=== PATIENT | male | born 1935 | race Caucasian/White ===

== ENCOUNTER 2017-02-12 19:21 | Inpatient (IN) | payer OTHER ==
[2017-02-12 19:37] VITALS: BMI 24.3
--- NOTE | 2017-02-12 20:00 | PDOC ---
History of Present Illness <PriscilaSylwiaZo - Last Filed: 02/12/17 22:00> - General History Source: Patient Exam Limitations: No Limitations - History of Present Illness Initial Comments: 02/12/17 20:03 81-year-old male from home, with multiple medical problems, presents with 2 days of generalized weakness. Patient states he is so weak, he is unable to walk. Complains of nausea, however denies vomiting, diarrhea, Denies FUD. Denies fever. Denies cp or sob. Pt states he back pain has become so bad that he can't walk. <Lalito Márquez - Last Filed: 02/13/17 19:13> - General Chief Complaint: Lightheaded Stated Complaint: PAIN Time Seen by Provider: 02/12/17 19:55 Past History <PriscilaTonyZo - Last Filed: 02/12/17 22:00> - Past Medical History Anemia: No Cardiac Disorders: Yes (cardiac cath at [facility] 2011, AF) CVA: No Dementia: No Diabetes: Yes (diabetic neuropathy) GI Disorders: No Disorders: Yes (bph, but hx orthostatic hypotension on meds; resolved) HTN: Yes Hypercholesterolemia: Yes Kidney Stones: (enlarged prostate) Liver Disease: No Seizures: No - Surgical History Abdominal Surgery: No Appendectomy: No Cholecystectomy: No Lung Surgery: No Neurologic Surgery: No - Psycho/Social/Smoking Cessation Hx Anxiety: No Suicidal Ideation: No Smoking Status: No Smoking History: Former smoker Have you smoked in the past 12 months: No Number of Cigarettes Smoked Daily: 0 If you are a former smoker, when did you quit?: 1990 Information on smoking cessation initiated: No Hx Alcohol Use: No Drug/Substance Use Hx: No Substance Use Type: Alcohol Hx Substance Use Treatment: No <Lalito Márquez - Last Filed: 02/13/17 19:13> - Past Medical History Allergies/Adverse Reactions: Allergies Allergy/AdvReac Type Severity Reaction Status Date / Time No Known Allergies Allergy Verified 02/12/17 19:31 Home Medications: Ambulatory Orders Aspirin [ASA -] 81 mg PO DAILY 07/21/12 Enalapril Maleate [Vasotec -] 5 mg PO BID 07/21/12 Glimepiride 1 mg PO BID 07/21/12 Metformin HCl [Glucophage] 1,000 mg PO BID 07/21/12 Simvastatin [Zocor -] 40 mg PO HS 07/21/12 Warfarin Na [Coumadin -] 5 mg PO DAILY@1800 #0 tablet 07/28/12 Furosemide [Lasix -] 20 mg PO DAILY 12/05/15 Meclizine HCl 25 mg PO DAILY 06/05/16 Metoprolol Succinate [Toprol Xl -] 25 mg PO BID 06/05/16 Review of Systems - Review of Systems Able to Perform ROS?: Yes Is the patient limited Turkmen proficient: No Constitutional: Yes: Symptoms Reported, See HPI, Loss of Appetite. No: Chills, Diaphoresis, Fever, Malaise, Night Sweats, Weight Stable, Unexplained wgt Loss HEENTM: Yes: Symptoms Reported, See HPI. No: Eye Pain, Blurred Vision, Tearing , Recent change in vision, Ocular Prothesis, Ear Discharge, Nose Pain, Nose Congestion, Tinnitus Respiratory: Yes: Symptoms reported, See HPI. No: Cough, Orthopnea, Shortness of Breath, SOB with Exertion, SOB at Rest, Productive cough Cardiac (ROS): Yes: Symptoms Reported, See HPI. No: Chest Pain, Edema, Irregular Heart Rate, Other ABD/GI: Yes: Symptoms Reported, See HPI, Nausea, Poor Appetite, Vomiting. No: Abdominal Distended, Abd. Pain w/ defecation, Blood Streaked Bowels, Diarrhea, Poor Fluid Intake, Indigestion, Tarry Stools, Other : Yes: Symptoms Reported, See HPI. No: Burning, Dysuria, Discharge, Frequency , Flank Pain, Hematuria, Urgency Musculoskeletal: Yes: Symptoms Reported, See HPI. No: Back Pain, Gout, Joint Pain, Joint Swelling, Muscle Pain, Neck Pain Integumentary: Yes: Symptoms Reported, See HPI. No: Bruising, Change in Color, Change in Hair/Nails, Dryness, Flushing, Lesions, Lumps Neurological: Yes: Symptoms reported, See HPI, Weakness, Unsteady Gait. No: Headache, Numbness, Pre-Existing Deficit, Seizure, Ataxia, Dizziness Psychiatric: No: Anxiety, Depression, Frequent Crying, Stressors, Sleep Pattern Change Endocrine: Yes: Symptoms Reported, See HPI. No: Excessive Sweating, Flushing, Intolerance to Cold, Intolerance to Heat, Increased Hunger Hematologic/Lymphatic: Yes: Symptoms Reported, See HPI. No: Anemia, Blood Clots , Easy Bleeding, Lymph Node Abnormalities <Lalito Márquez - Last Filed: 02/13/17 19:13> *Physical Exam - Vital Signs Last Vital Signs Temp Pulse Resp BP Pulse Ox 98.3 F 76 20 160/141 100 02/12/17 19:31 02/12/17 19:31 02/12/17 19:31 02/12/17 19:31 02/12/17 20:25 <Zo Francois - Last Filed: 02/12/17 22:00> - Vital Signs Last Vital Signs Temp Pulse Resp BP Pulse Ox 98.3 F 76 20 160/141 100 02/12/17 19:31 02/12/17 19:31 02/12/17 19:31 02/12/17 19:31 02/12/17 19:31 - Physical Exam Comments: 02/12/17 20:12 *Physical Exam General Appearance: Yes: Appropriately Dressed. mild distress No: , Intoxicated HEENT: positive: EOMI, KEVIN, Normal ENT Inspection, Normal Voice, TMs Normal, Pharynx Normal. oral mucosa dry, negative: Pale Conjunctivae, Photophobia, Scleral Icterus (R), Scleral Icterus (L) Neck: positive: Trachea midline, Normal Thyroid, Supple. negative: Tender, Rigid, Carotid bruit, Stridor, Lymphadenopathy (R), Lymphadenopathy (L), Thyromegaly Respiratory/Chest: positive: Lungs Clear, Normal Breath Sounds. negative: Chest Tender, Respiratory Distress, Accessory Muscle Use, Labored Respiration, RES, Crackles, Rales, Rhonchi, Stridor, Wheezing, Dullness Cardiovascular: positive: Regular Rhythm, Regular Rate, S1, S2. negative: Edema , JVD, Murmur, Bradycardia, Tachycardia Vascular Pulses: Dorsalis-Pedis (R): 2+, Doralis-Pedis (L): 2+ Gastrointestinal/Abdominal: positive: decreased Bowel Sounds, distended firm, possible ventral hernial defect. negative: Tender, Organomegaly, Pulsatile Mass , Increased Bowel Sounds, Guarding, Rebound, Hepatomegaly, Spleenomegaly Lymphatic: negative: Adenopathy, Tenderness Musculoskeletal: positive: Normal Inspection. negative: CVA Tenderness, Decreased Range of Motion Extremity: positive: Normal Capillary Refill, Normal Inspection, Normal Range of Motion, Pelvis Stable. negative: Tender, Pedal Edema, Swelling, Erythema Integumentary: positive: Normal Color, Dry, Warm. negative: Cyanotic, Erythema , Jaundice, Rash Neurologic: positive: desktop publishing operator II-XII NML intact, Fully Oriented, Alert, Normal Mood/ Affect, Motor Strength 5/5. negative: EOM Palsy, Facial Droop, Sensory Deficit <Lalito Márquez - Last Filed: 02/13/17 19:13> Heart Score/ECG Review - ECG Impressions Comment:: 02/12/17 22:00 Sinus rhythm with marked sinus arrhythmia @79bpm L axis deviation Pulmonary disease pattern Incomplete RBBB ST and T wave abnormality, consider anterolateral ischemia Abnormal ECG <Zo Francois - Last Filed: 02/12/17 22:00> ED Treatment Course - LABORATORY CBC & Chemistry Diagram: 02/12/17 20:08 02/12/17 20:08 - ADDITIONAL ORDERS Additional order review: Laboratory Results 02/12/17 02/12/17 02/12/17 20:50 20:40 20:08 INR 19.43 H* Total Amylase Stool Occult Blood Positive Crossmatch See Detail 02/12/17 20:08 INR Total Amylase 31 Stool Occult Blood Crossmatch 02/12/17 20:08 RBC 3.01 L D MCV 68.0 L MCHC 29.9 L RDW 17.3 H D MPV 7.6 D Neutrophils % 86.8 H D Lymphocytes % 7.1 L D Monocytes % 5.9 Eosinophils % 0.0 D Basophils % 0.2 - Medications Given in the ED: ED Medications Discontinued Medications Generic Name Dose Route Start Last Admin Trade Name Freq PRN Reason Stop Dose Admin Sodium Chloride 1,000 mls @ 1,000 mls/hr 02/12/17 20:02 02/12/17 20:13 Normal Saline - IV 02/12/17 21:01 1,000 mls/hr ASDIR STA Administration Ondansetron HCl 4 mg 02/12/17 20:02 02/12/17 20:13 Zofran Injection IVPUSH 02/12/17 20:03 4 mg ONCE STA Administration <Zo Francois - Last Filed: 02/12/17 22:00> - LABORATORY CBC & Chemistry Diagram: 02/13/17 10:55 02/13/17 11:05 <Lalito Márquez - Last Filed: 02/13/17 19:13> Medical Decision Making - Medical Decision Making 02/12/17 21:[address] Tarik Sahrp (via answering service) at 21:04 Awaiting call back 02/12/17 21:15 Patient's case discussed with Dr. Tarik Sharp at 21:15 <Zo Francois - Last Filed: 02/12/17 22:00> - Medical Decision Making 02/13/17 19:13 Dr. Márquez: The scribe's documentation has been prepared under my direction and personally reviewed by me in its entirery. I confirm that the note above accurately reflects all work, treatment, procedures, and medical decision making performed by me. <Lalito Márquez - Last Filed: 02/13/17 19:13> *DC/Admit/Observation/Transfer <Zo Francois - Last Filed: 02/12/17 22:00> - Discharge Dispostion Admit: Yes <Lalito Márquez - Last Filed: 02/13/17 19:13> Diagnosis at time of Disposition: Anemia, Generalized weakness - Referrals
[2017-02-12] MEDS ORDERED: SODIUM CHLORIDE 1,000 ML IV STA (20:02)
[2017-02-12] MEDS ORDERED: ONDANSETRON 4 MG/2 ML VIAL IVPUSH STA (20:02)
[2017-02-12] MEDS ORDERED: ONDANSETRON 4 MG/2 ML VIAL ONE (20:08)
[2017-02-12 20:11] LABS: BASOPHIL 0.2 % (0-2.0); MCH 20.3 pg (25.7-33.7); MCHC 29.9 g/dl (32.0-35.9); MEAN PLT VOLUME 7.6 fl (7.5-11.1); NEUTROPHILS 86.8 % (42.8-82.8); PLATELET COUNT 327 K/MM3 (134-434); RDW 17.3 % (11.9-15.9); WHITE BLOOD COUNT 17.7 K/mm3 (4.0-10.0)
[2017-02-12 20:58] LABS: PROTHROMBIN TIME (PATIENT) 227.1 SEC (9.98-11.88)
[2017-02-12 21:01] LABS: ALBUMIN 1.8 g/dl (3.4-5.0); CALCIUM 8.5 mg/dL (8.5-10.1); COCKROFT - GAULT 26.13; CREATININE 2.5 mg/dL (0.7-1.3); INR 19.43 (0.82-1.09); MAGNESIUM 1.7 mg/dL (1.8-2.4)
[2017-02-12 21:06] LABS: TOT PROT 7.1 g/dl (6.4-8.2); TROPONIN I 0.02 ng/ml (0.00-0.05)
[2017-02-12] MEDS ORDERED: DEXTROSE 50%-WATER 50 ML DISP.SYRIN ONE (21:10)
[2017-02-12] MEDS ORDERED: PHYTONADIONE 10 MG/1 ML AMP IVPB ONE (21:14)
[2017-02-12] MEDS ORDERED: DEXTROSE 5%-0.45% SALINE 1,000 ML IV SCH (21:15)
[2017-02-12] MEDS ORDERED: PHYTONADIONE 10 MG/1 ML AMP ONE (21:26)
[2017-02-12 21:56] LABS: PLATELET ESTIMATE ADEQUATE (NORMAL); POLYCHROMASIA 1+
[2017-02-12 21:57] LABS: HYPOCHROMIA 3+; MICROCYTOSIS 1+
[2017-02-12] MEDS ORDERED: PIPERACILLIN/TAZOB 3.375 GM/50 ML PRE-DOCKED IVPB ONE (23:01)
[2017-02-12] MEDS ORDERED: VANCOMYCIN 1 GRAM (PRE-DOCKED) 250 ML IVPB ONE (23:02)
[2017-02-13] MEDS: METOPROLOL SUCCINATE 25 MG TAB.SR.24H (FP) PO SCH ×3 (00:06→21:03)
[2017-02-13 04:22] LABS: TROPONIN I 0.02 ng/ml (0.00-0.05)
[2017-02-13 09:02] LABS: URINE APPEARANCE CLEAR; URINE BILIRUBIN NEGATIVE (NEGATIVE); URINE BLOOD NEGATIVE (NEGATIVE); URINE COLOR DKYELLOW; URINE GLUCOSE (UA) NEGATIVE (NEGATIVE); URINE KETONE NEGATIVE (NEGATIVE); URINE LEUK ESTERASE NEGATIVE (NEGATIVE); URINE NITRITE NEGATIVE (NEGATIVE); URINE PROTEIN NEGATIVE (NEGATIVE); URINE UROBILINOGEN 2.0 E.U/dl E.U./dl (0.2-1.0)
[2017-02-13] MEDS: INSULIN SLIDING SCALE (NOVOLOG) 1 VIAL SQ SCH ×3 (09:50→17:45)
--- NOTE | 2017-02-13 10:10 | HP ---
Admitting History and Physical - Primary Care Physician PCP: Tarik Sharp - Admission Chief Complaint: Weakness. Dizziness History of Present Illness: Pt came to ER c/o weakness, dizziness for few days. Pt also with black stool for several days( when asked); he is not checking his INR (recalls many different reasons, mainly severe back pain). In ER hes was found to have low Glc and H/H and temperature, high INR and WBC (not obvious source). History Source: Patient - Past Medical History Cardiovascular: Yes: AFIB (on Coumadin), CAD, HTN, Hyperlipdemia Renal/: Yes: BPH Endocrine: Yes: Diabetes Mellitus - Smoking History Smoking history: Former smoker Have you smoked in the past 12 months: No Aproximately how many cigarettes per day: 0 If you are a former smoker, when did you quit?: 1990 - Alcohol/Substance Use Hx Alcohol Use: Yes (2-4 BEERS DAILY) Home Medications - Allergies Allergies/Adverse Reactions: Allergies Allergy/AdvReac Type Severity Reaction Status Date / Time No Known Allergies Allergy Verified 02/12/17 19:31 - Home Medications Home Medications: Ambulatory Orders Aspirin [ASA -] 81 mg PO DAILY 07/21/12 Enalapril Maleate [Vasotec -] 5 mg PO BID 07/21/12 Glimepiride 1 mg PO BID 07/21/12 Metformin HCl [Glucophage] 1,000 mg PO BID 07/21/12 Simvastatin [Zocor -] 40 mg PO HS 07/21/12 Warfarin Na [Coumadin -] 5 mg PO DAILY@1800 #0 tablet 07/28/12 Furosemide [Lasix -] 20 mg PO DAILY 12/05/15 Meclizine HCl 25 mg PO DAILY 06/05/16 Metoprolol Succinate [Toprol Xl -] 25 mg PO BID 06/05/16 Review of Systems - Review of Systems Constitutional: denies: Chills, Fever Eyes: denies: Blind Spots, Double Vision HENT: reports: Other (nose bleed). denies: Difficult Swallowing, Ear Discharge , Ear Pain, Epistaxis Cardiovascular: denies: Chest Pain, Edema, Palpitations, Shortness of Breath Respiratory: denies: Cough, Hemoptysis, SOB, Wheezing Gastrointestinal: reports: Bloating. denies: Abdominal Pain, Constipation, Diarrhea, Nausea, Rectal Bleeding, Vomiting Genitourinary: denies: Burning, Discharge, Dysuria, Flank Pain Integumentary: denies: Eczema, Rash Neurological: reports: Weakness. denies: Change in LOC, Change in Speech, Confusion, Numbness, Tremors, Unsteady Gait Endocrine: denies: Excessive Sweating, Intolerance to Cold Hematology/Lymphatic: denies: Easily Bruised, Excessive Bleeding Psychiatric: denies: Anxiety, Depression Physical Examination Vital Signs: Vital Signs Temperature 98.9 F 02/13/17 07:00 Pulse Rate 79 02/13/17 07:00 Respiratory Rate 20 02/13/17 07:00 Blood Pressure 117/64 02/13/17 07:00 O2 Sat by Pulse Oximetry (%) 98 02/12/17 23:00 Constitutional: Yes: No Distress, Calm Eyes: Yes: Conjunctiva Clear, EOM Intact, PERRL HENT: Yes: Normocephalic. No: Epistaxis, Pharyngeal Erythema, Rhinnorhea Neck: Yes: Trachea Midline. No: Lymphadenopathy Cardiovascular: Yes: Regular Rate and Rhythm, S1, S2 Respiratory: Yes: Regular, CTA Bilaterally. No: Rales Gastrointestinal: Yes: Normal Bowel Sounds, Soft, Distention ...Rectal Exam: Yes: Deferred Renal/: No: Bladder Distention, CVA Tenderness - Left, CVA Tenderness - Right Extremities: No: Cool, Cyanosis Edema: No Integumentary: Yes: Bruising. No: Rash, Skin Tear Neurological: Yes: Alert, Oriented, Other (motor and sensory symmetric in UE and LE and face) Labs: CBC, BMP 02/13/17 03:00 reviewed Imaging - Results Chest X-ray: Report Reviewed Problem List - Problems (1) Probable sepsis Code(s): A41.9 - SEPSIS, UNSPECIFIED ORGANISM (2) Anemia Code(s): D64.9 - ANEMIA, UNSPECIFIED (3) Hypoglycemia Code(s): E16.2 - HYPOGLYCEMIA, UNSPECIFIED (4) Acute renal failure Code(s): N17.9 - ACUTE KIDNEY FAILURE, UNSPECIFIED (5) Supratherapeutic INR Code(s): R79.1 - ABNORMAL COAGULATION PROFILE (6) A-fib Code(s): I48.91 - UNSPECIFIED ATRIAL FIBRILLATION (7) Diabetes mellitus Code(s): E11.9 - TYPE 2 DIABETES MELLITUS WITHOUT COMPLICATIONS (8) CAD (coronary artery disease) Code(s): I25.10 - ATHSCL HEART DISEASE OF [place] CORONARY ARTERY W/O ANG PCTRS (9) Hypomagnesemia Code(s): E83.42 - HYPOMAGNESEMIA (10) Back pain Code(s): M54.9 - DORSALGIA, UNSPECIFIED Assessment/Plan Admit to Telemetry Pt. received vit K (10 mg), 2 unit of PRBC (still running), D5 1/2 NS( at 100 ml /hr), Zosyn, Vanco. To replete Mg; send for abd. and kidney US Cardio, ID, Renal, Heme, GI, Neuro consults. Case was d/w Dr. De Los Santos and Shalom. To f/u CE To f/u AM labs. To f/u CX Prognosis: reserved. Time spent for managing pt.'s care: over 75 min
[2017-02-13] MEDS ORDERED: MAGNESIUM SULF 50% (8.12 MEQ/2 ML-1 GM VIAL) IVPB ONE (10:30)
--- NOTE | 2017-02-13 10:31 | EKG ---
Test Reason : Blood Pressure : / mmHG Vent. Rate : 079 BPM Atrial Rate : 079 BPM P-R Int : 158 ms QRS Dur : 094 ms QT Int : 450 ms P-R-T Axes : 093 -44 203 degrees QTc Int : 516 ms SINUS RHYTHM WITH MARKED SINUS ARRHYTHMIA LEFT AXIS DEVIATION PULMONARY DISEASE PATTERN INCOMPLETE RIGHT BUNDLE BRANCH BLOCK ABNORMAL ECG WHEN COMPARED WITH ECG OF 05-JUN-2016 17:01, VENT. RATE HAS INCREASED BY 27 BPM T WAVE INVERSION NOW EVIDENT IN ANTEROLATERAL LEADS QT HAS LENGTHENED Confirmed by KAI HERNDON MD ([id number]) on 02/13/2017 10:31:06 AM Referred By: Confirmed By:KAI HERNDON MD
--- NOTE | 2017-02-13 11:12 | CONSULT ---
Consult - text type - Consultation Consultation Note: Renal Consult for EMERALD This is a 81 year old Gentleman with PMhx of CAD, Afib on Coumadin, Hypertension , BPH, DM who presented with weakness, lethargy and found to have acute on chronic anemia with Hgb of 6.1 in setting of supratheraputic INR and EMERALD with BUN/Cr of 43/2.5. Pt states that he has been feeling unwell for several weeks and it has been getting progressively worse. Has been unable to stand. Reports seeing dark stool for the past 4 days. No N/V. No SOB or chest pain. has lower back pain that is chronic. Uses NSAIDs daily. No change in urine output or dark urine. No flank pain. No hx of CKd or stones. No fevers,chills. PMhx: as above AllergieS: NKDA Family Hx: NC Social hx: No T/A/D ROS: as per HPI, all other pertinent ros negative Home Meds: Home Medications Medication Instructions Recorded Aspirin [ASA -] 81 mg PO DAILY 07/21/12 Enalapril Maleate [Vasotec -] 5 mg PO BID 07/21/12 Glimepiride 1 mg PO BID 07/21/12 Metformin HCl [Glucophage] 1,000 mg PO BID 07/21/12 Simvastatin [Zocor -] 40 mg PO HS 07/21/12 Warfarin Na [Coumadin -] 5 mg PO DAILY@1800 #0 tablet 07/28/12 Furosemide [Lasix -] 20 mg PO DAILY 12/05/15 Meclizine HCl 25 mg PO DAILY 06/05/16 Metoprolol Succinate [Toprol Xl -] 25 mg PO BID 06/05/16 Vital Signs Temperature 98.9 F 02/13/17 07:00 Pulse Rate 83 02/13/17 11:12 Respiratory Rate 20 02/13/17 07:00 Blood Pressure 117/64 02/13/17 07:00 O2 Sat by Pulse Oximetry (%) 99 02/13/17 11:12 Intake & Output 02/10/17 02/11/17 02/12/17 02/13/17 23:59 23:59 23:59 23:59 Intake Total 240 1040 Output Total 300 Balance 240 740 Weight 170 lb Gen: NAD, awake and alert. Frail HEENT: NC/AT, Dry MM, No JVD CVS: irregular, no M/R Lungs: CTA, no rales or wheeze Abd: soft NT/ND Ext: Trace pretibial edema, no cyanosis or clubbing Neuro: AAOx3, no focal defects CBC, BMP 02/13/17 03:00 Laboratory Tests 02/12/17 02/12/17 02/12/17 20:08 20:08 20:50 MCV 68.0 L Sodium 145 Potassium 5.1 Chloride 113 H Carbon Dioxide 13 L D Anion Gap 19 H BUN 43 H D Creatinine 2.5 H D Creat Clearance w eGFR 25.04 Random Glucose 33 L* D Magnesium 1.7 L Creatine Kinase Troponin I Albumin 1.8 L D Urine Protein Urine Blood Stool Occult Blood Positive 02/13/17 02/13/17 02:30 06:00 MCV Sodium Potassium Chloride Carbon Dioxide Anion Gap BUN Creatinine Creat Clearance w eGFR Random Glucose Magnesium Creatine Kinase 37 L Troponin I 0.02 Albumin Urine Protein Negative Urine Blood Negative Stool Occult Blood Current Medications Atorvastatin Calcium (Lipitor -) 20 mg PO HS [facility] [place] Dextrose/Sodium Chloride (D5-1/2ns -) 1,000 mls @ 100 mls/hr IV ASDIR [facility] Last Admin: 02/12/17 21:24 Dose: 100 mls/hr Insulin Aspart (Novolog Vial Sliding Scale -) 1 vial SQ ACHS [facility] PRN Reason: Protocol Last Admin: 02/13/17 09:50 Dose: Not Given Metoprolol Succinate (Toprol Xl -) 25 mg PO BID [facility] Last Admin: 02/13/17 00:06 Dose: 25 mg A/P 81 year old Gentleman with PMhx of CAD, Afib on Coumadin, Hypertension, BPH, DM who presented with weakness, lethargy and found to have acute on chronic anemia with Hgb of 6.1 in setting of supratheraputic INR and EMERALD with BUN/Cr of 43/2.5. #Acute Renal Failure Etiology likely volume depletion in setting of anemia vs. ATN (NSAID use) Check Urine studies and Renal US agree with IVF for now, if no significant improvement in renal function on repeat labs would switch to isotonic saline No acute indication for [employer] avoid ADALID/ARB/NSAIDs Trend BUN/Cr and urine output #Anion Gap Metabolic acidosis Likey due to renal failure vs. Lactic acidosis Check LA level this am Trend serum bicarb if not improving get ABG #Acute Anemia in setting of supratheraputic INR s/p PRBC transfusion GI following s/p Vit K #Leukocytosis/Hypothermia r/o Sepsis/SIRS f/u cultures empiric Abx as per primary #Hypomagneseaia Mag sulfate 1g IV x 1 Trend daily #Hypoalbuminemia oral intake when ok with GI #Hypoglycemia on D5 12NS Trend FS Thank you for this referral Will follow Dwayne Rausch DO
[2017-02-13 11:22] LABS: MCHC 31.8 g/dl (32.0-35.9); MEAN CELL VOLUME 69.4 fl (80-96); MEAN PLT VOLUME 7.8 fl (7.5-11.1); PLATELET COUNT 236 K/MM3 (134-434); RDW 18.8 % (11.9-15.9); WHITE BLOOD COUNT 17.1 K/mm3 (4.0-10.0)
[2017-02-13 11:28] LABS: INR 3.31 (0.82-1.09); PROTHROMBIN TIME (PATIENT) 37.3 SEC (9.98-11.88)
--- NOTE | 2017-02-13 11:48 | CONSULT ---
Consult - text type - Consultation Consultation Note: Neurology History of Present Illness 81-year-old male from home, with multiple medical problems, presents with 2 days of generalized weakness. Spoke to Dr. Sharp and the patient has several ongoing issues inlcuding dizzyness, weakness, elevated INR to 10, decreased hemoglobin to 6.1, acute renal failure, leukocyotis, and ongoing low back pain. 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 Discussed with him having CT of head and L spine for his dizzyness and back and patient was in agreement. Past History - Past Medical History Anemia: No Cardiac Disorders: Yes (cardiac cath at [facility] 2011, AF) CVA: No Dementia: No Diabetes: Yes (diabetic neuropathy) GI Disorders: No Disorders: Yes (bph, but hx orthostatic hypotension on meds; resolved) HTN: Yes Hypercholesterolemia: Yes Kidney Stones: (enlarged prostate) Liver Disease: No Seizures: No - Surgical History Abdominal Surgery: No Appendectomy: No Cholecystectomy: No Lung Surgery: No Neurologic Surgery: No - Psycho/Social/Smoking Cessation Hx Anxiety: No Suicidal Ideation: No Smoking Status: No Smoking History: Former smoker Have you smoked in the past 12 months: No Number of Cigarettes Smoked Daily: 0 If you are a former smoker, when did you quit?: 1990 Information on smoking cessation initiated: No Hx Alcohol Use: No Drug/Substance Use Hx: No Substance Use Type: Alcohol Hx Substance Use Treatment: No - Past Medical History Allergies/Adverse Reactions: Allergies Allergy/AdvReac Type Severity Reaction Status Date / Time No Known Allergies Allergy Verified 02/12/17 19:31 Home Medications: Ambulatory Orders Aspirin [ASA -] 81 mg PO DAILY 07/21/12 Enalapril Maleate [Vasotec -] 5 mg PO BID 07/21/12 Glimepiride 1 mg PO BID 07/21/12 Metformin HCl [Glucophage] 1,000 mg PO BID 07/21/12 Simvastatin [Zocor -] 40 mg PO HS 07/21/12 Warfarin Na [Coumadin -] 5 mg PO DAILY@1800 #0 tablet 07/28/12 Furosemide [Lasix -] 20 mg PO DAILY 12/05/15 Meclizine HCl 25 mg PO DAILY 06/05/16 Metoprolol Succinate [Toprol Xl -] 25 mg PO BID 06/05/16 Active Medications Atorvastatin Calcium (Lipitor -) 20 mg PO HS [facility] Dextrose/Sodium Chloride (D5-1/2ns -) 1,000 mls @ 100 mls/hr IV ASDIR [facility] Last Admin: 02/12/17 21:24 Dose: 100 mls/hr Insulin Aspart (Novolog Vial Sliding Scale -) 1 vial SQ ACHS [facility] PRN Reason: Protocol Last Admin: 02/13/17 11:24 Dose: Not Given Metoprolol Succinate (Toprol Xl -) 25 mg PO BID [facility] Last Admin: 02/13/17 11:24 Dose: 25 mg Review of Systems Able to Perform ROS?: Yes Is the patient limited [place] proficient: No Constitutional: Yes: Symptoms Reported, See HPI, Loss of Appetite. No: Chills, Diaphoresis, Fever, Malaise, Night Sweats, Weight Stable, Unexplained wgt Loss HEENTM: Yes: Symptoms Reported, See HPI. No: Eye Pain, Blurred Vision, Tearing , Recent change in vision, Ocular Prothesis, Ear Discharge, Nose Pain, Nose Congestion, Tinnitus Respiratory: Yes: Symptoms reported, See HPI. No: Cough, Orthopnea, Shortness of Breath, SOB with Exertion, SOB at Rest, Productive cough Cardiac (ROS): Yes: Symptoms Reported, See HPI. No: Chest Pain, Edema, Irregular Heart Rate, Other ABD/GI: Yes: Symptoms Reported, See HPI, Nausea, Poor Appetite, Vomiting. No: Abdominal Distended, Abd. Pain w/ defecation, Blood Streaked Bowels, Diarrhea, Poor Fluid Intake, Indigestion, Tarry Stools, Other : Yes: Symptoms Reported, See HPI. No: Burning, Dysuria, Discharge, Frequency , Flank Pain, Hematuria, Urgency Musculoskeletal: Yes: Symptoms Reported, See HPI. No: Back Pain, Gout, Joint Pain, Joint Swelling, Muscle Pain, Neck Pain Integumentary: Yes: Symptoms Reported, See HPI. No: Bruising, Change in Color, Change in Hair/Nails, Dryness, Flushing, Lesions, Lumps Neurological: Yes: Symptoms reported, See HPI, Weakness, Unsteady Gait. No: Headache, Numbness, Pre-Existing Deficit, Seizure, Ataxia, Dizziness Psychiatric: No: Anxiety, Depression, Frequent Crying, Stressors, Sleep Pattern Change Endocrine: Yes: Symptoms Reported, See HPI. No: Excessive Sweating, Flushing, Intolerance to Cold, Intolerance to Heat, Increased Hunger Hematologic/Lymphatic: Yes: Symptoms Reported, See HPI. No: Anemia, Blood Clots , Easy Bleeding, Lymph Node Abnormalities *Physical Exam Vital Signs Temperature 98.9 F 02/13/17 07:00 Pulse Rate 83 02/13/17 11:12 Respiratory Rate 20 02/13/17 07:00 Blood Pressure 117/64 02/13/17 07:00 O2 Sat by Pulse Oximetry (%) 99 02/13/17 11:12 General Appearance: Yes: Appropriately Dressed. mild distress No: , Intoxicated HEENT: positive: EOMI, KEVIN, Normal ENT Inspection, Normal Voice, TMs Normal, Pharynx Normal. oral mucosa dry, negative: Pale Conjunctivae, Photophobia, Scleral Icterus (R), Scleral Icterus (L) Neck: positive: Trachea midline, Normal Thyroid, Supple. negative: Tender, Rigid, Carotid bruit, Stridor, Lymphadenopathy (R), Lymphadenopathy (L), Thyromegaly Respiratory/Chest: positive: Lungs Clear, Normal Breath Sounds. negative: Chest Tender, Respiratory Distress, Accessory Muscle Use, Labored Respiration, RES, Crackles, Rales, Rhonchi, Stridor, Wheezing, Dullness Cardiovascular: positive: Regular Rhythm, Regular Rate, S1, S2. negative: Edema , JVD, Murmur, Bradycardia, Tachycardia Vascular Pulses: Dorsalis-Pedis (R): 2+, Doralis-Pedis (L): 2+ Gastrointestinal/Abdominal: positive: decreased Bowel Sounds, distended firm, possible ventral hernial defect. negative: Tender, Organomegaly, Pulsatile Mass , Increased Bowel Sounds, Guarding, Rebound, Hepatomegaly, Spleenomegaly Lymphatic: negative: Adenopathy, Tenderness Musculoskeletal: positive: Normal Inspection. negative: CVA Tenderness, Decreased Range of Motion Extremity: positive: Normal Capillary Refill, Normal Inspection, Normal Range of Motion, Pelvis Stable. negative: Tender, Pedal Edema, Swelling, Erythema Integumentary: positive: Normal Color, Dry, Warm. negative: Cyanotic, Erythema , Jaundice, Rash Neurologic: positive: missing persons investigator II-XII NML intact, Fully Oriented, Alert, Normal Mood/ Affect, Motor Strength 5/5. negative: EOM Palsy, Facial Droop, Sensory Deficit CBCD WBC 17.1 K/mm3 (4.0-10.0) H 02/13/17 10:55 RBC 2.66 M/mm3 (4.00-5.60) L 02/13/17 10:55 Hgb 5.9 GM/dL (11.7-16.9) L* 02/13/17 10:55 Hct 18.4 % (35.4-49) L 02/13/17 10:55 MCV 69.4 fl (80-96) L 02/13/17 10:55 MCHC 31.8 g/dl (32.0-35.9) L 02/13/17 10:55 RDW 18.8 % (11.9-15.9) H 02/13/17 10:55 Plt Count 236 K/MM3 (134-434) D 02/13/17 10:55 MPV 7.8 fl (7.5-11.1) 02/13/17 10:55 CMP Sodium 145 mmol/L (136-145) 02/12/17 20:08 Potassium 5.1 mmol/L (3.5-5.1) 02/12/17 20:08 Chloride 113 mmol/L (98-107) H 02/12/17 20:08 Carbon Dioxide 13 mmol/L (21-32) L D 02/12/17 20:08 Anion Gap 19 (8-16) H 02/12/17 20:08 BUN 43 mg/dL (7-18) H D 02/12/17 20:08 Creatinine 2.5 mg/dL (0.7-1.3) H D 02/12/17 20:08 Creat Clearance w eGFR 25.04 (>60) 02/12/17 20:08 Calcium 8.5 mg/dL (8.5-10.1) 02/12/17 20:08 Total Bilirubin 1.0 mg/dL (0.2-1.0) 02/12/17 20:08 AST 38 U/L (15-37) H D 02/12/17 20:08 ALT 22 U/L (12-78) D 02/12/17 20:08 Alkaline Phosphatase 272 U/L (45-117) H D 02/12/17 20:08 Total Protein 7.1 g/dl (6.4-8.2) 02/12/17 20:08 Albumin 1.8 g/dl (3.4-5.0) L D 02/12/17 20:08 Plan: 81-year-old male from home, with multiple medical problems, presents with 2 days of generalized weakness. Spoke to Dr. Sharp and the patient has several ongoing issues inlcuding dizzyness, weakness, elevated INR to 10, decreased hemoglobin to 6.1, acute renal failure, leukocyotis, and ongoing low back pain. 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 Discussed with him having CT of head and L spine for his dizzyness and back and patient was in agreement. Will complete this and consider further imaging thereafter. Recommend continued medical optmization of multiple underlying conditions. May benefit from physical therapy, will order. If pain persists, may benefit from pain mgmt consult. Consider Tylenol as needed for now as patient with ongoing renal failure and would want to avoid Ibuprofen, etc.
[2017-02-13 11:57] LABS: ALBUMIN 1.6 g/dl (3.4-5.0); CALCIUM 8.1 mg/dL (8.5-10.1); COCKROFT - GAULT 27.22; CREATININE 2.4 mg/dL (0.7-1.3)
[2017-02-13 12:01] LABS: BILIRUBIN,TOTAL 1.6 mg/dL (0.2-1.0); TOT PROT 6.1 g/dl (6.4-8.2); TROPONIN I 0.03 ng/ml (0.00-0.05)
--- NOTE | 2017-02-13 12:11 | CON.CARD ---
Consult Consult Specialty:: Cardiology Referred by:: Dr. Sharp Reason for Consultation:: Cardiac evaluation - History of Present Illness Chief Complaint: Acute GI bleed and supratherapeutic INR History of Present Illness: Patient is a 81 year old male well known to me with underlying history of paroxysmal atrial fibrillation on Coumadin therapy, hypertension, type 2 diabetes mellitus, hypercholesterolemia and CAD - non-obstructive now presents with supratherapeutic INR of 19, black stool for several days but did not seek medical attention and progressive weakness, H/H of 5.9/18.4, BUN/cr of 43/2.5 and WBC of 17.7. He was given Vitamin K earlier and currently is being transfused PRBC. He denies chest pain, shortness of breath or palpitations. He denies paroxysmal nocturnal dyspnea or orthopnea. He denies fever or chills. He denies headache or lightheadedness, but complains of generalized and progressive weakness. His abdomen appears distended, but does not complain of any pain. His temp was 96.9 initially and was given empiric broad spectrum antibiotic in the ER. He now has lactic acidosis. He appears to have taken NSAIDs for back pain. Cardiology consultation was called for further evaluation. - History Source History Provided By: Patient, Medical Record Limitations to Obtaining History: No Limitations - Past Medical History Cardio/Vascular: Yes: AFIB (on Coumadin), CAD, HTN, Hyperlipdemia Renal/: Yes: BPH Endocrine: Yes: Diabetes Mellitus - Alcohol/Substance Use Hx Alcohol Use: Yes (2-4 BEERS DAILY) History of Substance Use: reports: None - Smoking History Smoking history: Former smoker Have you smoked in the past 12 months: No Aproximately how many cigarettes per day: 0 If you are a former smoker, when did you quit?: 1990 Home Medications - Allergies Allergies/Adverse Reactions: Allergies Allergy/AdvReac Type Severity Reaction Status Date / Time No Known Allergies Allergy Verified 02/12/17 19:31 - Home Medications Home Medications: Ambulatory Orders Aspirin [ASA -] 81 mg PO DAILY 07/21/12 Enalapril Maleate [Vasotec -] 5 mg PO BID 07/21/12 Glimepiride 1 mg PO BID 07/21/12 Metformin HCl [Glucophage] 1,000 mg PO BID 07/21/12 Simvastatin [Zocor -] 40 mg PO HS 07/21/12 Warfarin Na [Coumadin -] 5 mg PO DAILY@1800 #0 tablet 07/28/12 Furosemide [Lasix -] 20 mg PO DAILY 12/05/15 Meclizine HCl 25 mg PO DAILY 06/05/16 Metoprolol Succinate [Toprol Xl -] 25 mg PO BID 06/05/16 Review of Systems - Review of Systems Constitutional: denies: Chills, Fever Cardiovascular: denies: Chest Pain, Palpitations, Shortness of Breath Respiratory: denies: Cough, Hemoptysis, Orthopnea, PND, SOB, SOB on Exertion, Wheezing Gastrointestinal: reports: Bloating, Melena, Rectal Bleeding. denies: Abdominal Pain, Diarrhea, Nausea, Vomiting, Vomiting Blood Genitourinary: denies: Dysuria Musculoskeletal: reports: Back Pain Neurological: reports: Weakness. denies: Dizziness, Headache, Seizure, Syncope Vital Signs: Vital Signs Temperature 98.9 F 02/13/17 07:00 Pulse Rate 83 02/13/17 11:12 Respiratory Rate 20 02/13/17 07:00 Blood Pressure 117/64 02/13/17 07:00 O2 Sat by Pulse Oximetry (%) 99 02/13/17 11:12 Neck: Yes: Supple Respiratory: Yes: Diminished Gastrointestinal: Yes: Normal Bowel Sounds, Distention Cardiovascular: Yes: Regular Rate and Rhythm. No: Gallop JVD: No Carotid Bruit: No PMI: Non-Displaced Heart Sounds: Yes: S1, S2 Edema: Yes Edema: LLE: 1+, RLE: 1+ - Other Data Labs, Other Data: CBC, BMP 02/13/17 10:55 INR, PTT INR 3.31 (0.82-1.09) H D 02/13/17 10:55 Troponin, BNP 02/13/17 02:30 Troponin I 0.02 Laboratory Results - last 24 hr 02/12/17 02/12/17 02/12/17 20:08 20:08 20:08 WBC 17.7 H D RBC 3.01 L D Hgb 6.1 L* D Hct 20.4 L D MCV 68.0 L MCHC 29.9 L RDW 17.3 H D Plt Count 327 D MPV 7.6 D Neutrophils % 86.8 H D Lymphocytes % 7.1 L D Monocytes % 5.9 Eosinophils % 0.0 D Basophils % 0.2 Platelet Estimate Adequate Polychromasia 1+ Hypochromic-Microcytic 3+ Microcytosis 1+ INR 19.43 H* Sodium Potassium Chloride Carbon Dioxide Anion Gap BUN Creatinine Creat Clearance w eGFR POC Glucometer Random Glucose Lactic Acid Calcium Magnesium Total Bilirubin AST ALT Alkaline Phosphatase Creatine Kinase Troponin I Total Protein Albumin Total Amylase 31 Lipase Urine Color Urine Appearance Urine pH Urine Protein Urine Glucose (UA) Urine Ketones Urine Blood Urine Nitrite Urine Bilirubin Urine Urobilinogen Ur Leukocyte Esterase Stool Occult Blood Blood Type Antibody Screen Crossmatch 02/12/17 02/12/17 02/12/17 20:08 20:40 20:50 WBC RBC Hgb Hct MCV MCHC RDW Plt Count MPV Neutrophils % Lymphocytes % Monocytes % Eosinophils % Basophils % Platelet Estimate Polychromasia Hypochromic-Microcytic Microcytosis INR Sodium 145 Potassium 5.1 Chloride 113 H Carbon Dioxide 13 L D Anion Gap 19 H BUN 43 H D Creatinine 2.5 H D Creat Clearance w eGFR 25.04 POC Glucometer Random Glucose 33 L* D Lactic Acid Calcium 8.5 Magnesium 1.7 L Total Bilirubin 1.0 AST 38 H D ALT 22 D Alkaline Phosphatase 272 H D Creatine Kinase 35 L Troponin I 0.02 D Total Protein 7.1 Albumin 1.8 L D Total Amylase Lipase 96 Urine Color Urine Appearance Urine pH Urine Protein Urine Glucose (UA) Urine Ketones Urine Blood Urine Nitrite Urine Bilirubin Urine Urobilinogen Ur Leukocyte Esterase Stool Occult Blood Positive Blood Type O POSITIVE Antibody Screen Negative Crossmatch See Detail 02/13/17 02/13/17 02/13/17 02:30 03:00 04:52 WBC RBC Hgb Hct MCV MCHC RDW Plt Count MPV Neutrophils % Lymphocytes % Monocytes % Eosinophils % Basophils % Platelet Estimate Polychromasia Hypochromic-Microcytic Microcytosis INR Sodium Potassium Chloride Carbon Dioxide Anion Gap BUN Creatinine Creat Clearance w eGFR POC Glucometer 97 Random Glucose 68 L D Lactic Acid Calcium Magnesium Total Bilirubin AST ALT Alkaline Phosphatase Creatine Kinase 37 L Troponin I 0.02 Total Protein Albumin Total Amylase Lipase Urine Color Urine Appearance Urine pH Urine Protein Urine Glucose (UA) Urine Ketones Urine Blood Urine Nitrite Urine Bilirubin Urine Urobilinogen Ur Leukocyte Esterase Stool Occult Blood Blood Type Antibody Screen Crossmatch 02/13/17 02/13/17 02/13/17 06:00 07:38 10:55 WBC 17.1 H RBC 2.66 L Hgb 5.9 L* Hct 18.4 L MCV 69.4 L MCHC 31.8 L RDW 18.8 H Plt Count 236 D MPV 7.8 Neutrophils % Lymphocytes % Monocytes % Eosinophils % Basophils % Platelet Estimate Polychromasia Hypochromic-Microcytic Microcytosis INR Sodium Potassium Chloride Carbon Dioxide Anion Gap BUN Creatinine Creat Clearance w eGFR POC Glucometer 66 Random Glucose Lactic Acid Calcium Magnesium Total Bilirubin AST ALT Alkaline Phosphatase Creatine Kinase Troponin I Total Protein Albumin Total Amylase Lipase Urine Color Dkyellow Urine Appearance Clear Urine pH 5.0 Urine Protein Negative Urine Glucose (UA) Negative Urine Ketones Negative Urine Blood Negative Urine Nitrite Negative Urine Bilirubin Negative Urine Urobilinogen 2.0 e.u/dl Ur Leukocyte Esterase Negative Stool Occult Blood Blood Type Antibody Screen Crossmatch 02/13/17 02/13/17 02/13/17 10:55 10:55 11:22 WBC RBC Hgb Hct MCV MCHC RDW Plt Count MPV Neutrophils % Lymphocytes % Monocytes % Eosinophils % Basophils % Platelet Estimate Polychromasia Hypochromic-Microcytic Microcytosis INR 3.31 H D Sodium Potassium Chloride Carbon Dioxide Anion Gap BUN Creatinine Creat Clearance w eGFR POC Glucometer 73 Random Glucose Lactic Acid 4.7 H* Calcium Magnesium Total Bilirubin AST ALT Alkaline Phosphatase Creatine Kinase Troponin I Total Protein Albumin Total Amylase Lipase Urine Color Urine Appearance Urine pH Urine Protein Urine Glucose (UA) Urine Ketones Urine Blood Urine Nitrite Urine Bilirubin Urine Urobilinogen Ur Leukocyte Esterase Stool Occult Blood Blood Type Antibody Screen Crossmatch Sinus rhythm with ST-T abnormality in anterior and lateral leads Imaging - Results Chest X-ray: Report Reviewed EKG: Report Reviewed Problem List - Problems (1) A-fib Code(s): I48.91 - UNSPECIFIED ATRIAL FIBRILLATION Qualifiers: Atrial fibrillation type: paroxysmal Qualified Code(s): I48.0 - Paroxysmal atrial fibrillation (2) Acute renal failure Code(s): N17.9 - ACUTE KIDNEY FAILURE, UNSPECIFIED (3) Back pain Code(s): M54.9 - DORSALGIA, UNSPECIFIED Qualifiers: Back pain location: low back pain Chronicity: chronic Back pain laterality: midline Sciatica presence: without sciatica Qualified Code(s): M54.5 - Low back pain; G89.29 - Other chronic pain (4) CAD (coronary artery disease) Code(s): I25.10 - ATHSCL HEART DISEASE OF [place] CORONARY ARTERY W/O ANG PCTRS Qualifiers: Coronary Disease-Associated Artery/Lesion type: [place] artery [place] vs. transplanted heart: [place] heart Associated angina: without angina Qualified Code(s): I25.10 - Atherosclerotic heart disease of [place] coronary artery without angina pectoris (5) Diabetes mellitus Code(s): E11.9 - TYPE 2 DIABETES MELLITUS WITHOUT COMPLICATIONS Qualifiers: Diabetes mellitus type: type 2 Diabetes mellitus complication status: without complication Diabetes mellitus technician terminal and repeater insulin use: without retirement use Qualified Code(s): E11.9 - Type 2 diabetes mellitus without complications (6) Hypoglycemia Code(s): E16.2 - HYPOGLYCEMIA, UNSPECIFIED (7) Probable sepsis Code(s): A41.9 - SEPSIS, UNSPECIFIED ORGANISM (8) Supratherapeutic INR Code(s): R79.1 - ABNORMAL COAGULATION PROFILE (9) GI bleed Code(s): K92.2 - GASTROINTESTINAL HEMORRHAGE, UNSPECIFIED Qualifiers: GI bleed type/associated pathology: melena Qualified Code(s): K92.1 - Melena Assessment/Plan 1. GI bleed with melena, profound anemia due to supratherapeutic INR and now with lactic acidosis 2. Acute on chronic renal failure with above finding 3. Elevated WBC suggests sepsis, etiology to be determined 4. CAD, non-obstructive 5. Paroxysmal atrial fibrillation in sinus rhythm on Coumadin 6. Hypertension 7. Type 2 diabetes mellitus 8. Hypercholesterolemia PLAN: 1. Consider transferring to ICU for further management 2. Transfuse PRBC. FFP if needed and monitor H/H closely 3. GI input to follow and will need further work up 4. Monitor INR closely (given Vitamin K earlier) 5. Broad spectrum antibiotic coverage and cox culture 6. Monitor renal function and electrolytes 7. Avoid NSAIDS. Hold ASA for now 8. Continue Metoprolol as tolerated 9. Currently on statin therapy as tolerated Further plans are to follow Guarded Sandeep Olsen MD
[2017-02-13] MEDS: DEXTROSE 5%-NORMAL SALINE 1,000 ML IV SCH (13:03)
[2017-02-13] MEDS: PANTOPRAZOLE SODIUM 80 MG in SODIUM CHLORIDE 100 ML IVPB SCH ×2 (13:03→23:25)
--- NOTE | 2017-02-13 14:54 | PN ---
Progress Note (short form) - Note Progress Note: ID Consult dictated 81 year old male admitted from home with 2d hx generalized weakness, inability to walk, ? melena. Found to be severely anemic with coaguloapthy In ER hypoglycemic (33) with elevated WBC Possible sepsis, source not clear Leukocytosis Severe anemia Renal failure Lactic acidosis Await c/s Has been given stat doses of vancomycin and zosyn Will continue zosyn pending sepsis workup Critical care time 35min
--- NOTE | 2017-02-13 15:41 | PN ---
Teaching Attending Note Name of Resident: Mahogany Valdovinos ATTENDING PHYSICIAN STATEMENT I saw and evaluated the patient. I reviewed the resident's note and discussed the case with the resident. I agree with the resident's findings and plan as documented. SUBJECTIVE: Patient seen and examined in the ICU. In brief. 81 M, CAD, Afib on Coumadin, Hypertension, BPH, and DM. Admitted via the ER due to lethargy. Found to have acute on chronic anemia with Hgb of 6.1. INR noted to be 19. BUN/Cr of 43/ 2.5. Reports malaise/fatigue for several weeks. (+) dark stools for the past 4 days. Initially admitted to the medical floor and subsequently transferred to the ICU due to persistent GI bleeding. Intake & Output 02/10/17 02/11/17 02/12/17 02/13/17 23:59 23:59 23:59 23:59 Intake Total 240 1440 Output Total 400 Balance 240 1040 Weight 170 lb Last Vital Signs Temp Pulse Resp BP Pulse Ox 98.5 F 80 18 112/58 99 02/13/17 14:30 02/13/17 14:30 02/13/17 14:30 02/13/17 14:30 02/13/17 14:38 Active Medications Atorvastatin Calcium (Lipitor -) 20 mg PO HS GLORIA Pantoprazole Sodium 80 mg/ (Sodium Chloride) 100 mls @ 10 mls/hr IVPB Q10H GLORIA PRN Reason: 8 MG/HR Last Admin: 02/13/17 13:03 Dose: 10 mls/hr Dextrose/Sodium Chloride (D5-Ns -) 1,000 mls @ 100 mls/hr IV ASDIR [facility] Last Admin: 02/13/17 13:03 Dose: Not Given Piperacillin Sod/Tazobactam Sod (Zosyn 2.25gm Ivpb (Pre-Docked)) 50 mls @ 100 mls/hr IVPB Q8H-IV GLORIA PRN Reason: Protocol Insulin Aspart (Novolog Vial Sliding Scale -) 1 vial SQ ACHS GLORIA PRN Reason: Protocol Last Admin: 02/13/17 11:24 Dose: Not Given Metoprolol Succinate (Toprol Xl -) 25 mg PO BID [facility] Last Admin: 02/13/17 11:24 Dose: 25 mg Gen: Awake and alert. weak appearing HEENT: NC/AT, Dry MM, No JVD CVS: irregular, no M/R Lungs: Diminished at the bases, no rales or wheeze Abd: soft, (?) Ascites, (+) mild tenderness to deep palpation, No guarding/ rigidity Ext: Trace pretibial edema, no cyanosis or clubbing Neuro: No focal defects Laboratory Results - last 24 hr 02/12/17 02/12/17 02/12/17 20:08 20:08 20:08 WBC 17.7 H D RBC 3.01 L D Hgb 6.1 L* D Hct 20.4 L D MCV 68.0 L MCHC 29.9 L RDW 17.3 H D Plt Count 327 D MPV 7.6 D Neutrophils % 86.8 H D Lymphocytes % 7.1 L D Monocytes % 5.9 Eosinophils % 0.0 D Basophils % 0.2 Platelet Estimate Adequate Polychromasia 1+ Hypochromic-Microcytic 3+ Microcytosis 1+ INR 19.43 H* Sodium Potassium Chloride Carbon Dioxide Anion Gap BUN Creatinine Creat Clearance w eGFR POC Glucometer Random Glucose Lactic Acid Calcium Magnesium Total Bilirubin AST ALT Alkaline Phosphatase Creatine Kinase Troponin I Total Protein Albumin Total Amylase 31 Lipase Urine Color Urine Appearance Urine pH Ur Specific [place] Urine Protein Urine Glucose (UA) Urine Ketones Urine Blood Urine Nitrite Urine Bilirubin Urine Urobilinogen Ur Leukocyte Esterase Stool Occult Blood Blood Type Antibody Screen Crossmatch 02/12/17 02/12/17 02/12/17 20:08 20:40 20:50 WBC RBC Hgb Hct MCV MCHC RDW Plt Count MPV Neutrophils % Lymphocytes % Monocytes % Eosinophils % Basophils % Platelet Estimate Polychromasia Hypochromic-Microcytic Microcytosis INR Sodium 145 Potassium 5.1 Chloride 113 H Carbon Dioxide 13 L D Anion Gap 19 H BUN 43 H D Creatinine 2.5 H D Creat Clearance w eGFR 25.04 POC Glucometer Random Glucose 33 L* D Lactic Acid Calcium 8.5 Magnesium 1.7 L Total Bilirubin 1.0 AST 38 H D ALT 22 D Alkaline Phosphatase 272 H D Creatine Kinase 35 L Troponin I 0.02 D Total Protein 7.1 Albumin 1.8 L D Total Amylase Lipase 96 Urine Color Urine Appearance Urine pH Ur Specific [place] Urine Protein Urine Glucose (UA) Urine Ketones Urine Blood Urine Nitrite Urine Bilirubin Urine Urobilinogen Ur Leukocyte Esterase Stool Occult Blood Positive Blood Type O POSITIVE Antibody Screen Negative Crossmatch See Detail 02/12/17 02/12/17 02/13/17 22:00 23:07 01:16 WBC RBC Hgb Hct MCV MCHC RDW Plt Count MPV Neutrophils % Lymphocytes % Monocytes % Eosinophils % Basophils % Platelet Estimate Polychromasia Hypochromic-Microcytic Microcytosis INR Sodium Potassium Chloride Carbon Dioxide Anion Gap BUN Creatinine Creat Clearance w eGFR POC Glucometer 118 79 Random Glucose Lactic Acid Calcium Magnesium Total Bilirubin AST ALT Alkaline Phosphatase Creatine Kinase Troponin I Total Protein Albumin Total Amylase Lipase Urine Color Urine Appearance Urine pH Ur Specific [place] Urine Protein Urine Glucose (UA) Urine Ketones Urine Blood Urine Nitrite Urine Bilirubin Urine Urobilinogen Ur Leukocyte Esterase Stool Occult Blood Blood Type O POSITIVE Antibody Screen Crossmatch See Detail 02/13/17 02/13/17 02/13/17 02:30 03:00 04:52 WBC RBC Hgb Hct MCV MCHC RDW Plt Count MPV Neutrophils % Lymphocytes % Monocytes % Eosinophils % Basophils % Platelet Estimate Polychromasia Hypochromic-Microcytic Microcytosis INR Sodium Potassium Chloride Carbon Dioxide Anion Gap BUN Creatinine Creat Clearance w eGFR POC Glucometer 97 Random Glucose 68 L D Lactic Acid Calcium Magnesium Total Bilirubin AST ALT Alkaline Phosphatase Creatine Kinase 37 L Troponin I 0.02 Total Protein Albumin Total Amylase Lipase Urine Color Urine Appearance Urine pH Ur Specific [place] Urine Protein Urine Glucose (UA) Urine Ketones Urine Blood Urine Nitrite Urine Bilirubin Urine Urobilinogen Ur Leukocyte Esterase Stool Occult Blood Blood Type Antibody Screen Crossmatch 02/13/17 02/13/17 02/13/17 06:00 07:38 10:55 WBC 17.1 H RBC 2.66 L Hgb 5.9 L* Hct 18.4 L MCV 69.4 L MCHC 31.8 L RDW 18.8 H Plt Count 236 D MPV 7.8 Neutrophils % Lymphocytes % Monocytes % Eosinophils % Basophils % Platelet Estimate Polychromasia Hypochromic-Microcytic Microcytosis INR Sodium Potassium Chloride Carbon Dioxide Anion Gap BUN Creatinine Creat Clearance w eGFR POC Glucometer 66 Random Glucose Lactic Acid Calcium Magnesium Total Bilirubin AST ALT Alkaline Phosphatase Creatine Kinase Troponin I Total Protein Albumin Total Amylase Lipase Urine Color Dkyellow Urine Appearance Clear Urine pH 5.0 Ur Specific [place] 1.025 Urine Protein Negative Urine Glucose (UA) Negative Urine Ketones Negative Urine Blood Negative Urine Nitrite Negative Urine Bilirubin Negative Urine Urobilinogen 2.0 e.u/dl Ur Leukocyte Esterase Negative Stool Occult Blood Blood Type Antibody Screen Crossmatch 02/13/17 02/13/17 02/13/17 10:55 10:55 11:05 WBC RBC Hgb Hct MCV MCHC RDW Plt Count MPV Neutrophils % Lymphocytes % Monocytes % Eosinophils % Basophils % Platelet Estimate Polychromasia Hypochromic-Microcytic Microcytosis INR 3.31 H D Sodium 142 Potassium 4.7 Chloride 111 H Carbon Dioxide 19 L D Anion Gap 12 BUN 48 H Creatinine 2.4 H Creat Clearance w eGFR 26.25 POC Glucometer Random Glucose 65 L Lactic Acid 4.7 H* Calcium 8.1 L Magnesium Total Bilirubin 1.6 H D AST 52 H D ALT 26 Alkaline Phosphatase 236 H Creatine Kinase 82 Troponin I 0.03 D Total Protein 6.1 L Albumin 1.6 L Total Amylase Lipase Urine Color Urine Appearance Urine pH Ur Specific [place] Urine Protein Urine Glucose (UA) Urine Ketones Urine Blood Urine Nitrite Urine Bilirubin Urine Urobilinogen Ur Leukocyte Esterase Stool Occult Blood Blood Type Antibody Screen Crossmatch 02/13/17 11:22 WBC RBC Hgb Hct MCV MCHC RDW Plt Count MPV Neutrophils % Lymphocytes % Monocytes % Eosinophils % Basophils % Platelet Estimate Polychromasia Hypochromic-Microcytic Microcytosis INR Sodium Potassium Chloride Carbon Dioxide Anion Gap BUN Creatinine Creat Clearance w eGFR POC Glucometer 73 Random Glucose Lactic Acid Calcium Magnesium Total Bilirubin AST ALT Alkaline Phosphatase Creatine Kinase Troponin I Total Protein Albumin Total Amylase Lipase Urine Color Urine Appearance Urine pH Ur Specific [place] Urine Protein Urine Glucose (UA) Urine Ketones Urine Blood Urine Nitrite Urine Bilirubin Urine Urobilinogen Ur Leukocyte Esterase Stool Occult Blood Blood Type Antibody Screen Crossmatch IMP: Acute on chronic anemia due to GI due bleeding due to coagulopathy CAD Afib on Coumadin Hypertension BPH DM Supratherapeutic INR EMERALD Hypoglycemia Lactic acidosis (?) Cirrhosis PLAN: Serial CBC GI evaluation Coagulopathy being reversed -> Follow INR Renal evaluation PPI pRBCs as needed IVF ABX per ID Replete lytes NPO Check AB US CT Ab/Pelvis Strict I&O ICU monitoring Dr Thompson Critical care time spent in reviewing chart, evaluating patient and formulating plan 35 min
--- NOTE | 2017-02-13 15:50 | CON.GI ---
Consult Consult Specialty:: GI Referred by:: Dr. Tarik Sharp Reason for Consultation:: GI bleed - History of Present Illness Chief Complaint: "My blood count was low" History of Present Illness: 81M admitted through [facility] ER for evaluation of weakness. He described some dark bowel movements for a few days prior to admission. In the ER he was found to be profoundly anemic with a Hgb of 6.1. Hgb this morning was 5.9. In ER triage vitals were 98.3/76/160/41. He did notice some abdominal swelling of late which he feels may be somewhat better than previous. He had a large melenic BM earlier today while on telemetry and was transferred to the ICU. He denies abdominal pain. He has never had an EGD or colonoscopy. He takes 2 aleve pills daily for years along with ASA 81mg daily. There is no family history of liver disease, colorectal cancer. - History Source Limitations to Obtaining History: No Limitations - Past Medical History Cardio/Vascular: Yes: AFIB (on Coumadin), CAD, HTN, Hyperlipdemia Renal/: Yes: BPH Endocrine: Yes: Diabetes Mellitus - Past Surgical History Past Surgical History: Yes: None - Alcohol/Substance Use Hx Alcohol Use: Yes (2-4 BEERS DAILY) History of Substance Use: reports: None - Smoking History Smoking history: Former smoker Have you smoked in the past 12 months: No Aproximately how many cigarettes per day: 0 If you are a former smoker, when did you quit?: 1990 - Social History Occupation: retired from [employer] Place of : [facility] History of Recent Travel: No Home Medications - Allergies Allergies/Adverse Reactions: Allergies Allergy/AdvReac Type Severity Reaction Status Date / Time No Known Allergies Allergy Verified 02/12/17 19:31 - Home Medications Home Medications: Ambulatory Orders Aspirin [ASA -] 81 mg PO DAILY 07/21/12 Enalapril Maleate [Vasotec -] 5 mg PO BID 07/21/12 Glimepiride 1 mg PO BID 07/21/12 Metformin HCl [Glucophage] 1,000 mg PO BID 07/21/12 Simvastatin [Zocor -] 40 mg PO HS 07/21/12 Warfarin Na [Coumadin -] 5 mg PO DAILY@1800 #0 tablet 07/28/12 Furosemide [Lasix -] 20 mg PO DAILY 12/05/15 Meclizine HCl 25 mg PO DAILY 06/05/16 Metoprolol Succinate [Toprol Xl -] 25 mg PO BID 06/05/16 Family Disease History - Family Disease History Family Disease History: Other: Father (did not know his biological father), Mother (: [address] [place]), Daughter (healthy) Other Family History: No siblings Review of Systems - Review of Systems Constitutional: reports: Weakness. denies: Diaphoresis Cardiovascular: denies: Chest Pain Respiratory: reports: Cough. denies: SOB Gastrointestinal: reports: Melena. denies: Abdominal Pain Physical Exam-GI Vital Signs: Vital Signs Temperature 98.5 F 02/13/17 14:30 Pulse Rate 80 02/13/17 14:30 Respiratory Rate 18 02/13/17 14:30 Blood Pressure 112/58 02/13/17 14:30 O2 Sat by Pulse Oximetry (%) 99 02/13/17 14:38 Constitutional: Yes: Calm Eyes: No: Sclera Icterus Cardiovascular: Yes: Regular Rate and Rhythm, Murmur (+ 2/6 systolic) Respiratory: Yes: Diminished (at bases bilaterally) Gastrointestinal Inspection: Yes: Ascites (+ fluid wave and prominent abdominal wall veins), Distention ...Auscultate: Yes: Normoactive Bowel Sounds ...Palpate: Yes: Tenderness (some TTP diffusely) Edema: No Neurological: Yes: Alert, Oriented Labs: CBC, BMP 02/13/17 10:55 02/13/17 11:05 INR, PTT INR 3.31 (0.82-1.09) H D 02/13/17 10:55 Hepatic Panel Total Bilirubin 1.6 mg/dL (0.2-1.0) H D 02/13/17 11:05 AST 52 U/L (15-37) H D 02/13/17 11:05 ALT 26 U/L (12-78) 02/13/17 11:05 Alkaline Phosphatase 236 U/L (45-117) H 02/13/17 11:05 Albumin 1.6 g/dl (3.4-5.0) L 02/13/17 11:05 Imaging - Results Chest X-ray: Report Reviewed Problem List - Problems (1) Anemia Assessment/Plan: In clinical setting given h/o melena, upper GI source of bleeding in setting of markedly elevated INR needs to be excluded. Etiologies would need to include PUD given his chronic and heavy NSAID use, bleeding AVM's and also esophageal / gastric variceal disease / portal gastropathy given finding of ascites. For now: NPO IV hydration Octrotide drip Protonix drip Correct coagulopathy Monitor for ongoing active GI bleeding Cont IV Abx in setting of bleed with the potential for variceal source EGD once coagulopathy corrected Code(s): D64.9 - ANEMIA, UNSPECIFIED (2) Ascites Assessment/Plan: ? of chronic liver disease however normal platelet count going against long standing chronic liover disease. Given that INR markedly elevated with marked anemia, hemoperitoneum needs to be excluded. ordered CT scan of the abd/pelvis Correct coaguloapthy If fluid c/w blood, needs surgical evaluation Hepatitis A/B/C serologies Code(s): R18.8 - OTHER ASCITES
[2017-02-13] MEDS ORDERED: OCTREOTIDE ACETATE 1,200 MCG in DEXTROSE 5%-WATER - 488 ML IVPB SCH (16:15)
[2017-02-13] MEDS ORDERED: OCTREOTIDE ACETATE 50 MCG/1 ML - 1 ML VIAL IVPUSH ONE (16:15)
[2017-02-13] MEDS: PIPERACILLIN/TAZOB 2.25 GM 50 ML IVPB SCH (17:58)
--- NOTE | 2017-02-13 18:47 | CONSULT ---
Consult - text type - Consultation Consultation Note: Patient seen and examined 81-year-old male from home, with multiple medical problems, presents with 2 days of generalized weakness. He is calm, alert and cooperative . He is eating his magic cup. c/o back pain . 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 Comes in with severe anemia HIs INR was 19 He was given vit. K - Past Medical History Cardiac Disorders: Yes (cardiac cath at [facility] 2011, AF) Diabetes: Yes (diabetic neuropathy) Disorders: Yes (bph, but hx orthostatic hypotension on meds; resolved) HTN: Yes Hypercholesterolemia: Yes Kidney Stones: (enlarged prostate) - Psycho/Social/Smoking Cessation Hx Smoking History: Former smoker - Past Medical History Allergies/Adverse Reactions: Allergies Allergy/AdvReac Type Severity Reaction Status Date / Time No Known Allergies Allergy Verified 02/12/17 19:31 Home Medications: Ambulatory Orders Aspirin [ASA -] 81 mg PO DAILY 07/21/12 Enalapril Maleate [Vasotec -] 5 mg PO BID 07/21/12 Glimepiride 1 mg PO BID 07/21/12 Metformin HCl [Glucophage] 1,000 mg PO BID 07/21/12 Simvastatin [Zocor -] 40 mg PO HS 07/21/12 Warfarin Na [Coumadin -] 5 mg PO DAILY@1800 #0 tablet 07/28/12 Furosemide [Lasix -] 20 mg PO DAILY 12/05/15 Meclizine HCl 25 mg PO DAILY 06/05/16 Metoprolol Succinate [Toprol Xl -] 25 mg PO BID 06/05/16 Active Medications Atorvastatin Calcium (Lipitor -) 20 mg PO [facility] Dextrose/Sodium Chloride (D5-1/2ns -) 1,000 mls @ 100 mls/hr IV ASDIR [facility] Last Admin: 02/12/17 21:24 Dose: 100 mls/hr Insulin Aspart (Novolog Vial Sliding Scale -) 1 vial SQ ACHS [facility] PRN Reason: Protocol Last Admin: 02/13/17 11:24 Dose: Not Given Metoprolol Succinate (Toprol Xl -) 25 mg PO BID [facility] Last Admin: 02/13/17 11:24 Dose: 25 m *Physical Exam Vital Signs Temperature 98.9 F 02/13/17 07:00 Pulse Rate 83 02/13/17 11:12 Respiratory Rate 20 02/13/17 07:00 Blood Pressure 117/64 02/13/17 07:00 O2 Sat by Pulse Oximetry (%) 99 02/13/17 11:12 Cor: RSR, No murmurs, No gallops Lungs: Clear to P&A Abd: Soft, Normal bowel sounds,ascites++ Ext:No significant edema Abnormal Lab Results 02/12/17 02/12/17 02/13/17 20:40 22:00 10:55 WBC 17.1 H RBC 2.66 L Hgb 5.9 L* Hct 18.4 L MCV 69.4 L MCHC 31.8 L RDW 18.8 H INR PTT (Actin FS) Chloride Carbon Dioxide Anion Gap BUN Creatinine Random Glucose Lactic Acid Calcium Total Bilirubin AST Alkaline Phosphatase Total Protein Albumin U Random Total Protein Crossmatch See Detail See Detail 02/13/17 02/13/17 02/13/17 10:55 10:55 11:05 WBC RBC Hgb Hct MCV MCHC RDW INR 3.31 H D PTT (Actin FS) Chloride 111 H Carbon Dioxide 19 L D Anion Gap BUN 48 H Creatinine 2.4 H Random Glucose 65 L Lactic Acid 4.7 H* Calcium 8.1 L Total Bilirubin 1.6 H D AST 52 H D Alkaline Phosphatase 236 H Total Protein 6.1 L Albumin 1.6 L U Random Total Protein Crossmatch 02/13/17 02/14/17 02/14/17 20:00 01:00 05:00 WBC RBC Hgb Hct MCV MCHC RDW INR 1.88 H D PTT (Actin FS) 41.3 H Chloride 111 H Carbon Dioxide Anion Gap 7 L BUN 49 H Creatinine 2.2 H Random Glucose 191 H D Lactic Acid Calcium 7.6 L Total Bilirubin 1.9 H AST 40 H D Alkaline Phosphatase 190 H Total Protein 5.6 L Albumin 1.7 L U Random Total Protein 30 H Crossmatch 02/14/17 02/14/17 05:00 05:00 WBC RBC 2.92 L Hgb 6.9 L* D Hct 21.4 L D MCV 73.3 L MCHC RDW 21.4 H D INR 1.56 H PTT (Actin FS) 39.1 H Chloride Carbon Dioxide Anion Gap BUN Creatinine Random Glucose Lactic Acid Calcium Total Bilirubin AST Alkaline Phosphatase Total Protein Albumin U Random Total Protein Crossmatch A/P 81 y/o patient with supratherapeutic INR of 19, melena. Hgb 6s dropped to 5s after 1 unit On coumadin for afib On exm patient with distended abdomen ? ascites s/p Vit. K 10mg yesterday with correction of INR to [address] abdomen Transfuse 2units PRBCS Transfuse FFPs 2 units monitor CBC/PT/PTT GI follow up
[2017-02-13] MEDS: ATORVASTATIN CA 20 MG TABLET (FP) PO SCH (21:03)
[2017-02-13 21:20] LABS: INR 1.88 (0.82-1.09); PROTHROMBIN TIME (PATIENT) 20.9 SEC (9.98-11.88)
[2017-02-13 21:23] LABS: ACTIVATED PTT 41.3 SECONDS (26.9-34.4)
--- NOTE | 2017-02-13 21:33 | CONSULT ---
Consultation: REQUESTING PROVIDER: CONSULT REQUEST: We have been asked to medically evaluate this patient for GI bleeding. HISTORY OF PRESENT ILLNESS: 81 yr old man with AFib on coumadin, HTN, BPH, DM, CAD bibems for weakness and lower back pain for several weeks. 5 weeks he started to experience lower back pain and generalized weakness, he was seen by Dr. Meza(pain management [address]) and prescibed medication(does not recall name) which proved some relief. Also tried to relieve pain with otc pain relief(likely nsaids). Generalized weakness continued, he required assitance from cane to walk(no previous hx of requiring a cane), which he borrowed from his friend. on 02/12 he was sitting in the bathroom and was unable to stand up even with assistance from roomate and ems was called. takes 5mg of warfarin every night, denies recent dose changes, is supposed to check INR every month but has not been in 5 weeks due to lower back pain. denies any recent grapefruit use, changes in diet, addition of new medications/ otc, herb or supplement use. Intemittently he has dark stools which lasts for few days at a time, denies bright red blood in stool or upon wiping. Also has abdominal distention which may have worsened recently, but says he always has a large abdomen. He was found to h/h of 5.9 in the ED. social hx: smoking quit in 1991, "several packs a day for 20 yrs" ETOH: 2 beers 12oz with food on occasion drugs: denies use hx of incarceration in correction for 10 yrs and jail stay, currently resides with two roommates he met in a jail has one adult daughter not currently sexually active, remote hx of gonorrhea that was treated. (no hx of sex with men) surgical hx: denies REVIEW OF SYSTEMS: CONSTITUTIONAL: Present: generalized weakness, loss of appetite Absent: fever, chills, diaphoresis,weight change HEENT: Absent: rhinorrhea, nasal congestion, throat pain, throat swelling, difficulty swallowing, mouth swelling, ear pain, eye pain, visual changes CARDIOVASCULAR: Present: irregular heart rate Absent: chest pain, syncope, palpitations, lightheadedness, peripheral edema RESPIRATORY: Absent: cough, shortness of breath, dyspnea with exertion, orthopnea, wheezing, stridor, hemoptysis GASTROINTESTINAL: Present: abdominal distension, melena, hematochezia Absent: abdominal pain, nausea, vomiting, diarrhea, constipation, GENITOURINARY: Absent: dysuria, frequency, urgency, hesitancy, hematuria, flank pain, genital pain MUSCULOSKELETAL: Absent: myalgia, arthralgia, joint swelling, back pain, neck pain SKIN: Absent: rash, itching, pallor HEMATOLOGIC/IMMUNOLOGIC: Absent: easy bleeding, easy bruising, lymphadenopathy, frequent infections ENDOCRINE: Absent: unexplained weight gain, unexplained weight loss, heat intolerance, cold intolerance NEUROLOGIC: Absent: headache, focal weakness or paresthesias, dizziness, unsteady gait, seizure, mental status changes, bladder or bowel incontinence PHYSICAL EXAMINATION Vital Signs - 24 hr 02/12/17 02/12/17 02/13/17 22:35 23:00 07:00 Temperature 97.6 F 97.4 F L 98.9 F Pulse Rate 89 79 Pulse Rate [ 78 Right] Respiratory 18 20 20 Rate Blood Pressure 133/60 117/64 Blood Pressure 130/56 [Left Arm] O2 Sat by Pulse 100 98 Oximetry (%) 02/13/17 02/13/17 02/13/17 10:00 11:12 14:30 Temperature 99.3 F 98.5 F Pulse Rate 80 83 80 Pulse Rate [ Right] Respiratory 20 18 Rate Blood Pressure 115/63 112/58 Blood Pressure [Left Arm] O2 Sat by Pulse 98 99 Oximetry (%) 02/13/17 02/13/17 02/13/17 14:38 16:00 18:00 Temperature 98.4 F Pulse Rate 88 90 Pulse Rate [ Right] Respiratory 18 20 Rate Blood Pressure 117/67 141/74 Blood Pressure [Left Arm] O2 Sat by Pulse 99 Oximetry (%) 02/13/17 20:29 Temperature 98.0 F Pulse Rate 68 Pulse Rate [ Right] Respiratory 18 Rate Blood Pressure 111/63 Blood Pressure [Left Arm] O2 Sat by Pulse Oximetry (%) GENERAL: Awake, alert, and fully oriented, in no acute distress. HEAD: Normal with no signs of trauma. EYES: Pupils equal, round and reactive to light, extraocular movements intact, sclera anicteric, conjunctiva clear. No lid lag. EARS, NOSE, THROAT: oropharynx clear without exudates. Moist mucous membranes. NECK: Normal range of motion, supple without lymphadenopathy, JVD, or masses. LUNGS: Breath sounds equal, clear to auscultation bilaterally, quiet at bases, No wheezes, and no crackles. No accessory muscle use. HEART: afib, normal S1 and S2 with systolic murmur ABDOMEN: Soft, nontender, distended, caput medusa, +fluid wave, hypoactive bowel sounds, no guarding, MUSCULOSKELETAL: Normal range of motion at all joints. No bony deformities or tenderness. No CVA tenderness. No spinal tenderness. UPPER EXTREMITIES: 2+ radial pulses, warm, well-perfused. No cyanosis. No clubbing. Cap refill <2 seconds. No peripheral edema. LOWER EXTREMITIES: + dp pulses, warm, well-perfused. No calf tenderness. No peripheral edema. right 1st digit with ecchymosis. NEUROLOGICAL: Cranial nerves II-XII intact. Normal speech. PSYCHIATRIC: Cooperative. Good eye contact. Appropriate mood and affect. SKIN: Warm, dry, normal turgor, no rashes or lesions noted. Laboratory Results - last 24 hr 02/12/17 02/12/17 02/12/17 20:40 22:00 22:01 WBC RBC Hgb Hct MCV MCHC RDW Plt Count MPV INR PTT (Actin FS) Fibrinogen Sodium Potassium Chloride Carbon Dioxide Anion Gap BUN Creatinine Creat Clearance w eGFR POC Glucometer [id number] Random Glucose Lactic Acid Calcium Total Bilirubin AST ALT Alkaline Phosphatase Creatine Kinase Troponin I Total Protein Albumin Urine Color Urine Appearance Urine pH Ur Specific [place] Urine Protein Urine Glucose (UA) Urine Ketones Urine Blood Urine Nitrite Urine Bilirubin Urine Urobilinogen Ur Leukocyte Esterase Blood Type O POSITIVE O POSITIVE Antibody Screen Negative Crossmatch See Detail See Detail 02/12/17 02/13/17 02/13/17 23:07 01:16 02:30 WBC RBC Hgb Hct MCV MCHC RDW Plt Count MPV INR PTT (Actin FS) Fibrinogen Sodium Potassium Chloride Carbon Dioxide Anion Gap BUN Creatinine Creat Clearance w eGFR POC Glucometer 118 79 Random Glucose Lactic Acid Calcium Total Bilirubin AST ALT Alkaline Phosphatase Creatine Kinase 37 L Troponin I 0.02 Total Protein Albumin Urine Color Urine Appearance Urine pH Ur Specific [place] Urine Protein Urine Glucose (UA) Urine Ketones Urine Blood Urine Nitrite Urine Bilirubin Urine Urobilinogen Ur Leukocyte Esterase Blood Type Antibody Screen Crossmatch 02/13/17 02/13/17 02/13/17 03:00 04:52 06:00 WBC RBC Hgb Hct MCV MCHC RDW Plt Count MPV INR PTT (Actin FS) Fibrinogen Sodium Potassium Chloride Carbon Dioxide Anion Gap BUN Creatinine Creat Clearance w eGFR POC Glucometer 97 Random Glucose 68 L D Lactic Acid Calcium Total Bilirubin AST ALT Alkaline Phosphatase Creatine Kinase Troponin I Total Protein Albumin Urine Color Dkyellow Urine Appearance Clear Urine pH 5.0 Ur Specific [place] 1.025 Urine Protein Negative Urine Glucose (UA) Negative Urine Ketones Negative Urine Blood Negative Urine Nitrite Negative Urine Bilirubin Negative Urine Urobilinogen 2.0 e.u/dl Ur Leukocyte Esterase Negative Blood Type Antibody Screen Crossmatch 02/13/17 02/13/17 02/13/17 07:38 10:55 10:55 WBC 17.1 H RBC 2.66 L Hgb 5.9 L* Hct 18.4 L MCV 69.4 L MCHC 31.8 L RDW 18.8 H Plt Count 236 D MPV 7.8 INR 3.31 H D PTT (Actin FS) Fibrinogen Sodium Potassium Chloride Carbon Dioxide Anion Gap BUN Creatinine Creat Clearance w eGFR POC Glucometer 66 Random Glucose Lactic Acid Calcium Total Bilirubin AST ALT Alkaline Phosphatase Creatine Kinase Troponin I Total Protein Albumin Urine Color Urine Appearance Urine pH Ur Specific [place] Urine Protein Urine Glucose (UA) Urine Ketones Urine Blood Urine Nitrite Urine Bilirubin Urine Urobilinogen Ur Leukocyte Esterase Blood Type Antibody Screen Crossmatch 02/13/17 02/13/17 02/13/17 10:55 11:05 11:22 WBC RBC Hgb Hct MCV MCHC RDW Plt Count MPV INR PTT (Actin FS) Fibrinogen Sodium 142 Potassium 4.7 Chloride 111 H Carbon Dioxide 19 L D Anion Gap 12 BUN 48 H Creatinine 2.4 H Creat Clearance w eGFR 26.25 POC Glucometer 73 Random Glucose 65 L Lactic Acid 4.7 H* Calcium 8.1 L Total Bilirubin 1.6 H D AST 52 H D ALT 26 Alkaline Phosphatase 236 H Creatine Kinase 82 Troponin I 0.03 D Total Protein 6.1 L Albumin 1.6 L Urine Color Urine Appearance Urine pH Ur Specific [place] Urine Protein Urine Glucose (UA) Urine Ketones Urine Blood Urine Nitrite Urine Bilirubin Urine Urobilinogen Ur Leukocyte Esterase Blood Type Antibody Screen Crossmatch 02/13/17 02/13/17 17:29 20:00 WBC RBC Hgb Hct MCV MCHC RDW Plt Count MPV INR 1.88 H D PTT (Actin FS) 41.3 H Fibrinogen 286.0 Sodium Potassium Chloride Carbon Dioxide Anion Gap BUN Creatinine Creat Clearance w eGFR POC Glucometer 125.95738 Random Glucose Lactic Acid Calcium Total Bilirubin AST ALT Alkaline Phosphatase Creatine Kinase Troponin I Total Protein Albumin Urine Color Urine Appearance Urine pH Ur Specific [place] Urine Protein Urine Glucose (UA) Urine Ketones Urine Blood Urine Nitrite Urine Bilirubin Urine Urobilinogen Ur Leukocyte Esterase Blood Type Antibody Screen Crossmatch Active Medications Generic Name Dose Route Start Last Admin Trade Name lEysia PRN Reason Stop Dose Admin Atorvastatin Calcium 20 mg 02/13/17 22:00 02/13/17 21:03 Lipitor - PO 20 mg HS NAREN Administration Pantoprazole Sodium 80 mg/ 100 mls @ 10 mls/hr 02/13/17 13:00 02/13/17 13:03 Sodium Chloride IVPB 10 mls/hr Q10H NAREN Administration 8 MG/HR Dextrose/Sodium Chloride 1,000 mls @ 100 mls/hr 02/13/17 12:30 02/13/17 13:03 D5-Ns - IV Not Given ASDIR NAREN Piperacillin Sod/Tazobactam Sod 50 mls @ 100 mls/hr 02/13/17 18:00 02/13/17 17: 58 Zosyn 2.25gm Ivpb (Pre-Docked) IVPB 100 mls/hr Q8H-IV NAREN Administration Protocol Octreotide Acetate 1,200 mcg/ 500 mls @ 20.83 mls/hr 02/13/17 16:15 02/13/17 18 :49 Dextrose IVPB 20.83 mls/hr Q24H NAREN Administration 50 MCG/HR Insulin Aspart 1 vial 02/13/17 07:00 02/13/17 17:45 Novolog Vial Sliding Scale - SQ Not Given ACHS NAREN Protocol Metoprolol Succinate 25 mg 02/12/17 22:45 02/13/17 21:03 Toprol Xl - PO 25 mg BID NAREN Administration ASSESSMENT/PLAN: 81 yr old man with Afib, HTN, CAD, DM, presents with hematochezia, suprathereupetic INR, distended abdomen and low h/h. GI acute anemia: concern for GIB, or hemoperitonuem given extent of asicitis and elevated INR transfuse to maintain hgb>7.0, plan for endoscopy tomorrow to find possible ulcer as source of bleeding Protonix drip, octreotide drip to decrease possible esophageal varices NPO, D5/NS IVF eval of liver- hepatitis panel abdominal sono to measure asictis, CT scan to possible id fluid type in ascitis and evalute GI pathology as source of bleed consult: Dr. Segura ID possible SBP(elevated white count, lactic acidosis) zosyn q8hr IVPB Cardiovascular Afib permant - hold AC due to acute bleed, rate control with toprol XL 25mg po BID naren CAD - lipitor daily Hematology supratherapeutic INR - reverse with vitamin K, transfused prbc's and FFP Renal EMERALD likely hypoperfusion or due to recent nsaid use. IVF replete electrolytes prn Endocrine DM - hold hypoglycemics, NISS Diet: NPO DVT: scd's given acute bleed Dispo: We will continue to follow the patient. Thank you for this consultative opportunity. Visit type - Emergency Visit Emergency Visit: No - New Patient This patient is new to me today: Yes Date on this admission: 02/13/17 - Critical Care Critical Care patient: Yes Total Critical Care Time (in minutes): 36 Critical Care Statement: The care of this patient involved high complexity decision making to prevent further life threatening deterioration of the patient 's condition and/or to evalute & treat vital organ system(s) failure or risk of failure.
[2017-02-13] MEDS ORDERED: PATIENT'S OWN MEDICATION (NON-FORMULARY) (Simvastatin 40 MG) PO SCH (22:00)
[2017-02-14] MEDS: INSULIN SLIDING SCALE (NOVOLOG) 1 VIAL SQ SCH ×5 (00:46→22:19)
[2017-02-14] MEDS: PIPERACILLIN/TAZOB 2.25 GM 50 ML IVPB SCH ×3 (01:05→17:27)
[2017-02-14] MEDS: DEXTROSE 5%-NORMAL SALINE 1,000 ML IV SCH (06:00)
[2017-02-14 06:32] LABS: ALBUMIN 1.7 g/dl (3.4-5.0); BILIRUBIN,TOTAL 1.9 mg/dL (0.2-1.0); CALCIUM 7.6 mg/dL (8.5-10.1); COCKROFT - GAULT 29.69; CREATININE 2.2 mg/dL (0.7-1.3); MAGNESIUM 1.9 mg/dL (1.8-2.4); PHOSPHOROUS 3.2 mg/dL (2.5-4.9); TOT PROT 5.6 g/dl (6.4-8.2)
[2017-02-14 06:41] LABS: FERRITIN 152.927 ng/ml (16.4-293.9); THYROID STIMULATING HORMONE 0.44 uIU/ml (0.358-3.74)
[2017-02-14 06:50] LABS: INR 1.56 (0.82-1.09); PROTHROMBIN TIME (PATIENT) 17.3 SEC (9.98-11.88)
[2017-02-14 06:52] LABS: ACTIVATED PTT 39.1 SECONDS (26.9-34.4)
--- NOTE | 2017-02-14 07:14 | CONS ---
DATE OF CONSULTATION: DATE OF DICTATION: 02/13/2017 HISTORY OF PRESENT ILLNESS: The patient is a 81-year-old male who is evaluated for sepsis. He lives at home. He reports over the past 2 days he has had worsening generalized weakness, back discomfort, and inability to ambulate. He states he had fallen. In addition, he complained of some nausea and melenic stool. He presented to the emergency room where he was found to be severely anemic, hypoglycemic, and with an INR of 19. Patient states he had been taking his Coumadin once a day as directed. He states he did not confuse his medications. He reports his INR gets checked on a monthly basis. However, he was not sure when it was last checked. According to the notes, he also had fever. However, this cannot be verified. He was noted to have an elevated white blood cell count and evidence of renal failure. At the present time, he complains of generalized weakness. He denies any chest pain, shortness of breath, cough, or sputum production. No complaints of recent vomiting or diarrhea. Denies dysuria or hematuria. He denies any recent febrile illness or ill contacts. No recent hospitalizations. PAST MEDICAL HISTORY: Positive for atrial fibrillation, coronary artery disease, hypertension, hyperlipidemia, BPH, diabetes mellitus. ALLERGIES: No known allergies. MEDICATIONS: Include aspirin, Vasotec, metformin, Zocor, Coumadin, Lasix, meclizine, Toprol. SOCIAL HISTORY: He is a former smoker. He lives at home. Denies alcohol abuse or illicit drug use. According to the intake note, he drinks 2 to 4 beers daily. SYSTEMS REVIEW: Neurologic: No loss of consciousness, seizure activity, or focal weakness. Cardiac: Positive for atrial fibrillation. No chest pain or palpitations. Respiratory: Negative cough or sputum production. Gastrointestinal: Positive for melena. Positive for nausea. No vomiting. Genitourinary: Negative for urinary tract infection. LABORATORY DATA: White count 17.1, 86 neutrophils, 7 lymphocytes, 5 monocytes, hemoglobin 5.9, hematocrit 18.4, platelet count 238. BUN 48, creatinine 2.4, total bilirubin 1.6, alkaline phosphatase 236, AST 52. Urinalysis: Negative leukocyte esterase. Urine culture pending. Blood cultures have been ordered. INR on admission 19, presently 3.1. Chest x-ray negative for acute infiltrate. PHYSICAL EXAMINATION:General: He is awake. He is weak appearing and pale. Vital Signs: Temperature 98.9, blood pressure 117/64, pulse 79, regular, respirations 20 per minute. HEENT: Sclerae anicteric. Neck: Supple. Cardiac: Heart sounds S1, S2. No murmur. Lungs: Clear bilaterally. No rhonchi, rales, or wheezing. Abdomen: Soft, distended. No tenderness elicited. No mass, rebound, or rigidity. Extremities: Positive for edema. Ecchymotic area noted on the right great toe. IMPRESSION: A 81-year-old male admitted from home with a 2-day history of generalized weakness, inability to walk, and melena, found to be severely anemic with coagulopathy, in emergency room hypoglycemic with elevated white blood cell count. 1. Possible sepsis, unclear source. 2. Leukocytosis, possible leukemoid reaction versus sepsis. 3. Severe anemia. 4. Acute renal failure. 5. Lactic acidosis. 6. Hypoglycemia. 7. Coagulopathy. RECOMMENDATIONS: Await culture results. Unclear source of sepsis. However, in light of profound weakness, elevated white blood cell count, hypoglycemia, and coagulopathy, would empirically cover for occult sepsis. Patient has been given stat doses of vancomycin and Zosyn. Will continue Zosyn adjusted for renal failure pending sepsis workup. Transfuse blood products. ICU monitoring. Prognosis is guarded. Critical care time: 35 minutes. Thank you for the kind referral. COURTNEY BYRNES M.D. [id number]
[2017-02-14] MEDS: PANTOPRAZOLE SODIUM 80 MG in SODIUM CHLORIDE 100 ML IVPB SCH (08:13)
[2017-02-14 08:38] LABS: MCH 23.6 pg (25.7-33.7); MCHC 32.2 g/dl (32.0-35.9); MEAN CELL VOLUME 73.3 fl (80-96); MEAN PLT VOLUME 7.5 fl (7.5-11.1); PLATELET COUNT 144 K/MM3 (134-434); RDW 21.4 % (11.9-15.9); WHITE BLOOD COUNT 8.7 K/mm3 (4.0-10.0)
[2017-02-14] MEDS: METOPROLOL SUCCINATE 25 MG TAB.SR.24H (FP) PO SCH ×2 (09:34→22:02)
--- NOTE | 2017-02-14 09:56 | PN ---
Progress Note, Physician History of Present Illness: Pt. w/o vomiting, abd pain, alessandro blood in stool, still with dark colored stool ("not black").\\ Pt. w/o SOB, CP, palp., dizziness + back pain, less now. - Current Medication List Current Medications: Active Medications Atorvastatin Calcium (Lipitor -) 20 mg PO HS [facility] Last Admin: 02/13/17 21:03 Dose: 20 mg Pantoprazole Sodium 80 mg/ (Sodium Chloride) 100 mls @ 10 mls/hr IVPB Q10H GLORIA PRN Reason: 8 MG/HR Last Admin: 02/14/17 08:13 Dose: 10 mls/hr Dextrose/Sodium Chloride (D5-Ns -) 1,000 mls @ 100 mls/hr IV ASDIR [facility] Last Admin: 02/14/17 06:00 Dose: 100 mls/hr Piperacillin Sod/Tazobactam Sod (Zosyn 2.25gm Ivpb (Pre-Docked)) 50 mls @ 100 mls/hr IVPB Q8H-IV GLORIA PRN Reason: Protocol Last Admin: 02/14/17 09:34 Dose: 100 mls/hr Octreotide Acetate 1,200 mcg/ (Dextrose) 500 mls @ 20.83 mls/hr IVPB Q24H GLORIA PRN Reason: 50 MCG/HR Last Admin: 02/13/17 18:49 Dose: 20.83 mls/hr Insulin Aspart (Novolog Vial Sliding Scale -) 1 vial SQ ACHS GLORIA PRN Reason: Protocol Last Admin: 02/14/17 06:02 Dose: 2 units Metoprolol Succinate (Toprol Xl -) 25 mg PO BID [facility] Last Admin: 02/14/17 09:34 Dose: 25 mg - Objective Vital Signs: Vital Signs Temperature 97.8 F 02/14/17 05:54 Pulse Rate 64 02/14/17 08:54 Respiratory Rate 18 02/14/17 08:54 Blood Pressure 107/60 02/14/17 08:54 O2 Sat by Pulse Oximetry (%) 96 02/13/17 23:58 Constitutional: Yes: No Distress, Calm Cardiovascular: Yes: Regular Rate and Rhythm, S1, S2 Respiratory: Yes: Regular, CTA Bilaterally. No: Rales Gastrointestinal: Yes: Normal Bowel Sounds, Soft, Distention. No: Palpable Mass , Tenderness Edema: No Labs: CBC, BMP 06/09/17 05:00 02/14/17 05:00 INR, PTT INR 1.56 (0.82-1.09) H 02/14/17 05:00 Fibrinogen 286.0 mg/dL (238-498) 02/13/17 20:00 Problem List - Problems (1) Probable sepsis Code(s): A41.9 - SEPSIS, UNSPECIFIED ORGANISM (2) Anemia Assessment/Plan: secondary to GIB ( pt. was taking on his own NSAIDs, on top of Coumadin and ASA) . Code(s): D64.9 - ANEMIA, UNSPECIFIED (3) Hypoglycemia Code(s): E16.2 - HYPOGLYCEMIA, UNSPECIFIED (4) Acute renal failure Assessment/Plan: slight improvement. Code(s): N17.9 - ACUTE KIDNEY FAILURE, UNSPECIFIED (5) Supratherapeutic INR Assessment/Plan: corrected Code(s): R79.1 - ABNORMAL COAGULATION PROFILE (6) A-fib Code(s): I48.91 - UNSPECIFIED ATRIAL FIBRILLATION Qualifiers: Atrial fibrillation type: paroxysmal Qualified Code(s): I48.0 - Paroxysmal atrial fibrillation (7) Diabetes mellitus Assessment/Plan: medication on hold Code(s): E11.9 - TYPE 2 DIABETES MELLITUS WITHOUT COMPLICATIONS Qualifiers: Diabetes mellitus type: type 2 Diabetes mellitus complication status: without complication Diabetes mellitus custodial insulin use: without terminal make up operator use Qualified Code(s): E11.9 - Type 2 diabetes mellitus without complications (8) CAD (coronary artery disease) Code(s): I25.10 - ATHSCL HEART DISEASE OF [place] CORONARY ARTERY W/O ANG PCTRS Qualifiers: Coronary Disease-Associated Artery/Lesion type: [place] artery [place] vs. transplanted heart: [place] heart Associated angina: without angina Qualified Code(s): I25.10 - Atherosclerotic heart disease of [place] coronary artery without angina pectoris (9) Hypomagnesemia Code(s): E83.42 - HYPOMAGNESEMIA (10) Back pain Code(s): M54.9 - DORSALGIA, UNSPECIFIED Qualifiers: Back pain location: low back pain Chronicity: chronic Back pain laterality: midline Sciatica presence: without sciatica Qualified Code(s): M54.5 - Low back pain (11) GI bleed Code(s): K92.2 - GASTROINTESTINAL HEMORRHAGE, UNSPECIFIED Qualifiers: GI bleed type/associated pathology: melena Qualified Code(s): K92.1 - Melena (12) Ascites Code(s): R18.8 - OTHER ASCITES (13) Liver cirrhosis Code(s): K74.60 - UNSPECIFIED CIRRHOSIS OF LIVER Assessment/Plan Pt. was transfered to ICU ( pt. continued to bleed) Pt. received vit K (10 mg), 3 unit of PRBC, D5 NS( at 100 ml/hr), s/p FFP; pt. received Zosyn, Vanco. Mg was corrected; Cardio, ID, Renal, Heme, GI, Neuro consults appreciated. For EGD this AM. To transfuse 2 more units of PRBC To f/u AM labs. To f/u CX Prognosis: reserved. Time spent for managing pt.'s care: over 40 min
--- NOTE | 2017-02-14 10:56 | PN ---
Progress Note, Physician History of Present Illness: Awake, alert Complains of generalized weakness No c/o fever/ chills Afebrile WBC now normal Cultures negative Coagulopathy, azotemia improved - Current Medication List Current Medications: Active Medications Atorvastatin Calcium (Lipitor -) 20 mg PO HS [facility] Last Admin: 02/13/17 21:03 Dose: 20 mg Pantoprazole Sodium 80 mg/ (Sodium Chloride) 100 mls @ 10 mls/hr IVPB Q10H GLORIA PRN Reason: 8 MG/HR Last Admin: 02/14/17 08:13 Dose: 10 mls/hr Dextrose/Sodium Chloride (D5-Ns -) 1,000 mls @ 100 mls/hr IV ASDIR GLORIA Last Admin: 02/14/17 06:00 Dose: 100 mls/hr Piperacillin Sod/Tazobactam Sod (Zosyn 2.25gm Ivpb (Pre-Docked)) 50 mls @ 100 mls/hr IVPB Q8H-IV GLORIA PRN Reason: Protocol Last Admin: 02/14/17 09:34 Dose: 100 mls/hr Octreotide Acetate 1,200 mcg/ (Dextrose) 500 mls @ 20.83 mls/hr IVPB Q24H GLORIA PRN Reason: 50 MCG/HR Last Admin: 02/13/17 18:49 Dose: 20.83 mls/hr Insulin Aspart (Novolog Vial Sliding Scale -) 1 vial SQ ACHS GLORIA PRN Reason: Protocol Last Admin: 02/14/17 10:49 Dose: Not Given Metoprolol Succinate (Toprol Xl -) 25 mg PO BID [facility] Last Admin: 02/14/17 09:34 Dose: 25 mg - Objective Vital Signs: Vital Signs Temperature 97.6 F 02/14/17 10:00 Pulse Rate 64 02/14/17 10:00 Respiratory Rate 18 02/14/17 10:00 Blood Pressure 92/69 02/14/17 10:00 O2 Sat by Pulse Oximetry (%) 96 02/13/17 23:58 Constitutional: Yes: No Distress, Pallor Eyes: Yes: Conjunctiva Clear Cardiovascular: Yes: Regular Rate and Rhythm, S1, S2 Respiratory: Yes: CTA Bilaterally Gastrointestinal: Yes: Normal Bowel Sounds, Soft. No: Tenderness Edema: Yes Labs: CBC, BMP 02/14/17 05:00 02/14/17 05:00 INR, PTT INR 1.56 (0.82-1.09) H 02/14/17 05:00 Fibrinogen 286.0 mg/dL (238-498) 02/13/17 20:00 Assessment/Plan Hypothermia, Leukocytosis, Coagulopathy, Hypoglycemia, possible sepsis Lactic acidosis Severe anemia Possible GI bleed Azotemia-improved For EGD today If cultures negative next 24hr, D/C antibiotics, observe off
--- NOTE | 2017-02-14 10:57 | PN ---
Progress Note (short form) - Note Progress Note: Neurology History of Present Illness 81-year-old male from home, with multiple medical problems, presents with 2 days of generalized weakness. Spoke to Dr. Sharp and the patient has several ongoing issues inlcuding dizzyness, weakness, elevated INR to 10, decreased hemoglobin to 6.1, acute renal failure, leukocyotis, and ongoing low back pain. 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 CT head completed and did not show acute changes. CT L spine reviewed and showed L2-L5 DDD (moderate to marked), possibly spur formation, b/l facet hypertrophy. Does report back pain but has been upgraded to ICU for ongoing medical issues. Active Medications Atorvastatin Calcium (Lipitor -) 20 mg PO HS [facility] Last Admin: 02/13/17 21:03 Dose: 20 mg Pantoprazole Sodium 80 mg/ (Sodium Chloride) 100 mls @ 10 mls/hr IVPB Q10H [facility] PRN Reason: 8 MG/HR Last Admin: 02/14/17 08:13 Dose: 10 mls/hr Dextrose/Sodium Chloride (D5-Ns -) 1,000 mls @ 100 mls/hr IV ASDIR [facility] Last Admin: 02/14/17 06:00 Dose: 100 mls/hr Piperacillin Sod/Tazobactam Sod (Zosyn 2.25gm Ivpb (Pre-Docked)) 50 mls @ 100 mls/hr IVPB Q8H-IV [facility] PRN Reason: Protocol Last Admin: 02/14/17 09:34 Dose: 100 mls/hr Octreotide Acetate 1,200 mcg/ (Dextrose) 500 mls @ 20.83 mls/hr IVPB Q24H [facility] PRN Reason: 50 MCG/HR Last Admin: 02/13/17 18:49 Dose: 20.83 mls/hr Insulin Aspart (Novolog Vial Sliding Scale -) 1 vial SQ ACHS [facility] PRN Reason: Protocol Last Admin: 02/14/17 10:49 Dose: Not Given Metoprolol Succinate (Toprol Xl -) 25 mg PO BID [facility] Last Admin: 02/14/17 09:34 Dose: 25 mg *Physical Exam Vital Signs Temperature 97.6 F 02/14/17 10:00 Pulse Rate 64 02/14/17 10:00 Respiratory Rate 18 02/14/17 10:00 Blood Pressure 92/69 02/14/17 10:00 O2 Sat by Pulse Oximetry (%) 96 02/13/17 23:58 General Appearance: Yes: Appropriately Dressed. mild distress No: , Intoxicated HEENT: positive: EOMI, KEVIN, Normal ENT Inspection, Normal Voice, TMs Normal, Pharynx Normal. oral mucosa dry, negative: Pale Conjunctivae, Photophobia, Scleral Icterus (R), Scleral Icterus (L) Neck: positive: Trachea midline, Normal Thyroid, Supple. negative: Tender, Rigid, Carotid bruit, Stridor, Lymphadenopathy (R), Lymphadenopathy (L), Thyromegaly Respiratory/Chest: positive: Lungs Clear, Normal Breath Sounds. negative: Chest Tender, Respiratory Distress, Accessory Muscle Use, Labored Respiration, RES, Crackles, Rales, Rhonchi, Stridor, Wheezing, Dullness Cardiovascular: positive: Regular Rhythm, Regular Rate, S1, S2. negative: Edema , JVD, Murmur, Bradycardia, Tachycardia Vascular Pulses: Dorsalis-Pedis (R): 2+, Doralis-Pedis (L): 2+ Gastrointestinal/Abdominal: positive: decreased Bowel Sounds, distended firm, possible ventral hernial defect. negative: Tender, Organomegaly, Pulsatile Mass , Increased Bowel Sounds, Guarding, Rebound, Hepatomegaly, Spleenomegaly Lymphatic: negative: Adenopathy, Tenderness Musculoskeletal: positive: Normal Inspection. negative: CVA Tenderness, Decreased Range of Motion Extremity: positive: Normal Capillary Refill, Normal Inspection, Normal Range of Motion, Pelvis Stable. negative: Tender, Pedal Edema, Swelling, Erythema Integumentary: positive: Normal Color, Dry, Warm. negative: Cyanotic, Erythema , Jaundice, Rash Neurologic: positive: medical records tech II-XII NML intact, Fully Oriented, Alert, Normal Mood/ Affect, Motor Strength 5/5. negative: EOM Palsy, Facial Droop, Sensory Deficit CBCD WBC 8.7 K/mm3 (4.0-10.0) D 02/14/17 05:00 RBC 2.92 M/mm3 (4.00-5.60) L 02/14/17 05:00 Hgb 6.9 GM/dL (11.7-16.9) L* D 02/14/17 05:00 Hct 21.4 % (35.4-49) L D 02/14/17 05:00 MCV 73.3 fl (80-96) L 02/14/17 05:00 MCHC 32.2 g/dl (32.0-35.9) 02/14/17 05:00 RDW 21.4 % (11.9-15.9) H D 02/14/17 05:00 Plt Count 144 K/MM3 (134-434) D 02/14/17 05:00 MPV 7.5 fl (7.5-11.1) 02/14/17 05:00 CMP Sodium 142 mmol/L (136-145) 02/14/17 05:00 Potassium 4.3 mmol/L (3.5-5.1) 02/14/17 05:00 Chloride 111 mmol/L (98-107) H 02/14/17 05:00 Carbon Dioxide 24 mmol/L (21-32) D 02/14/17 05:00 Anion Gap 7 (8-16) L 02/14/17 05:00 BUN 49 mg/dL (7-18) H 02/14/17 05:00 Creatinine 2.2 mg/dL (0.7-1.3) H 02/14/17 05:00 Creat Clearance w eGFR 29.02 (>60) 02/14/17 05:00 Calcium 7.6 mg/dL (8.5-10.1) L 02/14/17 05:00 Total Bilirubin 1.9 mg/dL (0.2-1.0) H 02/14/17 05:00 AST 40 U/L (15-37) H D 02/14/17 05:00 ALT 25 U/L (12-78) 02/14/17 05:00 Alkaline Phosphatase 190 U/L (45-117) H 02/14/17 05:00 Total Protein 5.6 g/dl (6.4-8.2) L 02/14/17 05:00 Albumin 1.7 g/dl (3.4-5.0) L 02/14/17 05:00 Plan: 81-year-old male from home, with multiple medical problems, presents with 2 days of generalized weakness. Spoke to Dr. Sharp and the patient has several ongoing issues inlcuding dizzyness, weakness, elevated INR to 10, decreased hemoglobin to 6.1, acute renal failure, leukocyotis, and ongoing low back pain. 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 CT head reviewed with patient CT L spine reviewed with patient Recommend continued medical optmization of multiple underlying conditions. May benefit from physical therapy, I ordered If pain persists, may benefit from pain mgmt Consider Tylenol as needed for now as patient with ongoing renal failure and would want to avoid Ibuprofen, etc. Dr. Condon on this weekend if needed, I will be back Friday
--- NOTE | 2017-02-14 11:18 | PN ---
Progress Note (short form) - Note Progress Note: Renal Follow up for EMERALD Pt seen and examined in the ICU awake and alert no loose BMs, denies any abd pain, N/V no sob or chest pain possible EGD Today Vital Signs Temperature 97.6 F 02/14/17 10:00 Pulse Rate 64 02/14/17 10:00 Respiratory Rate 18 02/14/17 10:00 Blood Pressure 92/69 02/14/17 10:00 O2 Sat by Pulse Oximetry (%) 96 02/13/17 23:58 Intake & Output 02/11/17 02/12/17 02/13/17 02/14/17 23:59 23:59 23:59 23:59 Intake Total 240 2295 1007.8 Output Total 600 600 Balance 240 1695 407.8 Weight 170 lb Gen: NAD CVS: irregular, no M/R Lungs: CTA, no rales or wheeze Abd: soft NT/ND Ext: Trace pretibial edema CBC, BMP 02/14/17 05:00 02/14/17 05:00 Laboratory Tests 02/14/17 02/14/17 05:00 05:00 Calcium 7.6 L Phosphorus 3.2 Magnesium 1.9 Iron Pending TIBC Pending Iron Saturation Pending Albumin 1.7 L Current Medications Atorvastatin Calcium (Lipitor -) 20 mg PO HS [facility] Last Admin: 02/13/17 21:03 Dose: 20 mg Pantoprazole Sodium 80 mg/ (Sodium Chloride) 100 mls @ 10 mls/hr IVPB Q10H [facility] PRN Reason: 8 MG/HR Last Admin: 02/14/17 08:13 Dose: 10 mls/hr Dextrose/Sodium Chloride (D5-Ns -) 1,000 mls @ 100 mls/hr IV ASDIR [facility] Last Admin: 02/14/17 06:00 Dose: 100 mls/hr Piperacillin Sod/Tazobactam Sod (Zosyn 2.25gm Ivpb (Pre-Docked)) 50 mls @ 100 mls/hr IVPB Q8H-IV [facility] PRN Reason: Protocol Last Admin: 02/14/17 09:34 Dose: 100 mls/hr Octreotide Acetate 1,200 mcg/ (Dextrose) 500 mls @ 20.83 mls/hr IVPB Q24H [facility] PRN Reason: 50 MCG/HR Last Admin: 02/13/17 18:49 Dose: 20.83 mls/hr Insulin Aspart (Novolog Vial Sliding Scale -) 1 vial SQ ACHS [facility] PRN Reason: Protocol Last Admin: 02/14/17 10:49 Dose: Not Given Metoprolol Succinate (Toprol Xl -) 25 mg PO BID [facility] Last Admin: 02/14/17 09:34 Dose: 25 mg A/P 81 year old Gentleman with PMhx of CAD, Afib on Coumadin, Hypertension, BPH, DM who presented with weakness, lethargy and found to have acute on chronic anemia with Hgb of 6.1 in setting of supratheraputic INR and EMERALD with BUN/Cr of 43/2.5. #Acute Renal Failure Etiology likely volume depletion in setting of anemia vs. ATN (NSAID use) FeNa is 0.18% indicating pre-renal injury continue fluids and blood transfusions Trend BUN/Cr and urine output dose all meds for Cr Cl less then 15 #Anion Gap Metabolic acidosis Serum Bicarb is improved LA elevated yesterday, no repeat today no indication for bicarb at this time #Acute Anemia in setting of supratheraputic INR GI Following, for possible EGD today Transfuse as per ICU protocol #Leukocytosis/Hypothermia r/o Sepsis/SIRS f/u cultures empiric Abx as per primary #Hypomagneseaia imrproved, trend daily #Hypoalbuminemia oral intake when ok with GI #Hypoglycemia continue D5 MARILYN Rausch DO
--- NOTE | 2017-02-14 12:32 | PN ---
Teaching Attending Note Name of Resident: Mahogany Valdovinos ATTENDING PHYSICIAN STATEMENT I saw and evaluated the patient. I reviewed the resident's note and discussed the case with the resident. I agree with the resident's findings and plan as documented. SUBJECTIVE: Pt seen and examined in the ICU. No further bleeding noted. Denies shortness of breath or chest pain. No abdominal pain. OBJECTIVE: Last Vital Signs Temp Pulse Resp BP Pulse Ox 97.6 F 64 18 92/69 98 02/14/17 10:00 02/14/17 10:00 02/14/17 10:00 02/14/17 10:00 02/14/17 09:00 Intake & Output 02/11/17 02/12/17 02/13/17 02/14/17 23:59 23:59 23:59 23:59 Intake Total 240 2295 1007.8 Output Total 600 600 Balance 240 1695 407.8 Weight 170 lb Gen: NAD at rest Heart: RRR Lung: decreased breath sounds at the bases Abd: softly distended, nontender Ext: no edema CBC, BMP 02/14/17 05:00 02/14/17 05:00 Active Medications Atorvastatin Calcium (Lipitor -) 20 mg PO HS [facility] Last Admin: 02/13/17 21:03 Dose: 20 mg Pantoprazole Sodium 80 mg/ (Sodium Chloride) 100 mls @ 10 mls/hr IVPB Q10H [facility] PRN Reason: 8 MG/HR Last Admin: 02/14/17 08:13 Dose: 10 mls/hr Dextrose/Sodium Chloride (D5-Ns -) 1,000 mls @ 100 mls/hr IV ASDIR [facility] Last Admin: 02/14/17 06:00 Dose: 100 mls/hr Piperacillin Sod/Tazobactam Sod (Zosyn 2.25gm Ivpb (Pre-Docked)) 50 mls @ 100 mls/hr IVPB Q8H-IV [facility] PRN Reason: Protocol Last Admin: 02/14/17 09:34 Dose: 100 mls/hr Octreotide Acetate 1,200 mcg/ (Dextrose) 500 mls @ 20.83 mls/hr IVPB Q24H [facility] PRN Reason: 50 MCG/HR Last Admin: 02/13/17 18:49 Dose: 20.83 mls/hr Insulin Aspart (Novolog Vial Sliding Scale -) 1 vial SQ ACHS [facility] PRN Reason: Protocol Last Admin: 02/14/17 10:49 Dose: Not Given Metoprolol Succinate (Toprol Xl -) 25 mg PO BID [facility] Last Admin: 02/14/17 09:34 Dose: 25 mg ASSESSMENT AND PLAN: GI Bleed Acute Blood Loss Anemia Supratherapeutic INR Atrial Fibrillation Acute Kidney Injury Lactic Acidosis HTN DM BPH - transfuse PRBC - monitor H/H - protonix, octreotide gtts - IVF - endoscopy per GI - monitor INR - on empiric antibiotics - f/u cultures - DVT prophylaxis - continue ICU monitoring critical care time spent in reviewing chart, evaluating patient and formulating plan 35 min
[2017-02-14] MEDS ORDERED: TETRACAINE/BENZOCAINE/BUTAMBEN 20 GM SPR TP ONE (14:59)
[2017-02-14] MEDS ORDERED: ePHEDrine SULFATE 50 MG/1 ML AMPULE ONE (15:00)
[2017-02-14] MEDS ORDERED: OCTREOTIDE ACETATE 1,200 MCG in DEXTROSE 5%-WATER - 488 ML IVPB SCH (15:45)
--- NOTE | 2017-02-14 15:45 | PN ---
Progress Note (short form) - Note Progress Note: GI Procedure NOte: Please see EGD report. No bleeding source found. Will taper Octreotide. Will need colonoscopy and I suspect capsule endoscopy as well.
[2017-02-14] MEDS ORDERED: DEXTROSE 5%-NORMAL SALINE 1,000 ML IV SCH (15:46)
--- NOTE | 2017-02-14 17:08 | PN ---
Progress Note, Physician History of Present Illness: EGD negative for bleed source, plan for colonoscopy and capsule endoscopy. - Current Medication List Current Medications: Active Medications Atorvastatin Calcium (Lipitor -) 20 mg PO HS [facility] Last Admin: 02/13/17 21:03 Dose: 20 mg Piperacillin Sod/Tazobactam Sod (Zosyn 2.25gm Ivpb (Pre-Docked)) 50 mls @ 100 mls/hr IVPB Q8H-IV [facility] PRN Reason: Protocol Last Admin: 02/14/17 09:34 Dose: 100 mls/hr Octreotide Acetate 1,200 mcg/ (Dextrose) 500 mls @ 10.41 mls/hr IVPB Q24H [facility] PRN Reason: 25 MCG/HR Dextrose/Sodium Chloride (D5-Ns -) 1,000 mls @ 30 mls/hr IV ASDIR [facility] Insulin Aspart (Novolog Vial Sliding Scale -) 1 vial SQ ACHS [facility] PRN Reason: Protocol Last Admin: 02/14/17 10:49 Dose: Not Given Metoprolol Succinate (Toprol Xl -) 25 mg PO BID [facility] Last Admin: 02/14/17 09:34 Dose: 25 mg Pantoprazole Sodium (Protonix -) 40 mg PO DAILY [facility] - Objective Vital Signs: Vital Signs Temperature 97.6 F 02/14/17 10:00 Pulse Rate 64 02/14/17 10:00 Respiratory Rate 18 02/14/17 10:00 Blood Pressure 92/69 02/14/17 10:00 O2 Sat by Pulse Oximetry (%) 98 02/14/17 09:00 Constitutional: Yes: No Distress, Calm Neck: Yes: Supple Cardiovascular: Yes: Regular Rate and Rhythm Respiratory: Yes: Regular, Diminished, On Nasal O2 Gastrointestinal: Yes: Soft, Hypoactive Bowel Sounds Edema: No Labs: CBC, BMP 02/14/17 05:00 02/14/17 05:00 INR, PTT INR 1.56 (0.82-1.09) H 02/14/17 05:00 Fibrinogen 286.0 mg/dL (238-498) 02/13/17 20:00 Assessment/Plan 1. GI bleed with melena, profound anemia due to supratherapeutic INR, EGD negative for bleed source 2. Acute on chronic renal failure with above finding 3. Elevated WBC suggests sepsis, etiology to be determined 4. CAD, non-obstructive 5. Paroxysmal atrial fibrillation in sinus rhythm on Coumadin 6. Hypertension 7. Type 2 diabetes mellitus 8. Hypercholesterolemia 9. EMERALD due to pre-renal improving PLAN: 1. Transfuse PRBC as needed and monitor H/H closely 3. GI plans colonoscopy and possible capsule endoscopy, wean off octreotide gtts 4. Monitor subtherapeutic INR closely 5. Empiric antibiotic coverage per C&S 6. Monitor renal recovery and electrolytes 7. Avoid NSAIDS. Hold ASA for now 8. Continue Metoprolol 25 bid and Lipitor 20 qhs
[2017-02-14] MEDS: PANTOPRAZOLE 40 MG TABLET (FP) PO SCH (17:27)
[2017-02-14 21:11] LABS: MCH 24.8 pg (25.7-33.7); MEAN CELL VOLUME 77.5 fl (80-96); MEAN PLT VOLUME 7.6 fl (7.5-11.1); PLATELET COUNT 149 K/MM3 (134-434); RDW 23.2 % (11.9-15.9); WHITE BLOOD COUNT 9.8 K/mm3 (4.0-10.0)
[2017-02-14] MEDS: ATORVASTATIN CA 20 MG TABLET (FP) PO SCH (22:02)
[2017-02-15] MEDS: PIPERACILLIN/TAZOB 2.25 GM 50 ML IVPB SCH ×2 (01:55→09:08)
[2017-02-15] MEDS: INSULIN SLIDING SCALE (NOVOLOG) 1 VIAL SQ SCH ×5 (06:07→21:49)
[2017-02-15 06:18] LABS: MCH 25.6 pg (25.7-33.7); MCHC 33.4 g/dl (32.0-35.9); MEAN CELL VOLUME 76.6 fl (80-96); MEAN PLT VOLUME 7.4 fl (7.5-11.1); PLATELET COUNT 141 K/MM3 (134-434); WHITE BLOOD COUNT 9.1 K/mm3 (4.0-10.0)
[2017-02-15 06:55] LABS: ALBUMIN 1.5 g/dl (3.4-5.0); CALCIUM 7.5 mg/dL (8.5-10.1); MAGNESIUM 1.7 mg/dL (1.8-2.4)
[2017-02-15 06:58] LABS: BILIRUBIN,TOTAL 2.1 mg/dL (0.2-1.0); COCKROFT - GAULT 39.3; CREATININE 1.8 mg/dL (0.7-1.3); PHOSPHOROUS 2.3 mg/dL (2.5-4.9); TOT PROT 5.4 g/dl (6.4-8.2)
[2017-02-15 08:07] LABS: SERUM IRON 181 ug/dL (38-169); TOTAL IRON BINDING CAPACITY 183 ug/dL (250-450); UIBC 2 ug/dL (111-343)
[2017-02-15 08:57] LABS: PLATELET ESTIMATE ADEQUATE (NORMAL)
[2017-02-15 08:58] LABS: ANISOCYTOSIS 2+; MICROCYTOSIS 2+
[2017-02-15] MEDS: PANTOPRAZOLE 40 MG TABLET (FP) PO SCH (09:08)
[2017-02-15] MEDS: METOPROLOL SUCCINATE 25 MG TAB.SR.24H (FP) PO SCH ×2 (09:08→21:49)
--- NOTE | 2017-02-15 09:14 | PN ---
Progress Note (short form) - Note Progress Note: Chief Complaint: Events noted, notes reviewed. Denies any chest pain or dyspnea , EGD negative for bleed source, plan for colonoscopy and outpatient capsule endoscopy. History of Present Illness: Seen and examined in the ICU. Events noted, notes reviewed. Denies any chest pain or dyspnea, EGD negative for bleed source, plan for colonoscopy and outpatient capsule endoscopy. - Current Medication List Current Medications Atorvastatin Calcium (Lipitor -) 20 mg PO HS [facility] Last Admin: 02/14/17 22:02 Dose: 20 mg Piperacillin Sod/Tazobactam Sod (Zosyn 2.25gm Ivpb (Pre-Docked)) 50 mls @ 100 mls/hr IVPB Q8H-IV [facility] PRN Reason: Protocol Last Admin: 02/15/17 09:08 Dose: 100 mls/hr Octreotide Acetate 1,200 mcg/ (Dextrose) 500 mls @ 10.41 mls/hr IVPB Q24H [facility] PRN Reason: 25 MCG/HR Last Admin: 02/14/17 17:29 Dose: 10.41 mls/hr Dextrose/Sodium Chloride (D5-Ns -) 1,000 mls @ 30 mls/hr IV ASDIR [facility] Last Admin: 02/14/17 20:00 Dose: 30 mls/hr Insulin Aspart (Novolog Vial Sliding Scale -) 1 vial SQ ACHS [facility] PRN Reason: Protocol Last Admin: 02/15/17 06:07 Dose: Not Given Metoprolol Succinate (Toprol Xl -) 25 mg PO BID [facility] Last Admin: 02/15/17 09:08 Dose: 25 mg Pantoprazole Sodium (Protonix -) 40 mg PO DAILY [facility] Last Admin: 02/15/17 09:08 Dose: 40 mg Review of Systems Cardiovascular: As noted above Respiratory: denies: Cough or Sputum Production Gastrointestinal: denies: Nausea, Vomiting, Diarrhea, Constipation or Abdominal Discomfort Musculoskeletal: No symptoms reported Genitourinary: No symptoms reported - Objective Vital Signs: Last Vital Signs Temp Pulse Resp BP Pulse Ox 98 F 54 L 20 111/57 99 02/15/17 06:00 02/15/17 06:00 02/15/17 06:00 02/15/17 06:00 02/15/17 06:00 Constitutional: No Distress, Calm Neck: Supple Negative JVD No Bruit Cardiovascular: S1 S2 Regular Rate and Rhythm Respiratory: Diminished Gastrointestinal: Soft Benign Normal Bowel Sounds Ext: No Edema Labs: CBC, BMP 02/15/17 05:20 02/15/17 05:20 Hepatic Panel Total Bilirubin 2.1 mg/dL (0.2-1.0) H 02/15/17 05:20 AST 38 U/L (15-37) H 02/15/17 05:20 ALT 22 U/L (12-78) 02/15/17 05:20 Alkaline Phosphatase 191 U/L (45-117) H 02/15/17 05:20 Albumin 1.5 g/dl (3.4-5.0) L 02/15/17 05:20 INR, PTT INR 1.56 (0.82-1.09) H 02/14/17 05:00 Fibrinogen 286.0 mg/dL (238-498) 02/13/17 20:00 Assessment/Plan ASSESSMENT: 1. GI bleed with melena, profound anemia due to supra-therapeutic INR, EGD negative for bleed source 2. Acute on chronic renal failure 3. CAD non-obstructive CAD angina pectoris 4. 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 Paroxysmal atrial fibrillation in sinus rhythm on Coumadin, therapy on hold, [id number] score of 5 6. Hypertension 7. Diabetes mellitus 8. Hypercholesterolemia PLAN: 1. Transfuse as needed maintaining Hg > 8.0 and monitor H/H closely 2. Plan to proceed with colonoscopy and possible outpatient capsule endoscopy 3. Plan to resume A/C once hemostasis is achieved unless it is absolutely contraindicated (If bleeding remains an issue since patient requires A/C considering his [id number] score of 5 other alternative is to consider left atrial closure device, Watchman MOLLY closure device) 4. Continue Lopressor 5. Continue Lipitor Kenya Ball M.D.
--- NOTE | 2017-02-15 09:55 | PN ---
Progress Note (short form) - Note Progress Note: s/p egd- no bleeding noted resting comfortably Vital Signs Period Temp Pulse Resp BP Sys/Venegas Pulse Ox Last 24 Hr 97.6 F-98.2 F 53-70 18-25 92-120/56-73 95-99 cor-rrr llungs clear abd soft, +BS, NT, +fluid ext +edema CBC, BMP 02/15/17 05:20 02/15/17 05:20 Microbiology 02/13/17 16:14 Blood - Peripheral Venous Blood Culture - Preliminary NO GROWTH OBTAINED AFTER 24 HOURS, INCUBATION TO CONTINUE FOR 4 DAYS. 02/13/17 16:00 Blood - Peripheral Venous Blood Culture - Preliminary NO GROWTH OBTAINED AFTER 24 HOURS, INCUBATION TO CONTINUE FOR 4 DAYS. 02/13/17 05:59 Urine - Urine Clean Catch Urine Culture - Final NO GROWTH OBTAINED Current Medications Atorvastatin Calcium (Lipitor -) 20 mg PO HS [facility] Last Admin: 02/14/17 22:02 Dose: 20 mg Piperacillin Sod/Tazobactam Sod (Zosyn 2.25gm Ivpb (Pre-Docked)) 50 mls @ 100 mls/hr IVPB Q8H-IV [facility] PRN Reason: Protocol Last Admin: 02/15/17 09:08 Dose: 100 mls/hr Octreotide Acetate 1,200 mcg/ (Dextrose) 500 mls @ 10.41 mls/hr IVPB Q24H [facility] PRN Reason: 25 MCG/HR Last Admin: 02/14/17 17:29 Dose: 10.41 mls/hr Dextrose/Sodium Chloride (D5-Ns -) 1,000 mls @ 30 mls/hr IV ASDIR [facility] Last Admin: 02/14/17 20:00 Dose: 30 mls/hr Insulin Aspart (Novolog Vial Sliding Scale -) 1 vial SQ ACHS [facility] PRN Reason: Protocol Last Admin: 02/15/17 06:07 Dose: Not Given Metoprolol Succinate (Toprol Xl -) 25 mg PO BID [facility] Last Admin: 02/15/17 09:08 Dose: 25 mg Pantoprazole Sodium (Protonix -) 40 mg PO DAILY [facility] Last Admin: 02/15/17 09:08 Dose: 40 mg a/p GI bleed anemia liver cirrhosis with ascites EMERALD cultures negative will d/c zosyn
--- NOTE | 2017-02-15 10:09 | PN ---
Progress Note, Physician History of Present Illness: The patient seen in the ICU. Seems comfortable. Denies any new issues. Has started on clear liquids. No further bleeding. Maintains good urine output. - Current Medication List Current Medications: Active Medications Atorvastatin Calcium (Lipitor -) 20 mg PO HS [facility] Last Admin: 02/14/17 22:02 Dose: 20 mg Octreotide Acetate 1,200 mcg/ (Dextrose) 500 mls @ 10.41 mls/hr IVPB Q24H [facility] PRN Reason: 25 MCG/HR Last Admin: 02/14/17 17:29 Dose: 10.41 mls/hr Dextrose/Sodium Chloride (D5-Ns -) 1,000 mls @ 30 mls/hr IV ASDIR [facility] Last Admin: 02/14/17 20:00 Dose: 30 mls/hr Insulin Aspart (Novolog Vial Sliding Scale -) 1 vial SQ ACHS [facility] PRN Reason: Protocol Last Admin: 02/15/17 06:07 Dose: Not Given Metoprolol Succinate (Toprol Xl -) 25 mg PO BID [facility] Last Admin: 02/15/17 09:08 Dose: 25 mg Pantoprazole Sodium (Protonix -) 40 mg PO DAILY [facility] Last Admin: 02/15/17 09:08 Dose: 40 mg - Objective Vital Signs: Vital Signs Temperature 98 F 02/15/17 06:00 Pulse Rate 54 L 02/15/17 06:00 Respiratory Rate 20 02/15/17 06:00 Blood Pressure 111/57 02/15/17 06:00 O2 Sat by Pulse Oximetry (%) 99 02/15/17 06:00 Constitutional: Yes: Calm HENT: Yes: Normocephalic Neck: Yes: Trachea Midline Cardiovascular: Yes: S1, S2 Respiratory: Yes: CTA Bilaterally, Diminished Gastrointestinal: Yes: Distention (marked distension), Hypoactive Bowel Sounds Genitourinary: No: Bladder Distention, CVA Tenderness - Left, CVA Tenderness - Right Neurological: Yes: Alert, Oriented Labs: CBC, BMP 02/15/17 05:20 02/15/17 05:20 INR, PTT INR 1.56 (0.82-1.09) H 02/14/17 05:00 Fibrinogen 286.0 mg/dL (238-498) 02/13/17 20:00 Problem List - Problems (1) A-fib Code(s): I48.91 - UNSPECIFIED ATRIAL FIBRILLATION Qualifiers: Atrial fibrillation type: paroxysmal Qualified Code(s): I48.0 - Paroxysmal atrial fibrillation (2) Acute renal failure Code(s): N17.9 - ACUTE KIDNEY FAILURE, UNSPECIFIED (3) Anemia Code(s): D64.9 - ANEMIA, UNSPECIFIED (4) Diabetes mellitus Code(s): E11.9 - TYPE 2 DIABETES MELLITUS WITHOUT COMPLICATIONS Qualifiers: Diabetes mellitus type: type 2 Diabetes mellitus complication status: without complication Diabetes mellitus senior care insulin use: without senior care use Qualified Code(s): E11.9 - Type 2 diabetes mellitus without complications (5) Hypoglycemia Code(s): E16.2 - HYPOGLYCEMIA, UNSPECIFIED (6) Hypomagnesemia Code(s): E83.42 - HYPOMAGNESEMIA (7) Liver cirrhosis Code(s): K74.60 - UNSPECIFIED CIRRHOSIS OF LIVER (8) Supratherapeutic INR Code(s): R79.1 - ABNORMAL COAGULATION PROFILE Assessment/Plan 81 y/o male admitted with GI bleeding, Supratherapeutic INR, Acute kidney injury. Maintains good urine output. The abdominal distension is profound. S/P Endoscopy. Hypomagnesemia and hypophosphatemia persist. Will give supplements. Will monitor the renal and electrolyte profile. Danae Correa MD
--- NOTE | 2017-02-15 10:17 | PN ---
Progress Note (short form) - Note Progress Note: PULMONARY/CCM Pt seen and examined in the ICU. Some dark stools but no overt bleeding. Denies shortness of breath or chest pain. Last Vital Signs Temp Pulse Resp BP Pulse Ox 98 F 54 L 20 111/57 99 02/15/17 06:00 02/15/17 06:00 02/15/17 06:00 02/15/17 06:00 02/15/17 06:00 Intake & Output 02/12/17 02/13/17 02/14/17 02/15/17 23:59 23:59 23:59 23:59 Intake Total 240 2295 2929.4 493.2 Output Total 600 600 300 Balance 240 1695 2329.4 193.2 Weight 170 lb 184 lb 1.6 oz Gen: NAD at rest Heart: RRR Lung: decreased breath sounds at the bases Abd: soft, nontender Ext: no edema CBC, BMP 02/15/17 05:20 02/15/17 05:20 Active Medications Atorvastatin Calcium (Lipitor -) 20 mg PO HS [facility] Last Admin: 02/14/17 22:02 Dose: 20 mg Octreotide Acetate 1,200 mcg/ (Dextrose) 500 mls @ 10.41 mls/hr IVPB Q24H [facility] PRN Reason: 25 MCG/HR Last Admin: 02/14/17 17:29 Dose: 10.41 mls/hr Dextrose/Sodium Chloride (D5-Ns -) 1,000 mls @ 30 mls/hr IV ASDIR [facility] Last Admin: 02/14/17 20:00 Dose: 30 mls/hr Potassium Phosphate 15 mm/ (Dextrose) 255 mls @ 62.5 mls/hr IVPB ONCE ONE Stop: 02/15/17 14:13 Insulin Aspart (Novolog Vial Sliding Scale -) 1 vial SQ ACHS [facility] PRN Reason: Protocol Last Admin: 02/15/17 06:07 Dose: Not Given Magnesium Sulfate (Magnesium Sulfate) 1 gm IVPB ONCE ONE Stop: 02/15/17 10:10 Metoprolol Succinate (Toprol Xl -) 25 mg PO BID [facility] Last Admin: 02/15/17 09:08 Dose: 25 mg Pantoprazole Sodium (Protonix -) 40 mg PO DAILY [facility] Last Admin: 02/15/17 09:08 Dose: 40 mg A/P GI Bleed Acute Blood Loss Anemia Supratherapeutic INR Atrial Fibrillation Acute Kidney Injury Lactic Acidosis HTN DM BPH - transfuse PRBC - monitor H/H - protonix, octreotide gtts per GI - PO per GI - colonoscopy per GI - monitor INR - DVT prophylaxis - can monitor on floor
[2017-02-15] MEDS ORDERED: POTASSIUM PHOSPHATE 15 MM in DEXTROSE 5%-WATER - 250 ML IVPB ONE ×2 (10:55→11:00)
[2017-02-15] MEDS ORDERED: MAGNESIUM SULF 50% (8.12 MEQ/2 ML-1 GM VIAL) IVPB ONE (11:30)
--- NOTE | 2017-02-15 12:06 | PN ---
Progress Note (short form) - Note Progress Note: Patient seen and examined No bleeding, but dark stools EGD- non revealing for GI souce For colonoscopy No chest pain, SOB No Nausea, abdominal pain No dysuria hematuria No current smoking , d/staci > 20 years earlier Prior significant drinking, now 2 beers per day Last Vital Signs Temp Pulse Resp BP Pulse Ox 98.5 F 64 20 117/67 95 02/15/17 10:00 02/15/17 10:00 02/15/17 10:00 02/15/17 10:00 02/15/17 09:00 HEENT: SHELL, EOM Intact Oropharynx: No thrush, No mucositis, decrease papillation of tongue Cor: RSR, No murmurs, No gallops Lungs: Clear to P&A Abd: distended , ascites Ext:No significant edema Skin: No rashes, Integument intact CBC, BMP 02/15/17 05:20 02/15/17 05:20 INR, PTT INR 1.56 (0.82-1.09) H 02/14/17 05:00 Fibrinogen 286.0 mg/dL (238-498) 02/13/17 20:00 Current Medications Generic Name Dose Route Start Last Admin Trade Name Freq PRN Reason Stop Dose Admin Atorvastatin Calcium 20 mg 02/15/17 22:00 Lipitor - PO HS GLORIA Dextrose/Sodium Chloride 1,000 mls @ 30 mls/hr 02/15/17 10:55 D5-Ns - IV ASDIR GLORIA Potassium Phosphate 15 mm/ 255 mls @ 63.75 mls/hr 02/15/17 10:55 02/15/17 11:41 Dextrose IVPB 02/15/17 14:54 62.5 mls/hr ONCE ONE Administration 15 MM/4 HR Insulin Aspart 1 vial 02/15/17 11:00 02/15/17 11:50 Novolog Vial Sliding Scale - SQ Not Given ACHS GLORIA Protocol Metoprolol Succinate 25 mg 02/15/17 22:00 Toprol Xl - PO BID GLORIA Pantoprazole Sodium 40 mg 02/16/17 10:00 Protonix - PO DAILY GLORIA Impression: Supratherapeutic INR - corrected with Vitamin K and FFp S/P transfusion GI bleeding without source on EGD Fall risk PAF with need for ongoing a/c in view of DIRK/vascular score per cardiology Cirrhosis Ascites EMERALD/CKD Plan: Colonoscopy and if non revealing, capsule endoscopy- as need to find source of bleeding in view of need for a/c. Unclear why INR 19 on admission ( liver disease ?? although not new problem) Denies new meds or changing or mistakes in meds. screening tests for anemia
--- NOTE | 2017-02-15 12:07 | PN ---
Physical Exam: SUBJECTIVE: Patient seen and examined. denies abdominal pain, sob, chest pain, hematuria. for endoscopy today. OBJECTIVE: Vital Signs Period Temp Pulse Resp BP Sys/Venegas Pulse Ox Last 24 Hr 98 F-98.5 F 53-82 18-25 96-120/57-73 95-99 GENERAL: Awake, alert, and fully oriented, in no acute distress. EYES:perra,eomi, sclera anicteric, conjunctiva clear. ENT: oropharynx clear without exudates. Moist mucous membranes., no lad LUNGS: CTAB, quiet at bases, No wheezes, and no crackles. No accessory muscle use. HEART: afib, normal S1 and S2 with systolic murmur ABDOMEN: Soft, nontender, distended, caput medusa, +fluid wave, hypoactive bowel sounds, no guarding, EXTREMITIES: trace edema in b/l LE, warm, well-perfused, right 1st digit with ecchymosis. ASSESSMENT/PLAN: 81 yr old man with Afib, HTN, CAD, DM, presents with hematochezia, suprathereupetic INR, distended abdomen and low h/h. GI acute anemia: concern for GIB h/h low today, transfuse additional prbc's endoscopy without esophageal varices, octreotide to be tapered off plan for colonscopy/capsule endoscopy as outpatient once h/h stable and bleeding resolved NPO, D5/NS IVF eval of liver- hepatitis panel pending abdominal sono shows ascitis in all abdominal quadrants, CT scan does not show hemoperiteneum to be likely, liver imaging consistent with cirrhosis consult: Dr. Segura ID possible SBP(elevated white count trending down), bld and urine cx pending zosyn q8hr IVPB consult: Dr. Perry Cardiovascular Afib permant - hold AC due to acute bleed, rate control with toprol XL 25mg po BID naren CAD - lipitor daily consult: dr. De Los Santos Hematology supratherapeutic INR - corrected consult: dr. beckman Renal EMERALD improved IVF replete electrolytes prn Consult: Dr. Rausch Endocrine DM - hold hypoglycemics, NISS Diet: NPO DVT: scd's given acute bleed Dispo: We will continue to follow the patient. Thank you for this consultative opportunity. Visit type - Emergency Visit Emergency Visit: No - New Patient This patient is new to me today: No - Critical Care Critical Care patient: Yes Total Critical Care Time (in minutes): 36 Critical Care Statement: The care of this patient involved high complexity decision making to prevent further life threatening deterioration of the patient 's condition and/or to evalute & treat vital organ system(s) failure or risk of failure.
--- NOTE | 2017-02-15 12:10 | PN ---
GI Progress Note Subjective: No acute events No overt bleeding No melena Gives a history of thalassemia - Objective Vital Signs: Vital Signs Temperature 98.5 F 02/15/17 10:00 Pulse Rate 82 02/15/17 12:00 Respiratory Rate 18 02/15/17 12:00 Blood Pressure 118/68 02/15/17 12:00 O2 Sat by Pulse Oximetry (%) 95 02/15/17 09:00 Constitutional: Calm Eyes: No: Sclera Icterus Cardiovascular: Yes: Regular Rate and Rhythm Gastrointestinal Inspection: Yes: Distention ...Auscultate: Yes: Normoactive Bowel Sounds ...Palpate: No: Tenderness Edema: No Neurological: Yes: Alert, Oriented Labs: CBC, BMP 02/15/17 05:20 02/15/17 05:20 INR, PTT INR 1.56 (0.82-1.09) H 02/14/17 05:00 Fibrinogen 286.0 mg/dL (238-498) 02/13/17 20:00 Laboratory Tests 02/15/17 05:20 Tumor Marker AFP Pending Problem List - Problems (1) Anemia Assessment/Plan: No clear source of GI bleeding identified on upper endoscopy. Discussed colonoscopy. Discussed potential risks of the procedure like but not limited to bleeding, perforation requiring surgery to repair, infection, sedation medication effects all of which could be potentially life threatening. He is amenable to the procedure, plan for saturday 02/17. Will need diagnostic paracentesis at some point with fluid sent for culture, cell count with diff, AFB culture and smear, total protein, albumin. A hepatic panel should be ordered for the same day as the paracentesis. AFP tumor marker Advised etoh cessation Code(s): D64.9 - ANEMIA, UNSPECIFIED (2) Ascites Code(s): R18.8 - OTHER ASCITES
[2017-02-15] MEDS: DEXTROSE 5%-NORMAL SALINE 1,000 ML IV SCH (12:47)
--- NOTE | 2017-02-15 14:13 | PN ---
Progress Note, Physician History of Present Illness: Pt. w/o vomiting, abd pain, alessandro blood in stool, still with dark colored stool ("not black").\\ Pt. w/o SOB, CP, palp., dizziness + back pain, less now. - Current Medication List Current Medications: Active Medications Atorvastatin Calcium (Lipitor -) 20 mg PO HS GLORIA Bisacodyl (Dulcolax -) 20 mg PO ONCE ONE Stop: 02/16/17 15:01 Dextrose/Sodium Chloride (D5-Ns -) 1,000 mls @ 30 mls/hr IV ASDIR GLORIA Last Admin: 02/15/17 12:47 Dose: Not Given Potassium Phosphate 15 mm/ (Dextrose) 255 mls @ 63.75 mls/hr IVPB ONCE ONE PRN Reason: 15 MM/4 HR Stop: 02/15/17 14:54 Last Admin: 02/15/17 11:41 Dose: 62.5 mls/hr Insulin Aspart (Novolog Vial Sliding Scale -) 1 vial SQ ACHS GLORIA PRN Reason: Protocol Last Admin: 02/15/17 11:50 Dose: Not Given Metoprolol Succinate (Toprol Xl -) 25 mg PO BID GLORIA Pantoprazole Sodium (Protonix -) 40 mg PO DAILY [facility] - Objective Vital Signs: Vital Signs Temperature 98.5 F 02/15/17 10:00 Pulse Rate 82 02/15/17 12:00 Respiratory Rate 18 02/15/17 12:00 Blood Pressure 118/68 02/15/17 12:00 O2 Sat by Pulse Oximetry (%) 95 02/15/17 09:00 Constitutional: Yes: No Distress, Calm Cardiovascular: Yes: Regular Rate and Rhythm, S1, S2 Respiratory: Yes: Regular, CTA Bilaterally. No: Rales Gastrointestinal: Yes: Normal Bowel Sounds, Soft, Abdomen, Obese. No: Tenderness Edema: LLE: Trace, RLE: Trace Labs: CBC, BMP 02/15/17 05:20 02/15/17 05:20 INR, PTT INR 1.56 (0.82-1.09) H 02/14/17 05:00 Fibrinogen 286.0 mg/dL (238-498) 02/13/17 20:00 Problem List - Problems (1) Probable sepsis Code(s): A41.9 - SEPSIS, UNSPECIFIED ORGANISM (2) Anemia Code(s): D64.9 - ANEMIA, UNSPECIFIED (3) Hypoglycemia Code(s): E16.2 - HYPOGLYCEMIA, UNSPECIFIED (4) Acute renal failure Code(s): N17.9 - ACUTE KIDNEY FAILURE, UNSPECIFIED (5) Supratherapeutic INR Code(s): R79.1 - ABNORMAL COAGULATION PROFILE (6) A-fib Code(s): I48.91 - UNSPECIFIED ATRIAL FIBRILLATION Qualifiers: Atrial fibrillation type: paroxysmal Qualified Code(s): I48.0 - Paroxysmal atrial fibrillation (7) Diabetes mellitus Code(s): E11.9 - TYPE 2 DIABETES MELLITUS WITHOUT COMPLICATIONS Qualifiers: Diabetes mellitus type: type 2 Diabetes mellitus complication status: without complication Diabetes mellitus longterm insulin use: without longterm use Qualified Code(s): E11.9 - Type 2 diabetes mellitus without complications (8) CAD (coronary artery disease) Code(s): I25.10 - ATHSCL HEART DISEASE OF [place] CORONARY ARTERY W/O ANG PCTRS Qualifiers: Coronary Disease-Associated Artery/Lesion type: [place] artery [place] vs. transplanted heart: [place] heart Associated angina: without angina Qualified Code(s): I25.10 - Atherosclerotic heart disease of [place] coronary artery without angina pectoris (9) Hypomagnesemia Code(s): E83.42 - HYPOMAGNESEMIA (10) Back pain Code(s): M54.9 - DORSALGIA, UNSPECIFIED Qualifiers: Back pain location: low back pain Chronicity: chronic Back pain laterality: midline Sciatica presence: without sciatica Qualified Code(s): M54.5 - Low back pain (11) GI bleed Code(s): K92.2 - GASTROINTESTINAL HEMORRHAGE, UNSPECIFIED Qualifiers: GI bleed type/associated pathology: melena Qualified Code(s): K92.1 - Melena (12) Ascites Code(s): R18.8 - OTHER ASCITES (13) Liver cirrhosis Code(s): K74.60 - UNSPECIFIED CIRRHOSIS OF LIVER Assessment/Plan Pt. was transfered to ICU. Pt. received vit K (10 mg), 3 unit of PRBC, D5 NS( at 100 ml/hr), s/p FFP; pt. received Zosyn, Vanco. Mg was corrected; Cardio, ID, Renal, Heme, GI, Neuro consults appreciated. s/p 2 more units of PRBC s/p EGD- no bleeding source; for colonoscopy. To f/u AM labs. To f/u CX Prognosis: reserved. Time spent for managing pt.'s care: over 45 min
[2017-02-15] MEDS ORDERED: OCTREOTIDE ACETATE 1,200 MCG in DEXTROSE 5%-WATER - 488 ML IVPB SCH (15:45)
[2017-02-15 16:15] LABS: HEP B SURFACE AB Non Reactive (.)
[2017-02-15] MEDS: ATORVASTATIN CA 20 MG TABLET (FP) PO SCH (21:48)
[2017-02-16] MEDS: INSULIN SLIDING SCALE (NOVOLOG) 1 VIAL SQ SCH ×3 (06:23→17:02)
[2017-02-16 07:53] LABS: BASOPHIL 0.9 % (0-2.0); EOSINOPHIL 5.2 % (0-4.5); MCH 25.2 pg (25.7-33.7); MCHC 32.9 g/dl (32.0-35.9); MEAN CELL VOLUME 76.7 fl (80-96); MEAN PLT VOLUME 7.7 fl (7.5-11.1); NEUTROPHILS 66.3 % (42.8-82.8); PLATELET COUNT 159 K/MM3 (134-434); RDW 23.5 % (11.9-15.9); WHITE BLOOD COUNT 9.5 K/mm3 (4.0-10.0)
[2017-02-16 08:39] LABS: ALBUMIN 1.7 g/dl (3.4-5.0); CALCIUM 7.6 mg/dL (8.5-10.1); MAGNESIUM 1.9 mg/dL (1.8-2.4)
[2017-02-16 08:41] LABS: INR 1.4 (0.82-1.09); PROTHROMBIN TIME (PATIENT) 15.5 SEC (9.98-11.88)
[2017-02-16 08:43] LABS: ACTIVATED PTT 35.4 SECONDS (26.9-34.4)
[2017-02-16 08:44] LABS: FREE T4 1.02 ng/dl (0.76-1.16)
[2017-02-16 08:52] LABS: BILIRUBIN,TOTAL 2.2 mg/dL (0.2-1.0); COCKROFT - GAULT 44.21; CREATININE 1.6 mg/dL (0.7-1.3); PHOSPHOROUS 2.1 mg/dL (2.5-4.9); THYROID STIMULATING HORMONE 0.42 uIU/ml (0.358-3.74); TOT PROT 5.9 g/dl (6.4-8.2)
[2017-02-16] MEDS ORDERED: PANTOPRAZOLE 40 MG TABLET (FP) PO SCH (10:00)
[2017-02-16 10:05] LABS: BASOPHIL 0.9 % (0-2.0); EOSINOPHIL 4.6 % (0-4.5); MCH 25.2 pg (25.7-33.7); MCHC 32.5 g/dl (32.0-35.9); MEAN CELL VOLUME 77.4 fl (80-96); MEAN PLT VOLUME 7.2 fl (7.5-11.1); NEUTROPHILS 70.4 % (42.8-82.8); PLATELET COUNT 199 K/MM3 (134-434); RDW 23.7 % (11.9-15.9); WHITE BLOOD COUNT 9.4 K/mm3 (4.0-10.0)
[2017-02-16] MEDS ORDERED: FUROSEMIDE 40 MG TABLET (FP) PO ONE (13:06)
--- NOTE | 2017-02-16 13:06 | PN ---
Progress Note, Physician History of Present Illness: Pt. w/o vomiting, abd pain, alessandro blood in stool, still with dark colored stool ("not black").\\ Pt. w/o SOB, CP, palp., dizziness + heavy legs - Current Medication List Current Medications: Active Medications Atorvastatin Calcium (Lipitor -) 20 mg PO HS [facility] Last Admin: 02/15/17 21:48 Dose: 20 mg Bisacodyl (Dulcolax -) 20 mg PO ONCE ONE Stop: 02/16/17 15:01 Insulin Aspart (Novolog Vial Sliding Scale -) 1 vial SQ ACHS [facility] PRN Reason: Protocol Last Admin: 02/16/17 06:23 Dose: Not Given Metoprolol Succinate (Toprol Xl -) 25 mg PO BID [facility] Last Admin: 02/15/17 21:49 Dose: 25 mg - Objective Vital Signs: Vital Signs Temperature 98.4 F 02/16/17 06:00 Pulse Rate 59 L 02/16/17 06:00 Respiratory Rate 20 02/16/17 06:00 Blood Pressure 132/70 02/16/17 06:00 O2 Sat by Pulse Oximetry (%) 96 02/15/17 21:00 Constitutional: Yes: No Distress, Calm Cardiovascular: Yes: Regular Rate and Rhythm, S1, S2 Respiratory: Yes: Regular, CTA Bilaterally. No: Rales Gastrointestinal: Yes: Normal Bowel Sounds, Soft, Abdomen, Obese. No: Tenderness Edema: LLE: 1+, RLE: 1+ Neurological: Yes: Alert, Oriented Labs: CBC, BMP 02/16/17 09:50 02/16/17 06:00 INR, PTT INR 1.40 (0.82-1.09) H 02/16/17 06:00 Fibrinogen 286.0 mg/dL (238-498) 02/13/17 20:00 Problem List - Problems (1) Probable sepsis Code(s): A41.9 - SEPSIS, UNSPECIFIED ORGANISM (2) Anemia Code(s): D64.9 - ANEMIA, UNSPECIFIED (3) Hypoglycemia Code(s): E16.2 - HYPOGLYCEMIA, UNSPECIFIED (4) Acute renal failure Code(s): N17.9 - ACUTE KIDNEY FAILURE, UNSPECIFIED (5) Supratherapeutic INR Code(s): R79.1 - ABNORMAL COAGULATION PROFILE (6) A-fib Code(s): I48.91 - UNSPECIFIED ATRIAL FIBRILLATION Qualifiers: Atrial fibrillation type: paroxysmal Qualified Code(s): I48.0 - Paroxysmal atrial fibrillation (7) Diabetes mellitus Code(s): E11.9 - TYPE 2 DIABETES MELLITUS WITHOUT COMPLICATIONS Qualifiers: Diabetes mellitus type: type 2 Diabetes mellitus complication status: without complication Diabetes mellitus senior care insulin use: without senior care use Qualified Code(s): E11.9 - Type 2 diabetes mellitus without complications (8) CAD (coronary artery disease) Code(s): I25.10 - ATHSCL HEART DISEASE OF [place] CORONARY ARTERY W/O ANG PCTRS Qualifiers: Coronary Disease-Associated Artery/Lesion type: [place] artery [place] vs. transplanted heart: [place] heart Associated angina: without angina Qualified Code(s): I25.10 - Atherosclerotic heart disease of [place] coronary artery without angina pectoris (9) Hypomagnesemia Code(s): E83.42 - HYPOMAGNESEMIA (10) Back pain Code(s): M54.9 - DORSALGIA, UNSPECIFIED Qualifiers: Back pain location: low back pain Chronicity: chronic Back pain laterality: midline Sciatica presence: without sciatica Qualified Code(s): M54.5 - Low back pain (11) GI bleed Code(s): K92.2 - GASTROINTESTINAL HEMORRHAGE, UNSPECIFIED Qualifiers: GI bleed type/associated pathology: melena Qualified Code(s): K92.1 - Melena (12) Ascites Code(s): R18.8 - OTHER ASCITES (13) Liver cirrhosis Code(s): K74.60 - UNSPECIFIED CIRRHOSIS OF LIVER (14) Hypophosphatemia Code(s): E83.39 - OTHER DISORDERS OF PHOSPHORUS METABOLISM Assessment/Plan Pt. was to medical floor Pt. received vit K (10 mg), 3 unit of PRBC, D5 NS( at 100 ml/hr), s/p FFP; pt. received Zosyn, Vanco. Mg was corrected; Cardio, ID, Renal, Heme, GI, Neuro consults appreciated. s/p 2 more units of PRBC s/p EGD- no bleeding source; for colonoscopy. Case was d/w Dr. Correa- at bedside. Restart Lasix PO, replete Ph To f/u AM labs. To f/u CX Prognosis: reserved.
--- NOTE | 2017-02-16 13:09 | PN ---
Progress Note, Physician Chief Complaint: The patient seen in his bed. No further bleeding. Had BM this morning. Still on clear liquids. Urine output is acceptable. History of Present Illness: Denies any more bleeding. The main complaint now is the swollen feet. The patient had been on IV fluids. Denies any chest pains. Abdomen still quite distended. - Current Medication List Current Medications: Active Medications Atorvastatin Calcium (Lipitor -) 20 mg PO HS [facility] Last Admin: 02/15/17 21:48 Dose: 20 mg Bisacodyl (Dulcolax -) 20 mg PO ONCE ONE Stop: 02/16/17 15:01 Dextrose/Sodium Chloride (D5-Ns -) 1,000 mls @ 30 mls/hr IV ASDIR [facility] Last Admin: 02/15/17 12:47 Dose: Not Given Insulin Aspart (Novolog Vial Sliding Scale -) 1 vial SQ ACHS [facility] PRN Reason: Protocol Last Admin: 02/16/17 06:23 Dose: Not Given Metoprolol Succinate (Toprol Xl -) 25 mg PO BID [facility] Last Admin: 02/15/17 21:49 Dose: 25 mg - Objective Vital Signs: Vital Signs Temperature 98.4 F 02/16/17 06:00 Pulse Rate 59 L 02/16/17 06:00 Respiratory Rate 20 02/16/17 06:00 Blood Pressure 132/70 02/16/17 06:00 O2 Sat by Pulse Oximetry (%) 96 02/15/17 21:00 Constitutional: Yes: Calm Eyes: Yes: Conjunctiva Clear Neck: Yes: Supple Cardiovascular: Yes: S1, S2 Respiratory: Yes: CTA Bilaterally, Diminished Gastrointestinal: Yes: Distention, Hypoactive Bowel Sounds. No: Palpable Mass, Pulsatile Mass Genitourinary: No: CVA Tenderness - Left, CVA Tenderness - Right, Hematuria Edema: Yes Edema: LLE: 3+, RLE: 3+ Labs: CBC, BMP 02/16/17 09:50 02/16/17 06:00 INR, PTT INR 1.40 (0.82-1.09) H 02/16/17 06:00 Fibrinogen 286.0 mg/dL (238-498) 02/13/17 20:00 Problem List - Problems (1) A-fib Code(s): I48.91 - UNSPECIFIED ATRIAL FIBRILLATION Qualifiers: Atrial fibrillation type: paroxysmal Qualified Code(s): I48.0 - Paroxysmal atrial fibrillation (2) Acute renal failure Code(s): N17.9 - ACUTE KIDNEY FAILURE, UNSPECIFIED (3) Anemia Code(s): D64.9 - ANEMIA, UNSPECIFIED (4) Diabetes mellitus Code(s): E11.9 - TYPE 2 DIABETES MELLITUS WITHOUT COMPLICATIONS Qualifiers: Diabetes mellitus type: type 2 Diabetes mellitus complication status: without complication Diabetes mellitus exterminator insulin use: without exterminator use Qualified Code(s): E11.9 - Type 2 diabetes mellitus without complications (5) Hypoglycemia Code(s): E16.2 - HYPOGLYCEMIA, UNSPECIFIED (6) Hypomagnesemia Code(s): E83.42 - HYPOMAGNESEMIA (7) Liver cirrhosis Code(s): K74.60 - UNSPECIFIED CIRRHOSIS OF LIVER (8) Supratherapeutic INR Code(s): R79.1 - ABNORMAL COAGULATION PROFILE (9) Edema extremities Code(s): R60.0 - LOCALIZED EDEMA Assessment/Plan 81 y/o male admitted with GI bleeding, Supratherapeutic INR, Acute kidney injury. INR in better range now. Maintains good urine output. The Hypomagnesemia is corrected. The Serum Phosphorous remains low. Will give KPhos x1 IV The bipedal edema may be in part due to the IV fluids, compounded by the profound Hypomagnesemia. Will give Lasix. Discussed with Dr. Sharp. Danae Correa MD
[2017-02-16] MEDS ORDERED: POTASSIUM PHOSPHATE 30 MM in DEXTROSE 5%-WATER - 250 ML IVPB ONE (13:11)
[2017-02-16] MEDS ORDERED: FUROSEMIDE 20 MG TABLET (FP) PO SCH (13:15)
[2017-02-16] MEDS ORDERED: POTASSIUM PHOSPHATE 30 MM in DEXTROSE 5%-WATER - 500 ML IVPB ONE ×2 (13:32→13:33)
[2017-02-16] MEDS: BISACODYL 5 MG TABLET.DR (FP) PO ONE ×2 (13:45→20:40)
[2017-02-16] MEDS: METOPROLOL SUCCINATE 25 MG TAB.SR.24H (FP) PO SCH ×2 (13:46→21:55)
--- NOTE | 2017-02-16 13:50 | PN ---
Progress Note (short form) - Note Progress Note: Chief Complaint: Events noted, notes reviewed. Denies any chest pain or dyspnea , complaining of increasing bilateral lower extremity edema, plan for colonoscopy and outpatient capsule endoscopy. History of Present Illness: Seen and examined. Events noted, notes reviewed. Denies any chest pain or dyspnea, complaining of increasing bilateral lower extremity edema, plan for colonoscopy and outpatient capsule endoscopy. - Current Medication List Current Medications Atorvastatin Calcium (Lipitor -) 20 mg PO HS [facility] Last Admin: 02/15/17 21:48 Dose: 20 mg Bisacodyl (Dulcolax -) 20 mg PO ONCE ONE Stop: 02/16/17 15:01 Last Admin: 02/16/17 13:45 Dose: 20 mg Furosemide (Lasix -) 20 mg PO DAILY [facility] Potassium Phosphate 30 mm/ (Dextrose) 510 mls @ 85 mls/hr IVPB ONCE ONE Stop: 02/16/17 19:10 Insulin Aspart (Novolog Vial Sliding Scale -) 1 vial SQ ACHS [facility] PRN Reason: Protocol Last Admin: 02/16/17 13:46 Dose: Not Given Metoprolol Succinate (Toprol Xl -) 25 mg PO BID [facility] Last Admin: 02/16/17 13:46 Dose: 25 mg Review of Systems Cardiovascular: As noted above Respiratory: denies: Cough or Sputum Production Gastrointestinal: denies: Nausea, Vomiting, Diarrhea, Constipation or Abdominal Discomfort Musculoskeletal: No symptoms reported Genitourinary: No symptoms reported - Objective Vital Signs: Last Vital Signs Temp Pulse Resp BP Pulse Ox 98.4 F 59 L 20 132/70 96 02/16/17 06:00 02/16/17 06:00 02/16/17 06:00 02/16/17 06:00 02/15/17 21:00 Constitutional: No Distress, Calm Neck: Supple Negative JVD No Bruit Cardiovascular: S1 S2 Regular Rate and Rhythm Respiratory: Diminished Gastrointestinal: Soft Benign Normal Bowel Sounds Ext: No Edema Labs: CBC, BMP 02/16/17 09:50 02/16/17 06:00 Hepatic Panel Total Bilirubin 2.2 mg/dL (0.2-1.0) H 02/16/17 06:00 AST 39 U/L (15-37) H 02/16/17 06:00 ALT 26 U/L (12-78) 02/16/17 06:00 Alkaline Phosphatase 213 U/L (45-117) H 02/16/17 06:00 Albumin 1.7 g/dl (3.4-5.0) L 02/16/17 06:00 INR, PTT INR 1.40 (0.82-1.09) H 02/16/17 06:00 Fibrinogen 286.0 mg/dL (238-498) 02/13/17 20:00 Assessment/Plan ASSESSMENT: 1. GI bleed with melena, profound anemia due to supra-therapeutic INR, EGD negative for bleed source 2. Acute on chronic renal failure 3. CAD non-obstructive CAD angina pectoris 4. 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 Paroxysmal atrial fibrillation in sinus rhythm on Coumadin, therapy on hold, [id number] score of 5 6. Hypertension 7. Diabetes mellitus 8. Hypercholesterolemia PLAN: 1. Transfuse as needed maintaining Hg > 8.0 and monitor H/H closely 2. Plan to proceed with colonoscopy and possible outpatient capsule endoscopy 3. Plan to resume A/C once hemostasis is achieved unless it is absolutely contraindicated (If bleeding remains an issue since patient requires A/C considering his [id number] score of 5 other alternative is to consider left atrial closure device, Watchman MOLLY closure device) 4. Continue Lopressor 5. Continue Lipitor Kenya Ball M.D.
[2017-02-16] MEDS ORDERED: PEG3350/SOD SULF,BICARB,CL/KCL 4,000 ML SOLN.RECON PO ONE (16:00)
[2017-02-16] MEDS ORDERED: INSULIN (NOVOLOG) ASPART 100 UNITS/ML 10ML VIAL ONE (21:48)
[2017-02-16] MEDS: ATORVASTATIN CA 20 MG TABLET (FP) PO SCH (21:55)
[2017-02-16] MEDS: DEXTROSE 5%-NORMAL SALINE 1,000 ML IV SCH (23:34)
[2017-02-17] MEDS: INSULIN SLIDING SCALE (NOVOLOG) 1 VIAL SQ SCH ×5 (02:18→21:51)
[2017-02-17 07:51] LABS: ALBUMIN 1.6 g/dl (3.4-5.0); CALCIUM 7.7 mg/dL (8.5-10.1)
[2017-02-17 07:57] LABS: BILIRUBIN,TOTAL 1.7 mg/dL (0.2-1.0); COCKROFT - GAULT 50.53; CREATININE 1.4 mg/dL (0.7-1.3); TOT PROT 5.8 g/dl (6.4-8.2)
[2017-02-17 08:04] LABS: MCH 25.3 pg (25.7-33.7); MCHC 33.1 g/dl (32.0-35.9); MEAN CELL VOLUME 76.5 fl (80-96); MEAN PLT VOLUME 7.5 fl (7.5-11.1); PLATELET COUNT 150 K/MM3 (134-434); RDW 24.5 % (11.9-15.9); WHITE BLOOD COUNT 9.7 K/mm3 (4.0-10.0)
[2017-02-17 08:12] LABS: INR 1.69 (0.82-1.09); PROTHROMBIN TIME (PATIENT) 18.8 SEC (9.98-11.88)
--- NOTE | 2017-02-17 11:22 | PN ---
Progress Note (short form) - Note Progress Note: Renal Follow up for EMERALD Pt seen and examined at the bedside no acute complaints for colonoscopy today Vital Signs Temperature 98.4 F 02/17/17 10:14 Pulse Rate 75 02/17/17 10:14 Respiratory Rate 20 02/17/17 10:14 Blood Pressure 123/67 02/17/17 10:14 O2 Sat by Pulse Oximetry (%) 95 02/17/17 10:14 Intake & Output 02/14/17 02/15/17 02/16/17 02/17/17 23:59 23:59 23:59 23:59 Intake Total 2929.4 633.2 830 Output Total 600 500 250 Balance 2329.4 133.2 580 Weight 184 lb 1.6 oz Gen: NAD CVS: irregular, no M/R Lungs: CTA, no rales or wheeze Abd: soft NT/ND Ext: Trace pretibial edema CBC, BMP 02/17/17 06:00 02/17/17 06:00 Laboratory Tests 02/17/17 06:00 Calcium 7.7 L Albumin 1.6 L Current Medications Atorvastatin Calcium (Lipitor -) 20 mg PO HS [facility] Last Admin: 02/16/17 21:55 Dose: 20 mg Furosemide (Lasix -) 20 mg PO DAILY [facility] Insulin Aspart (Novolog Vial Sliding Scale -) 1 vial SQ ACHS [facility] PRN Reason: Protocol Last Admin: 02/17/17 06:08 Dose: Not Given Metoprolol Succinate (Toprol Xl -) 25 mg PO BID [facility] Last Admin: 02/16/17 21:55 Dose: 25 mg A/P 81 year old Gentleman with PMhx of CAD, Afib on Coumadin, Hypertension, BPH, DM who presented with weakness, lethargy and found to have acute on chronic anemia with Hgb of 6.1 in setting of supratheraputic INR and EMERALD with BUN/Cr of 43/2.5. #Acute Renal Failure Renal function improved with IVF, now held given LE edema on Low dose Lasix, can continue and titrate as needed for now no indication for [employer] good urine output #Anion Gap Metabolic acidosis serum bicabr is now WNL #Acute Anemia in setting of supratheraputic INR s/p EGD w/o acute source of bleeding, for colonoscopy today #LE edema/3rd spacing from hypoalbuminemia lasix as needed consider protein supplement when pt is able to eat Dwayne Rausch DO
--- NOTE | 2017-02-17 11:28 | PN ---
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 - Current Medication List Current Medications: Active Medications Atorvastatin Calcium (Lipitor -) 20 mg PO HS [facility] Last Admin: 02/16/17 21:55 Dose: 20 mg Furosemide (Lasix -) 20 mg PO DAILY [facility] Insulin Aspart (Novolog Vial Sliding Scale -) 1 vial SQ ACHS [facility] PRN Reason: Protocol Last Admin: 02/17/17 06:08 Dose: Not Given Metoprolol Succinate (Toprol Xl -) 25 mg PO BID [facility] Last Admin: 02/16/17 21:55 Dose: 25 mg - Objective Vital Signs: Vital Signs Temperature 98.4 F 02/17/17 10:14 Pulse Rate 75 02/17/17 10:14 Respiratory Rate 20 02/17/17 10:14 Blood Pressure 123/67 02/17/17 10:14 O2 Sat by Pulse Oximetry (%) 95 02/17/17 10:14 Constitutional: Yes: No Distress, Calm Neck: Yes: Supple Cardiovascular: Yes: Regular Rate and Rhythm Respiratory: Yes: Regular, Diminished Gastrointestinal: Yes: Soft, Hypoactive Bowel Sounds Edema: No Labs: CBC, BMP 02/17/17 06:00 02/17/17 06:00 INR, PTT INR 1.69 (0.82-1.09) H 02/17/17 06:00 Fibrinogen 286.0 mg/dL (238-498) 02/13/17 20:00 Problem List - Problems (1) A-fib Code(s): I48.91 - UNSPECIFIED ATRIAL FIBRILLATION Qualifiers: Atrial fibrillation type: paroxysmal Qualified Code(s): I48.0 - Paroxysmal atrial fibrillation (2) Anemia Code(s): D64.9 - ANEMIA, UNSPECIFIED Qualifiers: Iron deficiency anemia type: chronic blood loss (3) CAD (coronary artery disease) Code(s): I25.10 - ATHSCL HEART DISEASE OF [place] CORONARY ARTERY W/O ANG PCTRS Qualifiers: Coronary Disease-Associated Artery/Lesion type: [place] artery [place] vs. transplanted heart: [place] heart Associated angina: without angina Qualified Code(s): I25.10 - Atherosclerotic heart disease of [place] coronary artery without angina pectoris (4) Diabetes mellitus Code(s): E11.9 - TYPE 2 DIABETES MELLITUS WITHOUT COMPLICATIONS Qualifiers: Diabetes mellitus type: type 2 Diabetes mellitus complication status: without complication Diabetes mellitus terminal worker insulin use: without terminal worker use Qualified Code(s): E11.9 - Type 2 diabetes mellitus without complications (5) GI bleed Code(s): K92.2 - GASTROINTESTINAL HEMORRHAGE, UNSPECIFIED Qualifiers: GI bleed type/associated pathology: angiodysplasia of stomach and duodenum Qualified Code(s): K31.811 - Angiodysplasia of stomach and duodenum with bleeding (6) Supratherapeutic INR Code(s): R79.1 - ABNORMAL COAGULATION PROFILE (7) Angiodysplasia of colon without bleeding Code(s): K55.20 - ANGIODYSPLASIA OF COLON WITHOUT HEMORRHAGE Assessment/Plan 1. GI bleed with melena, profound anemia due to supratherapeutic INR, susbect SB angiodysplasia 2. Acute on chronic renal failure 3. CAD non-obstructive CAD angina pectoris 4. 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 Paroxysmal atrial fibrillation in sinus rhythm on Coumadin, therapy on hold, [id number] score of 5 6. Hypertension 7. Diabetes mellitus 8. Hypercholesterolemia 9. EMERALD improving PLAN: 1. Transfuse as needed maintaining Hg > 8.0 and monitor H/H closely 2. Plan to proceed with outpatient capsule endoscopy 3. Plan to resume A/C once hemostasis is achieved unless it is absolutely contraindicated (If bleeding remains an issue since patient requires A/C considering his [id number] score of 5 other alternative is to consider left atrial closure device, Watchman MOLLY closure device) 4. Continue Lopressor 25 bid 5. Continue Lipitor 20 qhs 6. Maintained on Lasix 20 qd with monitor renal recovery and electrolytes
[2017-02-17] MEDS ORDERED: ETOMIDATE 20 MG/10 ML AMPUL IVPUSH ONE (12:09)
--- NOTE | 2017-02-17 12:45 | PN ---
Progress Note (short form) - Note Progress Note: GI Procedure Note: Please see colonoscopy report. 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 Have advised capsule endoscopy with my associate Dr Fox as an outpatient. Will advance diet.
[2017-02-17] MEDS: METOPROLOL SUCCINATE 25 MG TAB.SR.24H (FP) PO SCH ×2 (14:23→21:47)
[2017-02-17] MEDS: FUROSEMIDE 20 MG TABLET (FP) PO SCH (14:23)
--- NOTE | 2017-02-17 15:07 | PN ---
Progress Note, Physician History of Present Illness: Awake, alert C/o generalized weakness No fever/ chills WBC WNL - Current Medication List Current Medications: Active Medications Atorvastatin Calcium (Lipitor -) 20 mg PO HS [facility] Last Admin: 02/16/17 21:55 Dose: 20 mg Furosemide (Lasix -) 20 mg PO DAILY [facility] Last Admin: 02/17/17 14:23 Dose: 20 mg Insulin Aspart (Novolog Vial Sliding Scale -) 1 vial SQ ACHS [facility] PRN Reason: Protocol Last Admin: 02/17/17 11:40 Dose: Not Given Metoprolol Succinate (Toprol Xl -) 25 mg PO BID [facility] Last Admin: 02/17/17 14:23 Dose: 25 mg - Objective Vital Signs: Vital Signs Temperature 98.2 F 02/17/17 13:39 Pulse Rate 93 H 02/17/17 13:39 Respiratory Rate 18 02/17/17 13:39 Blood Pressure 141/84 02/17/17 13:39 O2 Sat by Pulse Oximetry (%) 98 02/17/17 13:14 Constitutional: Yes: No Distress Eyes: Yes: Conjunctiva Clear Cardiovascular: Yes: Regular Rate and Rhythm, S1, S2 Respiratory: Yes: CTA Bilaterally Gastrointestinal: Yes: Normal Bowel Sounds, Soft, Other (distended, tympanitic) . No: Tenderness Edema: Yes Labs: CBC, BMP 02/17/17 06:00 02/17/17 06:00 INR, PTT INR 1.69 (0.82-1.09) H 02/17/17 06:00 Fibrinogen 286.0 mg/dL (238-498) 02/13/17 20:00 Assessment/Plan Hypothermia, Leukocytosis, Coagulopathy, Hypoglycemia, possible sepsis - resolved Severe anemia - improved S/P GI bleed Azotemia-improved Antibiotics D/C 'd -observe off
[2017-02-17] MEDS ORDERED: INSULIN (NOVOLOG) ASPART 100 UNITS/ML 10ML VIAL ONE ×2 (16:49→21:17)
[2017-02-17] MEDS: ATORVASTATIN CA 20 MG TABLET (FP) PO SCH (21:46)
--- NOTE | 2017-02-17 23:21 | PN ---
Progress Note, Physician History of Present Illness: Pt. w/o vomiting, nausea, abd pain, alessandro blood in stool; pt. is s/p colonoscopy , eating comfortably. Pt. w/o SOB, CP, palp., dizziness Pt states that his legs are better. - Current Medication List Current Medications: Active Medications Atorvastatin Calcium (Lipitor -) 20 mg PO HS [facility] Last Admin: 02/17/17 21:46 Dose: 20 mg Furosemide (Lasix -) 20 mg PO DAILY [facility] Last Admin: 02/17/17 14:23 Dose: 20 mg Insulin Aspart (Novolog Vial Sliding Scale -) 1 vial SQ ACHS [facility] PRN Reason: Protocol Last Admin: 02/17/17 21:51 Dose: Not Given Metoprolol Succinate (Toprol Xl -) 25 mg PO BID [facility] Last Admin: 02/17/17 21:47 Dose: 25 mg - Objective Vital Signs: Vital Signs Temperature 98.4 F 02/17/17 21:44 Pulse Rate 69 02/17/17 21:44 Respiratory Rate 20 02/17/17 21:44 Blood Pressure 107/64 02/17/17 21:44 O2 Sat by Pulse Oximetry (%) 93 L 02/17/17 21:00 Constitutional: Yes: No Distress, Calm Cardiovascular: Yes: Regular Rate and Rhythm, S1, S2 Respiratory: Yes: Regular, CTA Bilaterally. No: Rales Gastrointestinal: Yes: Normal Bowel Sounds, Soft, Abdomen, Obese. No: Palpable Mass, Tenderness Edema: LLE: 1+, RLE: 1+ Neurological: Yes: Alert, Oriented Labs: CBC, BMP 02/17/17 06:00 02/17/17 06:00 INR, PTT INR 1.69 (0.82-1.09) H 02/17/17 06:00 Fibrinogen 286.0 mg/dL (238-498) 02/13/17 20:00 Problem List - Problems (1) Probable sepsis Code(s): A41.9 - SEPSIS, UNSPECIFIED ORGANISM (2) Anemia Assessment/Plan: secondary to GIB ( pt. was taking on his own NSAIDs, on top of Coumadin and ASA) . Pt is s/p EGD, s/p colonoscopy, no obvious source; would need capsule endoscopy. Code(s): D64.9 - ANEMIA, UNSPECIFIED Qualifiers: Iron deficiency anemia type: chronic blood loss (3) Hypoglycemia Code(s): E16.2 - HYPOGLYCEMIA, UNSPECIFIED (4) Acute renal failure Assessment/Plan: It is improving. Code(s): N17.9 - ACUTE KIDNEY FAILURE, UNSPECIFIED (5) Supratherapeutic INR Code(s): R79.1 - ABNORMAL COAGULATION PROFILE (6) A-fib Code(s): I48.91 - UNSPECIFIED ATRIAL FIBRILLATION Qualifiers: Atrial fibrillation type: paroxysmal Qualified Code(s): I48.0 - Paroxysmal atrial fibrillation (7) Diabetes mellitus Code(s): E11.9 - TYPE 2 DIABETES MELLITUS WITHOUT COMPLICATIONS Qualifiers: Diabetes mellitus type: type 2 Diabetes mellitus complication status: without complication Diabetes mellitus intermediate teacher insulin use: without penitentiary use Qualified Code(s): E11.9 - Type 2 diabetes mellitus without complications (8) CAD (coronary artery disease) Code(s): I25.10 - ATHSCL HEART DISEASE OF [place] CORONARY ARTERY W/O ANG PCTRS Qualifiers: Coronary Disease-Associated Artery/Lesion type: [place] artery [place] vs. transplanted heart: [place] heart Associated angina: without angina Qualified Code(s): I25.10 - Atherosclerotic heart disease of [place] coronary artery without angina pectoris (9) Hypomagnesemia Code(s): E83.42 - HYPOMAGNESEMIA (10) Back pain Code(s): M54.9 - DORSALGIA, UNSPECIFIED Qualifiers: Back pain location: low back pain Chronicity: chronic Back pain laterality: midline Sciatica presence: without sciatica Qualified Code(s): M54.5 - Low back pain (11) GI bleed Code(s): K92.2 - GASTROINTESTINAL HEMORRHAGE, UNSPECIFIED Qualifiers: GI bleed type/associated pathology: angiodysplasia of stomach and duodenum Qualified Code(s): K31.811 - Angiodysplasia of stomach and duodenum with bleeding (12) Ascites Code(s): R18.8 - OTHER ASCITES (13) Liver cirrhosis Code(s): K74.60 - UNSPECIFIED CIRRHOSIS OF LIVER (14) Hypophosphatemia Code(s): E83.39 - OTHER DISORDERS OF PHOSPHORUS METABOLISM Assessment/Plan Pt. was to medical floor Pt. received vit K (10 mg), 3 unit of PRBC, D5 NS( at 100 ml/hr), s/p FFP; pt. received Zosyn, Vanco. Mg was corrected; Cardio, ID, Renal, Heme, GI, Neuro consults appreciated. s/p 2 more units of PRBC s/p EGD and colonoscopy- no bleeding source . Restarted on Lasix PO. to f/u with GI and cardio regarding AC Tx. To f/u AM labs. Prognosis:improving
[2017-02-18] MEDS: INSULIN SLIDING SCALE (NOVOLOG) 1 VIAL SQ SCH ×4 (06:20→21:25)
[2017-02-18 07:38] LABS: MCH 25.1 pg (25.7-33.7); MCHC 32.7 g/dl (32.0-35.9); MEAN CELL VOLUME 76.7 fl (80-96); MEAN PLT VOLUME 7.4 fl (7.5-11.1); PLATELET COUNT 138 K/MM3 (134-434); RDW 24.9 % (11.9-15.9); WHITE BLOOD COUNT 7.4 K/mm3 (4.0-10.0)
[2017-02-18 08:00] LABS: CALCIUM 7.8 mg/dL (8.5-10.1); COCKROFT - GAULT 54.42; CREATININE 1.3 mg/dL (0.7-1.3); MAGNESIUM 1.4 mg/dL (1.8-2.4); PHOSPHOROUS 2.7 mg/dL (2.5-4.9)
--- NOTE | 2017-02-18 09:57 | PN ---
Progress Note, Physician History of Present Illness: Pt. w/o vomiting, nausea, abd pain, alessandro blood in stool. Pt. w/o SOB, CP, palp., dizziness Pt states that his legs are better. - Current Medication List Current Medications: Active Medications Atorvastatin Calcium (Lipitor -) 20 mg PO HS [facility] Last Admin: 02/17/17 21:46 Dose: 20 mg Furosemide (Lasix -) 20 mg PO DAILY [facility] Last Admin: 02/17/17 14:23 Dose: 20 mg Magnesium Sulfate 4 gm/ (Miscellaneous) 100 mls @ 100 mls/hr IVPB ONCE ONE Stop: 02/18/17 10:59 Insulin Aspart (Novolog Vial Sliding Scale -) 1 vial SQ ACHS [facility] PRN Reason: Protocol Last Admin: 02/18/17 06:20 Dose: Not Given Metoprolol Succinate (Toprol Xl -) 25 mg PO BID [facility] Last Admin: 02/17/17 21:47 Dose: 25 mg - Objective Vital Signs: Vital Signs Temperature 98.4 F 02/18/17 05:47 Pulse Rate 65 02/18/17 05:47 Respiratory Rate 20 02/18/17 05:47 Blood Pressure 102/62 02/18/17 05:47 O2 Sat by Pulse Oximetry (%) 93 L 02/17/17 21:00 Constitutional: Yes: No Distress, Calm Cardiovascular: Yes: Regular Rate and Rhythm, S1, S2 Respiratory: Yes: Regular, CTA Bilaterally. No: Rales Gastrointestinal: Yes: Normal Bowel Sounds, Soft, Distention. No: Palpable Mass , Tenderness Edema: LLE: 1+, RLE: 1+ Neurological: Yes: Alert, Oriented Labs: CBC, BMP 02/18/17 06:00 02/18/17 06:00 INR, PTT INR 1.69 (0.82-1.09) H 02/17/17 06:00 Fibrinogen 286.0 mg/dL (238-498) 02/13/17 20:00 Problem List - Problems (1) Probable sepsis Code(s): A41.9 - SEPSIS, UNSPECIFIED ORGANISM (2) Anemia Code(s): D64.9 - ANEMIA, UNSPECIFIED Qualifiers: Iron deficiency anemia type: chronic blood loss (3) Hypoglycemia Assessment/Plan: resolved Code(s): E16.2 - HYPOGLYCEMIA, UNSPECIFIED (4) Acute renal failure Assessment/Plan: It is improving. Code(s): N17.9 - ACUTE KIDNEY FAILURE, UNSPECIFIED Qualifiers: Acute renal failure type: unspecified Qualified Code(s): N17.9 - Acute kidney failure, unspecified (5) Supratherapeutic INR Code(s): R79.1 - ABNORMAL COAGULATION PROFILE (6) A-fib Code(s): I48.91 - UNSPECIFIED ATRIAL FIBRILLATION Qualifiers: Atrial fibrillation type: paroxysmal Qualified Code(s): I48.0 - Paroxysmal atrial fibrillation (7) Diabetes mellitus Code(s): E11.9 - TYPE 2 DIABETES MELLITUS WITHOUT COMPLICATIONS Qualifiers: Diabetes mellitus type: type 2 Diabetes mellitus complication status: without complication Diabetes mellitus custodial insulin use: without oil heaterman use Qualified Code(s): E11.9 - Type 2 diabetes mellitus without complications (8) CAD (coronary artery disease) Code(s): I25.10 - ATHSCL HEART DISEASE OF [place] CORONARY ARTERY W/O ANG PCTRS Qualifiers: Coronary Disease-Associated Artery/Lesion type: [place] artery [place] vs. transplanted heart: [place] heart Associated angina: without angina Qualified Code(s): I25.10 - Atherosclerotic heart disease of [place] coronary artery without angina pectoris (9) Hypomagnesemia Code(s): E83.42 - HYPOMAGNESEMIA (10) Back pain Code(s): M54.9 - DORSALGIA, UNSPECIFIED Qualifiers: Back pain location: low back pain Chronicity: chronic Back pain laterality: midline Sciatica presence: without sciatica Qualified Code(s): M54.5 - Low back pain (11) GI bleed Code(s): K92.2 - GASTROINTESTINAL HEMORRHAGE, UNSPECIFIED Qualifiers: GI bleed type/associated pathology: angiodysplasia of stomach and duodenum Qualified Code(s): K31.811 - Angiodysplasia of stomach and duodenum with bleeding (12) Ascites Code(s): R18.8 - OTHER ASCITES Qualifiers: Ascites type: other type Qualified Code(s): R18.8 - Other ascites (13) Liver cirrhosis Code(s): K74.60 - UNSPECIFIED CIRRHOSIS OF LIVER (14) Hypophosphatemia Code(s): E83.39 - OTHER DISORDERS OF PHOSPHORUS METABOLISM Assessment/Plan Pt. was admitted to ICU, as improved was transfered to medical floor Pt. received vit K (10 mg), 3 unit of PRBC, D5 NS( at 100 ml/hr), s/p FFP; pt. received Zosyn, Vanco. Mg was corrected; Cardio, ID, Renal, Heme, GI, Neuro consults appreciated. s/p 2 more units of PRBC s/p EGD and colonoscopy- no bleeding source. Restarted on Lasix PO with improvement in LE edema. To f/u with GI and Cardio regarding possibility of restarting AC treatment. To f/u AM labs. Prognosis:improving
[2017-02-18] MEDS ORDERED: MAGNESIUM 4GM/H20 - 100 ML IVPB ONE (10:45)
[2017-02-18] MEDS: FUROSEMIDE 20 MG TABLET (FP) PO SCH (11:08)
[2017-02-18] MEDS: METOPROLOL SUCCINATE 25 MG TAB.SR.24H (FP) PO SCH ×2 (11:09→21:25)
[2017-02-18] MEDS ORDERED: INSULIN (NOVOLOG) ASPART 100 UNITS/ML 10ML VIAL ONE ×2 (11:26→20:35)
--- NOTE | 2017-02-18 12:09 | PN ---
Progress Note, Physician Chief Complaint: Events noted GI input and report of EGD/colonoscopy reviewed History of Present Illness: Patient was seen and examined. Awake and alert. Chart was reviewed Denies chest pain, SOB or palpitations Pedal edema persists - Current Medication List Current Medications: Active Medications Atorvastatin Calcium (Lipitor -) 20 mg PO HS [facility] Last Admin: 02/17/17 21:46 Dose: 20 mg Furosemide (Lasix -) 20 mg PO DAILY [facility] Last Admin: 02/18/17 11:08 Dose: 20 mg Magnesium Sulfate (Magnesium 4gm/H20 -) 100 mls @ 33.333 mls/hr IVPB ONCE ONE Stop: 02/18/17 12:59 Last Admin: 02/18/17 11:25 Dose: 33.333 mls/hr Insulin Aspart (Novolog Vial Sliding Scale -) 1 vial SQ ACHS [facility] PRN Reason: Protocol Last Admin: 02/18/17 11:27 Dose: 2 unit Metoprolol Succinate (Toprol Xl -) 25 mg PO BID [facility] Last Admin: 02/18/17 11:09 Dose: 25 mg - Objective Vital Signs: Vital Signs Temperature 98.4 F 02/18/17 05:47 Pulse Rate 65 02/18/17 05:47 Respiratory Rate 20 02/18/17 05:47 Blood Pressure 102/62 02/18/17 05:47 O2 Sat by Pulse Oximetry (%) 93 L 02/17/17 21:00 HENT: Yes: Atraumatic Neck: Yes: Supple Cardiovascular: Yes: Regular Rate and Rhythm, S1, S2 Respiratory: Yes: Diminished Gastrointestinal: Yes: Normal Bowel Sounds, Soft. No: Tenderness Edema: Yes Edema: LLE: 2+, RLE: 2+ Additional Findings/Remarks: - Review of Systems Constitutional: denies: Chills, Fever Cardiovascular: denies: Chest Pain, Palpitations, Shortness of Breath Respiratory: denies: Cough, Hemoptysis, Orthopnea, PND, SOB, SOB on Exertion, Wheezing Gastrointestinal: reports: Bloating, Melena, Rectal Bleeding. denies: Abdominal Pain, Diarrhea, Nausea, Vomiting, Vomiting Blood Genitourinary: denies: Dysuria Musculoskeletal: reports: Back Pain Neurological: reports: Weakness. denies: Dizziness, Headache, Seizure, Syncope Labs: CBC, BMP 02/18/17 06:00 02/18/17 06:00 INR, PTT INR 1.69 (0.82-1.09) H 02/17/17 06:00 Fibrinogen 286.0 mg/dL (238-498) 02/13/17 20:00 Problem List - Problems (1) A-fib Code(s): I48.91 - UNSPECIFIED ATRIAL FIBRILLATION Qualifiers: Atrial fibrillation type: paroxysmal Qualified Code(s): I48.0 - Paroxysmal atrial fibrillation (2) Acute renal failure Code(s): N17.9 - ACUTE KIDNEY FAILURE, UNSPECIFIED Qualifiers: Acute renal failure type: unspecified Qualified Code(s): N17.9 - Acute kidney failure, unspecified (3) Back pain Code(s): M54.9 - DORSALGIA, UNSPECIFIED Qualifiers: Back pain location: low back pain Chronicity: chronic Back pain laterality: midline Sciatica presence: without sciatica Qualified Code(s): M54.5 - Low back pain (4) CAD (coronary artery disease) Code(s): I25.10 - ATHSCL HEART DISEASE OF [place] CORONARY ARTERY W/O ANG PCTRS Qualifiers: Coronary Disease-Associated Artery/Lesion type: [place] artery [place] vs. transplanted heart: [place] heart Associated angina: without angina Qualified Code(s): I25.10 - Atherosclerotic heart disease of [place] coronary artery without angina pectoris (5) Diabetes mellitus Code(s): E11.9 - TYPE 2 DIABETES MELLITUS WITHOUT COMPLICATIONS Qualifiers: Diabetes mellitus type: type 2 Diabetes mellitus complication status: without complication Diabetes mellitus residential insulin use: without terminal worker use Qualified Code(s): E11.9 - Type 2 diabetes mellitus without complications (6) Hypoglycemia Code(s): E16.2 - HYPOGLYCEMIA, UNSPECIFIED (7) Probable sepsis Code(s): A41.9 - SEPSIS, UNSPECIFIED ORGANISM (8) Supratherapeutic INR Code(s): R79.1 - ABNORMAL COAGULATION PROFILE (9) GI bleed Code(s): K92.2 - GASTROINTESTINAL HEMORRHAGE, UNSPECIFIED Qualifiers: GI bleed type/associated pathology: angiodysplasia of stomach and duodenum Qualified Code(s): K31.811 - Angiodysplasia of stomach and duodenum with bleeding (10) Angiodysplasia of colon without bleeding Code(s): K55.20 - ANGIODYSPLASIA OF COLON WITHOUT HEMORRHAGE (11) Ascites Code(s): R18.8 - OTHER ASCITES Qualifiers: Ascites type: other type Qualified Code(s): R18.8 - Other ascites Assessment/Plan 1. GI bleed with melena, profound anemia due to supratherapeutic INR, susbect small bowel angiodysplasia 2. Acute on chronic renal failure 3. CAD non-obstructive CAD angina pectoris 4. Diastolic LV dysfunction with class I NYHA classification LV failure, compensated 5. Paroxysmal atrial fibrillation in sinus rhythm on Coumadin, therapy on hold, [id number] score of 5 6. Hypertension 7. Diabetes mellitus 8. Hypercholesterolemia 9. EMERALD improving PLAN: 1. Transfuse as needed maintaining Hg > 8.0 and monitor H/H closely 2. Plan to proceed with outpatient capsule endoscopy as per GI input. Further work up and possible evacuation of ascites 3. Plan to resume A/C once hemostasis is achieved unless it is absolutely contraindicated (MOLLY occlusion device such as Watchman device may be considered if patient is not able to take anticaoagulation) 4. Continue Lipitor 5. Maintained on Lasix with monitor renal function and electrolytes Further plans are to follow Sandeep Olsen MD
--- NOTE | 2017-02-18 12:39 | PN ---
Progress Note (short form) - Note Progress Note: Neurology History of Present Illness 81-year-old male from home, with multiple medical problems, presents with 2 days of generalized weakness. Spoke to Dr. Sharp and the patient has several ongoing issues inlcuding dizzyness, weakness, elevated INR to 10, decreased hemoglobin to 6.1, acute renal failure, leukocyotis, and ongoing low back pain. 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 CT head completed and did not show acute changes. CT L spine reviewed and showed L2-L5 DDD (moderate to marked), possibly spur formation, b/l facet hypertrophy. No longer in ICU and back pain sporadic, comes and goes, likely chronic. Active Medications Atorvastatin Calcium (Lipitor -) 20 mg PO HS [facility] Last Admin: 02/17/17 21:46 Dose: 20 mg Furosemide (Lasix -) 20 mg PO DAILY [facility] Last Admin: 02/18/17 11:08 Dose: 20 mg Magnesium Sulfate (Magnesium 4gm/H20 -) 100 mls @ 33.333 mls/hr IVPB ONCE ONE Stop: 02/18/17 12:59 Last Admin: 02/18/17 11:25 Dose: 33.333 mls/hr Insulin Aspart (Novolog Vial Sliding Scale -) 1 vial SQ ACHS [facility] PRN Reason: Protocol Last Admin: 02/18/17 11:27 Dose: 2 unit Metoprolol Succinate (Toprol Xl -) 25 mg PO BID [facility] Last Admin: 02/18/17 11:09 Dose: 25 mg *Physical Exam Last Vital Signs Temp Pulse Resp BP Pulse Ox 98.4 F 65 20 102/62 93 L 02/18/17 05:47 02/18/17 05:47 02/18/17 05:47 02/18/17 05:47 02/17/17 21:00 General Appearance: Yes: Appropriately Dressed. mild distress No: , Intoxicated HEENT: positive: EOMI, KEVIN, Normal ENT Inspection, Normal Voice, TMs Normal, Pharynx Normal. oral mucosa dry, negative: Pale Conjunctivae, Photophobia, Scleral Icterus (R), Scleral Icterus (L) Neck: positive: Trachea midline, Normal Thyroid, Supple. negative: Tender, Rigid, Carotid bruit, Stridor, Lymphadenopathy (R), Lymphadenopathy (L), Thyromegaly Respiratory/Chest: positive: Lungs Clear, Normal Breath Sounds. negative: Chest Tender, Respiratory Distress, Accessory Muscle Use, Labored Respiration, RES, Crackles, Rales, Rhonchi, Stridor, Wheezing, Dullness Cardiovascular: positive: Regular Rhythm, Regular Rate, S1, S2. negative: Edema , JVD, Murmur, Bradycardia, Tachycardia Vascular Pulses: Dorsalis-Pedis (R): 2+, Doralis-Pedis (L): 2+ Gastrointestinal/Abdominal: positive: decreased Bowel Sounds, distended firm, possible ventral hernial defect. negative: Tender, Organomegaly, Pulsatile Mass , Increased Bowel Sounds, Guarding, Rebound, Hepatomegaly, Spleenomegaly Lymphatic: negative: Adenopathy, Tenderness Musculoskeletal: positive: Normal Inspection. negative: CVA Tenderness, Decreased Range of Motion Extremity: positive: Normal Capillary Refill, Normal Inspection, Normal Range of Motion, Pelvis Stable. negative: Tender, Pedal Edema, Swelling, Erythema Integumentary: positive: Normal Color, Dry, Warm. negative: Cyanotic, Erythema , Jaundice, Rash Neurologic: positive: bed spring maker II-XII NML intact, Fully Oriented, Alert, Normal Mood/ Affect, Motor Strength 5/5. negative: EOM Palsy, Facial Droop, Sensory Deficit CBCD WBC 7.4 K/mm3 (4.0-10.0) 02/18/17 06:00 RBC 3.83 M/mm3 (4.00-5.60) L 02/18/17 06:00 Hgb 9.6 GM/dL (11.7-16.9) L 02/18/17 06:00 Hct 29.4 % (35.4-49) L 02/18/17 06:00 MCV 76.7 fl (80-96) L 02/18/17 06:00 MCHC 32.7 g/dl (32.0-35.9) 02/18/17 06:00 RDW 24.9 % (11.9-15.9) H 02/18/17 06:00 Plt Count 138 K/MM3 (134-434) 02/18/17 06:00 MPV 7.4 fl (7.5-11.1) L 02/18/17 06:00 CMP Sodium 142 mmol/L (136-145) 02/18/17 06:00 Potassium 3.6 mmol/L (3.5-5.1) 02/18/17 06:00 Chloride 108 mmol/L (98-107) H 02/18/17 06:00 Carbon Dioxide 25 mmol/L (21-32) 02/18/17 06:00 Anion Gap 9 (8-16) 02/18/17 06:00 BUN 17 mg/dL (7-18) D 02/18/17 06:00 Creatinine 1.3 mg/dL (0.7-1.3) 02/18/17 06:00 Creat Clearance w eGFR 48.89 (>60) 02/17/17 06:00 Calcium 7.8 mg/dL (8.5-10.1) L 02/18/17 06:00 Total Bilirubin 1.7 mg/dL (0.2-1.0) H D 02/17/17 06:00 AST 40 U/L (15-37) H 02/17/17 06:00 ALT 27 U/L (12-78) 02/17/17 06:00 Alkaline Phosphatase 228 U/L (45-117) H 02/17/17 06:00 Total Protein 5.8 g/dl (6.4-8.2) L 02/17/17 06:00 Albumin 1.6 g/dl (3.4-5.0) L 02/17/17 06:00 Plan: 81-year-old male from home, with multiple medical problems, presents with 2 days of generalized weakness. Spoke to Dr. Sharp and the patient has several ongoing issues inlcuding dizzyness, weakness, elevated INR to 10, decreased hemoglobin to 6.1, acute renal failure, leukocyotis, and ongoing low back pain. 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 CT head reviewed with patient CT L spine reviewed with patient Recommend continued medical optmization of multiple underlying conditions. Physical therapy as tolerated If pain persists, may benefit from pain mgmt Consider Tylenol as needed for now as patient with ongoing renal failure and would want to avoid Ibuprofen, etc.
--- NOTE | 2017-02-18 15:57 | PN ---
Progress Note (short form) - Note Progress Note: Renal Follow up for EMERALD Pt seen and examined at the bedside no acute complaints Vital Signs Temperature 98.4 F 02/18/17 15:30 Pulse Rate 64 02/18/17 15:30 Respiratory Rate 20 02/18/17 15:30 Blood Pressure 99/51 02/18/17 15:30 O2 Sat by Pulse Oximetry (%) 93 L 02/17/17 21:00 Intake & Output 02/15/17 02/16/17 02/17/17 02/18/17 23:59 23:59 23:59 23:59 Intake Total 633.2 830 1000 100 Output Total 500 250 200 250 Balance 133.2 580 800 -150 Weight 184 lb 1.6 oz Gen: NAD CVS: irregular, no M/R Lungs: CTA, no rales or wheeze Abd: soft NT/ND Ext: Trace pretibial edema CBC, BMP 02/18/17 06:00 02/18/17 06:00 Laboratory Tests 02/18/17 06:00 Magnesium 1.4 L D Current Medications Atorvastatin Calcium (Lipitor -) 20 mg PO HS [facility] Last Admin: 02/17/17 21:46 Dose: 20 mg Furosemide (Lasix -) 20 mg PO DAILY [facility] Last Admin: 02/18/17 11:08 Dose: 20 mg Insulin Aspart (Novolog Vial Sliding Scale -) 1 vial SQ ACHS [facility] PRN Reason: Protocol Last Admin: 02/18/17 11:27 Dose: 2 unit Metoprolol Succinate (Toprol Xl -) 25 mg PO BID [facility] Last Admin: 02/18/17 11:09 Dose: 25 mg A/P 81 year old Gentleman with PMhx of CAD, Afib on Coumadin, Hypertension, BPH, DM who presented with weakness, lethargy and found to have acute on chronic anemia with Hgb of 6.1 in setting of supratheraputic INR and EMERALD with BUN/Cr of 43/2.5. #Acute Renal Failure renal function now improved and stable continue Lasix as needed for management of edema trend BUN/Cr and electrolytes #Hypomagnesemia Give Mag Sulfate 4g IV x 1 Trend daily #Anion Gap Metabolic acidosis serum bicabr is now WNL #Acute Anemia in setting of supratheraputic INR s/p EGD and Colonoscpy Gi following #LE edema/3rd spacing from hypoalbuminemia lasix as needed Dwayne Rausch DO
[2017-02-18 16:22] LABS: Hgb A2 3.5 % (0.7-3.1)
[2017-02-18] MEDS: ATORVASTATIN CA 20 MG TABLET (FP) PO SCH (21:24)
[2017-02-19] MEDS: INSULIN SLIDING SCALE (NOVOLOG) 1 VIAL SQ SCH ×4 (06:20→21:26)
[2017-02-19 07:19] LABS: MCH 25.4 pg (25.7-33.7); MCHC 33.4 g/dl (32.0-35.9); MEAN CELL VOLUME 76.3 fl (80-96); MEAN PLT VOLUME 7.5 fl (7.5-11.1); PLATELET COUNT 123 K/MM3 (134-434); RDW 24.7 % (11.9-15.9); WHITE BLOOD COUNT 8.3 K/mm3 (4.0-10.0)
[2017-02-19 07:46] LABS: ALBUMIN 1.5 g/dl (3.4-5.0); BILIRUBIN,TOTAL 1.7 mg/dL (0.2-1.0); CALCIUM 7.4 mg/dL (8.5-10.1); COCKROFT - GAULT 54.42; CREATININE 1.3 mg/dL (0.7-1.3); MAGNESIUM 1.8 mg/dL (1.8-2.4); TOT PROT 5.3 g/dl (6.4-8.2)
--- NOTE | 2017-02-19 10:21 | PN ---
Progress Note (short form) - Note Progress Note: S: 81 year old gentleman, history of paroxysmal atrial fibrillation, non insulin diabetes mellitus, hypertension, history of severe anemia, angiodisplasia, GI bleeding. History of ascites, most probably related to cirrhosis of the liver. Renal insufficiency. Patient was admitted with marked elevation of INR. Patient still complaints of fatigue and generalized weakness. No history of chest pain or discomforts either at rest of with exertion. Denies having dyspnea , PND orthopnea. Active Medications Generic Name Dose Route Start Last Admin Trade Name Elysia PRN Reason Stop Dose Admin Atorvastatin Calcium 20 mg 02/15/17 22:00 02/18/17 21:24 Lipitor - PO 20 mg HS [facility] Administration Furosemide 20 mg 02/17/17 10:00 02/18/17 11:08 Lasix - PO 20 mg DAILY [facility] Administration Insulin Aspart 1 vial 02/15/17 11:00 02/19/17 06:20 Novolog Vial Sliding Scale - SQ Not Given ACHS [facility] Protocol Metoprolol Succinate 25 mg 02/15/17 22:00 02/18/17 21:25 Toprol Xl - PO 25 mg BID [facility] Administration O: 81 year old male was in no acute distress, 2+ pallor, no cyanosis, clubbing, or jaundice. Last Vital Signs Temp Pulse Resp BP Pulse Ox 98.4 F 70 20 101/62 95 02/19/17 09:30 02/19/17 09:30 02/19/17 09:30 02/19/17 09:30 02/19/17 09:00 Neck: Supple, no JVD, negative HJR, carotids were equal and upstrokes were normal, no thyromegaly appreciated. Heart: PMI was in the 5th intercostal space, no heaves or thrills, S1 and S2 were normal. No murmurs or gallops were appreciated. Lungs: Decreased breath sounds at the right base. No extraneous sounds were heard. Abdomen: Soft, mild diffused tenderness, large ascites with fluid thrill. Unable to palpate liver or spleen. Extremities: No calf tenderness, 2-3+ bilateral lower extremity dependent edema. CBC, BMP 02/19/17 06:00 02/19/17 06:00 Laboratory Results - last 24 hr 02/16/17 02/18/17 02/18/17 06:00 06:20 11:12 WBC RBC Hgb Hct MCV MCHC RDW Plt Count MPV Hemoglobin A 96.5 Hemoglobin A2 3.5 H Hemoglobin C 0 Hemoglobin S 0 Variant Hemoglobin TNP Hemoglobin Interpret Maternal Rh 0 Hemoglobin Solubility Negative Sodium Potassium Chloride Carbon Dioxide Anion Gap BUN Creatinine Creat Clearance w eGFR POC Glucometer 129 205 Random Glucose Calcium Magnesium Total Bilirubin AST ALT Alkaline Phosphatase Total Protein Albumin 02/18/17 02/18/17 02/19/17 17:39 20:50 06:00 WBC 8.3 RBC 3.51 L Hgb 8.9 L Hct 26.8 L MCV 76.3 L MCHC 33.4 RDW 24.7 H Plt Count 123 L MPV 7.5 Hemoglobin A Hemoglobin A2 Hemoglobin C Hemoglobin S Variant Hemoglobin Hemoglobin Interpret Maternal Rh Hemoglobin Solubility Sodium Potassium Chloride Carbon Dioxide Anion Gap BUN Creatinine Creat Clearance w eGFR POC Glucometer 188 287 Random Glucose Calcium Magnesium Total Bilirubin AST ALT Alkaline Phosphatase Total Protein Albumin 02/19/17 02/19/17 06:00 06:19 WBC RBC Hgb Hct MCV MCHC RDW Plt Count MPV Hemoglobin A Hemoglobin A2 Hemoglobin C Hemoglobin S Variant Hemoglobin Hemoglobin Interpret Maternal Rh Hemoglobin Solubility Sodium 141 Potassium 3.6 Chloride 109 H Carbon Dioxide 25 Anion Gap 7 L BUN 17 Creatinine 1.3 Creat Clearance w eGFR 53.25 POC Glucometer 98 Random Glucose 94 D Calcium 7.4 L Magnesium 1.8 D Total Bilirubin 1.7 H AST 31 D ALT 21 D Alkaline Phosphatase 219 H Total Protein 5.3 L Albumin 1.5 L Impression: (1) Paroxysmal atrial fibrillation, currently in sinus rhythm Code(s): I48.91 - UNSPECIFIED ATRIAL FIBRILLATION Qualifiers: Atrial fibrillation type: paroxysmal Qualified Code(s): I48.0 - Paroxysmal atrial fibrillation (2) Ascites, etiology most probably related to cirrhosis of the liver Code(s): R18.8 - OTHER ASCITES Qualifiers: Ascites type: other type Qualified Code(s): R18.8 - Other ascites (3) GI bleed Code(s): K92.2 - GASTROINTESTINAL HEMORRHAGE, UNSPECIFIED Qualifiers: GI bleed type/associated pathology: angiodysplasia of stomach and duodenum Qualified Code(s): K31.811 - Angiodysplasia of stomach and duodenum with bleeding (4) Back pain Code(s): M54.9 - DORSALGIA, UNSPECIFIED Qualifiers: Back pain location: low back pain Chronicity: chronic Back pain laterality: midline Sciatica presence: without sciatica Qualified Code(s): M54.5 - Low back pain (5) Coronary artery disease Code(s): I25.10 - ATHSCL HEART DISEASE OF [place] CORONARY ARTERY W/O ANG PCTRS Qualifiers: Coronary Disease-Associated Artery/Lesion type: [place] artery [place] vs. transplanted heart: [place] heart Associated angina: without angina Qualified Code(s): I25.10 - Atherosclerotic heart disease of [place] coronary artery without angina pectoris (6) History of Diabetes mellitus Code(s): E11.9 - TYPE 2 DIABETES MELLITUS WITHOUT COMPLICATIONS Qualifiers: Diabetes mellitus type: type 2 Diabetes mellitus complication status: without complication Diabetes mellitus half-way insulin use: without half-way use Qualified Code(s): E11.9 - Type 2 diabetes mellitus without complications (7) Angiodysplasia of colon with GI bleeding Code(s): K55.20 - ANGIODYSPLASIA OF COLON WITHOUT HEMORRHAGE (8) Hypercholesterolemia Recommendations: 1. Consider adding Aldactone, provided there are no contra indications. 2. Continue Metropolol. 3. May require theraputic parasynthesis. 4. Follow up INR. Attestation: Documentation prepared by Lalito Saldana, acting as medical csr for Atif Tineo MD.
[2017-02-19] MEDS: FUROSEMIDE 20 MG TABLET (FP) PO SCH (12:29)
[2017-02-19] MEDS: METOPROLOL SUCCINATE 25 MG TAB.SR.24H (FP) PO SCH ×2 (12:29→21:26)
--- NOTE | 2017-02-19 13:21 | PN ---
Progress Note (short form) - Note Progress Note: Renal Follow up for EMERALD Pt seen and examined at the bedside legs remain swollen denies any sob or chest pain Vital Signs Temperature 98.4 F 02/19/17 09:30 Pulse Rate 70 02/19/17 09:30 Respiratory Rate 20 02/19/17 09:30 Blood Pressure 101/62 02/19/17 09:30 O2 Sat by Pulse Oximetry (%) 95 02/19/17 09:00 Intake & Output 02/16/17 02/17/17 02/18/17 02/19/17 23:59 23:59 23:59 23:59 Intake Total 830 1000 300 Output Total 250 200 250 300 Balance 580 800 50 -300 Gen: NAD CVS: irregular, no M/R Lungs: CTA, no rales or wheeze Abd: soft NT/ND Ext: Trace pretibial edema CBC, BMP 02/19/17 06:00 02/19/17 06:00 Laboratory Tests 02/19/17 06:00 Calcium 7.4 L Magnesium 1.8 D Albumin 1.5 L Current Medications Atorvastatin Calcium (Lipitor -) 20 mg PO HS [facility] Last Admin: 02/18/17 21:24 Dose: 20 mg Furosemide (Lasix -) 20 mg PO DAILY [facility] Last Admin: 02/19/17 12:29 Dose: 20 mg Insulin Aspart (Novolog Vial Sliding Scale -) 1 vial SQ ACHS [facility] PRN Reason: Protocol Last Admin: 02/19/17 12:40 Dose: 6 unit Metoprolol Succinate (Toprol Xl -) 25 mg PO BID [facility] Last Admin: 02/19/17 12:29 Dose: 25 mg A/P 81 year old Gentleman with PMhx of CAD, Afib on Coumadin, Hypertension, BPH, DM who presented with weakness, lethargy and found to have acute on chronic anemia with Hgb of 6.1 in setting of supratheraputic INR and EMERALD with BUN/Cr of 43/2.5. #Acute Renal Failure Renal function remains stable at this time oral intake of fluids and solids as tolerated trend BUN/cr #Hypomagnesemia Mg level improved today start oral Slo-mg #Anion Gap Metabolic acidosis Bicarb stable no indication for further bicarb supplementation #Acute Anemia in setting of supratheraputic INR s/p EGD and Colonoscopy Gi following #LE edema/3rd spacing from hypoalbuminemia continue Lasix, if no change in edema or weight is noted can increase to 40mg daily low salt diet Dwayne Rausch DO
--- NOTE | 2017-02-19 13:44 | PN ---
Progress Note, Physician History of Present Illness: Pt. w/o vomiting, nausea, abd pain, alessandro blood in stool. Pt. w/o SOB, CP, palp., dizziness. Pt. w leg edema - Current Medication List Current Medications: Active Medications Atorvastatin Calcium (Lipitor -) 20 mg PO HS [facility] Last Admin: 02/18/17 21:24 Dose: 20 mg Furosemide (Lasix -) 40 mg PO DAILY [facility] Insulin Aspart (Novolog Vial Sliding Scale -) 1 vial SQ ACHS [facility] PRN Reason: Protocol Last Admin: 02/19/17 12:40 Dose: 6 unit Magnesium Chloride (Slow-Mag -) 64 mg PO DAILY [facility] Metoprolol Succinate (Toprol Xl -) 25 mg PO BID [facility] Last Admin: 02/19/17 12:29 Dose: 25 mg - Objective Vital Signs: Vital Signs Temperature 98.4 F 02/19/17 09:30 Pulse Rate 70 02/19/17 09:30 Respiratory Rate 20 02/19/17 09:30 Blood Pressure 101/62 02/19/17 09:30 O2 Sat by Pulse Oximetry (%) 95 02/19/17 09:00 Constitutional: Yes: No Distress, Calm Cardiovascular: Yes: Regular Rate and Rhythm, S1, S2 Respiratory: Yes: Regular, CTA Bilaterally. No: Rales Gastrointestinal: Yes: Normal Bowel Sounds, Soft. No: Palpable Mass, Tenderness Edema: LLE: 2+, RLE: 2+ Neurological: Yes: Alert, Oriented Labs: CBC, BMP 02/19/17 06:00 02/19/17 06:00 INR, PTT INR 1.69 (0.82-1.09) H 02/17/17 06:00 Fibrinogen 286.0 mg/dL (238-498) 02/13/17 20:00 Problem List - Problems (1) Probable sepsis Code(s): A41.9 - SEPSIS, UNSPECIFIED ORGANISM (2) Anemia Code(s): D64.9 - ANEMIA, UNSPECIFIED Qualifiers: Iron deficiency anemia type: chronic blood loss (3) Hypoglycemia Assessment/Plan: resolved Code(s): E16.2 - HYPOGLYCEMIA, UNSPECIFIED (4) Acute renal failure Assessment/Plan: It is improving. Code(s): N17.9 - ACUTE KIDNEY FAILURE, UNSPECIFIED Qualifiers: Acute renal failure type: unspecified Qualified Code(s): N17.9 - Acute kidney failure, unspecified (5) Supratherapeutic INR Code(s): R79.1 - ABNORMAL COAGULATION PROFILE (6) A-fib Code(s): I48.91 - UNSPECIFIED ATRIAL FIBRILLATION Qualifiers: Atrial fibrillation type: paroxysmal Qualified Code(s): I48.0 - Paroxysmal atrial fibrillation (7) Diabetes mellitus Code(s): E11.9 - TYPE 2 DIABETES MELLITUS WITHOUT COMPLICATIONS Qualifiers: Diabetes mellitus type: type 2 Diabetes mellitus complication status: without complication Diabetes mellitus usp insulin use: without usp use Qualified Code(s): E11.9 - Type 2 diabetes mellitus without complications (8) CAD (coronary artery disease) Code(s): I25.10 - ATHSCL HEART DISEASE OF [place] CORONARY ARTERY W/O ANG PCTRS Qualifiers: Coronary Disease-Associated Artery/Lesion type: [place] artery [place] vs. transplanted heart: [place] heart Associated angina: without angina Qualified Code(s): I25.10 - Atherosclerotic heart disease of [place] coronary artery without angina pectoris (9) Hypomagnesemia Code(s): E83.42 - HYPOMAGNESEMIA (10) Back pain Code(s): M54.9 - DORSALGIA, UNSPECIFIED Qualifiers: Back pain location: low back pain Chronicity: chronic Back pain laterality: midline Sciatica presence: without sciatica Qualified Code(s): M54.5 - Low back pain (11) GI bleed Code(s): K92.2 - GASTROINTESTINAL HEMORRHAGE, UNSPECIFIED Qualifiers: GI bleed type/associated pathology: angiodysplasia of stomach and duodenum Qualified Code(s): K31.811 - Angiodysplasia of stomach and duodenum with bleeding (12) Ascites Code(s): R18.8 - OTHER ASCITES Qualifiers: Ascites type: other type Qualified Code(s): R18.8 - Other ascites (13) Liver cirrhosis Code(s): K74.60 - UNSPECIFIED CIRRHOSIS OF LIVER (14) Hypophosphatemia Code(s): E83.39 - OTHER DISORDERS OF PHOSPHORUS METABOLISM Assessment/Plan Pt. was admitted to ICU, as improved was transferred to medical floor Pt. received vit K (10 mg), 3 unit of PRBC, D5 NS( at 100 ml/hr), s/p FFP; pt. received Zosyn, Vanco. Mg was corrected; Cardio, ID, Renal, Heme, GI, Neuro consults appreciated. s/p 2 more units of PRBC s/p EGD and colonoscopy- no bleeding source. Restarted on Lasix PO with improvement in LE edema. To f/u with GI and Cardio regarding possibility of restarting AC treatment. H/H is trending down; to monitor To f/u AM labs. Prognosis:improving
--- NOTE | 2017-02-19 14:34 | PN ---
Progress Note (short form) - Note Progress Note: No acute events, no abdominal pain LE swelling improved Diagnostic/therapeutic paracentesis. Discussed with patient Diuresis Problem List - Problems (1) Anemia Code(s): D64.9 - ANEMIA, UNSPECIFIED Qualifiers: Iron deficiency anemia type: chronic blood loss (2) Ascites Code(s): R18.8 - OTHER ASCITES Qualifiers: Ascites type: other type Qualified Code(s): R18.8 - Other ascites
[2017-02-19] MEDS ORDERED: PHYTONADIONE 10 MG/1 ML AMP SQ ONE (14:36)
--- NOTE | 2017-02-19 15:17 | PN ---
Progress Note (short form) - Note Progress Note: Neurology History of Present Illness 81-year-old male from home, with multiple medical problems, presents with 2 days of generalized weakness. Spoke to Dr. Sharp and the patient has several ongoing issues inlcuding dizzyness, weakness, elevated INR to 10, decreased hemoglobin to 6.1, acute renal failure, leukocyotis, and ongoing low back pain. 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 CT head completed and did not show acute changes. CT L spine reviewed and showed L2-L5 DDD (moderate to marked), possibly spur formation, b/l facet hypertrophy. No longer in ICU and back pain sporadic, comes and goes, likely chronic. Comfortable appearing this morning. Active Medications Atorvastatin Calcium (Lipitor -) 20 mg PO HS [facility] Last Admin: 02/18/17 21:24 Dose: 20 mg Furosemide (Lasix -) 40 mg PO DAILY [facility] Insulin Aspart (Novolog Vial Sliding Scale -) 1 vial SQ ACHS [facility] PRN Reason: Protocol Last Admin: 02/19/17 12:40 Dose: 6 unit Magnesium Chloride (Slow-Mag -) 64 mg PO DAILY [facility] Metoprolol Succinate (Toprol Xl -) 25 mg PO BID [facility] Last Admin: 02/19/17 12:29 Dose: 25 mg Spironolactone (Aldactone -) 50 mg PO DAILY [facility] *Physical Exam Last Vital Signs Temp Pulse Resp BP Pulse Ox 98.6 F 79 20 110/68 92 L 02/19/17 14:54 02/19/17 14:54 02/19/17 14:54 02/19/17 14:54 02/19/17 10:20 General Appearance: Yes: Appropriately Dressed. mild distress No: , Intoxicated HEENT: positive: EOMI, KEVIN, Normal ENT Inspection, Normal Voice, TMs Normal, Pharynx Normal. oral mucosa dry, negative: Pale Conjunctivae, Photophobia, Scleral Icterus (R), Scleral Icterus (L) Neck: positive: Trachea midline, Normal Thyroid, Supple. negative: Tender, Rigid, Carotid bruit, Stridor, Lymphadenopathy (R), Lymphadenopathy (L), Thyromegaly Respiratory/Chest: positive: Lungs Clear, Normal Breath Sounds. negative: Chest Tender, Respiratory Distress, Accessory Muscle Use, Labored Respiration, RES, Crackles, Rales, Rhonchi, Stridor, Wheezing, Dullness Cardiovascular: positive: Regular Rhythm, Regular Rate, S1, S2. negative: Edema , JVD, Murmur, Bradycardia, Tachycardia Vascular Pulses: Dorsalis-Pedis (R): 2+, Doralis-Pedis (L): 2+ Gastrointestinal/Abdominal: positive: decreased Bowel Sounds, distended firm, possible ventral hernial defect. negative: Tender, Organomegaly, Pulsatile Mass , Increased Bowel Sounds, Guarding, Rebound, Hepatomegaly, Spleenomegaly Lymphatic: negative: Adenopathy, Tenderness Musculoskeletal: positive: Normal Inspection. negative: CVA Tenderness, Decreased Range of Motion Extremity: positive: Normal Capillary Refill, Normal Inspection, Normal Range of Motion, Pelvis Stable. negative: Tender, Pedal Edema, Swelling, Erythema Integumentary: positive: Normal Color, Dry, Warm. negative: Cyanotic, Erythema , Jaundice, Rash Neurologic: positive: fbi field agent II-XII NML intact, Fully Oriented, Alert, Normal Mood/ Affect, Motor Strength 5/5. negative: EOM Palsy, Facial Droop, Sensory Deficit CBCD WBC 8.3 K/mm3 (4.0-10.0) 02/19/17 06:00 RBC 3.51 M/mm3 (4.00-5.60) L 02/19/17 06:00 Hgb 8.9 GM/dL (11.7-16.9) L 02/19/17 06:00 Hct 26.8 % (35.4-49) L 02/19/17 06:00 MCV 76.3 fl (80-96) L 02/19/17 06:00 MCHC 33.4 g/dl (32.0-35.9) 02/19/17 06:00 RDW 24.7 % (11.9-15.9) H 02/19/17 06:00 Plt Count 123 K/MM3 (134-434) L 02/19/17 06:00 MPV 7.5 fl (7.5-11.1) 02/19/17 06:00 CMP Sodium 141 mmol/L (136-145) 02/19/17 06:00 Potassium 3.6 mmol/L (3.5-5.1) 02/19/17 06:00 Chloride 109 mmol/L (98-107) H 02/19/17 06:00 Carbon Dioxide 25 mmol/L (21-32) 02/19/17 06:00 Anion Gap 7 (8-16) L 02/19/17 06:00 BUN 17 mg/dL (7-18) 02/19/17 06:00 Creatinine 1.3 mg/dL (0.7-1.3) 02/19/17 06:00 Creat Clearance w eGFR 53.25 (>60) 02/19/17 06:00 Calcium 7.4 mg/dL (8.5-10.1) L 02/19/17 06:00 Total Bilirubin 1.7 mg/dL (0.2-1.0) H 02/19/17 06:00 AST 31 U/L (15-37) D 02/19/17 06:00 ALT 21 U/L (12-78) D 02/19/17 06:00 Alkaline Phosphatase 219 U/L (45-117) H 02/19/17 06:00 Total Protein 5.3 g/dl (6.4-8.2) L 02/19/17 06:00 Albumin 1.5 g/dl (3.4-5.0) L 02/19/17 06:00 Plan: 81-year-old male from home, with multiple medical problems, presents with 2 days of generalized weakness. Spoke to Dr. Sharp and the patient has several ongoing issues inlcuding dizzyness, weakness, elevated INR to 10, decreased hemoglobin to 6.1, acute renal failure, leukocyotis, and ongoing low back pain. 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 CT head completed CT L spine completed Recommend continued medical optmization of multiple underlying conditions. Physical therapy as tolerated Will defer on MRI for now as symptoms improved Avoid and sudden turns, fall precautions
[2017-02-19] MEDS ORDERED: PT OWN MED DRAWER 7, Y5N ONE (16:57)
[2017-02-19] MEDS ORDERED: PHYTONADIONE 10 MG/1 ML AMP ONE (17:35)
[2017-02-19] MEDS: MAGNESIUM CL 64 MG TABLET.SA PO SCH (17:38)
[2017-02-19] MEDS: ATORVASTATIN CA 20 MG TABLET (FP) PO SCH (21:26)
[2017-02-20] MEDS: INSULIN SLIDING SCALE (NOVOLOG) 1 VIAL SQ SCH ×4 (06:06→22:22)
[2017-02-20 07:29] LABS: BASOPHIL 0.8 % (0-2.0); EOSINOPHIL 4.4 % (0-4.5); MCH 25.4 pg (25.7-33.7); MCHC 33.5 g/dl (32.0-35.9); MEAN CELL VOLUME 75.9 fl (80-96); MEAN PLT VOLUME 7.5 fl (7.5-11.1); NEUTROPHILS 61.9 % (42.8-82.8); PLATELET COUNT 123 K/MM3 (134-434); RDW 24.9 % (11.9-15.9); WHITE BLOOD COUNT 8.4 K/mm3 (4.0-10.0)
[2017-02-20 07:50] LABS: CALCIUM 7.3 mg/dL (8.5-10.1); COCKROFT - GAULT 58.95; CREATININE 1.2 mg/dL (0.7-1.3); MAGNESIUM 1.6 mg/dL (1.8-2.4); PHOSPHOROUS 2.2 mg/dL (2.5-4.9)
[2017-02-20 08:06] LABS: INR 1.49 (0.82-1.09); PROTHROMBIN TIME (PATIENT) 16.5 SEC (9.98-11.88)
[2017-02-20] MEDS ORDERED: PT OWN MED DRAWER 7, Y5N ONE ×2 (09:11→22:10)
[2017-02-20] MEDS: SPIRONOLACTONE 25 MG TABLET (FP) PO SCH (09:40)
[2017-02-20] MEDS: FUROSEMIDE 40 MG TABLET (FP) PO SCH (09:40)
[2017-02-20] MEDS: MAGNESIUM CL 64 MG TABLET.SA PO SCH (09:41)
--- NOTE | 2017-02-20 10:42 | PN ---
Progress Note, Physician History of Present Illness: Pt. w/o vomiting, nausea, abd pain, alessandro blood in stool. Pt. w/o SOB, CP, palp., dizziness. Pt. w leg edema- same Pt. for paracentesis this AM - Current Medication List Current Medications: Active Medications Atorvastatin Calcium (Lipitor -) 20 mg PO HS [facility] Last Admin: 02/19/17 21:26 Dose: 20 mg Furosemide (Lasix -) 40 mg PO DAILY [facility] Last Admin: 02/20/17 09:40 Dose: 40 mg Insulin Aspart (Novolog Vial Sliding Scale -) 1 vial SQ ACHS [facility] PRN Reason: Protocol Last Admin: 02/20/17 06:06 Dose: Not Given Magnesium Chloride (Slow-Mag -) 64 mg PO DAILY [facility] Last Admin: 02/20/17 09:41 Dose: 64 mg Magnesium Sulfate (Magnesium Sulfate) 2 gm IVPB ONCE ONE Stop: 02/20/17 10:39 Metoprolol Succinate (Toprol Xl -) 25 mg PO BID [facility] Last Admin: 02/19/17 21:26 Dose: 25 mg Potassium Phos/Sodium Phos (Phos-Nak Packet -) 1 packet PO TID [facility] Stop: 02/21/17 22:01 Spironolactone (Aldactone -) 50 mg PO DAILY [facility] Last Admin: 02/20/17 09:40 Dose: 50 mg - Objective Vital Signs: Vital Signs Temperature 98.6 F 02/20/17 05:40 Pulse Rate 66 02/20/17 05:40 Respiratory Rate 20 02/20/17 05:40 Blood Pressure 134/68 02/20/17 05:40 O2 Sat by Pulse Oximetry (%) 96 02/19/17 20:27 Constitutional: Yes: No Distress, Calm Cardiovascular: Yes: Regular Rate and Rhythm, S1, S2 Respiratory: Yes: Regular, CTA Bilaterally. No: Rales Gastrointestinal: Yes: Normal Bowel Sounds, Soft, Distention Edema: Yes Edema: LLE: 2+, RLE: 2+ Neurological: Yes: Alert, Oriented Labs: CBC, BMP 02/20/17 06:00 02/20/17 06:00 INR, PTT INR 1.49 (0.82-1.09) H 02/20/17 06:00 Fibrinogen 286.0 mg/dL (238-498) 02/13/17 20:00 Problem List - Problems (1) Probable sepsis Code(s): A41.9 - SEPSIS, UNSPECIFIED ORGANISM (2) Anemia Code(s): D64.9 - ANEMIA, UNSPECIFIED Qualifiers: Qualified Code(s): D50.0 - Iron deficiency anemia secondary to blood loss (chronic) (3) Hypoglycemia Code(s): E16.2 - HYPOGLYCEMIA, UNSPECIFIED (4) Acute renal failure Code(s): N17.9 - ACUTE KIDNEY FAILURE, UNSPECIFIED Qualifiers: Qualified Code(s): N17.9 - Acute kidney failure, unspecified (5) Supratherapeutic INR Code(s): R79.1 - ABNORMAL COAGULATION PROFILE (6) A-fib Code(s): I48.91 - UNSPECIFIED ATRIAL FIBRILLATION Qualifiers: Qualified Code(s): I48.0 - Paroxysmal atrial fibrillation (7) Diabetes mellitus Code(s): E11.9 - TYPE 2 DIABETES MELLITUS WITHOUT COMPLICATIONS Qualifiers: Qualified Code(s): E11.9 - Type 2 diabetes mellitus without complications (8) CAD (coronary artery disease) Code(s): I25.10 - ATHSCL HEART DISEASE OF [place] CORONARY ARTERY W/O ANG PCTRS Qualifiers: Qualified Code(s): I25.10 - Atherosclerotic heart disease of [place] coronary artery without angina pectoris (9) Back pain Code(s): M54.9 - DORSALGIA, UNSPECIFIED Qualifiers: Qualified Code(s): M54.5 - Low back pain (10) GI bleed Code(s): K92.2 - GASTROINTESTINAL HEMORRHAGE, UNSPECIFIED Qualifiers: Qualified Code(s): K31.811 - Angiodysplasia of stomach and duodenum with bleeding (11) Ascites Code(s): R18.8 - OTHER ASCITES Qualifiers: Qualified Code(s): R18.8 - Other ascites (12) Liver cirrhosis Code(s): K74.60 - UNSPECIFIED CIRRHOSIS OF LIVER (13) Hypophosphatemia Assessment/Plan: needs replacement Code(s): E83.39 - OTHER DISORDERS OF PHOSPHORUS METABOLISM (14) Hypomagnesemia Assessment/Plan: needs replacement Code(s): E83.42 - HYPOMAGNESEMIA Assessment/Plan Pt. was admitted to ICU, as improved was transferred to medical floor Pt. received vit K (10 mg), 3 unit of PRBC, D5 NS( at 100 ml/hr), s/p FFP; pt. received Zosyn, Vanco. Mg was corrected; Cardio, ID, Renal, Heme, GI, Neuro consults appreciated. s/p 2 more units of PRBC s/p EGD and colonoscopy- no bleeding source. Restarted on Lasix PO for LE edema. To f/u with GI and Cardio regarding possibility of restarting AC treatment. H/H is same; to monitor. For paracentesis this AM. To f/u AM labs. Prognosis:improving
[2017-02-20] MEDS ORDERED: MAGNESIUM SULF 50% (8.12 MEQ/2 ML-1 GM VIAL) IVPB ONE ×2 (11:00→16:00)
[2017-02-20] MEDS ORDERED: POTASSIUM PHOSPHATE 30 MM in DEXTROSE 5%-WATER - 250 ML IVPB ONE (11:00)
[2017-02-20] MEDS: METOPROLOL SUCCINATE 25 MG TAB.SR.24H (FP) PO SCH ×2 (13:30→22:23)
--- NOTE | 2017-02-20 13:57 | PN ---
Progress Note, Physician History of Present Illness: Underwent 5 L therapeutic paracentesis. Feels improved. - Current Medication List Current Medications: Active Medications Atorvastatin Calcium (Lipitor -) 20 mg PO HS [facility] Last Admin: 02/19/17 21:26 Dose: 20 mg Furosemide (Lasix -) 40 mg PO DAILY [facility] Last Admin: 02/20/17 09:40 Dose: 40 mg Potassium Phosphate 30 mm/ (Dextrose) 260 mls @ 65 mls/hr IVPB ONCE ONE PRN Reason: 30 MM/4 HR Stop: 02/20/17 14:59 Insulin Aspart (Novolog Vial Sliding Scale -) 1 vial SQ ACHS [facility] PRN Reason: Protocol Last Admin: 02/20/17 06:06 Dose: Not Given Magnesium Chloride (Slow-Mag -) 64 mg PO DAILY [facility] Last Admin: 02/20/17 09:41 Dose: 64 mg Metoprolol Succinate (Toprol Xl -) 25 mg PO BID [facility] Last Admin: 02/19/17 21:26 Dose: 25 mg Potassium Phos/Sodium Phos (Phos-Nak Packet -) 1 packet PO TID [facility] Stop: 02/21/17 22:01 Spironolactone (Aldactone -) 50 mg PO DAILY [facility] Last Admin: 02/20/17 09:40 Dose: 50 mg - Objective Vital Signs: Vital Signs Temperature 98 F 02/20/17 10:00 Pulse Rate 69 02/20/17 10:00 Respiratory Rate 20 02/20/17 10:00 Blood Pressure 121/64 02/20/17 10:00 O2 Sat by Pulse Oximetry (%) 96 02/20/17 09:00 Constitutional: Yes: No Distress, Calm Neck: Yes: Supple Cardiovascular: Yes: Regular Rate and Rhythm Respiratory: Yes: Regular, Diminished Gastrointestinal: Yes: Soft, Ascites, Hypoactive Bowel Sounds Edema: Yes Edema: LLE: 1+, RLE: 1+ Labs: CBC, BMP 02/20/17 06:00 02/20/17 06:00 INR, PTT INR 1.49 (0.82-1.09) H 02/20/17 06:00 Fibrinogen 286.0 mg/dL (238-498) 02/13/17 20:00 Problem List - Problems (1) A-fib Code(s): I48.91 - UNSPECIFIED ATRIAL FIBRILLATION Qualifiers: Qualified Code(s): I48.0 - Paroxysmal atrial fibrillation (2) Anemia Code(s): D64.9 - ANEMIA, UNSPECIFIED Qualifiers: Qualified Code(s): D50.0 - Iron deficiency anemia secondary to blood loss (chronic) (3) CAD (coronary artery disease) Code(s): I25.10 - ATHSCL HEART DISEASE OF [place] CORONARY ARTERY W/O ANG PCTRS Qualifiers: Qualified Code(s): I25.10 - Atherosclerotic heart disease of [place] coronary artery without angina pectoris (4) Diabetes mellitus Code(s): E11.9 - TYPE 2 DIABETES MELLITUS WITHOUT COMPLICATIONS Qualifiers: Qualified Code(s): E11.9 - Type 2 diabetes mellitus without complications (5) GI bleed Code(s): K92.2 - GASTROINTESTINAL HEMORRHAGE, UNSPECIFIED Qualifiers: Qualified Code(s): K31.811 - Angiodysplasia of stomach and duodenum with bleeding (6) Supratherapeutic INR Code(s): R79.1 - ABNORMAL COAGULATION PROFILE (7) Angiodysplasia of colon without bleeding Code(s): K55.20 - ANGIODYSPLASIA OF COLON WITHOUT HEMORRHAGE Assessment/Plan 1. GI bleed with melena, profound anemia due to supratherapeutic INR, susbect small bowel angiodysplasia 2. Acute on chronic renal failure 3. CAD non-obstructive CAD angina pectoris 4. Diastolic LV dysfunction with class I NYHA classification LV failure, compensated 5. Paroxysmal atrial fibrillation in sinus rhythm on Coumadin, therapy on hold, [id number] score of 5 6. Hypertension 7. Diabetes mellitus 8. Hypercholesterolemia 9. EMERALD improving 10. Ascites post paracentesis PLAN: 1. Transfuse as needed maintaining Hg > 8.0 and monitor H/H closely 2. Plan to proceed with outpatient capsule endoscopy as per GI input. F/u fluid studies 3. Plan to resume A/C once hemostasis is achieved unless it is absolutely contraindicated (MOLLY occlusion device such as Watchman device may be considered if patient is not able to take anticoagulation) 4. Continue Lipitor 20 qhs, Toprol XL 25 bid 5. Maintained on Lasix 40 qd and Aldactone 50 qd with monitor renal function and electrolytes
[2017-02-20] MEDS: NAPH,MB-DB/K PH,MBDB POWDER PACKET PO SCH ×3 (14:01→22:23)
[2017-02-20 14:39] LABS: PERITONEAL FLUID LYMPHOCYTE 36 %; PERITONEAL FLUID MACROPHAGE 57 %; PERITONEAL FLUID MESOTHELIAL 1 %; PERITONEAL FLUID NEUTROPHIL 6 %
--- NOTE | 2017-02-20 14:50 | PN ---
Progress Note (short form) - Note Progress Note: Neurology History of Present Illness 81-year-old male from home, with multiple medical problems, presents with 2 days of generalized weakness. Spoke to Dr. Sharp and the patient has several ongoing issues inlcuding dizzyness, weakness, elevated INR to 10, decreased hemoglobin to 6.1, acute renal failure, leukocyotis, and ongoing low back pain. 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 CT head completed and did not show acute changes. CT L spine reviewed and showed L2-L5 DDD (moderate to marked), possibly spur formation, b/l facet hypertrophy. No longer in ICU and back pain sporadic, comes and goes, likely chronic. Comfortable appearing this morning. No acute events overnight. Active Medications Atorvastatin Calcium (Lipitor -) 20 mg PO HS [facility] Last Admin: 02/19/17 21:26 Dose: 20 mg Furosemide (Lasix -) 40 mg PO DAILY [facility] Last Admin: 02/20/17 09:40 Dose: 40 mg Potassium Phosphate 30 mm/ (Dextrose) 260 mls @ 65 mls/hr IVPB ONCE ONE PRN Reason: 30 MM/4 HR Stop: 02/20/17 14:59 Last Admin: 02/20/17 13:29 Dose: 65 mls/hr Insulin Aspart (Novolog Vial Sliding Scale -) 1 vial SQ ACHS [facility] PRN Reason: Protocol Last Admin: 02/20/17 11:30 Dose: Not Given Magnesium Chloride (Slow-Mag -) 64 mg PO DAILY [facility] Last Admin: 02/20/17 09:41 Dose: 64 mg Metoprolol Succinate (Toprol Xl -) 25 mg PO BID [facility] Last Admin: 02/20/17 13:30 Dose: 25 mg Potassium Phos/Sodium Phos (Phos-Nak Packet -) 1 packet PO TID [facility] Stop: 02/21/17 22:01 Last Admin: 02/20/17 14:01 Dose: Not Given Spironolactone (Aldactone -) 50 mg PO DAILY [facility] Last Admin: 02/20/17 09:40 Dose: 50 mg *Physical Exam Vital Signs Temperature 98.0 F 02/20/17 14:37 Pulse Rate 70 02/20/17 14:37 Respiratory Rate 20 02/20/17 14:37 Blood Pressure 111/59 02/20/17 14:37 O2 Sat by Pulse Oximetry (%) 96 02/20/17 09:00 General Appearance: Yes: Appropriately Dressed. mild distress No: , Intoxicated HEENT: positive: EOMI, KEVIN, Normal ENT Inspection, Normal Voice, TMs Normal, Pharynx Normal. oral mucosa dry, negative: Pale Conjunctivae, Photophobia, Scleral Icterus (R), Scleral Icterus (L) Neck: positive: Trachea midline, Normal Thyroid, Supple. negative: Tender, Rigid, Carotid bruit, Stridor, Lymphadenopathy (R), Lymphadenopathy (L), Thyromegaly Respiratory/Chest: positive: Lungs Clear, Normal Breath Sounds. negative: Chest Tender, Respiratory Distress, Accessory Muscle Use, Labored Respiration, RES, Crackles, Rales, Rhonchi, Stridor, Wheezing, Dullness Cardiovascular: positive: Regular Rhythm, Regular Rate, S1, S2. negative: Edema , JVD, Murmur, Bradycardia, Tachycardia Vascular Pulses: Dorsalis-Pedis (R): 2+, Doralis-Pedis (L): 2+ Gastrointestinal/Abdominal: positive: decreased Bowel Sounds, distended firm, possible ventral hernial defect. negative: Tender, Organomegaly, Pulsatile Mass , Increased Bowel Sounds, Guarding, Rebound, Hepatomegaly, Spleenomegaly Lymphatic: negative: Adenopathy, Tenderness Musculoskeletal: positive: Normal Inspection. negative: CVA Tenderness, Decreased Range of Motion Extremity: positive: Normal Capillary Refill, Normal Inspection, Normal Range of Motion, Pelvis Stable. negative: Tender, Pedal Edema, Swelling, Erythema Integumentary: positive: Normal Color, Dry, Warm. negative: Cyanotic, Erythema , Jaundice, Rash Neurologic: positive: data warehouse developer II-XII NML intact, Fully Oriented, Alert, Normal Mood/ Affect, Motor Strength 5/5. negative: EOM Palsy, Facial Droop, Sensory Deficit CBCD WBC 8.4 K/mm3 (4.0-10.0) 02/20/17 06:00 RBC 3.50 M/mm3 (4.00-5.60) L 02/20/17 06:00 Hgb 8.9 GM/dL (11.7-16.9) L 02/20/17 06:00 Hct 26.5 % (35.4-49) L 02/20/17 06:00 MCV 75.9 fl (80-96) L 02/20/17 06:00 MCHC 33.5 g/dl (32.0-35.9) 02/20/17 06:00 RDW 24.9 % (11.9-15.9) H 02/20/17 06:00 Plt Count 123 K/MM3 (134-434) L 02/20/17 06:00 MPV 7.5 fl (7.5-11.1) 02/20/17 06:00 CMP Sodium 142 mmol/L (136-145) 02/20/17 06:00 Potassium 3.6 mmol/L (3.5-5.1) 02/20/17 06:00 Chloride 108 mmol/L (98-107) H 02/20/17 06:00 Carbon Dioxide 28 mmol/L (21-32) 02/20/17 06:00 Anion Gap 6 (8-16) L 02/20/17 06:00 BUN 16 mg/dL (7-18) 02/20/17 06:00 Creatinine 1.2 mg/dL (0.7-1.3) 02/20/17 06:00 Creat Clearance w eGFR 53.25 (>60) 02/19/17 06:00 Calcium 7.3 mg/dL (8.5-10.1) L 02/20/17 06:00 Total Bilirubin 1.7 mg/dL (0.2-1.0) H 02/19/17 06:00 AST 31 U/L (15-37) D 02/19/17 06:00 ALT 21 U/L (12-78) D 02/19/17 06:00 Alkaline Phosphatase 219 U/L (45-117) H 02/19/17 06:00 Total Protein 5.3 g/dl (6.4-8.2) L 02/19/17 06:00 Albumin 1.5 g/dl (3.4-5.0) L 02/19/17 06:00 Plan: 81-year-old male from home, with multiple medical problems, presents with 2 days of generalized weakness. Spoke to Dr. Sharp and the patient has several ongoing issues inlcuding dizzyness, weakness, elevated INR to 10, decreased hemoglobin to 6.1, acute renal failure, leukocyotis, and ongoing low back pain. 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 CT head completed CT L spine completed Recommend continued medical optmization of multiple underlying conditions. Physical therapy as tolerated Will defer on MRI for now as symptoms improved Avoid any sudden turns, fall precautions Pain medication if needed, but stable for now
--- NOTE | 2017-02-20 15:16 | PN ---
Progress Note (short form) - Note Progress Note: Renal Follow up for EMERALD No acute complaints for paracentesis today Vital Signs Temperature 98.0 F 02/20/17 14:37 Pulse Rate 70 02/20/17 14:37 Respiratory Rate 20 02/20/17 14:37 Blood Pressure 111/59 02/20/17 14:37 O2 Sat by Pulse Oximetry (%) 96 02/20/17 09:00 Intake & Output 02/17/17 02/18/17 02/19/17 02/20/17 23:59 23:59 23:59 23:59 Intake Total 1000 300 100 Output Total 200 250 300 700 Balance 800 50 -300 -600 Gen: NAD CVS: irregular, no M/R Lungs: CTA, no rales or wheeze Abd: soft NT/ND Ext: 1+ edema CBC, BMP 02/20/17 06:00 02/20/17 06:00 Laboratory Tests 02/19/17 02/20/17 06:00 06:00 Calcium 7.3 L Phosphorus 2.2 L Magnesium 1.8 D 1.6 L Current Medications Atorvastatin Calcium (Lipitor -) 20 mg PO HS [facility] Last Admin: 02/19/17 21:26 Dose: 20 mg Furosemide (Lasix -) 40 mg PO DAILY [facility] Last Admin: 02/20/17 09:40 Dose: 40 mg Insulin Aspart (Novolog Vial Sliding Scale -) 1 vial SQ ACHS [facility] PRN Reason: Protocol Last Admin: 02/20/17 11:30 Dose: Not Given Magnesium Chloride (Slow-Mag -) 64 mg PO DAILY [facility] Last Admin: 02/20/17 09:41 Dose: 64 mg Metoprolol Succinate (Toprol Xl -) 25 mg PO BID [facility] Last Admin: 02/20/17 13:30 Dose: 25 mg Potassium Phos/Sodium Phos (Phos-Nak Packet -) 1 packet PO TID [facility] Stop: 02/21/17 22:01 Last Admin: 02/20/17 14:01 Dose: Not Given Spironolactone (Aldactone -) 50 mg PO DAILY [facility] Last Admin: 02/20/17 09:40 Dose: 50 mg A/P 81 year old Gentleman with PMhx of CAD, Afib on Coumadin, Hypertension, BPH, DM who presented with weakness, lethargy and found to have acute on chronic anemia with Hgb of 6.1 in setting of supratheraputic INR and EMERALD with BUN/Cr of 43/2.5. #Acute Renal Failure Renal function improved and stable likely at baseline #Hypomagnesemia Continue oral slo-mg will given IV Mag 2g today as well #Anion Gap Metabolic acidosis Bicarb stable no indication for further bicarb supplementation #Acute Anemia in setting of supratheraputic INR s/p EGD and Colonoscopy Gi following #LE edema/3rd spacing from hypoalbuminemia continue Lasix, if no change in edema or weight is noted can increase to 40mg daily low salt diet #Hypophosphatemia start oral neutraphos TID for 6 doses Dwayne Rausch DO
--- NOTE | 2017-02-20 19:42 | PN ---
Progress Note (short form) - Note Progress Note: Peritoneal fluid: No SBP Low total protein and albumin Likely from portal HTN Hepatic panel ordered to assess serum albumin Await cytology / cultures Diuresis Problem List - Problems (1) Anemia Code(s): D64.9 - ANEMIA, UNSPECIFIED Qualifiers: Qualified Code(s): D50.0 - Iron deficiency anemia secondary to blood loss (chronic) (2) Ascites Code(s): R18.8 - OTHER ASCITES Qualifiers: Qualified Code(s): R18.8 - Other ascites
[2017-02-20 21:39] LABS: ALBUMIN 1.5 g/dl (3.4-5.0); BILIRUBIN,DIRECT 0.6 mg/dL (0.0-0.2); BILIRUBIN,TOTAL 0.9 mg/dL (0.2-1.0); TOT PROT 5.8 g/dl (6.4-8.2)
[2017-02-20] MEDS ORDERED: INSULIN (NOVOLOG) ASPART 100 UNITS/ML 10ML VIAL ONE (22:10)
[2017-02-20] MEDS: ATORVASTATIN CA 20 MG TABLET (FP) PO SCH (22:23)
[2017-02-21] MEDS: INSULIN SLIDING SCALE (NOVOLOG) 1 VIAL SQ SCH ×4 (06:44→23:20)
[2017-02-21] MEDS: NAPH,MB-DB/K PH,MBDB POWDER PACKET PO SCH ×3 (06:45→23:29)
[2017-02-21 06:59] LABS: MCH 25.1 pg (25.7-33.7); MEAN CELL VOLUME 76.1 fl (80-96); MEAN PLT VOLUME 7.9 fl (7.5-11.1); PLATELET COUNT 137 K/MM3 (134-434); RDW 24.9 % (11.9-15.9); WHITE BLOOD COUNT 9.3 K/mm3 (4.0-10.0)
[2017-02-21 07:09] LABS: INR 1.44 (0.82-1.09)
[2017-02-21 07:26] LABS: ALBUMIN 1.5 g/dl (3.4-5.0); ALK PHOS 261 U/L (45-117); ANION GAP 9 (8-16); BILIRUBIN,TOTAL 1.5 mg/dL (0.2-1.0); CALCIUM 7.3 mg/dL (8.5-10.1); CO2 26 mmol/L (21-32); CREATININE 1.2 mg/dL (0.7-1.3); GLUCOSE,RANDOM 103 mg/dL (74-106); MAGNESIUM 1.6 mg/dL (1.8-2.4); PHOSPHOROUS 2.6 mg/dL (2.5-4.9); SGOT/AST 45 U/L (15-37); SGPT/ALT 27 U/L (12-78); TOT PROT 5.5 g/dl (6.4-8.2)
[2017-02-21] MEDS ORDERED: PT OWN MED DRAWER 7, Y5N ONE (10:01)
[2017-02-21] MEDS: MAGNESIUM CL 64 MG TABLET.SA PO SCH (10:14)
[2017-02-21] MEDS: SPIRONOLACTONE 25 MG TABLET (FP) PO SCH (10:14)
[2017-02-21] MEDS: FUROSEMIDE 40 MG TABLET (FP) PO SCH (10:15)
[2017-02-21 10:30] LABS: ANISOCYTOSIS 3+
[2017-02-21 10:34] LABS: SCHISTOCYTES 1+; TARGET CELLS 1+
[2017-02-21] MEDS: METOPROLOL SUCCINATE 25 MG TAB.SR.24H (FP) PO SCH ×2 (10:35→23:21)
[2017-02-21] MEDS: MAGNESIUM SULF 50% (8.12 MEQ/2 ML-1 GM VIAL) IVPB ONE ×2 (11:09→11:18)
[2017-02-21] MEDS ORDERED: INSULIN (NOVOLOG) ASPART 100 UNITS/ML 10ML VIAL ONE ×2 (11:34→11:36)
--- NOTE | 2017-02-21 12:17 | PN ---
Progress Note (short form) - Note Progress Note: Renal Follow up for EMERALD Pt seen and examined at the bedside has some sob, legs swollen but improved s/p paracentesis yesterday Vital Signs Temperature 98.7 F 02/21/17 06:00 Pulse Rate 68 02/21/17 06:00 Respiratory Rate 20 02/21/17 06:00 Blood Pressure 116/71 02/21/17 06:00 O2 Sat by Pulse Oximetry (%) 96 02/20/17 21:00 Intake & Output 02/18/17 02/19/17 02/20/17 02/21/17 23:59 23:59 23:59 23:59 Intake Total 300 100 100 Output Total 250 300 950 450 Balance 50 -300 -850 -350 Gen: NAD CVS: irregular, no M/R Lungs: CTA, no rales or wheeze Abd: soft NT/ND Ext: 1+ edema CBC, BMP 02/21/17 05:35 02/21/17 05:35 Current Medications Atorvastatin Calcium (Lipitor -) 20 mg PO HS [facility] Last Admin: 02/20/17 22:23 Dose: 20 mg Furosemide (Lasix -) 40 mg PO DAILY [facility] Last Admin: 02/21/17 10:15 Dose: 40 mg Insulin Aspart (Novolog Vial Sliding Scale -) 1 vial SQ ACHS [facility] PRN Reason: Protocol Last Admin: 02/21/17 11:37 Dose: 2 unit Magnesium Chloride (Slow-Mag -) 64 mg PO DAILY [facility] Last Admin: 02/21/17 10:14 Dose: 64 mg Magnesium Sulfate (Magnesium Sulfate) 2 gm IVPB ONCE ONE Stop: 02/21/17 13:01 Metoprolol Succinate (Toprol Xl -) 25 mg PO BID [facility] Last Admin: 02/21/17 10:35 Dose: 25 mg Potassium Phos/Sodium Phos (Phos-Nak Packet -) 1 packet PO TID [facility] Stop: 02/21/17 22:01 Last Admin: 02/21/17 06:45 Dose: 1 packet Spironolactone (Aldactone -) 50 mg PO DAILY [facility] Last Admin: 02/21/17 10:14 Dose: 50 mg A/P 81 year old Gentleman with PMhx of CAD, Afib on Coumadin, Hypertension, BPH, DM who presented with weakness, lethargy and found to have acute on chronic anemia with Hgb of 6.1 in setting of supratheraputic INR and EMERALD with BUN/Cr of 43/2.5. #Acute Renal Failure Renal function stable #Hypomagnesemia Mg below goal despite IV and PO supplamenation today Give Mg sulfate 4g IV today and continue oral slo-mg #Anion Gap Metabolic acidosis Bicarb stable no indication for further bicarb supplementation #Acute Anemia in setting of supratheraputic INR s/p EGD and Colonoscopy #Ascities s/p paracentesis GI following #LE edema/3rd spacing from hypoalbuminemia Continue Lasix #Hypophosphatemia continue oral neutraphos TID for 6 doses Dwayne Rausch DO
--- NOTE | 2017-02-21 12:33 | PN ---
Progress Note, Physician History of Present Illness: Underwent 5 L therapeutic paracentesis. Feels improved. - Current Medication List Current Medications: Active Medications Atorvastatin Calcium (Lipitor -) 20 mg PO HS [facility] Last Admin: 02/20/17 22:23 Dose: 20 mg Furosemide (Lasix -) 40 mg PO DAILY [facility] [place] Last Admin: 02/21/17 10:15 Dose: 40 mg Insulin Aspart (Novolog Vial Sliding Scale -) 1 vial SQ ACHS [facility] [place] PRN Reason: Protocol Last Admin: 02/21/17 11:37 Dose: 2 unit Magnesium Chloride (Slow-Mag -) 64 mg PO DAILY [facility] [place] Last Admin: 02/21/17 10:14 Dose: 64 mg Magnesium Sulfate (Magnesium Sulfate) 2 gm IVPB ONCE ONE Stop: 02/21/17 13:01 Metoprolol Succinate (Toprol Xl -) 25 mg PO BID [facility] [place] Last Admin: 02/21/17 10:35 Dose: 25 mg Potassium Phos/Sodium Phos (Phos-Nak Packet -) 1 packet PO TID [facility] [place] Stop: 02/21/17 22:01 Last Admin: 02/21/17 06:45 Dose: 1 packet Spironolactone (Aldactone -) 50 mg PO DAILY [facility] Last Admin: 02/21/17 10:14 Dose: 50 mg - Objective Vital Signs: Vital Signs Temperature 98.7 F 02/21/17 06:00 Pulse Rate 68 02/21/17 06:00 Respiratory Rate 20 02/21/17 06:00 Blood Pressure 116/71 02/21/17 06:00 O2 Sat by Pulse Oximetry (%) 96 02/20/17 21:00 Constitutional: Yes: No Distress, Calm Neck: Yes: Supple Cardiovascular: Yes: Regular Rate and Rhythm Respiratory: Yes: Regular, Diminished Gastrointestinal: Yes: Normal Bowel Sounds, Soft Edema: Yes Edema: LLE: 1+, RLE: 1+ Labs: CBC, BMP 02/21/17 05:35 02/21/17 05:35 INR, PTT INR 1.44 (0.82-1.09) H 02/21/17 05:35 Fibrinogen 286.0 mg/dL (238-498) 02/13/17 20:00 Problem List - Problems (1) A-fib Code(s): I48.91 - UNSPECIFIED ATRIAL FIBRILLATION Qualifiers: Qualified Code(s): I48.0 - Paroxysmal atrial fibrillation (2) Anemia Code(s): D64.9 - ANEMIA, UNSPECIFIED Qualifiers: Qualified Code(s): D50.0 - Iron deficiency anemia secondary to blood loss (chronic) (3) CAD (coronary artery disease) Code(s): I25.10 - ATHSCL HEART DISEASE OF [place] CORONARY ARTERY W/O ANG PCTRS Qualifiers: Qualified Code(s): I25.10 - Atherosclerotic heart disease of [place] coronary artery without angina pectoris (4) Diabetes mellitus Code(s): E11.9 - TYPE 2 DIABETES MELLITUS WITHOUT COMPLICATIONS Qualifiers: Qualified Code(s): E11.9 - Type 2 diabetes mellitus without complications (5) GI bleed Code(s): K92.2 - GASTROINTESTINAL HEMORRHAGE, UNSPECIFIED Qualifiers: Qualified Code(s): K31.811 - Angiodysplasia of stomach and duodenum with bleeding (6) Supratherapeutic INR Code(s): R79.1 - ABNORMAL COAGULATION PROFILE (7) Angiodysplasia of colon without bleeding Code(s): K55.20 - ANGIODYSPLASIA OF COLON WITHOUT HEMORRHAGE Assessment/Plan 1. GI bleed with melena, profound anemia due to supratherapeutic INR, suspect small bowel angiodysplasia 2. Acute on chronic renal failure 3. CAD non-obstructive CAD angina pectoris 4. Diastolic LV dysfunction with class I NYHA classification LV failure, compensated 5. Paroxysmal atrial fibrillation in sinus rhythm on Coumadin, therapy on hold, [id number] score of 5 6. Hypertension 7. Diabetes mellitus 8. Hypercholesterolemia 9. EMERALD improving 10. Ascites c/w portal hypertension post paracentesis PLAN: 1. Transfuse as needed maintaining Hg > 8.0 and monitor H/H closely 2. Plan to proceed with outpatient capsule endoscopy as per GI input. F/u fluid studies 3. Plan to resume A/C once hemostasis is achieved (d/w Dr. Sharp and would wait 2 weeks after GI bleed and start NOAC given brittle INR control) unless it is absolutely contraindicated (MOLLY occlusion device such as Watchman device may be considered if patient is not able to take anticoagulation) 4. Continue Lipitor 20 qhs, Toprol XL 25 bid 5. Maintained on Lasix 40 qd and Aldactone 50 qd with monitor renal function and electrolytes
[2017-02-21] MEDS ORDERED: MAGNESIUM SULF 50% (8.12 MEQ/2 ML-1 GM VIAL) IVPB ONE (13:00)
--- NOTE | 2017-02-21 13:38 | PATH ---
Cytology Non-Gynecological Report Patient Name: RANDY GUILLEN Med. Rec. #: [id number] /Age/Gender: 1935 (Age: 81) / M Account: [id number] Location: [facility] MED/SURG Taken: 02/20/2017 Received: 02/20/2017 Reported: 02/21/2017 Physicians: Ceasar Sanchez M.D. Specimen(s) Received A: ABDOMINAL FLUID, RLQ, IN 50% ALCOHOL B: ABDOMINAL FLUID, RLQ, FRESH Clinical History Ascites Final Diagnosis A,B. ABDOMINAL FLUID, RIGHT LOWER QUADRANT, PARACENTESIS: SATISFACTORY FOR EVALUATION. NO MALIGNANT CELLS IDENTIFIED. EPITHELIAL CELLS, HISTIOCYTES AND MIXED INFLAMMATORY CELLS. Electronically Signed Enoc Borden M.D. Gross Description A. Received is a 50 cc of yellow fluid in 50% alcohol. One cytofunnel slide and one cell block are made. B. Received is 8000 cc of yellow fluid fresh. One cytofunnel slide and one cell block are made.
--- NOTE | 2017-02-21 16:01 | PN ---
Progress Note (short form) - Note Progress Note: Neurology History of Present Illness 81-year-old male from home, with multiple medical problems, presents with 2 days of generalized weakness. Spoke to Dr. Sharp and the patient has several ongoing issues inlcuding dizzyness, weakness, elevated INR to 10, decreased hemoglobin to 6.1, acute renal failure, leukocyotis, and ongoing low back pain. 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 CT head completed and did not show acute changes. CT L spine reviewed and showed L2-L5 DDD (moderate to marked), possibly spur formation, b/l facet hypertrophy. No longer in ICU and back pain sporadic, comes and goes, likely chronic. Comfortable appearing this morning. No acute events overnight. Active Medications Atorvastatin Calcium (Lipitor -) 20 mg PO HS [facility] Last Admin: 02/20/17 22:23 Dose: 20 mg Furosemide (Lasix -) 40 mg PO DAILY [facility] Last Admin: 02/21/17 10:15 Dose: 40 mg Insulin Aspart (Novolog Vial Sliding Scale -) 1 vial SQ ACHS [facility] PRN Reason: Protocol Last Admin: 02/21/17 11:37 Dose: 2 unit Magnesium Chloride (Slow-Mag -) 64 mg PO DAILY [facility] Last Admin: 02/21/17 10:14 Dose: 64 mg Metoprolol Succinate (Toprol Xl -) 25 mg PO BID [facility] Last Admin: 02/21/17 10:35 Dose: 25 mg Potassium Phos/Sodium Phos (Phos-Nak Packet -) 1 packet PO TID [facility] Stop: 02/21/17 22:01 Last Admin: 02/21/17 13:57 Dose: 1 packet Spironolactone (Aldactone -) 50 mg PO DAILY [facility] Last Admin: 02/21/17 10:14 Dose: 50 mg *Physical Exam Vital Signs Temperature 98.0 F 02/21/17 15:20 Pulse Rate 63 02/21/17 15:20 Respiratory Rate 20 02/21/17 15:20 Blood Pressure 124/61 02/21/17 15:20 O2 Sat by Pulse Oximetry (%) 96 02/20/17 21:00 General Appearance: Yes: Appropriately Dressed. mild distress No: , Intoxicated HEENT: positive: EOMI, KEVIN, Normal ENT Inspection, Normal Voice, TMs Normal, Pharynx Normal. oral mucosa dry, negative: Pale Conjunctivae, Photophobia, Scleral Icterus (R), Scleral Icterus (L) Neck: positive: Trachea midline, Normal Thyroid, Supple. negative: Tender, Rigid, Carotid bruit, Stridor, Lymphadenopathy (R), Lymphadenopathy (L), Thyromegaly Respiratory/Chest: positive: Lungs Clear, Normal Breath Sounds. negative: Chest Tender, Respiratory Distress, Accessory Muscle Use, Labored Respiration, RES, Crackles, Rales, Rhonchi, Stridor, Wheezing, Dullness Cardiovascular: positive: Regular Rhythm, Regular Rate, S1, S2. negative: Edema , JVD, Murmur, Bradycardia, Tachycardia Vascular Pulses: Dorsalis-Pedis (R): 2+, Doralis-Pedis (L): 2+ Gastrointestinal/Abdominal: positive: decreased Bowel Sounds, distended firm, possible ventral hernial defect. negative: Tender, Organomegaly, Pulsatile Mass , Increased Bowel Sounds, Guarding, Rebound, Hepatomegaly, Spleenomegaly Lymphatic: negative: Adenopathy, Tenderness Musculoskeletal: positive: Normal Inspection. negative: CVA Tenderness, Decreased Range of Motion Extremity: positive: Normal Capillary Refill, Normal Inspection, Normal Range of Motion, Pelvis Stable. negative: Tender, Pedal Edema, Swelling, Erythema Integumentary: positive: Normal Color, Dry, Warm. negative: Cyanotic, Erythema , Jaundice, Rash Neurologic: positive: [employer] helicopter II-XII NML intact, Fully Oriented, Alert, Normal Mood/ Affect, Motor Strength 5/5. negative: EOM Palsy, Facial Droop, Sensory Deficit CBCD WBC 9.3 K/mm3 (4.0-10.0) 02/21/17 05:35 RBC 3.39 M/mm3 (4.00-5.60) L 02/21/17 05:35 Hgb 8.5 GM/dL (11.7-16.9) L 02/21/17 05:35 Hct 25.8 % (35.4-49) L 02/21/17 05:35 MCV 76.1 fl (80-96) L 02/21/17 05:35 MCHC 33.0 g/dl (32.0-35.9) 02/21/17 05:35 RDW 24.9 % (11.9-15.9) H 02/21/17 05:35 Plt Count 137 K/MM3 (134-434) 02/21/17 05:35 MPV 7.9 fl (7.5-11.1) 02/21/17 05:35 CMP Sodium 139 mmol/L (136-145) 02/21/17 05:35 Potassium 4.1 mmol/L (3.5-5.1) 02/21/17 05:35 Chloride 104 mmol/L (98-107) 02/21/17 05:35 Carbon Dioxide 26 mmol/L (21-32) 02/21/17 05:35 Anion Gap 9 (8-16) 02/21/17 05:35 BUN 14 mg/dL (7-18) 02/21/17 05:35 Creatinine 1.2 mg/dL (0.7-1.3) 02/21/17 05:35 Creat Clearance w eGFR 58.40 (>60) 02/21/17 05:35 Calcium 7.3 mg/dL (8.5-10.1) L 02/21/17 05:35 Total Bilirubin 1.5 mg/dL (0.2-1.0) H D 02/21/17 05:35 AST 45 U/L (15-37) H 02/21/17 05:35 ALT 27 U/L (12-78) 02/21/17 05:35 Alkaline Phosphatase 261 U/L (45-117) H 02/21/17 05:35 Total Protein 5.5 g/dl (6.4-8.2) L 02/21/17 05:35 Albumin 1.5 g/dl (3.4-5.0) L 02/21/17 05:35 Plan: 81-year-old male from home, with multiple medical problems, presents with 2 days of generalized weakness. Spoke to Dr. Sharp and the patient has several ongoing issues inlcuding dizzyness, weakness, elevated INR to 10, decreased hemoglobin to 6.1, acute renal failure, leukocyotis, and ongoing low back pain. 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 CT head completed CT L spine completed Recommend continued medical optmization of multiple underlying conditions. Physical therapy as tolerated Will defer on MRI for now as symptoms improved Avoid any sudden turns, fall precautions Pain medication if needed, but stable for now
[2017-02-21] MEDS: ATORVASTATIN CA 20 MG TABLET (FP) PO SCH (23:29)
--- NOTE | 2017-02-21 23:57 | PN ---
Progress Note, Physician History of Present Illness: Pt. w/o vomiting, nausea, abd pain, alessandro blood in stool. Pt. w/o SOB, CP, palp., dizziness. Pt. w leg edema- same Pt. was seen in AM, pt.'s nurse at bedside. - Current Medication List Current Medications: Active Medications Atorvastatin Calcium (Lipitor -) 20 mg PO HS [facility] Last Admin: 02/21/17 23:29 Dose: 20 mg Furosemide (Lasix -) 40 mg PO DAILY [facility] Last Admin: 02/21/17 10:15 Dose: 40 mg Insulin Aspart (Novolog Vial Sliding Scale -) 1 vial SQ ACHS [facility] PRN Reason: Protocol Last Admin: 02/21/17 23:20 Dose: Not Given Magnesium Chloride (Slow-Mag -) 64 mg PO DAILY [facility] Last Admin: 02/21/17 10:14 Dose: 64 mg Metoprolol Succinate (Toprol Xl -) 25 mg PO BID [facility] Last Admin: 02/21/17 23:21 Dose: Not Given Spironolactone (Aldactone -) 50 mg PO DAILY [facility] Last Admin: 02/21/17 10:14 Dose: 50 mg - Objective Vital Signs: Vital Signs Temperature 97.9 F 02/21/17 16:30 Pulse Rate 67 02/21/17 16:30 Respiratory Rate 20 02/21/17 16:30 Blood Pressure 109/56 02/21/17 16:30 O2 Sat by Pulse Oximetry (%) 95 02/21/17 09:00 Constitutional: Yes: No Distress, Calm Cardiovascular: Yes: Regular Rate and Rhythm, S1, S2 Respiratory: Yes: Regular, Other (coarse BS bilat.) Edema: LLE: 1+, RLE: 1+ Neurological: Yes: Alert, Oriented Labs: CBC, BMP 02/21/17 05:35 02/21/17 05:35 INR, PTT INR 1.44 (0.82-1.09) H 02/21/17 05:35 Fibrinogen 286.0 mg/dL (238-498) 02/13/17 20:00 Problem List - Problems (1) Probable sepsis Code(s): A41.9 - SEPSIS, UNSPECIFIED ORGANISM (2) Anemia Assessment/Plan: secondary to GIB ( pt. was taking on his own NSAIDs, on top of Coumadin and ASA) . Pt is s/p EGD, s/p colonoscopy, no obvious source; would need capsule endoscopy. Code(s): D64.9 - ANEMIA, UNSPECIFIED Qualifiers: Qualified Code(s): D50.0 - Iron deficiency anemia secondary to blood loss (chronic) (3) Hypoglycemia Code(s): E16.2 - HYPOGLYCEMIA, UNSPECIFIED (4) Acute renal failure Assessment/Plan: It is improving. Code(s): N17.9 - ACUTE KIDNEY FAILURE, UNSPECIFIED Qualifiers: Qualified Code(s): N17.9 - Acute kidney failure, unspecified (5) Supratherapeutic INR Code(s): R79.1 - ABNORMAL COAGULATION PROFILE (6) A-fib Code(s): I48.91 - UNSPECIFIED ATRIAL FIBRILLATION Qualifiers: Qualified Code(s): I48.0 - Paroxysmal atrial fibrillation (7) Diabetes mellitus Code(s): E11.9 - TYPE 2 DIABETES MELLITUS WITHOUT COMPLICATIONS Qualifiers: Qualified Code(s): E11.9 - Type 2 diabetes mellitus without complications (8) CAD (coronary artery disease) Code(s): I25.10 - ATHSCL HEART DISEASE OF [place] CORONARY ARTERY W/O ANG PCTRS Qualifiers: Qualified Code(s): I25.10 - Atherosclerotic heart disease of [place] coronary artery without angina pectoris (9) Back pain Code(s): M54.9 - DORSALGIA, UNSPECIFIED Qualifiers: Qualified Code(s): M54.5 - Low back pain (10) GI bleed Code(s): K92.2 - GASTROINTESTINAL HEMORRHAGE, UNSPECIFIED Qualifiers: Qualified Code(s): K31.811 - Angiodysplasia of stomach and duodenum with bleeding (11) Ascites Code(s): R18.8 - OTHER ASCITES Qualifiers: Qualified Code(s): R18.8 - Other ascites (12) Liver cirrhosis Code(s): K74.60 - UNSPECIFIED CIRRHOSIS OF LIVER (13) Hypophosphatemia Assessment/Plan: corrected Code(s): E83.39 - OTHER DISORDERS OF PHOSPHORUS METABOLISM (14) Hypomagnesemia Assessment/Plan: needs replacement Code(s): E83.42 - HYPOMAGNESEMIA Assessment/Plan Pt. was admitted to ICU, as improved was transferred to medical floor Pt. received vit K (10 mg), 3 unit of PRBC, D5 NS( at 100 ml/hr), s/p FFP; pt. received Zosyn, Vanco. Mg was corrected; Cardio, ID, Renal, Heme, GI, Neuro consults appreciated. s/p 2 more units of PRBC s/p EGD and colonoscopy- no bleeding source. Restarted on Lasix PO for LE edema. To f/u with GI and Cardio regarding possibility of restarting AC treatment. H/H is trending down; to monitor. s/p paracentesis yesterday To f/u AM labs. Prognosis:improving
[2017-02-22] MEDS: INSULIN SLIDING SCALE (NOVOLOG) 1 VIAL SQ SCH ×4 (06:12→21:02)
[2017-02-22 07:22] LABS: INR 1.36 (0.82-1.09); PROTHROMBIN TIME (PATIENT) 15.1 SEC (9.98-11.88)
[2017-02-22 07:24] LABS: ACTIVATED PTT 36.2 SECONDS (26.9-34.4)
[2017-02-22 07:36] LABS: ALBUMIN 1.4 g/dl (3.4-5.0); ALK PHOS 260 U/L (45-117); ANION GAP 6 (8-16); BILIRUBIN,TOTAL 1.6 mg/dL (0.2-1.0); CALCIUM 7.5 mg/dL (8.5-10.1); CO2 29 mmol/L (21-32); CREATININE 1.1 mg/dL (0.7-1.3); GLUCOSE,RANDOM 103 mg/dL (74-106); MAGNESIUM 1.8 mg/dL (1.8-2.4); PHOSPHOROUS 2.7 mg/dL (2.5-4.9); SGOT/AST 41 U/L (15-37); SGPT/ALT 27 U/L (12-78); TOT PROT 5.4 g/dl (6.4-8.2)
[2017-02-22 08:17] LABS: EOSINOPHIL 6.1 % (0-4.5); MCH 25.1 pg (25.7-33.7); MCHC 33.2 g/dl (32.0-35.9); MEAN CELL VOLUME 75.7 fl (80-96); MEAN PLT VOLUME 8.4 fl (7.5-11.1); NEUTROPHILS 63.3 % (42.8-82.8); PLATELET COUNT 128 K/MM3 (134-434); RDW 24.8 % (11.9-15.9)
--- NOTE | 2017-02-22 09:54 | PN ---
Progress Note (short form) - Note Progress Note: Patient seen and examined 02/21/17 Feels well. AFVSS Cor: RSR, No murmurs, No gallops Lungs: Clear to P&A Abd: Soft, Normal bowel sounds, ascites+ Ext:No significant edema Labs/meds reviewed a/p 81 y/o patient with supratherapeutic INR of 19, melena. Hgb 6s dropped to 5s after 1 unit noted to have cirrhosis s/p reversal of INR s/p paracentesis Given cirrhosis and baseline coagulopathy he is high bleeding risk for a/c of afib. high CHADS2 score aswell discuss with PMD
[2017-02-22] MEDS: SPIRONOLACTONE 25 MG TABLET (FP) PO SCH (10:00)
[2017-02-22] MEDS: FUROSEMIDE 40 MG TABLET (FP) PO SCH (10:00)
[2017-02-22] MEDS: METOPROLOL SUCCINATE 25 MG TAB.SR.24H (FP) PO SCH ×2 (10:00→20:58)
--- NOTE | 2017-02-22 10:03 | PN ---
Progress Note (short form) - Note Progress Note: Renal Follow up for EMERALD Pt seen and examined at the bedside no acute complaints Vital Signs Temperature 98.9 F 02/22/17 06:00 Pulse Rate 60 02/22/17 06:00 Respiratory Rate 20 02/22/17 06:00 Blood Pressure 101/49 02/22/17 06:00 O2 Sat by Pulse Oximetry (%) 96 02/21/17 21:00 Intake & Output 02/19/17 02/20/17 02/21/17 02/22/17 23:59 23:59 23:59 23:59 Intake Total 100 600 Output Total 300 950 800 450 Balance -300 -850 -200 -450 Gen: NAD CVS: irregular, no M/R Lungs: CTA, no rales or wheeze Abd: soft NT/ND Ext: 1+ edema CBC, BMP 02/22/17 06:00 02/22/17 06:00 Current Medications Atorvastatin Calcium (Lipitor -) 20 mg PO HS [facility] Last Admin: 02/21/17 23:29 Dose: 20 mg Furosemide (Lasix -) 40 mg PO DAILY [facility] Last Admin: 02/21/17 10:15 Dose: 40 mg Insulin Aspart (Novolog Vial Sliding Scale -) 1 vial SQ ACHS [facility] PRN Reason: Protocol Last Admin: 02/22/17 06:12 Dose: Not Given Magnesium Chloride (Slow-Mag -) 64 mg PO DAILY [facility] Last Admin: 02/21/17 10:14 Dose: 64 mg Metoprolol Succinate (Toprol Xl -) 25 mg PO BID [facility] Last Admin: 02/21/17 23:21 Dose: Not Given Spironolactone (Aldactone -) 50 mg PO DAILY [facility] Last Admin: 02/21/17 10:14 Dose: 50 mg A/P 81 year old Gentleman with PMhx of CAD, Afib on Coumadin, Hypertension, BPH, DM who presented with weakness, lethargy and found to have acute on chronic anemia with Hgb of 6.1 in setting of supratheraputic INR and EMERALD with BUN/Cr of 43/2.5. #Acute Renal Failure Renal function stable #Hypomagnesemia Mg level is improved continue Oral Mg supplement #Anion Gap Metabolic acidosis Bicarb stable no indication for further bicarb supplementation #Acute Anemia in setting of supratheraputic INR s/p EGD and Colonoscopy #Ascities s/p paracentesis GI following #LE edema/3rd spacing from hypoalbuminemia Continue Lasix #Hypophosphatemia s/p neutraphos with improvement in serum phos levels oral intake as tolerated Dwayne Rausch DO
[2017-02-22] MEDS ORDERED: PT OWN MED DRAWER 7, Y5N ONE (11:20)
[2017-02-22] MEDS ORDERED: INSULIN (NOVOLOG) ASPART 100 UNITS/ML 10ML VIAL ONE ×2 (11:20→21:03)
[2017-02-22] MEDS: MAGNESIUM CL 64 MG TABLET.SA PO SCH (11:23)
--- NOTE | 2017-02-22 14:56 | PN ---
Progress Note, Physician History of Present Illness: Pt. w/o vomiting, nausea, abd pain, alessandro blood in stool. Pt. w/o SOB, CP, palp., dizziness. Pt. w leg edema- better. - Current Medication List Current Medications: Active Medications Atorvastatin Calcium (Lipitor -) 20 mg PO HS [facility] Last Admin: 02/21/17 23:29 Dose: 20 mg Insulin Aspart (Novolog Vial Sliding Scale -) 1 vial SQ ACHS [facility] PRN Reason: Protocol Last Admin: 02/22/17 11:23 Dose: 4 unit Magnesium Chloride (Slow-Mag -) 64 mg PO DAILY [facility] Last Admin: 02/22/17 11:23 Dose: 64 mg - Objective Vital Signs: Vital Signs Temperature 98.4 F 02/22/17 10:00 Pulse Rate 81 02/22/17 11:38 Respiratory Rate 20 02/22/17 11:39 Blood Pressure 98/55 02/22/17 11:39 O2 Sat by Pulse Oximetry (%) 96 02/22/17 09:00 Constitutional: Yes: No Distress, Calm Cardiovascular: Yes: Regular Rate and Rhythm, S1, S2 Respiratory: Yes: Regular, CTA Bilaterally. No: Rales Gastrointestinal: Yes: Normal Bowel Sounds, Soft, Abdomen, Obese. No: Palpable Mass, Tenderness Edema: LLE: 1+, RLE: 1+ Neurological: Yes: Alert, Oriented Labs: CBC, BMP 02/22/17 06:00 02/22/17 06:00 INR, PTT INR 1.36 (0.82-1.09) H 02/22/17 06:00 Fibrinogen 286.0 mg/dL (238-498) 02/13/17 20:00 Problem List - Problems (1) Probable sepsis Code(s): A41.9 - SEPSIS, UNSPECIFIED ORGANISM (2) Anemia Code(s): D64.9 - ANEMIA, UNSPECIFIED Qualifiers: Qualified Code(s): D50.0 - Iron deficiency anemia secondary to blood loss (chronic) (3) Hypoglycemia Code(s): E16.2 - HYPOGLYCEMIA, UNSPECIFIED (4) Acute renal failure Code(s): N17.9 - ACUTE KIDNEY FAILURE, UNSPECIFIED Qualifiers: Qualified Code(s): N17.9 - Acute kidney failure, unspecified (5) Supratherapeutic INR Code(s): R79.1 - ABNORMAL COAGULATION PROFILE (6) A-fib Code(s): I48.91 - UNSPECIFIED ATRIAL FIBRILLATION Qualifiers: Qualified Code(s): I48.0 - Paroxysmal atrial fibrillation (7) Diabetes mellitus Code(s): E11.9 - TYPE 2 DIABETES MELLITUS WITHOUT COMPLICATIONS Qualifiers: Qualified Code(s): E11.9 - Type 2 diabetes mellitus without complications (8) CAD (coronary artery disease) Code(s): I25.10 - ATHSCL HEART DISEASE OF [place] CORONARY ARTERY W/O ANG PCTRS Qualifiers: Qualified Code(s): I25.10 - Atherosclerotic heart disease of [place] coronary artery without angina pectoris (9) Back pain Code(s): M54.9 - DORSALGIA, UNSPECIFIED Qualifiers: Qualified Code(s): M54.5 - Low back pain (10) GI bleed Code(s): K92.2 - GASTROINTESTINAL HEMORRHAGE, UNSPECIFIED Qualifiers: Qualified Code(s): K31.811 - Angiodysplasia of stomach and duodenum with bleeding (11) Ascites Code(s): R18.8 - OTHER ASCITES Qualifiers: Qualified Code(s): R18.8 - Other ascites (12) Liver cirrhosis Code(s): K74.60 - UNSPECIFIED CIRRHOSIS OF LIVER (13) Hypophosphatemia Code(s): E83.39 - OTHER DISORDERS OF PHOSPHORUS METABOLISM (14) Hypomagnesemia Code(s): E83.42 - HYPOMAGNESEMIA Assessment/Plan Pt. was admitted to ICU, as improved was transferred to medical floor Pt. received vit K (10 mg), 3 unit of PRBC, D5 NS( at 100 ml/hr), s/p FFP; pt. received Zosyn, Vanco. Mg was corrected; Cardio, ID, Renal, Heme, GI, Neuro consults appreciated. s/p 2 more units of PRBC s/p EGD and colonoscopy- no bleeding source. Restarted on Lasix PO for LE edema. To f/u with GI and Cardio regarding possibility of restarting AC treatment. H/H is trending down; to monitor. s/p paracentesis. Pt. with Hypotension (computer system doesn't allow to added to problem list); it could be related to anti-HTN meds given all at the same time, pt is asymptomatic; to give meds at different times; to monitor. To f/u AM labs. Prognosis:improving
[2017-02-22] MEDS: ATORVASTATIN CA 20 MG TABLET (FP) PO SCH (21:07)
[2017-02-23] MEDS: INSULIN SLIDING SCALE (NOVOLOG) 1 VIAL SQ SCH ×4 (06:33→21:15)
[2017-02-23 07:55] LABS: ANION GAP 6 (8-16); CALCIUM 7.6 mg/dL (8.5-10.1); CO2 29 mmol/L (21-32); CREATININE 1.2 mg/dL (0.7-1.3); GLUCOSE,RANDOM 113 mg/dL (74-106); MAGNESIUM 1.9 mg/dL (1.8-2.4); PHOSPHOROUS 2.5 mg/dL (2.5-4.9)
[2017-02-23] MEDS: METOPROLOL SUCCINATE 25 MG TAB.SR.24H (FP) PO SCH ×2 (08:31→21:15)
[2017-02-23] MEDS: MAGNESIUM CL 64 MG TABLET.SA PO SCH (10:40)
[2017-02-23] MEDS: SPIRONOLACTONE 25 MG TABLET (FP) PO SCH (10:41)
[2017-02-23] MEDS: FUROSEMIDE 40 MG TABLET (FP) PO SCH (10:41)
--- NOTE | 2017-02-23 12:56 | PN ---
Progress Note, Physician History of Present Illness: Post 5 L therapeutic paracentesis. Feels improved, no further bleeding. - Current Medication List Current Medications: Active Medications Atorvastatin Calcium (Lipitor -) 20 mg PO HS [facility] Last Admin: 02/22/17 21:07 Dose: 20 mg Furosemide (Lasix -) 40 mg PO DAILY [facility] Last Admin: 02/23/17 10:41 Dose: 40 mg Insulin Aspart (Novolog Vial Sliding Scale -) 1 vial SQ ACHS [facility] PRN Reason: Protocol Last Admin: 02/23/17 12:10 Dose: 2 unit Magnesium Chloride (Slow-Mag -) 64 mg PO DAILY [facility] Last Admin: 02/23/17 10:40 Dose: 64 mg Metoprolol Succinate (Toprol Xl -) 25 mg PO BID@0800,1999 [facility] Last Admin: 02/23/17 08:31 Dose: 25 mg Spironolactone (Aldactone -) 50 mg PO DAILY [facility] Last Admin: 02/23/17 10:41 Dose: 50 mg - Objective Vital Signs: Vital Signs Temperature 98.6 F 02/23/17 07:00 Pulse Rate 70 02/23/17 07:00 Respiratory Rate 20 02/23/17 07:00 Blood Pressure 101/51 02/23/17 07:00 O2 Sat by Pulse Oximetry (%) 95 02/22/17 21:00 Constitutional: Yes: No Distress, Calm Neck: Yes: Supple Cardiovascular: Yes: Regular Rate and Rhythm Respiratory: Yes: Regular, Diminished Gastrointestinal: Yes: Normal Bowel Sounds, Soft, Distention Edema: Yes Edema: LLE: 1+, RLE: 1+ Labs: CBC, BMP 02/22/17 06:00 02/23/17 06:00 INR, PTT INR 1.36 (0.82-1.09) H 02/22/17 06:00 Fibrinogen 286.0 mg/dL (238-498) 02/13/17 20:00 Problem List - Problems (1) A-fib Code(s): I48.91 - UNSPECIFIED ATRIAL FIBRILLATION Qualifiers: Qualified Code(s): I48.0 - Paroxysmal atrial fibrillation (2) Anemia Code(s): D64.9 - ANEMIA, UNSPECIFIED Qualifiers: Qualified Code(s): D50.0 - Iron deficiency anemia secondary to blood loss (chronic) (3) CAD (coronary artery disease) Code(s): I25.10 - ATHSCL HEART DISEASE OF [place] CORONARY ARTERY W/O ANG PCTRS Qualifiers: Qualified Code(s): I25.10 - Atherosclerotic heart disease of [place] coronary artery without angina pectoris (4) Diabetes mellitus Code(s): E11.9 - TYPE 2 DIABETES MELLITUS WITHOUT COMPLICATIONS Qualifiers: Qualified Code(s): E11.9 - Type 2 diabetes mellitus without complications (5) GI bleed Code(s): K92.2 - GASTROINTESTINAL HEMORRHAGE, UNSPECIFIED Qualifiers: Qualified Code(s): K31.811 - Angiodysplasia of stomach and duodenum with bleeding (6) Supratherapeutic INR Code(s): R79.1 - ABNORMAL COAGULATION PROFILE (7) Angiodysplasia of colon without bleeding Code(s): K55.20 - ANGIODYSPLASIA OF COLON WITHOUT HEMORRHAGE Assessment/Plan 1. GI bleed with melena, profound anemia due to supratherapeutic INR, suspect small bowel angiodysplasia 2. Acute on chronic renal failure 3. CAD non-obstructive CAD angina pectoris 4. Diastolic LV dysfunction with class I NYHA classification LV failure, compensated 5. Paroxysmal atrial fibrillation in sinus rhythm on Coumadin, therapy on hold, [id number] score of 5 6. Hypertension 7. Diabetes mellitus 8. Hypercholesterolemia 9. EMERALD improving 10. Ascites c/w portal hypertension post paracentesis PLAN: 1. Transfuse as needed maintaining Hg > 8.0 and monitor H/H closely 2. Plan to proceed with outpatient capsule endoscopy as per GI input. 3. Plan to resume A/C once hemostasis is achieved (d/w Dr. Sharp and would wait 2 weeks after GI bleed and start NOAC given brittle INR control) unless it is absolutely contraindicated (MOLLY occlusion device such as Watchman device may be considered if patient is not able to take anticoagulation) 4. Continue Lipitor 20 qhs, Toprol XL 25 bid 5. Maintained on Lasix 40 qd and Aldactone 50 qd with monitor renal function and electrolytes
--- NOTE | 2017-02-23 16:55 | PN ---
Progress Note, Physician History of Present Illness: Pt. w/o vomiting, nausea, abd pain, alessandro blood in stool. Pt. w/o SOB, CP, palp., dizziness. Pt. w leg edema- better. - Current Medication List Current Medications: Active Medications Acetaminophen (Tylenol -) 650 mg PO Q6H PRN PRN Reason: PAIN Atorvastatin Calcium (Lipitor -) 20 mg PO HS [facility] Last Admin: 02/22/17 21:07 Dose: 20 mg Furosemide (Lasix -) 40 mg PO DAILY [facility] Last Admin: 02/23/17 10:41 Dose: 40 mg Insulin Aspart (Novolog Vial Sliding Scale -) 1 vial SQ ACHS [facility] PRN Reason: Protocol Last Admin: 02/23/17 12:10 Dose: 2 unit Magnesium Chloride (Slow-Mag -) 64 mg PO DAILY [facility] Last Admin: 02/23/17 10:40 Dose: 64 mg Metoprolol Succinate (Toprol Xl -) 25 mg PO BID@0800,2000 [facility] Last Admin: 02/23/17 08:31 Dose: 25 mg Spironolactone (Aldactone -) 50 mg PO DAILY [facility] Last Admin: 02/23/17 10:41 Dose: 50 mg - Objective Vital Signs: Vital Signs Temperature 98.4 F 02/23/17 15:18 Pulse Rate 74 02/23/17 15:18 Respiratory Rate 20 02/23/17 15:18 Blood Pressure 110/59 02/23/17 15:18 O2 Sat by Pulse Oximetry (%) 96 02/23/17 09:00 Constitutional: Yes: No Distress, Calm Cardiovascular: Yes: Regular Rate and Rhythm, S1, S2 Respiratory: Yes: Regular, CTA Bilaterally. No: Rales Gastrointestinal: Yes: Normal Bowel Sounds, Soft, Abdomen, Obese, Other (softer to palpation after paracentesis) Edema: LLE: 1+, RLE: 1+ Neurological: Yes: Alert, Oriented Labs: CBC, BMP 02/22/17 06:00 02/23/17 06:00 INR, PTT INR 1.36 (0.82-1.09) H 02/22/17 06:00 Fibrinogen 286.0 mg/dL (238-498) 02/13/17 20:00 Problem List - Problems (1) Probable sepsis Code(s): A41.9 - SEPSIS, UNSPECIFIED ORGANISM (2) Anemia Assessment/Plan: secondary to GIB ( pt. was taking on his own NSAIDs, on top of Coumadin and ASA) . Pt is s/p EGD, s/p colonoscopy, no obvious source; would need capsule endoscopy as outpatient. Code(s): D64.9 - ANEMIA, UNSPECIFIED Qualifiers: Qualified Code(s): D50.0 - Iron deficiency anemia secondary to blood loss (chronic) (3) Hypoglycemia Code(s): E16.2 - HYPOGLYCEMIA, UNSPECIFIED (4) Acute renal failure Assessment/Plan: Pt.'s renal function improved significantly. Code(s): N17.9 - ACUTE KIDNEY FAILURE, UNSPECIFIED Qualifiers: Qualified Code(s): N17.9 - Acute kidney failure, unspecified (5) Supratherapeutic INR Code(s): R79.1 - ABNORMAL COAGULATION PROFILE (6) A-fib Code(s): I48.91 - UNSPECIFIED ATRIAL FIBRILLATION Qualifiers: Qualified Code(s): I48.0 - Paroxysmal atrial fibrillation (7) Diabetes mellitus Code(s): E11.9 - TYPE 2 DIABETES MELLITUS WITHOUT COMPLICATIONS Qualifiers: Qualified Code(s): E11.9 - Type 2 diabetes mellitus without complications (8) CAD (coronary artery disease) Code(s): I25.10 - ATHSCL HEART DISEASE OF [place] CORONARY ARTERY W/O ANG PCTRS Qualifiers: Qualified Code(s): I25.10 - Atherosclerotic heart disease of [place] coronary artery without angina pectoris (9) Back pain Code(s): M54.9 - DORSALGIA, UNSPECIFIED Qualifiers: Qualified Code(s): M54.5 - Low back pain (10) GI bleed Code(s): K92.2 - GASTROINTESTINAL HEMORRHAGE, UNSPECIFIED Qualifiers: Qualified Code(s): K31.811 - Angiodysplasia of stomach and duodenum with bleeding (11) Ascites Code(s): R18.8 - OTHER ASCITES Qualifiers: Qualified Code(s): R18.8 - Other ascites (12) Liver cirrhosis Code(s): K74.60 - UNSPECIFIED CIRRHOSIS OF LIVER (13) Hypophosphatemia Code(s): E83.39 - OTHER DISORDERS OF PHOSPHORUS METABOLISM (14) Hypomagnesemia Code(s): E83.42 - HYPOMAGNESEMIA Assessment/Plan Pt. was admitted to ICU, as improved was transferred to medical floor Pt. received vit K (10 mg), 3 unit of PRBC, D5 NS( at 100 ml/hr), s/p FFP; pt. received Zosyn, Vanco. Mg was corrected; Cardio, ID, Renal, Heme, GI, Neuro consults appreciated. s/p 2 more units of PRBC s/p EGD and colonoscopy- no bleeding source. Restarted on Lasix PO for LE edema. To f/u with GI and Cardio regarding possibility of restarting AC treatment. H/H is stable now. s/p paracentesis. Pt. with Hypotension (computer system doesn't allow to added to problem list); it could be related to anti-HTN meds given all at the same time, pt is asymptomatic; to give meds at different times; to monitor. Prognosis:improving DC planing to Rehab
[2017-02-23] MEDS: ACETAMINOPHEN 325 MG TABLET (FP) PO PRN (17:14)
[2017-02-23] MEDS ORDERED: METOPROLOL SUCCINATE 25 MG TAB.SR.24H (FP) PO SCH (17:15)
[2017-02-23] MEDS: ATORVASTATIN CA 20 MG TABLET (FP) PO SCH (21:15)
[2017-02-24] MEDS: METOPROLOL SUCCINATE 25 MG TAB.SR.24H (FP) PO SCH ×2 (06:02→17:49)
[2017-02-24] MEDS: INSULIN SLIDING SCALE (NOVOLOG) 1 VIAL SQ SCH ×4 (06:06→23:03)
--- NOTE | 2017-02-24 08:53 | DS ---
Physical Examination Vital Signs: Vital Signs Temperature 98.7 F 02/24/17 06:00 Pulse Rate 71 02/24/17 06:00 Respiratory Rate 20 02/24/17 06:00 Blood Pressure 102/65 02/24/17 06:00 O2 Sat by Pulse Oximetry (%) 96 02/23/17 21:00 Findings/Remarks: Pt. w/o SOB, CP, palp., abd pain. Constitutional: Yes: No Distress, Calm Cardiovascular: Yes: Regular Rate and Rhythm, S1, S2 Respiratory: Yes: Regular, CTA Bilaterally. No: Rales Gastrointestinal: Yes: Normal Bowel Sounds, Soft, Distention. No: Palpable Mass , Tenderness Edema: LLE: 1+, RLE: 1+ Neurological: Yes: Alert, Oriented Labs: CBC, BMP 02/22/17 06:00 02/23/17 06:00 Discharge Summary Reason For Visit: ANEMIA Current Active Problems A-fib (Acute) Acute renal failure (Acute) Anemia (Acute) Angiodysplasia of colon without bleeding (Acute) Ascites (Acute) Back pain (Acute) CAD (coronary artery disease) (Acute) Diabetes mellitus (Acute) Edema extremities (Acute) GI bleed (Acute) Generalized weakness (Acute) Hypoglycemia (Acute) Hypomagnesemia (Acute) Hypophosphatemia (Acute) Liver cirrhosis (Acute) Probable sepsis (Acute) Supratherapeutic INR (Acute) Procedures: Principal: ABD/ Pelvic CT , Lumbar CT, Renal US Hospital Course: Pt came to ER c/o dizziness, weakness, found to be hypoglicemic, hypothermic; he was found to have INR of 19 and low Hb (6.1). Pt.'s INR was reversed, he received PRBC Tx. He was started on IV abtx and seen By ID (Dr. Perry); BXC and UCX were negative. Pt underwent EGD and Colonoscopy (with Dr. Keren Calle) without identification of the source of bleeding. Pt was recommended capsule endoscopy (as outpatient). Pt also came in ARF, improved slowly. Pt. also with chronic BP, seen by Neuro. Pt. with distended abd., ascities, liver chirrosis, underwent paracentesis (5L). Pt. was seen in the hospital by Cardio (Dr. BERRY), GI, Renal (Dr. Rausch), Neuro (Dr. Osorio), ID. Pt to be DC'ed to rehab Condition: Fair - Instructions Diet, Activity, Other Instructions: Diet: ADA, low salt, low Cholesterol CBC, CMP this week Referrals: Tarik Sharp MD [Primary Care Provider] - (in 2-3 weeks after DC) Imtiaz Calle DO [Staff Physician] - ([facility] after Rehab, for capsule endoscopy) Disposition: [facility] - Home Medications Comprehensive Discharge Medication List: Ambulatory Orders Aspirin [ASA -] 81 mg PO DAILY 07/21/12 Enalapril Maleate [Vasotec -] 5 mg PO BID 07/21/12 Glimepiride 1 mg PO BID 07/21/12 Metformin HCl [Glucophage] 1,000 mg PO BID 07/21/12 Simvastatin [Zocor -] 40 mg PO HS 07/21/12 Warfarin Na [Coumadin -] 5 mg PO DAILY@1800 #0 tablet 07/28/12 Furosemide [Lasix -] 20 mg PO DAILY 12/05/15 Meclizine HCl 25 mg PO DAILY 06/05/16 Metoprolol Succinate [Toprol Xl -] 25 mg PO BID 06/05/16
[2017-02-24] MEDS ORDERED: PT OWN MED DRAWER 7, Y5N ONE (09:28)
--- NOTE | 2017-02-24 10:58 | PN ---
Progress Note, Physician History of Present Illness: Post 5 L therapeutic paracentesis. Feels improved, no further bleeding. - Current Medication List Current Medications: Active Medications Acetaminophen (Tylenol -) 650 mg PO Q6H PRN PRN Reason: PAIN Last Admin: 02/23/17 17:14 Dose: 650 mg Ascorbic Acid (Vitamin C -) 500 mg PO DAILY [facility] Atorvastatin Calcium (Lipitor -) 20 mg PO HS [facility] Last Admin: 02/23/17 21:15 Dose: 20 mg Ferrous Sulfate (Feosol -) 325 mg PO BIDWM [facility] Furosemide (Lasix -) 40 mg PO DAILY [facility] Last Admin: 02/23/17 10:41 Dose: 40 mg Insulin Aspart (Novolog Vial Sliding Scale -) 1 vial SQ ACHS [facility] PRN Reason: Protocol Last Admin: 02/24/17 06:06 Dose: Not Given Magnesium Chloride (Slow-Mag -) 64 mg PO DAILY [facility] Last Admin: 02/23/17 10:40 Dose: 64 mg Metoprolol Succinate (Toprol Xl -) 25 mg PO BID@ [facility] Last Admin: 02/24/17 06:02 Dose: 25 mg Spironolactone (Aldactone -) 50 mg PO DAILY [facility] Last Admin: 02/23/17 10:41 Dose: 50 mg - Objective Vital Signs: Vital Signs Temperature 98.5 F 02/24/17 09:17 Pulse Rate 78 02/24/17 09:17 Respiratory Rate 20 02/24/17 09:17 Blood Pressure 104/59 02/24/17 09:17 O2 Sat by Pulse Oximetry (%) 100 02/24/17 09:00 Constitutional: Yes: No Distress, Calm Neck: Yes: Supple Cardiovascular: Yes: Regular Rate and Rhythm Respiratory: Yes: Regular, Diminished, On Nasal O2 Gastrointestinal: Yes: Normal Bowel Sounds, Soft Edema: Yes Edema: LLE: 1+, RLE: 1+ Labs: CBC, BMP 02/22/17 06:00 02/23/17 06:00 INR, PTT INR 1.36 (0.82-1.09) H 02/22/17 06:00 Fibrinogen 286.0 mg/dL (238-498) 02/13/17 20:00 Problem List - Problems (1) A-fib Code(s): I48.91 - UNSPECIFIED ATRIAL FIBRILLATION Qualifiers: Qualified Code(s): I48.0 - Paroxysmal atrial fibrillation (2) Anemia Code(s): D64.9 - ANEMIA, UNSPECIFIED Qualifiers: Qualified Code(s): D50.0 - Iron deficiency anemia secondary to blood loss (chronic) (3) CAD (coronary artery disease) Code(s): I25.10 - ATHSCL HEART DISEASE OF [place] CORONARY ARTERY W/O ANG PCTRS Qualifiers: Qualified Code(s): I25.10 - Atherosclerotic heart disease of [place] coronary artery without angina pectoris (4) Diabetes mellitus Code(s): E11.9 - TYPE 2 DIABETES MELLITUS WITHOUT COMPLICATIONS Qualifiers: Qualified Code(s): E11.9 - Type 2 diabetes mellitus without complications (5) GI bleed Code(s): K92.2 - GASTROINTESTINAL HEMORRHAGE, UNSPECIFIED Qualifiers: Qualified Code(s): K31.811 - Angiodysplasia of stomach and duodenum with bleeding (6) Supratherapeutic INR Code(s): R79.1 - ABNORMAL COAGULATION PROFILE (7) Angiodysplasia of colon without bleeding Code(s): K55.20 - ANGIODYSPLASIA OF COLON WITHOUT HEMORRHAGE Assessment/Plan 1. GI bleed with melena, profound anemia due to supratherapeutic INR, suspect small bowel angiodysplasia 2. Acute on chronic renal failure 3. CAD non-obstructive CAD angina pectoris 4. Diastolic LV dysfunction with class I NYHA classification LV failure, compensated 5. Paroxysmal atrial fibrillation in sinus rhythm on Coumadin, therapy on hold, [id number] score of 5 6. Hypertension 7. Diabetes mellitus 8. Hypercholesterolemia 9. EMERALD improving 10. Ascites c/w portal hypertension post paracentesis PLAN: 1. Transfuse as needed maintaining Hg > 8.0 and monitor H/H closely 2. Plan to proceed with outpatient capsule endoscopy as per GI input. 3. Plan to resume A/C once hemostasis is achieved (d/w Dr. Sharp and would wait 2 weeks after GI bleed and start NOAC given brittle INR control) unless it is absolutely contraindicated (MOLLY occlusion device such as Watchman device may be considered if patient is not able to take anticoagulation) 4. Continue Lipitor 20 qhs, Toprol XL 25 bid 5. Maintained on Lasix 40 qd and Aldactone 50 qd with monitor renal function and electrolytes 6. D/c planning to SNF
[2017-02-24] MEDS: MAGNESIUM CL 64 MG TABLET.SA PO SCH (11:00)
[2017-02-24] MEDS: SPIRONOLACTONE 25 MG TABLET (FP) PO SCH (11:00)
[2017-02-24] MEDS: FUROSEMIDE 40 MG TABLET (FP) PO SCH (11:01)
[2017-02-24] MEDS: ACETAMINOPHEN 325 MG TABLET (FP) PO PRN ×2 (11:01→23:06)
[2017-02-24] MEDS: ASCORBIC ACID 500 MG TABLET (FP) PO SCH (11:08)
--- NOTE | 2017-02-24 11:39 | PN ---
Progress Note (short form) - Note Progress Note: Renal Follow up for EMERALD Pt seen and examined at the bedside no acute complaints Vital Signs Temperature 98.5 F 02/24/17 09:17 Pulse Rate 78 02/24/17 09:17 Respiratory Rate 20 02/24/17 09:17 Blood Pressure 104/59 02/24/17 09:17 O2 Sat by Pulse Oximetry (%) 100 02/24/17 09:00 Intake & Output 02/21/17 02/22/17 02/23/17 02/24/17 23:59 23:59 23:59 23:59 Intake Total 600 0 0 Output Total 800 600 300 800 Balance -200 -600 -300 -800 Gen: NAD CVS: irregular, no M/R Lungs: CTA, no rales or wheeze Abd: soft NT/ND Ext: 1+ edema CBC, BMP 02/22/17 06:00 02/23/17 06:00 Current Medications Acetaminophen (Tylenol -) 650 mg PO Q6H PRN PRN Reason: PAIN Last Admin: 02/24/17 11:01 Dose: 650 mg Ascorbic Acid (Vitamin C -) 500 mg PO DAILY [facility] Last Admin: 02/24/17 11:08 Dose: 500 mg Atorvastatin Calcium (Lipitor -) 20 mg PO HS [facility] Last Admin: 02/23/17 21:15 Dose: 20 mg Ferrous Sulfate (Feosol -) 325 mg PO BIDWM [facility] Furosemide (Lasix -) 40 mg PO DAILY [facility] Last Admin: 02/24/17 11:01 Dose: 40 mg Insulin Aspart (Novolog Vial Sliding Scale -) 1 vial SQ ACHS [facility] PRN Reason: Protocol Last Admin: 02/24/17 06:06 Dose: Not Given Magnesium Chloride (Slow-Mag -) 64 mg PO DAILY [facility] Last Admin: 02/24/17 11:00 Dose: 64 mg Metoprolol Succinate (Toprol Xl -) 25 mg PO BID@ [facility] Last Admin: 02/24/17 06:02 Dose: 25 mg Spironolactone (Aldactone -) 50 mg PO DAILY [facility] Last Admin: 02/24/17 11:00 Dose: 50 mg A/P 81 year old Gentleman with PMhx of CAD, Afib on Coumadin, Hypertension, BPH, DM who presented with weakness, lethargy and found to have acute on chronic anemia with Hgb of 6.1 in setting of supratheraputic INR and EMERALD with BUN/Cr of 43/2.5. #Acute Renal Failure Renal function stable as of yesterday no new labs today #Hypomagnesemia continue oral Mg #Anion Gap Metabolic acidosis Bicarb stable no indication for further bicarb supplementation #Acute Anemia in setting of supratheraputic INR s/p EGD and Colonoscopy #Ascities on Lasix and Aldactone s/p paracentesis GI following #LE edema/3rd spacing from hypoalbuminemia Continue Lasix #Hypophosphatemia s/p neutraphos with improvement in serum phos levels oral intake as tolerated Dwayne Rausch DO
[2017-02-24] MEDS ORDERED: INSULIN (NOVOLOG) ASPART 100 UNITS/ML 10ML VIAL ONE (17:32)
[2017-02-24] MEDS: FERROUS SO4 325 MG TABLET (FP) PO SCH (17:38)
[2017-02-24] MEDS: ATORVASTATIN CA 20 MG TABLET (FP) PO SCH (23:04)
[2017-02-25] MEDS: METOPROLOL SUCCINATE 25 MG TAB.SR.24H (FP) PO SCH (06:31)
[2017-02-25] MEDS: INSULIN SLIDING SCALE (NOVOLOG) 1 VIAL SQ SCH ×2 (07:04→12:26)
[2017-02-25] MEDS: FUROSEMIDE 40 MG TABLET (FP) PO SCH (10:26)
[2017-02-25] MEDS: FERROUS SO4 325 MG TABLET (FP) PO SCH (10:26)
[2017-02-25] MEDS: SPIRONOLACTONE 25 MG TABLET (FP) PO SCH (10:26)
[2017-02-25] MEDS: ASCORBIC ACID 500 MG TABLET (FP) PO SCH (10:26)
--- NOTE | 2017-02-25 10:26 | PN ---
Progress Note, Physician History of Present Illness: Pt. w/o vomiting, nausea, abd pain, alessandro blood in stool. Pt. w/o SOB, CP, palp., dizziness. Pt. w leg edema-same. Pt. waiting for bed at Rehab - Current Medication List Current Medications: Active Medications Acetaminophen (Tylenol -) 650 mg PO Q6H PRN PRN Reason: PAIN Last Admin: 02/24/17 23:06 Dose: 650 mg Ascorbic Acid (Vitamin C -) 500 mg PO DAILY [facility] Last Admin: 02/24/17 11:08 Dose: 500 mg Atorvastatin Calcium (Lipitor -) 20 mg PO HS [facility] Last Admin: 02/24/17 23:04 Dose: 20 mg Ferrous Sulfate (Feosol -) 325 mg PO BIDWM [facility] Last Admin: 02/24/17 17:38 Dose: 325 mg Furosemide (Lasix -) 40 mg PO DAILY [facility] Last Admin: 02/24/17 11:01 Dose: 40 mg Insulin Aspart (Novolog Vial Sliding Scale -) 1 vial SQ ACHS [facility] PRN Reason: Protocol Last Admin: 02/25/17 07:04 Dose: Not Given Magnesium Chloride (Slow-Mag -) 64 mg PO DAILY [facility] Last Admin: 02/24/17 11:00 Dose: 64 mg Metoprolol Succinate (Toprol Xl -) 25 mg PO BID@ [facility] Last Admin: 02/25/17 06:31 Dose: Not Given Spironolactone (Aldactone -) 50 mg PO DAILY [facility] Last Admin: 02/24/17 11:00 Dose: 50 mg - Objective Vital Signs: Vital Signs Temperature 98.4 F 02/25/17 05:53 Pulse Rate 62 02/25/17 05:53 Respiratory Rate 20 02/25/17 05:53 Blood Pressure 100/54 02/25/17 05:53 O2 Sat by Pulse Oximetry (%) 100 02/24/17 21:00 Constitutional: Yes: No Distress, Calm Cardiovascular: Yes: Regular Rate and Rhythm, S1, S2 Respiratory: Yes: Regular, CTA Bilaterally Gastrointestinal: Yes: Normal Bowel Sounds, Soft, Distention. No: Tenderness Edema: LLE: 1+, RLE: 1+ Neurological: Yes: Alert, Oriented Labs: CBC, BMP 02/22/17 06:00 02/23/17 06:00 INR, PTT INR 1.36 (0.82-1.09) H 02/22/17 06:00 Fibrinogen 286.0 mg/dL (238-498) 02/13/17 20:00 Problem List - Problems (1) Probable sepsis Code(s): A41.9 - SEPSIS, UNSPECIFIED ORGANISM (2) Anemia Code(s): D64.9 - ANEMIA, UNSPECIFIED Qualifiers: Qualified Code(s): D50.0 - Iron deficiency anemia secondary to blood loss (chronic) (3) Hypoglycemia Code(s): E16.2 - HYPOGLYCEMIA, UNSPECIFIED (4) Acute renal failure Code(s): N17.9 - ACUTE KIDNEY FAILURE, UNSPECIFIED Qualifiers: Qualified Code(s): N17.9 - Acute kidney failure, unspecified (5) Supratherapeutic INR Code(s): R79.1 - ABNORMAL COAGULATION PROFILE (6) A-fib Code(s): I48.91 - UNSPECIFIED ATRIAL FIBRILLATION Qualifiers: Qualified Code(s): I48.0 - Paroxysmal atrial fibrillation (7) Diabetes mellitus Code(s): E11.9 - TYPE 2 DIABETES MELLITUS WITHOUT COMPLICATIONS Qualifiers: Qualified Code(s): E11.9 - Type 2 diabetes mellitus without complications (8) CAD (coronary artery disease) Code(s): I25.10 - ATHSCL HEART DISEASE OF [place] CORONARY ARTERY W/O ANG PCTRS Qualifiers: Qualified Code(s): I25.10 - Atherosclerotic heart disease of [place] coronary artery without angina pectoris (9) Back pain Code(s): M54.9 - DORSALGIA, UNSPECIFIED Qualifiers: Qualified Code(s): M54.5 - Low back pain (10) GI bleed Code(s): K92.2 - GASTROINTESTINAL HEMORRHAGE, UNSPECIFIED Qualifiers: Qualified Code(s): K31.811 - Angiodysplasia of stomach and duodenum with bleeding (11) Ascites Code(s): R18.8 - OTHER ASCITES Qualifiers: Qualified Code(s): R18.8 - Other ascites (12) Liver cirrhosis Code(s): K74.60 - UNSPECIFIED CIRRHOSIS OF LIVER (13) Hypophosphatemia Code(s): E83.39 - OTHER DISORDERS OF PHOSPHORUS METABOLISM (14) Hypomagnesemia Code(s): E83.42 - HYPOMAGNESEMIA Assessment/Plan Pt. was admitted to ICU, as improved was transferred to medical floor Pt. received vit K (10 mg), 3 unit of PRBC, D5 NS( at 100 ml/hr), s/p FFP; pt. received Zosyn, Vanco. Mg was corrected; Cardio, ID, Renal, Heme, GI, Neuro consults appreciated. s/p 2 more units of PRBC s/p EGD and colonoscopy- no bleeding source. Restarted on Lasix PO for LE edema. To f/u with GI and Cardio regarding possibility of restarting AC treatment. H/H is stable now. s/p paracentesis. Pt. with Hypotension (computer system doesn't allow to added to problem list); it could be related to anti-HTN meds given all at the same time, pt is asymptomatic; to give meds at different times; to monitor. Prognosis:improving DC planing to Rehab
[2017-02-25 11:43] VITALS: BP 125/77; PULSE 78; TEMP 98.3
--- NOTE | 2017-02-25 11:47 | PN ---
Progress Note (short form) - Note Progress Note: Renal Follow up for EMERALD Pt seen and examined at the bedside no acute complaints awaiting discharge Vital Signs Temperature 98.3 F 02/25/17 10:00 Pulse Rate 78 02/25/17 10:00 Respiratory Rate 20 02/25/17 10:00 Blood Pressure 125/77 02/25/17 10:00 O2 Sat by Pulse Oximetry (%) 98 02/25/17 09:00 Intake & Output 02/22/17 02/23/17 02/24/17 02/25/17 23:59 23:59 23:59 23:59 Intake Total 0 0 300 Output Total 054 863 2107 700 Balance -600 -300 -1200 -700 Gen: NAD CVS: irregular, no M/R Lungs: CTA, no rales or wheeze Abd: soft NT/ND Ext: 1+ edema CBC, BMP 02/22/17 06:00 02/23/17 06:00 Current Medications Acetaminophen (Tylenol -) 650 mg PO Q6H PRN PRN Reason: PAIN Last Admin: 02/24/17 23:06 Dose: 650 mg Ascorbic Acid (Vitamin C -) 500 mg PO DAILY [facility] Last Admin: 02/25/17 10:26 Dose: 500 mg Atorvastatin Calcium (Lipitor -) 20 mg PO HS [facility] Last Admin: 02/24/17 23:04 Dose: 20 mg Ferrous Sulfate (Feosol -) 325 mg PO BIDWM [facility] Last Admin: 02/25/17 10:26 Dose: 325 mg Furosemide (Lasix -) 40 mg PO DAILY [facility] Last Admin: 02/25/17 10:26 Dose: 40 mg Insulin Aspart (Novolog Vial Sliding Scale -) 1 vial SQ ACHS [facility] PRN Reason: Protocol Last Admin: 02/25/17 07:04 Dose: Not Given Magnesium Chloride (Slow-Mag -) 64 mg PO DAILY [facility] Last Admin: 02/24/17 11:00 Dose: 64 mg Metoprolol Succinate (Toprol Xl -) 25 mg PO BID@ [facility] Last Admin: 02/25/17 06:31 Dose: Not Given Spironolactone (Aldactone -) 50 mg PO DAILY [facility] Last Admin: 02/25/17 10:26 Dose: 50 mg A/P 81 year old Gentleman with PMhx of CAD, Afib on Coumadin, Hypertension, BPH, DM who presented with weakness, lethargy and found to have acute on chronic anemia with Hgb of 6.1 in setting of supratheraputic INR and EMERALD with BUN/Cr of 43/2.5. #Acute Renal Failure Renal function improve and stable oral fluid intake as tolerated avoid nephrotoxins #Hypomagnesemia continue oral Mg #Anion Gap Metabolic acidosis Bicarb improved and stable no indication for further bicarb supplementation #Acute Anemia in setting of supratheraputic INR s/p EGD and Colonoscopy #Ascities on Lasix and Aldactone s/p paracentesis GI following #LE edema/3rd spacing from hypoalbuminemia Continue Lasix #Hypophosphatemia s/p neutraphos with improvement in serum phos levels oral intake as tolerated awaiting discharge repeat labs in 3-5 days as an outpatient Dwayne Rausch DO
[2017-02-25] MEDS: MAGNESIUM CL 64 MG TABLET.SA PO SCH (12:28)
--- NOTE | 2017-02-25 12:35 | PN ---
Progress Note, Physician Chief Complaint: Events noted Not in distress History of Present Illness: Patient was seen and examined. Awake and alert. Chart was reviewed Denies chest pain, SOB or palpitations - Current Medication List Current Medications: Active Medications Acetaminophen (Tylenol -) 650 mg PO Q6H PRN PRN Reason: PAIN Last Admin: 02/24/17 23:06 Dose: 650 mg Ascorbic Acid (Vitamin C -) 500 mg PO DAILY [facility] Last Admin: 02/25/17 10:26 Dose: 500 mg Atorvastatin Calcium (Lipitor -) 20 mg PO HS [facility] Last Admin: 02/24/17 23:04 Dose: 20 mg Ferrous Sulfate (Feosol -) 325 mg PO BIDWM [facility] Last Admin: 02/25/17 10:26 Dose: 325 mg Furosemide (Lasix -) 40 mg PO DAILY [facility] Last Admin: 02/25/17 10:26 Dose: 40 mg Insulin Aspart (Novolog Vial Sliding Scale -) 1 vial SQ ACHS [facility] PRN Reason: Protocol Last Admin: 02/25/17 12:26 Dose: 2 unit Magnesium Chloride (Slow-Mag -) 64 mg PO DAILY [facility] Last Admin: 02/25/17 12:28 Dose: Not Given Metoprolol Succinate (Toprol Xl -) 25 mg PO BID@ [facility] Last Admin: 02/25/17 06:31 Dose: Not Given Spironolactone (Aldactone -) 50 mg PO DAILY [facility] Last Admin: 02/25/17 10:26 Dose: 50 mg - Objective Vital Signs: Vital Signs Temperature 98.3 F 02/25/17 10:00 Pulse Rate 78 02/25/17 10:00 Respiratory Rate 20 02/25/17 10:00 Blood Pressure 125/77 02/25/17 10:00 O2 Sat by Pulse Oximetry (%) 98 02/25/17 09:00 Neck: Yes: Supple Cardiovascular: Yes: Regular Rate and Rhythm, S1, S2 Respiratory: Yes: Diminished Gastrointestinal: Yes: Normal Bowel Sounds, Soft, Ascites Edema: Yes Edema: LLE: 1+, RLE: 1+ Labs: CBC, BMP 02/22/17 06:00 02/23/17 06:00 Problem List - Problems (1) A-fib Code(s): I48.91 - UNSPECIFIED ATRIAL FIBRILLATION Qualifiers: Qualified Code(s): I48.0 - Paroxysmal atrial fibrillation (2) Acute renal failure Code(s): N17.9 - ACUTE KIDNEY FAILURE, UNSPECIFIED Qualifiers: Qualified Code(s): N17.9 - Acute kidney failure, unspecified (3) Back pain Code(s): M54.9 - DORSALGIA, UNSPECIFIED Qualifiers: Qualified Code(s): M54.5 - Low back pain (4) CAD (coronary artery disease) Code(s): I25.10 - ATHSCL HEART DISEASE OF [place] CORONARY ARTERY W/O ANG PCTRS Qualifiers: Qualified Code(s): I25.10 - Atherosclerotic heart disease of [place] coronary artery without angina pectoris (5) Diabetes mellitus Code(s): E11.9 - TYPE 2 DIABETES MELLITUS WITHOUT COMPLICATIONS Qualifiers: Qualified Code(s): E11.9 - Type 2 diabetes mellitus without complications (6) Hypoglycemia Code(s): E16.2 - HYPOGLYCEMIA, UNSPECIFIED (7) Probable sepsis Code(s): A41.9 - SEPSIS, UNSPECIFIED ORGANISM (8) Supratherapeutic INR Code(s): R79.1 - ABNORMAL COAGULATION PROFILE (9) GI bleed Code(s): K92.2 - GASTROINTESTINAL HEMORRHAGE, UNSPECIFIED Qualifiers: Qualified Code(s): K31.811 - Angiodysplasia of stomach and duodenum with bleeding (10) Angiodysplasia of colon without bleeding Code(s): K55.20 - ANGIODYSPLASIA OF COLON WITHOUT HEMORRHAGE (11) Ascites Code(s): R18.8 - OTHER ASCITES Qualifiers: Qualified Code(s): R18.8 - Other ascites Assessment/Plan 1. GI bleed with melena, profound anemia due to supra-therapeutic INR, suspect small bowel angiodysplasia 2. Acute on chronic renal failure 3. CAD non-obstructive CAD angina pectoris 4. Diastolic LV dysfunction with class I NYHA classification LV failure, compensated 5. Paroxysmal atrial fibrillation in sinus rhythm on Coumadin, therapy on hold, [id number] score of 5 6. Hypertension 7. Diabetes mellitus 8. Hypercholesterolemia 9. EMERALD improving 10. Ascites c/w portal hypertension post paracentesis PLAN: 1. Transfuse as needed maintaining Hgb > 8.0 and monitor H/H closely 2. Plan to proceed with outpatient capsule endoscopy as per GI input. 3. Plan to resume A/C once hemostasis is achieved. Plan is to wait 2 weeks after GI bleed and start NOAC unless it is absolutely contraindicated. MOLLY occlusion device such as Watchman device may be considered if patient is not able to take anticoagulation 4. Continue Lipitor 20 qhs and Toprol XL 25 bid 5. Maintained on Lasix 40 qd and Aldactone 50 qd with monitoring renal function and electrolytes 6. Discharge planning to SNF Sandeep Olsen MD
== END 2017-02-25 13:43 | DRG 813 ==
LOC: JER 19:21 → JERBED 20:27 → J4W 23:15 → JICU 02-13 14:04 → J7W 02-15 14:30
PROVIDERS: ADMIT Specialist; ATTEND Specialist
PROC: 30233K1 Transfusion of Nonautologous Frozen Plasma into Peripheral Vein, Percutaneous Approach (ICD-10-PCS; principal; 2017-02-13)
PROC: 30233N1 Transfusion of Nonautologous Red Blood Cells into Peripheral Vein, Percutaneous Approach (ICD-10-PCS; 2017-02-13)
PROC: 0DJ08ZZ Inspection of Upper Intestinal Tract, Via Natural or Artificial Opening Endoscopic (ICD-10-PCS; 2017-02-14)
PROC: 0DJD8ZZ Inspection of Lower Intestinal Tract, Via Natural or Artificial Opening Endoscopic (ICD-10-PCS; 2017-02-17)
PROC: 0W9G3ZX Drainage of Peritoneal Cavity, Percutaneous Approach, Diagnostic (ICD-10-PCS; 2017-02-20)
DX: D68.32 Hemorrhagic disorder due to extrinsic circulating anticoagulants (principal); K55.21 Angiodysplasia of colon with hemorrhage; A41.9 Sepsis, unspecified organism; N17.9 Acute kidney failure, unspecified; E87.2 Acidosis; R18.8 Other ascites; D62 Acute posthemorrhagic anemia; K76.6 Portal hypertension; K92.2 Gastrointestinal hemorrhage, unspecified; N40.0 Benign prostatic hyperplasia without lower urinary tract symptoms; R79.1 Abnormal coagulation profile; E11.42 Type 2 diabetes mellitus with diabetic polyneuropathy; E11.649 Type 2 diabetes mellitus with hypoglycemia without coma; E83.42 Hypomagnesemia; I25.10 Atherosclerotic heart disease of native coronary artery without angina pectoris; Z98.61 Coronary angioplasty status; R68.0 Hypothermia, not associated with low environmental temperature; M51.36 Other intervertebral disc degeneration, lumbar region; K44.9 Diaphragmatic hernia without obstruction or gangrene; Z87.891 Personal history of nicotine dependence; K74.60 Unspecified cirrhosis of liver; E11.22 Type 2 diabetes mellitus with diabetic chronic kidney disease; T45.515A Adverse effect of anticoagulants, initial encounter; I12.9 Hypertensive chronic kidney disease with stage 1 through stage 4 chronic kidney disease, or unspecified chronic kidney disease; N18.9 Chronic kidney disease, unspecified; I48.0 Paroxysmal atrial fibrillation; E83.39 Other disorders of phosphorus metabolism; R60.0 Localized edema
CPT/HCPCS: 36415; 36430; 36511; 70450-TC; 71010-TC; 72131-TC; 74176-TC; 76705-TC; 76775-TC; 76942-TC; 80048; 80053; 80076; 81003; 82042; 82105; 82150; 82272; 82550; 82570; 82607; 82728; 82746; 82945; 82947; 83021; 83540; 83550; 83605; 83615; 83690; 83735; 84100; 84156; 84157; 84300; 84439; 84443; 84478; 84484; 84540; 85025; 85027; 85044; 85384; 85610; 85660; 85730; 86704; 86706; 86708; 86803; 86850; 86900; 86901; 86922; 87040; 87070; 87075; 87086; 87102; 87116; 87205; 87206; 87210; 87340; 87899; 88108; 88305-TC; 89051; 93005; 93010; 97116-GP; 97161-GP; 99285-25; C1769; P9017; P9038; P9058

== ENCOUNTER 2017-03-26 13:54 | Inpatient (IN) | payer OTHER ==
--- NOTE | 2017-03-26 14:07 | PDOC ---
History of Present Illness <Moiz Claudio - Last Filed: 03/26/17 16:50> - General History Source: Patient Exam Limitations: No Limitations - History of Present Illness Initial Comments: 03/26/17 14:36 The patient is a 81 year old male, with a significant past medical history of AFib(s/p Cath 2011), diabetes with associated neuropathy, BPH(but hx of orthostatic hypotension), hypertension, hyperlipidemia, and enlarged prostate, who presents to the emergency department s/p mechanical fall earlier this week. The patient reports he was walking to the bathroom early this morning when he fell at approximately 02:30 and hit the left side of his head on the tub. The patient denies any changes in vision or LOC. Patient reports he was down on the floor for 12 hours, because he was too weak to get up on his own. He states he tried calling his roommate to get him up, but was unable to get him. Patient reports he last took his medications yesterday. Patient denies any fever, chills , cough, headache, or dizziness. He denies any dysuria, hematuria, frequency, or urgency. He denies any chest pain shortness of breath, diaphoresis, or palpitations. Patient reports he is supposed to have a home health aide, but has been too weak to get up and call her. Allergies: NKDA Past Surgical History: None reported Social History: Former smoker(Quit 1990). Previous ETOH use. No recreational drug use. PCP: Dr. Tarik Sharp <Gracia Deleon - Last Filed: 03/26/17 17:11> - General Stated Complaint: FALL Past History - Past Medical History Anemia: No Cardiac Disorders: Yes (cardiac cath at [facility] 2011, AF) CVA: No Dementia: No Diabetes: Yes (diabetic neuropathy) GI Disorders: No Disorders: Yes (bph, but hx orthostatic hypotension on meds; resolved) HTN: Yes Hypercholesterolemia: Yes Kidney Stones: (enlarged prostate) Liver Disease: No Seizures: No - Surgical History Abdominal Surgery: No Appendectomy: No Cholecystectomy: No Lung Surgery: No Neurologic Surgery: No - Psycho/Social/Smoking Cessation Hx Anxiety: No Suicidal Ideation: No Smoking Status: No Smoking History: Former smoker Have you smoked in the past 12 months: No Number of Cigarettes Smoked Daily: 0 If you are a former smoker, when did you quit?: 1990 Hx Alcohol Use: No Drug/Substance Use Hx: No Substance Use Type: Alcohol Hx Substance Use Treatment: No <Moiz Claudio - Last Filed: 03/26/17 16:50> <Gracia Deleon - Last Filed: 03/26/17 17:11> - Past Medical History Allergies/Adverse Reactions: Allergies Allergy/AdvReac Type Severity Reaction Status Date / Time No Known Allergies Allergy Verified 02/12/17 19:31 Home Medications: Ambulatory Orders Ascorbic Acid [Vitamin C -] 500 mg PO DAILY tablet 02/24/17 Atorvastatin Ca [Lipitor] 20 mg PO HS tablet 02/24/17 Ferrous Sulfate [Feosol] 325 mg PO BIDWM #60 tablet 02/24/17 Furosemide [Lasix -] 40 mg PO DAILY tablet 02/24/17 Metoprolol Succinate [Toprol XL -] 25 mg PO BID@ #60 tablet 02/24/17 Spironolactone 50 mg PO DAILY 03/26/17 Review of Systems - Review of Systems Able to Perform ROS?: Yes Comments:: 03/26/17 14:37 GENERAL/CONSTITUTIONAL: Yes: +weakness. No fever or chills. HEAD, EYES, EARS, NOSE AND THROAT: No change in vision. No ear pain or discharge. No sore throat. CARDIOVASCULAR: No chest pain or shortness of breath. RESPIRATORY: No cough, wheezing, or hemoptysis. GASTROINTESTINAL: No nausea, vomiting, diarrhea or constipation. GENITOURINARY: No dysuria, frequency, or change in urination. MUSCULOSKELETAL: No joint or muscle swelling or pain. No neck or back pain. SKIN: No rash NEUROLOGIC: No headache, vertigo, loss of consciousness, or change in strength/ sensation. ENDOCRINE: No increased thirst. No abnormal weight change. HEMATOLOGIC/LYMPHATIC: No anemia, easy bleeding, or history of blood clots. ALLERGIC/IMMUNOLOGIC: No hives or skin allergy. <Gracia Deleon - Last Filed: 03/26/17 17:11> *Physical Exam - Vital Signs Last Vital Signs Temp Pulse Resp BP Pulse Ox 98.1 F 75 18 100/58 03/26/17 14:00 03/26/17 14:00 03/26/17 14:00 03/26/17 14:00 - Physical Exam Comments: 03/26/17 14:38 GENERAL: Awake, alert, and fully oriented, in no acute distress HEAD: No signs of trauma EYES: PERRLA, EOMI, sclera anicteric, conjunctiva clear ENT: Auricles normal inspection, hearing grossly normal, nares patent, oropharynx clear without exudates. Moist mucosa NECK: Normal ROM, supple, no lymphadenopathy, JVD, or masses LUNGS: Breath sounds equal, clear to auscultation bilaterally. No wheezes, and no crackles HEART: Regular rate and rhythm, normal S1 and S2, no murmurs, rubs or gallops ABDOMEN: Soft, nontender, normoactive bowel sounds. No guarding, no rebound. No masses EXTREMITIES: Normal range of motion, no edema. No clubbing or cyanosis. No cords , erythema, or tenderness NEUROLOGICAL: Cranial nerves II through XII grossly intact. Normal speech, normal gait SKIN: Warm, Dry, normal turgor, no rashes or lesions noted. <Gracia Deleon - Last Filed: 03/26/17 17:11> Heart Score/ECG Review - ECG Intrepretation Comment:: 03/26/17 16:20 Vent Rate: 69 bpm IMPRESSION: Sinus rhythm with premature atrial complexes. Rightward axis. Incomplete right bundle branc block. ST & T wave abnormality consider anterolateral ischemia. <Gracia Deleon - Last Filed: 03/26/17 17:11> ED Treatment Course - LABORATORY CBC & Chemistry Diagram: 03/26/17 15:30 03/26/17 15:30 <Moiz Claudio - Last Filed: 03/26/17 16:50> - LABORATORY CBC & Chemistry Diagram: 03/26/17 15:30 03/26/17 15:30 <Gracia Deleon - Last Filed: 03/26/17 17:11> Medical Decision Making - Medical Decision Making 03/26/17 17:11 First call placed to Dr. Tarik Sharp at 16:51. Awaiting call back. Case discussed with Dr. Alejandrina Sharp at 17:10. <Gracia Deleon - Last Filed: 03/26/17 17:11> *DC/Admit/Observation/Transfer - Discharge Dispostion Admit: Yes - Attestations Physician Attestion: 03/26/17 14:06 I, Dr. Moiz Claudio, attest that this document has been prepared under my direction and personally reviewed by me in its entirety. I further attest, that it accurately reflects all work, treatment, procedures and medical decision -making performed by me. <Moiz Claudio - Last Filed: 03/26/17 16:50> - Attestations Scribe Attestion: 03/26/17 14:39 Documentation prepared by Gracia Deleon, acting as medical operations supervisor for Moiz Claudio DO. <Gracia Dleeon - Last Filed: 03/26/17 17:11> Diagnosis at time of Disposition: Renal insufficiency syndrome, Dehydration, Generalized muscle weakness, History of inability to cope with activities of daily living, Generalized weakness Liver cirrhosis Qualifiers: Hepatic cirrhosis type: alcoholic cirrhosis Ascites presence: with ascites Qualified Code(s): K70.31 - Alcoholic cirrhosis of liver with ascites Acute renal failure Qualifiers: Acute renal failure type: unspecified Qualified Code(s): N17.9 - Acute kidney failure, unspecified - Discharge Dispostion Condition at time of disposition: Improved - Referrals Referrals: Tarik Sharp MD [Primary Care Provider] -
[2017-03-26] MEDS: SODIUM CHLORIDE 1,000 ML IV SCH ×3 (15:55→22:38)
[2017-03-26 15:58] LABS: BASOPHIL 0.3 % (0-2.0); EOSINOPHIL 0.1 % (0-4.5); MCH 22.8 pg (25.7-33.7); MCHC 32.3 g/dl (32.0-35.9); MEAN CELL VOLUME 70.5 fl (80-96); MEAN PLT VOLUME 8.3 fl (7.5-11.1); NEUTROPHILS 76.7 % (42.8-82.8); PLATELET COUNT 215 K/MM3 (134-434); RDW 21.1 % (11.9-15.9); WHITE BLOOD COUNT 8.8 K/mm3 (4.0-10.0)
[2017-03-26 16:22] LABS: ALBUMIN 1.7 g/dl (3.4-5.0); ANION GAP 9 (8-16); CALCIUM 8.2 mg/dL (8.5-10.1); CO2 23 mmol/L (21-32); GLUCOSE,RANDOM 92 mg/dL (74-106); SGOT/AST 33 U/L (15-37); SGPT/ALT 15 U/L (12-78)
[2017-03-26 16:26] LABS: ALK PHOS 231 U/L (45-117); TOT PROT 6.8 g/dl (6.4-8.2); TROPONIN I 0.04 ng/ml (0.00-0.05)
[2017-03-26 16:33] LABS: INR 1.39 (0.82-1.09); PROTHROMBIN TIME (PATIENT) 15.4 SEC (9.98-11.88)
[2017-03-26] MEDS ORDERED: SODIUM CHLORIDE 1,000 ML IV STA (16:47)
[2017-03-26 18:14] LABS: PLATELET ESTIMATE ADEQUATE (NORMAL)
[2017-03-26 18:15] LABS: ANISOCYTOSIS 2+; HYPOCHROMIA 1+; OVALOCYTES 1+; POIKILOCYTOSIS 1+; POLYCHROMASIA 1+; TARGET CELLS 1+; TEAR DROP CELLS 1+
[2017-03-26 20:42] VITALS: BMI 24.5
[2017-03-27] MEDS: INSULIN SLIDING SCALE (NOVOLOG) 1 VIAL SQ SCH ×4 (06:23→23:19)
[2017-03-27] MEDS: SODIUM CHLORIDE 1,000 ML IV SCH ×2 (06:41→23:10)
[2017-03-27] MEDS: METOPROLOL SUCCINATE 25 MG TAB.SR.24H (FP) PO SCH ×2 (06:41→18:00)
[2017-03-27 07:26] LABS: ALBUMIN 1.4 g/dl (3.4-5.0); ANION GAP 8 (8-16); BILIRUBIN,TOTAL 1.4 mg/dL (0.2-1.0); CALCIUM 7.6 mg/dL (8.5-10.1); CO2 24 mmol/L (21-32); CREATININE 1.6 mg/dL (0.7-1.3); GLUCOSE,RANDOM 61 mg/dL (74-106); MCH 22.8 pg (25.7-33.7); MCHC 32.5 g/dl (32.0-35.9); MEAN CELL VOLUME 70.1 fl (80-96); MEAN PLT VOLUME 7.9 fl (7.5-11.1); PLATELET COUNT 165 K/MM3 (134-434); RDW 20.5 % (11.9-15.9); SGOT/AST 26 U/L (15-37); SGPT/ALT 13 U/L (12-78); TOT PROT 5.6 g/dl (6.4-8.2); WHITE BLOOD COUNT 6.6 K/mm3 (4.0-10.0)
[2017-03-27 07:27] LABS: ALK PHOS 184 U/L (45-117)
[2017-03-27] MEDS: FERROUS SO4 325 MG TABLET (FP) PO SCH ×2 (08:25→18:00)
[2017-03-27] MEDS ORDERED: INSULIN (NOVOLOG) ASPART 100 UNITS/ML 10ML VIAL ONE (09:58)
[2017-03-27] MEDS: ASCORBIC ACID 500 MG TABLET (FP) PO SCH (10:00)
[2017-03-27 11:01] LABS: ANISOCYTOSIS 2+; HYPOCHROMIA 2+; MICROCYTOSIS 1+; TARGET CELLS 2+
--- NOTE | 2017-03-27 11:58 | HP ---
Admitting History and Physical - Primary Care Physician PCP: Tarik Sharp - Admission Chief Complaint: Fall. Anemia History of Present Illness: Pt with known GIB, no obvious source (after EGD and colonoscopy) recommended to f/u with Dr. Keren Bunch for capsule endoscopy (unclear from pt if made appt and forget to go tonthe office or did not make the appt.), came to ER s/p fall at home. Pt states was feeling weak for few days, went to bathroom yesterday and fell; he couldn't get up for few hours. Pt hit his head; in ER he had negative head CT scan. In ER he was noticed to have a low H/H. - Past Medical History Cardiovascular: Yes: AFIB (off Coumadin secondary to GIB, pending capsule endoscopy), CAD, HTN, Hyperlipdemia Renal/: Yes: BPH Endocrine: Yes: Diabetes Mellitus - Past Surgical History Past Surgical History: Yes: None - Smoking History Smoking history: Former smoker Have you smoked in the past 12 months: No Aproximately how many cigarettes per day: 0 If you are a former smoker, when did you quit?: 1990 - Alcohol/Substance Use Hx Alcohol Use: No History of Substance Use: reports: None - Social History Occupation: retired from [employer] History of Recent Travel: No Home Medications - Allergies Allergies/Adverse Reactions: Allergies Allergy/AdvReac Type Severity Reaction Status Date / Time No Known Allergies Allergy Verified 02/12/17 19:31 - Home Medications Home Medications: Ambulatory Orders Ascorbic Acid [Vitamin C -] 500 mg PO DAILY tablet 02/24/17 Atorvastatin Ca [Lipitor] 20 mg PO HS tablet 02/24/17 Ferrous Sulfate [Feosol] 325 mg PO BIDWM #60 tablet 02/24/17 Furosemide [Lasix -] 40 mg PO DAILY tablet 02/24/17 Metoprolol Succinate [Toprol XL -] 25 mg PO BID@ #60 tablet 02/24/17 Spironolactone 50 mg PO DAILY 03/26/17 Family Disease History - Family Disease History Family Disease History: Other: Father (did not know his biological father), Mother (: [address] [place]), Daughter (healthy) Review of Systems - Review of Systems Constitutional: reports: Weakness. denies: Chills, Fever Eyes: denies: Blind Spots, Blurred Vision HENT: denies: Ear Discharge, Epistaxis, Nasal Congestion, Throat Pain Neck: denies: Pain on Movement, Stiffness Cardiovascular: denies: Chest Pain, Edema, Palpitations, Shortness of Breath Respiratory: denies: Cough, SOB, Wheezing Gastrointestinal: denies: Abdominal Pain, Bloating, Constipation, Diarrhea, Melena, Rectal Bleeding Genitourinary: denies: Burning, Discharge, Dysuria, Frequency Neurological: denies: Change in LOC, Change in Speech, Confusion, Dizziness Endocrine: denies: Excessive Sweating, Intolerance to Cold Hematology/Lymphatic: denies: Easily Bruised, Excessive Bleeding Psychiatric: denies: Altered Sleep Pattern, Anxiety, Depression Physical Examination Vital Signs: Vital Signs Temperature 98.7 F 03/27/17 09:00 Pulse Rate 66 03/27/17 09:00 Respiratory Rate 18 03/27/17 09:00 Blood Pressure 97/44 03/27/17 09:00 O2 Sat by Pulse Oximetry (%) Constitutional: Yes: No Distress, Calm Eyes: Yes: Conjunctiva Clear, EOM Intact, PERRL Neck: Yes: Trachea Midline. No: Lymphadenopathy Cardiovascular: Yes: Regular Rate and Rhythm, S1, S2 Respiratory: Yes: Regular, CTA Bilaterally. No: Rales Gastrointestinal: Yes: Normal Bowel Sounds, Soft. No: Tenderness ...Rectal Exam: Yes: Deferred Musculoskeletal: No: Back Pain, Joint Stiffness, Joint Swelling Edema: LLE: 1+, RLE: 1+ Integumentary: No: Jaundice, Rash Neurological: Yes: Alert, Oriented. No: Cran Nerves II-XII Intact Psychiatric: Yes: Alert, Oriented Labs: CBC, BMP 03/27/17 06:00 03/27/17 06:00 Imaging - Results Chest X-ray: Report Reviewed Cat Scan: Report Reviewed Problem List - Problems (1) Anemia Assessment/Plan: secondary to GIB; pt didn't follow up with Dr. Keren Bunch for capsule endoscopy , in an attempt to localize source of bleeding and treat. Code(s): D64.9 - ANEMIA, UNSPECIFIED Qualifiers: Iron deficiency anemia type: chronic blood loss (2) GI bleed Code(s): K92.2 - GASTROINTESTINAL HEMORRHAGE, UNSPECIFIED Qualifiers: GI bleed type/associated pathology: angiodysplasia of stomach and duodenum Qualified Code(s): K31.811 - Angiodysplasia of stomach and duodenum with bleeding (3) Acute renal failure Assessment/Plan: secondary to kidney hupoperfusion, secondary to GIB Code(s): N17.9 - ACUTE KIDNEY FAILURE, UNSPECIFIED Qualifiers: Acute renal failure type: unspecified Qualified Code(s): N17.9 - Acute kidney failure, unspecified (4) Liver cirrhosis Code(s): K74.60 - UNSPECIFIED CIRRHOSIS OF LIVER Qualifiers: Hepatic cirrhosis type: alcoholic cirrhosis Ascites presence: with ascites Qualified Code(s): K70.31 - Alcoholic cirrhosis of liver with ascites (5) Ascites Code(s): R18.8 - OTHER ASCITES Qualifiers: Ascites type: other type Qualified Code(s): R18.8 - Other ascites (6) A-fib Assessment/Plan: Coumadin is on hold secondary to GIB Code(s): I48.91 - UNSPECIFIED ATRIAL FIBRILLATION Qualifiers: Atrial fibrillation type: paroxysmal Qualified Code(s): I48.0 - Paroxysmal atrial fibrillation (7) Diabetes mellitus Code(s): E11.9 - TYPE 2 DIABETES MELLITUS WITHOUT COMPLICATIONS Qualifiers: Diabetes mellitus type: type 2 Diabetes mellitus complication status: without complication Diabetes mellitus correction insulin use: without correction use Qualified Code(s): E11.9 - Type 2 diabetes mellitus without complications Assessment/Plan Transfuse PRBC Monitor H/H, renal function. Lasix and spironolactone on hold for now, given ARF. Consider GI and Renal Consult AM labs
[2017-03-27 15:26] LABS: URINE APPEARANCE CLEAR; URINE BILIRUBIN NEGATIVE (NEGATIVE); URINE BLOOD 2+ (NEGATIVE); URINE COLOR DKYELLOW; URINE GLUCOSE (UA) NEGATIVE (NEGATIVE); URINE KETONE NEGATIVE (NEGATIVE); URINE LEUK ESTERASE NEGATIVE (NEGATIVE); URINE NITRITE NEGATIVE (NEGATIVE); URINE PROTEIN NEGATIVE (NEGATIVE); URINE UROBILINOGEN 4.0 E.U/dl mg/dL (0.2-1.0)
[2017-03-27 15:31] LABS: URINE MUCUS RARE; URINE RBC 88 /hpf (0-3); URINE WBC 2 /hpf (3-5)
--- NOTE | 2017-03-27 16:34 | EKG ---
Test Reason : Blood Pressure : / mmHG Vent. Rate : 069 BPM Atrial Rate : 069 BPM P-R Int : 180 ms QRS Dur : 092 ms QT Int : 448 ms P-R-T Axes : 000 103 146 degrees QTc Int : 480 ms SINUS RHYTHM WITH PREMATURE ATRIAL COMPLEXES RIGHTWARD AXIS INCOMPLETE RIGHT BUNDLE BRANCH BLOCK ABNORMAL ECG WHEN COMPARED WITH ECG OF 12-FEB-2017 21:41, PREMATURE ATRIAL COMPLEXES ARE NOW PRESENT QRS AXIS SHIFTED RIGHT ST ELEVATION HAS REPLACED ST DEPRESSION IN INFERIOR LEADS Confirmed by KAI HERNDON MD ([id number]) on 03/27/2017 4:34:32 PM Referred By: Confirmed By:KAI HERNDON MD
[2017-03-27] MEDS: ATORVASTATIN CA 20 MG TABLET (FP) PO SCH (23:10)
[2017-03-28 00:24] LABS: MCH 24.2 pg (25.7-33.7); MCHC 32.9 g/dl (32.0-35.9); MEAN CELL VOLUME 73.5 fl (80-96); MEAN PLT VOLUME 8.3 fl (7.5-11.1); PLATELET COUNT 174 K/MM3 (134-434); RDW 23.6 % (11.9-15.9); WHITE BLOOD COUNT 8.2 K/mm3 (4.0-10.0)
[2017-03-28] MEDS: SODIUM CHLORIDE 1,000 ML IV SCH ×3 (06:43→23:13)
[2017-03-28] MEDS: METOPROLOL SUCCINATE 25 MG TAB.SR.24H (FP) PO SCH ×2 (06:43→18:19)
[2017-03-28] MEDS: INSULIN SLIDING SCALE (NOVOLOG) 1 VIAL SQ SCH ×4 (06:49→23:13)
[2017-03-28 07:38] LABS: MCH 24.4 pg (25.7-33.7); MCHC 33.1 g/dl (32.0-35.9); MEAN CELL VOLUME 73.7 fl (80-96); MEAN PLT VOLUME 8.7 fl (7.5-11.1); PLATELET COUNT 174 K/MM3 (134-434); RDW 22.9 % (11.9-15.9); WHITE BLOOD COUNT 7.6 K/mm3 (4.0-10.0)
[2017-03-28 08:01] LABS: ALBUMIN 1.5 g/dl (3.4-5.0); ANION GAP 7 (8-16); CALCIUM 7.5 mg/dL (8.5-10.1); CO2 23 mmol/L (21-32); GLUCOSE,RANDOM 72 mg/dL (74-106)
[2017-03-28 08:04] LABS: ALK PHOS 178 U/L (45-117); BILIRUBIN,TOTAL 2.9 mg/dL (0.2-1.0); CREATININE 1.5 mg/dL (0.7-1.3); SGOT/AST 27 U/L (15-37); SGPT/ALT 11 U/L (12-78); TOT PROT 5.7 g/dl (6.4-8.2)
[2017-03-28] MEDS: FERROUS SO4 325 MG TABLET (FP) PO SCH ×2 (08:37→17:15)
[2017-03-28] MEDS ORDERED: INSULIN (NOVOLOG) ASPART 100 UNITS/ML 10ML VIAL ONE (10:17)
--- NOTE | 2017-03-28 10:30 | PN ---
Progress Note, Physician History of Present Illness: Pt with blood in stool this AM. Pt w/o SOB, CP, palp, abd pain, N, V. - Current Medication List Current Medications: Active Medications Ascorbic Acid (Vitamin C -) 500 mg PO DAILY [facility] Last Admin: 03/27/17 10:00 Dose: 500 mg Atorvastatin Calcium (Lipitor -) 20 mg PO HS [facility] Last Admin: 03/27/17 23:10 Dose: 20 mg Ferrous Sulfate (Feosol -) 325 mg PO BIDWM [facility] Last Admin: 03/28/17 08:37 Dose: 325 mg Sodium Chloride (Normal Saline -) 1,000 mls @ 100 mls/hr IV ASDIR [facility] Last Admin: 03/28/17 06:43 Dose: 100 mls/hr Insulin Aspart (Novolog Vial Sliding Scale -) 1 vial SQ ACHS [facility] PRN Reason: Protocol Last Admin: 03/28/17 06:49 Dose: Not Given Metoprolol Succinate (Toprol Xl -) 25 mg PO BID@06,18 [facility] Last Admin: 03/28/17 06:43 Dose: Not Given - Objective Vital Signs: Vital Signs Temperature 98.4 F 03/28/17 06:00 Pulse Rate 58 L 03/28/17 06:45 Respiratory Rate 18 03/28/17 06:00 Blood Pressure 100/50 03/28/17 06:45 O2 Sat by Pulse Oximetry (%) 93 L 03/27/17 21:00 Constitutional: Yes: No Distress, Calm Cardiovascular: Yes: Regular Rate and Rhythm, S1, S2 Respiratory: Yes: Regular, CTA Bilaterally. No: Rales Gastrointestinal: Yes: Normal Bowel Sounds, Soft, Abdomen, Obese. No: Tenderness Edema: LLE: 1+, RLE: 1+ Neurological: Yes: Alert, Oriented Labs: CBC, BMP 03/28/17 06:00 03/28/17 06:00 INR, PTT INR 1.39 (0.82-1.09) H 03/26/17 15:30 Problem List - Problems (1) Anemia Code(s): D64.9 - ANEMIA, UNSPECIFIED Qualifiers: Iron deficiency anemia type: chronic blood loss (2) GI bleed Code(s): K92.2 - GASTROINTESTINAL HEMORRHAGE, UNSPECIFIED Qualifiers: GI bleed type/associated pathology: angiodysplasia of stomach and duodenum Qualified Code(s): K31.811 - Angiodysplasia of stomach and duodenum with bleeding (3) Acute renal failure Code(s): N17.9 - ACUTE KIDNEY FAILURE, UNSPECIFIED Qualifiers: Acute renal failure type: unspecified Qualified Code(s): N17.9 - Acute kidney failure, unspecified (4) Liver cirrhosis Code(s): K74.60 - UNSPECIFIED CIRRHOSIS OF LIVER Qualifiers: Hepatic cirrhosis type: alcoholic cirrhosis Ascites presence: with ascites Qualified Code(s): K70.31 - Alcoholic cirrhosis of liver with ascites (5) Ascites Code(s): R18.8 - OTHER ASCITES Qualifiers: Ascites type: other type Qualified Code(s): R18.8 - Other ascites (6) A-fib Code(s): I48.91 - UNSPECIFIED ATRIAL FIBRILLATION Qualifiers: Atrial fibrillation type: paroxysmal Qualified Code(s): I48.0 - Paroxysmal atrial fibrillation (7) Diabetes mellitus Code(s): E11.9 - TYPE 2 DIABETES MELLITUS WITHOUT COMPLICATIONS Qualifiers: Diabetes mellitus type: type 2 Diabetes mellitus complication status: without complication Diabetes mellitus longterm insulin use: without long term care pharmacist use Qualified Code(s): E11.9 - Type 2 diabetes mellitus without complications Assessment/Plan s/p PRBC Tx Monitor H/H, renal function. Lasix and spironolactone on hold for now, given ARF. GI and Renal Consult AM labs
[2017-03-28] MEDS: ASCORBIC ACID 500 MG TABLET (FP) PO SCH (10:40)
--- NOTE | 2017-03-28 11:34 | CON.NEP ---
Consult Consult Specialty:: Nephrology ([place]) Referred by:: Dr. Sharp Reason for Consultation:: acute kidney injury - History of Present Illness Chief Complaint: s/p Fall and weakness History of Present Illness: This is a 81 year old gentleman with PMhx of Afib, DM with diabetic neuropathy, BOH, Hypertension, hyperlipidemia who presented s/p mechanical fall at home with weakness and found to have acute on chronic anemia with EMERALD with of 2 on presentation. Pt states he feel whiel going to the bathroom and spent 5 hours on the floor. No N/V/D. No NSAID use. + dark urines. No flank pain, chest pain sob, fever, chills. Pt se/p recent admission for Anemia from GI bleed and found to have angiodysplasia on the Colonoscopy w/o active bleeding. - History Source History Provided By: Patient Limitations to Obtaining History: No Limitations - Past Medical History Cardio/Vascular: Yes: AFIB (off Coumadin secondary to GIB, pending capsule endoscopy), CAD, HTN, Hyperlipdemia Renal/: Yes: BPH Endocrine: Yes: Diabetes Mellitus - Past Surgical History Past Surgical History: Yes: None - Alcohol/Substance Use Hx Alcohol Use: No History of Substance Use: reports: None - Smoking History Smoking history: Former smoker Have you smoked in the past 12 months: No Aproximately how many cigarettes per day: 0 If you are a former smoker, when did you quit?: 1990 - Social History Occupation: retired from [employer] History of Recent Travel: No Home Medications - Allergies Allergies/Adverse Reactions: Allergies Allergy/AdvReac Type Severity Reaction Status Date / Time No Known Allergies Allergy Verified 02/12/17 19:31 - Home Medications Home Medications: Ambulatory Orders Ascorbic Acid [Vitamin C -] 500 mg PO DAILY tablet 02/24/17 Atorvastatin Ca [Lipitor] 20 mg PO HS tablet 02/24/17 Ferrous Sulfate [Feosol] 325 mg PO BIDWM #60 tablet 02/24/17 Furosemide [Lasix -] 40 mg PO DAILY tablet 02/24/17 Metoprolol Succinate [Toprol XL -] 25 mg PO BID@ #60 tablet 02/24/17 Spironolactone 50 mg PO DAILY 03/26/17 Family Disease History - Family Disease History Family History: Unremarkable Family Disease History: Other: Father (did not know his biological father), Mother (: 80 [place]), Daughter (healthy) Review of Systems - Review of Systems Constitutional: reports: Weakness. denies: Chills, Fever, Lethargy, Loss of Appetite, Malaise Eyes: reports: No Symptoms HENT: reports: No Symptoms Neck: reports: No Symptoms Cardiovascular: denies: Chest Pain, Edema, Palpitations, Shortness of Breath Respiratory: denies: Cough, Hemoptysis, Orthopnea, Snoring, SOB, SOB on Exertion , Wheezing Gastrointestinal: denies: Abdominal Pain, Constipation, Diarrhea, Melena, Nausea , Vomiting Blood Genitourinary: reports: Other (dark urine). denies: Dysuria, Flank Pain, Hematuria Musculoskeletal: reports: Joint Pain Neurological: reports: No Symptoms Endocrine: reports: No Symptoms Nephrology Consult - Height Height: 5 ft 10 in - Weight Weight: 171 lb - BMI Body Mass Index (BMI): 24.5 - Lab Results CBC,BMP: CBC, BMP 03/28/17 06:00 03/28/17 06:00 Anion Gap: Anion Gap Anion Gap 7 (8-16) L 03/28/17 06:00 - Imaging Chest X-ray: Report Reviewed X-ray: Report Reviewed - Physical Examination Vital Signs: Vital Signs Temperature 98.4 F 03/28/17 06:00 Pulse Rate 58 L 03/28/17 06:45 Respiratory Rate 18 03/28/17 06:00 Blood Pressure 100/50 03/28/17 06:45 O2 Sat by Pulse Oximetry (%) 93 L 03/27/17 21:00 Constitutional: Yes: Well Nourished, No Distress, Calm Eyes: Yes: Conjunctiva Clear HENT: Yes: Atraumatic Neck: Yes: Supple Cardiovascular: Yes: Pulse Irregular. No: Murmur, Rub Respiratory: Yes: Regular, CTA Bilaterally. No: Rales, Rhonchi, Wheezes Gastrointestinal: Yes: Normal Bowel Sounds, Soft. No: Hepatomegaly, Splenomegaly, Tenderness, Epigastrium, Tenderness, Rebound Renal/: No: Anuria, Bladder Distention, CVA Tenderness - Left, CVA Tenderness - Right, Smith Present Extremities: No: Cold, Cool, Cyanosis Edema: Yes Edema: LLE: Trace, RLE: 1+ Neurological: Yes: Alert, Oriented Problem List - Problems (1) Acute renal failure Code(s): N17.9 - ACUTE KIDNEY FAILURE, UNSPECIFIED Qualifiers: Acute renal failure type: unspecified Qualified Code(s): N17.9 - Acute kidney failure, unspecified (2) Fall Code(s): W19.XXXA - UNSPECIFIED FALL, INITIAL ENCOUNTER (3) Acute blood loss anemia Code(s): D62 - ACUTE POSTHEMORRHAGIC ANEMIA (4) A-fib Code(s): I48.91 - UNSPECIFIED ATRIAL FIBRILLATION Qualifiers: Atrial fibrillation type: paroxysmal Qualified Code(s): I48.0 - Paroxysmal atrial fibrillation (5) Angiodysplasia of colon without bleeding Code(s): K55.20 - ANGIODYSPLASIA OF COLON WITHOUT HEMORRHAGE Assessment/Plan 81 year old gentleman with PMhx of Afib, DM with diabetic neuropathy, BOH, Hypertension, hyperlipidemia who presented s/p mechanical fall at home with weakness and found to have acute on chronic anemia with EMERALD with of 2 on presentation. #Acute kidney injury likey due to renal hypoperfusion in setting of Anemia Renal function improved with PRBC transfusion and IVF continue isotonic saline for at least 24 hours baseline Cr is 1-1.2 avoid NSAIDS keep Hgb > 8 no ADALID/ARB at this time as pt is recovering from EMERALD Dose all meds for Cr Cl less then 50 #s/p FAll CT head showed no bleed fall percautions physical therapy #Acute on Chronic Anemia stool occult blood negative MCV is low was pending capsule endoscopy as outpatient GI Follow up Transfuse as needed to keep Hgb > 8 #Hypertension/Afib continue Metoprolol ? future A/c because of risk of bleeding Thank you Will follow Dwayne Rausch DO
--- NOTE | 2017-03-28 14:33 | CON.GI ---
Consult Consult Specialty:: Gastroenterology Referred by:: Dr. Tarik Sharp Reason for Consultation:: Blood in stool - History of Present Illness Chief Complaint: Blood in stool, anemia, weakness History of Present Illness: Called to see a 81 year old male for presence of blood in his stool this am. Patient said he did not see the blood in the stool but was told. He came in by ambulance 2 days ago after he fell and could not get up for weakness. 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 He was referred for capsular endoscopy but was too weak to go before the current admission. There is no n/v, no previous episode of bloody stools. The stool is not mucoid and there is no abdominal pain. No chills or fever, no dysphagia, no dyspepsia, or loss of appetite. The patient has had a persistently large abdomen for the past 20yrs that was so marked at the last admission that he had abdominal paracentesis, which did not show malignancy. He denies a history of liver disease. - History Source History Provided By: Patient Limitations to Obtaining History: No Limitations - Past Medical History Cardio/Vascular: Yes: AFIB (off Coumadin secondary to GIB, pending capsule endoscopy), CAD, HTN, Hyperlipdemia Pulmonary: Yes: Other (seasonal allergies not on treatment) Gastrointestinal: Yes: Ascites (Had parecentesis last visit), Diverticulosis, Hemorrhoids, Hiatal Hernia, Other (Vascular ectasias ) Hepatobiliary: Yes: Hepatitis A Renal/: Yes: Renal Inusuff (CKD), BPH Heme/Onc: Yes: Anemia (Had 2 units of blood yesterday) Musculoskeletal: Yes: Chronic low back pain Endocrine: Yes: Diabetes Mellitus (controlled on diet) - Past Surgical History Past Surgical History: Yes: None, Cataract Removal - Alcohol/Substance Use Hx Alcohol Use: Yes (2-3 beer a week) History of Substance Use: reports: None - Smoking History Smoking history: Former smoker (Former 4 pack/day smoker for 20years) Have you smoked in the past 12 months: No Aproximately how many cigarettes per day: 0 If you are a former smoker, when did you quit?: 1990 - Social History Usual Living Arrangement: Alone ADL: Independent Occupation: retired from [employer] Place of : [facility] History of Recent Travel: No Home Medications - Allergies Allergies/Adverse Reactions: Allergies Allergy/AdvReac Type Severity Reaction Status Date / Time No Known Allergies Allergy Verified 02/12/17 19:31 - Home Medications Home Medications: Ambulatory Orders Ascorbic Acid [Vitamin C -] 500 mg PO DAILY tablet 02/24/17 Atorvastatin Ca [Lipitor] 20 mg PO HS tablet 02/24/17 Ferrous Sulfate [Feosol] 325 mg PO BIDWM #60 tablet 02/24/17 Furosemide [Lasix -] 40 mg PO DAILY tablet 02/24/17 Metoprolol Succinate [Toprol XL -] 25 mg PO BID@ #60 tablet 02/24/17 Spironolactone 50 mg PO DAILY 03/26/17 Family Disease History - Family Disease History Family Disease History: Other: Father (did not know his biological father), Mother (: 80 [place]), Daughter (healthy) Review of Systems - Review of Systems Constitutional: reports: Weakness, Other (Episodic orthostatic symptoms leading to falls) Respiratory: reports: Cough (dry non productive cough) Gastrointestinal: reports: Bloating, Other (early satiety) Genitourinary: reports: No Symptoms Musculoskeletal: reports: Back Pain Physical Exam-GI Vital Signs: Vital Signs Temperature 97.4 F L 03/28/17 10:00 Pulse Rate 63 03/28/17 10:00 Respiratory Rate 18 03/28/17 10:00 Blood Pressure 77/45 03/28/17 10:00 O2 Sat by Pulse Oximetry (%) 93 L 03/27/17 21:00 CBC,CMP WBC 7.6 K/mm3 (4.0-10.0) 03/28/17 06:00 RBC 3.52 M/mm3 (4.00-5.60) L 03/28/17 06:00 Hgb 8.6 GM/dL (11.7-16.9) L 03/28/17 06:00 Hct 26.0 % (35.4-49) L 03/28/17 06:00 MCV 73.7 fl (80-96) L 03/28/17 06:00 MCH 24.4 pg (25.7-33.7) L 03/28/17 06:00 MCHC 33.1 g/dl (32.0-35.9) 03/28/17 06:00 RDW 22.9 % (11.9-15.9) H 03/28/17 06:00 Plt Count 174 K/MM3 (134-434) 03/28/17 06:00 MPV 8.7 fl (7.5-11.1) 03/28/17 06:00 Neutrophils % 76.7 % (42.8-82.8) D 03/26/17 15:30 Lymphocytes % 13.9 % (8-40) D 03/26/17 15:30 Monocytes % 9.0 % (3.8-10.2) 03/26/17 15:30 Eosinophils % 0.1 % (0-4.5) D 03/26/17 15:30 Basophils % 0.3 % (0-2.0) 03/26/17 15:30 Platelet Estimate Adequate (NORMAL) 03/26/17 15:30 Polychromasia 1+ 03/26/17 15:30 Hypochromic-Microcytic 2+ 03/27/17 06:00 Poikilocytosis 1+ 03/26/17 15:30 Basophilic Stippling Few 03/26/17 15:30 Anisocytosis 2+ 03/27/17 06:00 Microcytosis 1+ 03/27/17 06:00 Macrocytosis 1+ 03/26/17 15:30 Target Cells 2+ 03/27/17 06:00 Tear Drop Cells 1+ 03/26/17 15:30 Ovalocytes 1+ 03/26/17 15:30 Morphology Comment Slide scanned 03/26/17 15:30 Sodium 142 mmol/L (136-145) 03/28/17 06:00 Potassium 4.2 mmol/L (3.5-5.1) 03/28/17 06:00 Chloride 112 mmol/L (98-107) H 03/28/17 06:00 Carbon Dioxide 23 mmol/L (21-32) 03/28/17 06:00 Anion Gap 7 (8-16) L 03/28/17 06:00 BUN 25 mg/dL (7-18) H 03/28/17 06:00 Creatinine 1.5 mg/dL (0.7-1.3) H 03/28/17 06:00 Creat Clearance w eGFR 45.14 (>60) 03/28/17 06:00 POC Glucometer 94 UNITS (()) 03/28/17 11:38 Random Glucose 72 mg/dL (74-106) L 03/28/17 06:00 Lactic Acid 1.8 mmol/L (0.4-2.0) 03/27/17 06:00 Calcium 7.5 mg/dL (8.5-10.1) L 03/28/17 06:00 Total Bilirubin 2.9 mg/dL (0.2-1.0) H D 03/28/17 06:00 AST 27 U/L (15-37) 03/28/17 06:00 ALT 11 U/L (12-78) L 03/28/17 06:00 Alkaline Phosphatase 178 U/L (45-117) H 03/28/17 06:00 Creatine Kinase 48 IU/L (39-308) 03/26/17 15:30 Troponin I 0.04 ng/ml (0.00-0.05) D 03/26/17 15:30 Total Protein 5.7 g/dl (6.4-8.2) L 03/28/17 06:00 Albumin 1.5 g/dl (3.4-5.0) L 03/28/17 06:00 Current Medications Generic Name Dose Route Start Last Admin Trade Name Elysia PRN Reason Stop Dose Admin Ascorbic Acid 500 mg 03/27/17 10:00 03/28/17 10:40 Vitamin C - PO 500 mg DAILY GLORIA Administration Atorvastatin Calcium 20 mg 03/27/17 22:00 03/27/17 23:10 Lipitor - PO 20 mg HS GLORIA Administration Ferrous Sulfate 325 mg 03/27/17 08:00 03/28/17 08:37 Feosol - PO 325 mg BIDWM GLORIA Administration Sodium Chloride 1,000 mls @ 100 mls/hr 03/26/17 22:00 03/28/17 06:43 Normal Saline - IV 100 mls/hr ASDIR GLORIA Administration Insulin Aspart 1 vial 03/27/17 07:00 03/28/17 11:40 Novolog Vial Sliding Scale - SQ Not Given ACHS [facility] Protocol Metoprolol Succinate 25 mg 03/27/17 06:00 03/28/17 06:43 Toprol Xl - PO Not Given BID@ GLORIA Constitutional: Yes: Calm Eyes: Yes: Conjunctiva Clear HENT: Yes: WNL Cardiovascular: Yes: Pulse Irregular, S1, S2 Respiratory: Yes: Regular, CTA Bilaterally Gastrointestinal Inspection: Yes: Distention (visibly dilated veins) ...Auscultate: Yes: Normoactive Bowel Sounds, Other ...Palpate: Yes: Firm/Rigid, Other (Non tender, no guarding, no palpable mass) ...Percussion: Yes: Dullness ...Rectal Exam: Yes: Guaiac Trace, Other (Prostate ++, firm, mobile, no nodules , no rectal masses) Edema: LLE: 1+ (up to mid mena ), RLE: 1+ Labs: CBC, BMP 03/28/17 06:00 03/28/17 06:00 INR, PTT INR 1.39 (0.82-1.09) H 03/26/17 15:30 Assessment/Plan 1. Anemia: Given the only weakly positive stool guaic it is difficult to attribute all of the pt anemia to his suspected vascular ectasias or other foci of GI bleeding. Given his previously noted low retic count in the presence of adeq iron, vit B and folate stores, a suppressed BM due to : alcohol usage, anemia of chronic disease, Myelodysplastic syndrome, Multiple myeloma, need to be considered. Hemolysis also needs to be excluded. There are no obvious large ecchymosis or flank hematomas to suggest losses into these areas. Plan: 1. SPEP/IPEP 2. Haptoglobulin 3. LDH 4. Indirect bilirubin 5. Consider hematology consult 6. Pt should again be referred for capsular endoscopy upon discharge 2. Abdominal distension Plan: Will order: 1. FUA and Abd US to exclude ascites or bowel obstruction 2. Fibrosure Alcohol 3.Echocardiogram R/O core pulmonale and congestive hepatopathy 4. Hepatic doppler to view hepatic veins R/O Budd Chiari ATTENDING PHYSICIAN STATEMENT I saw and evaluated the patient. I reviewed the resident's note and discussed the case with the resident. I agree with the resident's findings and plan as documented. SUBJECTIVE: Garry denies any overt bleeding or usage of NSAIDs OBJECTIVE: Lung: clear Cor: RR, nl S1S2 Abd: distended but soft, BS normoactive, non tender Rectal : trace guaiac positive stool, no masses ASSESSMENT AND PLAN: There is no obvious brisk enough GI bleeding to readily account for Mika anemia. Please see above discussion
[2017-03-28] MEDS: ATORVASTATIN CA 20 MG TABLET (FP) PO SCH (23:12)
[2017-03-29] MEDS: INSULIN SLIDING SCALE (NOVOLOG) 1 VIAL SQ SCH ×4 (06:41→21:46)
[2017-03-29] MEDS: METOPROLOL SUCCINATE 25 MG TAB.SR.24H (FP) PO SCH ×2 (06:50→17:15)
[2017-03-29] MEDS: SODIUM CHLORIDE 1,000 ML IV SCH (06:57)
[2017-03-29 08:21] LABS: FIBROSURE ASH COMMENT SEE FILE COPY
[2017-03-29 08:33] LABS: EOSINOPHIL 4.5 % (0-4.5); MCH 24.5 pg (25.7-33.7); MCHC 33.5 g/dl (32.0-35.9); MEAN CELL VOLUME 73.3 fl (80-96); MEAN PLT VOLUME 7.9 fl (7.5-11.1); PLATELET COUNT 183 K/MM3 (134-434); RDW 23.5 % (11.9-15.9); WHITE BLOOD COUNT 7.4 K/mm3 (4.0-10.0)
[2017-03-29 08:59] LABS: ALBUMIN 1.5 g/dl (3.4-5.0); ANION GAP 8 (8-16); CO2 22 mmol/L (21-32)
[2017-03-29 09:05] LABS: ALK PHOS 203 U/L (45-117); BILIRUBIN,DIRECT 0.8 mg/dL (0.0-0.2); BILIRUBIN,TOTAL 1.9 mg/dL (0.2-1.0); CREATININE 1.3 mg/dL (0.7-1.3); GLUCOSE,RANDOM 72 mg/dL (74-106); LDH 132 U/L (87-241); MAGNESIUM 1.8 mg/dL (1.8-2.4); PHOSPHOROUS 2.4 mg/dL (2.5-4.9); SGOT/AST 28 U/L (15-37); SGPT/ALT 14 U/L (12-78); TOT PROT 6.1 g/dl (6.4-8.2)
[2017-03-29] MEDS: FERROUS SO4 325 MG TABLET (FP) PO SCH ×2 (09:22→17:15)
[2017-03-29] MEDS: ASCORBIC ACID 500 MG TABLET (FP) PO SCH (09:24)
--- NOTE | 2017-03-29 10:45 | PN ---
Progress Note, Physician Chief Complaint: This is a 81 year old gentleman with PMhx of Afib, DM with diabetic neuropathy, Hypertension, hyperlipidemia who presented with h/o fall at home with weakness and found to have acute on chronic anemia with EMERALD The patient has Angiodysplasia of the colon. The patient had Xrays this morning. Reports that he had a gutierrez bowel movement, dark stools. No overt bleeding. No chest pains, or SOB. - Current Medication List Current Medications: Active Medications Ascorbic Acid (Vitamin C -) 500 mg PO DAILY [facility] Last Admin: 03/29/17 09:24 Dose: 500 mg Atorvastatin Calcium (Lipitor -) 20 mg PO HS [facility] Last Admin: 03/28/17 23:12 Dose: 20 mg Ferrous Sulfate (Feosol -) 325 mg PO BIDWM [facility] Last Admin: 03/29/17 09:22 Dose: 325 mg Sodium Chloride (Normal Saline -) 1,000 mls @ 100 mls/hr IV ASDIR [facility] Last Admin: 03/29/17 06:57 Dose: 100 mls/hr Insulin Aspart (Novolog Vial Sliding Scale -) 1 vial SQ ACHS [facility] PRN Reason: Protocol Last Admin: 03/29/17 06:41 Dose: Not Given Metoprolol Succinate (Toprol Xl -) 25 mg PO BID@06,18 [facility] Last Admin: 03/29/17 06:50 Dose: Not Given - Objective Vital Signs: Vital Signs Temperature 98.1 F 03/29/17 06:00 Pulse Rate 64 03/29/17 06:00 Respiratory Rate 18 03/29/17 06:00 Blood Pressure 117/66 03/29/17 06:00 O2 Sat by Pulse Oximetry (%) 93 L 03/28/17 21:00 Constitutional: Yes: No Distress, Calm, Pallor Eyes: Yes: Conjunctiva Clear HENT: Yes: Normocephalic Neck: Yes: Trachea Midline Cardiovascular: Yes: S1, S2 Respiratory: Yes: CTA Bilaterally Gastrointestinal: Yes: Normal Bowel Sounds, Soft Edema: Yes Edema: LLE: 1+, RLE: 1+ Neurological: Yes: Alert, Oriented Labs: CBC, BMP 03/29/17 06:55 03/29/17 06:55 INR, PTT INR 1.39 (0.82-1.09) H 03/26/17 15:30 Problem List - Problems (1) Acute blood loss anemia Code(s): D62 - ACUTE POSTHEMORRHAGIC ANEMIA (2) Acute renal failure Code(s): N17.9 - ACUTE KIDNEY FAILURE, UNSPECIFIED Qualifiers: Acute renal failure type: unspecified Qualified Code(s): N17.9 - Acute kidney failure, unspecified (3) A-fib Code(s): I48.91 - UNSPECIFIED ATRIAL FIBRILLATION Qualifiers: Atrial fibrillation type: paroxysmal Qualified Code(s): I48.0 - Paroxysmal atrial fibrillation (4) Anemia Code(s): D64.9 - ANEMIA, UNSPECIFIED Qualifiers: Iron deficiency anemia type: chronic blood loss (5) CAD (coronary artery disease) Code(s): I25.10 - ATHSCL HEART DISEASE OF [place] CORONARY ARTERY W/O ANG PCTRS Qualifiers: Coronary Disease-Associated Artery/Lesion type: [place] artery [place] vs. transplanted heart: [place] heart Associated angina: without angina Qualified Code(s): I25.10 - Atherosclerotic heart disease of [place] coronary artery without angina pectoris (6) Diabetes mellitus Code(s): E11.9 - TYPE 2 DIABETES MELLITUS WITHOUT COMPLICATIONS Qualifiers: Diabetes mellitus type: type 2 Diabetes mellitus complication status: without complication Diabetes mellitus moth exterminator insulin use: without moth exterminator use Qualified Code(s): E11.9 - Type 2 diabetes mellitus without complications (7) Edema extremities Code(s): R60.0 - LOCALIZED EDEMA Assessment/Plan This is a 81 year old gentleman with PMhx of Afib, DM with diabetic neuropathy, BOH, Hypertension, hyperlipidemia who presented with Lower GI bleeding and Abnormal renal functions. The Acute Kidney failure due to Hypoperfusion of the kidneys in the setting of blood loss,and anemia. Plan: GI w/u as in progress. Cautious IV hydration. IV fluids modified. Will monitor the renal functions with you. Thanks you. Danae Correa MD
[2017-03-29] MEDS: D5-1/2NS+40 MEQ KCL - 1,000 ML IV SCH ×2 (11:41→13:57)
--- NOTE | 2017-03-29 12:40 | PN ---
Progress Note, Physician History of Present Illness: Pt with black stool this AM. Pt w/o SOB, CP, palp, abd pain, N, V. - Current Medication List Current Medications: Active Medications Ascorbic Acid (Vitamin C -) 500 mg PO DAILY [facility] Last Admin: 03/29/17 09:24 Dose: 500 mg Atorvastatin Calcium (Lipitor -) 20 mg PO HS [facility] Last Admin: 03/28/17 23:12 Dose: 20 mg Ferrous Sulfate (Feosol -) 325 mg PO BIDWM [facility] Last Admin: 03/29/17 09:22 Dose: 325 mg Dextrose/Sodium Chloride (D5-1/2ns+40 Meq Kcl -) 1,000 mls @ 60 mls/hr IV ASDIR [facility] Last Admin: 03/29/17 11:41 Dose: 60 mls/hr Insulin Aspart (Novolog Vial Sliding Scale -) 1 vial SQ ACHS [facility] PRN Reason: Protocol Last Admin: 03/29/17 11:36 Dose: Not Given Metoprolol Succinate (Toprol Xl -) 25 mg PO BID@,18 [facility] Last Admin: 03/29/17 06:50 Dose: Not Given - Objective Vital Signs: Vital Signs Temperature 97.4 F L 03/29/17 10:00 Pulse Rate 67 03/29/17 10:00 Respiratory Rate 18 03/29/17 10:00 Blood Pressure 132/86 03/29/17 10:00 O2 Sat by Pulse Oximetry (%) 93 L 03/28/17 21:00 Constitutional: Yes: No Distress, Calm Cardiovascular: Yes: Regular Rate and Rhythm, S1, S2 Respiratory: Yes: Regular, CTA Bilaterally. No: Rales Gastrointestinal: Yes: Normal Bowel Sounds, Soft, Distention Edema: LLE: 1+, RLE: 1+ Neurological: Yes: Alert, Oriented Labs: CBC, BMP 03/29/17 06:55 03/29/17 06:55 INR, PTT INR 1.39 (0.82-1.09) H 03/26/17 15:30 - ....Imaging X-ray: Report Reviewed Ultrasound: Report Reviewed Problem List - Problems (1) Anemia Code(s): D64.9 - ANEMIA, UNSPECIFIED Qualifiers: Iron deficiency anemia type: chronic blood loss (2) GI bleed Code(s): K92.2 - GASTROINTESTINAL HEMORRHAGE, UNSPECIFIED Qualifiers: GI bleed type/associated pathology: angiodysplasia of stomach and duodenum Qualified Code(s): K31.811 - Angiodysplasia of stomach and duodenum with bleeding (3) Acute renal failure Code(s): N17.9 - ACUTE KIDNEY FAILURE, UNSPECIFIED Qualifiers: Acute renal failure type: unspecified Qualified Code(s): N17.9 - Acute kidney failure, unspecified (4) Liver cirrhosis Code(s): K74.60 - UNSPECIFIED CIRRHOSIS OF LIVER Qualifiers: Hepatic cirrhosis type: alcoholic cirrhosis Ascites presence: with ascites Qualified Code(s): K70.31 - Alcoholic cirrhosis of liver with ascites (5) Ascites Code(s): R18.8 - OTHER ASCITES Qualifiers: Ascites type: other type Qualified Code(s): R18.8 - Other ascites (6) A-fib Code(s): I48.91 - UNSPECIFIED ATRIAL FIBRILLATION Qualifiers: Atrial fibrillation type: paroxysmal Qualified Code(s): I48.0 - Paroxysmal atrial fibrillation (7) Diabetes mellitus Code(s): E11.9 - TYPE 2 DIABETES MELLITUS WITHOUT COMPLICATIONS Qualifiers: Diabetes mellitus type: type 2 Diabetes mellitus complication status: without complication Diabetes mellitus petroleum terminal plant operator insulin use: without detention use Qualified Code(s): E11.9 - Type 2 diabetes mellitus without complications Assessment/Plan s/p PRBC Tx Lasix and spironolactone on hold for now, given ARF. GI and Renal Consult appreciated. Anemia workup in progress Monitor H/H, renal function. AM labs
[2017-03-29] MEDS: ATORVASTATIN CA 20 MG TABLET (FP) PO SCH (21:46)
[2017-03-30] MEDS: METOPROLOL SUCCINATE 25 MG TAB.SR.24H (FP) PO SCH ×2 (06:40→17:02)
[2017-03-30] MEDS: INSULIN SLIDING SCALE (NOVOLOG) 1 VIAL SQ SCH ×4 (06:42→21:54)
[2017-03-30 07:12] LABS: HAPTOGLOBIN 71 mg/dL (34-200)
[2017-03-30 08:39] LABS: ALBUMIN 1.4 g/dl (3.4-5.0)
[2017-03-30 08:43] LABS: ALK PHOS 202 U/L (45-117); ANION GAP 6 (8-16); BILIRUBIN,TOTAL 1.7 mg/dL (0.2-1.0); CALCIUM 7.9 mg/dL (8.5-10.1); CO2 23 mmol/L (21-32); CREATININE 1.3 mg/dL (0.7-1.3); GLUCOSE,RANDOM 81 mg/dL (74-106); SGOT/AST 27 U/L (15-37); SGPT/ALT 12 U/L (12-78); TOT PROT 5.7 g/dl (6.4-8.2)
[2017-03-30] MEDS ORDERED: PT OWN MED DRAWER 7, Y5N ONE (09:52)
[2017-03-30] MEDS: FERROUS SO4 325 MG TABLET (FP) PO SCH ×2 (09:58→17:02)
[2017-03-30] MEDS: ASCORBIC ACID 500 MG TABLET (FP) PO SCH (09:59)
[2017-03-30 10:08] LABS: BASOPHIL 1.4 % (0-2.0); EOSINOPHIL 4.5 % (0-4.5); MCH 24.1 pg (25.7-33.7); MCHC 32.7 g/dl (32.0-35.9); MEAN CELL VOLUME 73.7 fl (80-96); MEAN PLT VOLUME 7.7 fl (7.5-11.1); NEUTROPHILS 61.9 % (42.8-82.8); PLATELET COUNT 162 K/MM3 (134-434); RDW 24.3 % (11.9-15.9); WHITE BLOOD COUNT 6.8 K/mm3 (4.0-10.0)
[2017-03-30] MEDS: D5-1/2NS+40 MEQ KCL - 1,000 ML IV SCH (11:06)
--- NOTE | 2017-03-30 12:17 | PN ---
Progress Note, Physician History of Present Illness: Pt with black stool, less. Pt w/o SOB, CP, palp, abd pain, N, V. Pt with good appetite. - Current Medication List Current Medications: Active Medications Ascorbic Acid (Vitamin C -) 500 mg PO DAILY [facility] Last Admin: 03/30/17 09:59 Dose: 500 mg Atorvastatin Calcium (Lipitor -) 20 mg PO HS [facility] Last Admin: 03/29/17 21:46 Dose: 20 mg Ferrous Sulfate (Feosol -) 325 mg PO BIDWM [facility] Last Admin: 03/30/17 09:58 Dose: 325 mg Dextrose/Sodium Chloride (D5-1/2ns+40 Meq Kcl -) 1,000 mls @ 60 mls/hr IV ASDIR [facility] Last Admin: 03/30/17 11:06 Dose: 60 mls/hr Insulin Aspart (Novolog Vial Sliding Scale -) 1 vial SQ ACHS [facility] PRN Reason: Protocol Last Admin: 03/30/17 11:22 Dose: Not Given Metoprolol Succinate (Toprol Xl -) 25 mg PO BID@06,18 [facility] Last Admin: 03/30/17 06:40 Dose: 25 mg - Objective Vital Signs: Vital Signs Temperature 98.7 F 03/30/17 06:00 Pulse Rate 67 03/30/17 06:00 Respiratory Rate 18 03/30/17 06:00 Blood Pressure 119/79 03/30/17 06:00 O2 Sat by Pulse Oximetry (%) 93 L 03/29/17 21:00 Constitutional: Yes: No Distress, Calm Cardiovascular: Yes: Regular Rate and Rhythm, S1, S2 Respiratory: Yes: Regular, CTA Bilaterally. No: Rales Gastrointestinal: Yes: Normal Bowel Sounds, Soft, Distention. No: Tenderness Edema: LLE: 1+, RLE: 1+ Neurological: Yes: Alert, Oriented Labs: CBC, BMP 03/30/17 07:39 03/30/17 07:29 INR, PTT INR 1.39 (0.82-1.09) H 03/26/17 15:30 Problem List - Problems (1) Anemia Code(s): D64.9 - ANEMIA, UNSPECIFIED Qualifiers: Iron deficiency anemia type: chronic blood loss (2) GI bleed Code(s): K92.2 - GASTROINTESTINAL HEMORRHAGE, UNSPECIFIED Qualifiers: GI bleed type/associated pathology: angiodysplasia of stomach and duodenum Qualified Code(s): K31.811 - Angiodysplasia of stomach and duodenum with bleeding (3) Acute renal failure Code(s): N17.9 - ACUTE KIDNEY FAILURE, UNSPECIFIED Qualifiers: Acute renal failure type: unspecified Qualified Code(s): N17.9 - Acute kidney failure, unspecified (4) Liver cirrhosis Code(s): K74.60 - UNSPECIFIED CIRRHOSIS OF LIVER Qualifiers: Hepatic cirrhosis type: alcoholic cirrhosis Ascites presence: with ascites Qualified Code(s): K70.31 - Alcoholic cirrhosis of liver with ascites (5) Ascites Code(s): R18.8 - OTHER ASCITES Qualifiers: Ascites type: other type Qualified Code(s): R18.8 - Other ascites (6) A-fib Code(s): I48.91 - UNSPECIFIED ATRIAL FIBRILLATION Qualifiers: Atrial fibrillation type: paroxysmal Qualified Code(s): I48.0 - Paroxysmal atrial fibrillation (7) Diabetes mellitus Code(s): E11.9 - TYPE 2 DIABETES MELLITUS WITHOUT COMPLICATIONS Qualifiers: Diabetes mellitus type: type 2 Diabetes mellitus complication status: without complication Diabetes mellitus halfway insulin use: without dedicated intermodal truck driver use Qualified Code(s): E11.9 - Type 2 diabetes mellitus without complications Assessment/Plan s/p PRBC Tx Lasix and Spironolactone on hold for now, given ARF; ARF improved. Consider starting Spironolactone in AM. To stop IVF in the evening. GI and Renal Consult appreciated. Anemia workup in progress Monitor H/H, renal function. AM labs
[2017-03-30 12:21] LABS: HYPOCHROMIA FEW; PLATELET ESTIMATE ADEQUATE (NORMAL)
[2017-03-30 12:22] LABS: ANISOCYTOSIS 2+; MICROCYTOSIS 1+; TARGET CELLS FEW
--- NOTE | 2017-03-30 14:27 | PN ---
GI Progress Note Subjective: GI: Denies abdomial pain and is moving his bowels. Abdominal distension is due to large ascites seen on Doppler which does not reveal hepatic vein thrombosis. The liver does appear cirrhotic. - Objective Vital Signs: Vital Signs Temperature 98.7 F 03/30/17 06:00 Pulse Rate 67 03/30/17 06:00 Respiratory Rate 18 03/30/17 06:00 Blood Pressure 119/79 03/30/17 06:00 O2 Sat by Pulse Oximetry (%) 93 L 03/29/17 21:00 Laboratory Tests 03/28/17 03/28/17 03/29/17 00:05 06:00 06:55 Hgb 8.5 L D 8.6 L 9.6 L D Plt Count AST ALT Alkaline Phosphatase Albumin Tumor Marker AFP 03/29/17 03/30/17 03/30/17 06:55 07:29 07:39 Hgb 8.8 L Plt Count 162 AST 27 ALT 12 Alkaline Phosphatase 202 H Albumin 1.4 L Tumor Marker AFP Pending Constitutional: Calm Eyes: Yes: Conjunctiva Clear Gastrointestinal Inspection: Yes: Distention ...Auscultate: Yes: Normoactive Bowel Sounds ...Palpate: Yes: Soft, Other (nontender) ...Percussion: Yes: Tympanitic Labs: CBC, BMP 03/30/17 07:39 03/30/17 07:29 INR, PTT INR 1.39 (0.82-1.09) H 03/26/17 15:30 Laboratory Tests 02/13/17 02/14/17 02/14/17 20:00 05:00 05:00 Iron Saturation 99 H Ferritin 152.927 Peritoneal WBC Peritoneal RBC Peritoneal LDH Peritoneal Glucose Peritoneal Amylase Hep A IgM Ab Confirm Hepatitis A Ab Total Hep Bs Antigen Hep Bs Antibody Hep B Core Total Ab Hepatitis C Antibody 0.1 02/14/17 02/20/17 05:00 12:35 Iron Saturation Ferritin Peritoneal WBC 121 Peritoneal RBC 181 Peritoneal LDH 32 Peritoneal Glucose 172 Peritoneal Amylase 6 Hep A IgM Ab Confirm Negative Hepatitis A Ab Total Positive H Hep Bs Antigen Negative Hep Bs Antibody Non reactive Hep B Core Total Ab Negative Hepatitis C Antibody Assessment/Plan Abdominal distension due to ascites due to cirrhosis. Will start Aldactone and daily weights. Garry did drink alcohol earlier in his lifetime up to 10 beers a day. Denies IVDA or FH of liver disease. 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
[2017-03-30] MEDS: SPIRONOLACTONE 25 MG TABLET (FP) PO SCH (21:54)
[2017-03-30] MEDS: ATORVASTATIN CA 20 MG TABLET (FP) PO SCH (21:54)
[2017-03-31] MEDS: METOPROLOL SUCCINATE 25 MG TAB.SR.24H (FP) PO SCH ×2 (06:22→17:52)
[2017-03-31] MEDS: INSULIN SLIDING SCALE (NOVOLOG) 1 VIAL SQ SCH ×4 (06:22→22:37)
[2017-03-31 07:51] LABS: BASOPHIL 1.1 % (0-2.0); EOSINOPHIL 5.2 % (0-4.5); MCH 24.3 pg (25.7-33.7); MCHC 33.2 g/dl (32.0-35.9); MEAN CELL VOLUME 73.4 fl (80-96); MEAN PLT VOLUME 7.6 fl (7.5-11.1); PLATELET COUNT 175 K/MM3 (134-434); WHITE BLOOD COUNT 6.3 K/mm3 (4.0-10.0)
[2017-03-31] MEDS: FERROUS SO4 325 MG TABLET (FP) PO SCH ×2 (08:00→17:52)
[2017-03-31 08:37] LABS: ANION GAP 6 (8-16); CALCIUM 8.2 mg/dL (8.5-10.1); CO2 25 mmol/L (21-32); CREATININE 1.2 mg/dL (0.7-1.3); GLUCOSE,RANDOM 80 mg/dL (74-106)
[2017-03-31] MEDS: SPIRONOLACTONE 25 MG TABLET (FP) PO SCH ×2 (09:58→22:36)
[2017-03-31] MEDS: ASCORBIC ACID 500 MG TABLET (FP) PO SCH (09:58)
--- NOTE | 2017-03-31 10:39 | PN ---
Physical Exam: SUBJECTIVE: Patient seen and examined. Complains of difficulty sleeping from pain in his joints last night. Requesting acetaminophen to ease the pain. Abd US demonstrates cirrhosis and cholelithiasis but no heaptic vein thrombosis. Also shows significant ascites. Has no other complaints this morning. Started on daily weighing and spironolactone. IV fluids stopped.Haptoglobulins within normal range. OBJECTIVE: Vital Signs Period Temp Pulse Resp BP Sys/Venegas Pulse Ox Last 24 Hr 97.9 F-98.1 F 60-75 18-18 105-133/57-81 GENERAL: The patient is awake, alert, and fully oriented, in mild distress. EYES: sclera anicteric, conjunctiva clear. LUNGS: Breath sounds equal, clear to auscultation bilaterally, no wheezes, no crackles, no accessory muscle use. HEART: Regular rate and rhythm, S1, S2 without murmur, rub or gallop. ABDOMEN: Normoactive bowel sounds, markedly distended, distended veins, soft, nontender, no guarding, no rebound, no palpable organs or masses.Dull to percussion. EXTREMITIES: 2+ pulses, warm, well-perfused,pedal edema++ (up to Knee on right, up to mid mena on the left). Laboratory Results - last 24 hr 03/27/17 03/29/17 03/30/17 09:50 06:55 07:39 WBC 6.8 RBC 3.65 L Hgb 8.8 L Hct 26.9 L MCV 73.7 L MCH 24.1 L MCHC 32.7 RDW 24.3 H Plt Count 162 MPV 7.7 Neutrophils % 61.9 Lymphocytes % 20.8 Monocytes % 11.4 H Eosinophils % 4.5 Basophils % 1.4 Platelet Estimate Adequate Platelet Comment No clumping noted Hypochromic-Microcytic Few Anisocytosis 2+ Microcytosis 1+ Target Cells Few Haptoglobin 71 Sodium Potassium Chloride Carbon Dioxide Anion Gap BUN Creatinine POC Glucometer Random Glucose Calcium Ammonia Tumor Marker AFP 1.4 Blood Type O POSITIVE Antibody Screen Negative Crossmatch See Detail 03/30/17 03/30/17 03/30/17 11:11 17:00 21:14 WBC RBC Hgb Hct MCV MCH MCHC RDW Plt Count MPV Neutrophils % Lymphocytes % Monocytes % Eosinophils % Basophils % Platelet Estimate Platelet Comment Hypochromic-Microcytic Anisocytosis Microcytosis Target Cells Haptoglobin Sodium Potassium Chloride Carbon Dioxide Anion Gap BUN Creatinine POC Glucometer 144 131 181 Random Glucose Calcium Ammonia Tumor Marker AFP Blood Type Antibody Screen Crossmatch 03/31/17 03/31/17 03/31/17 05:47 06:30 06:30 WBC 6.3 RBC 3.78 L Hgb 9.2 L Hct 27.7 L MCV 73.4 L MCH 24.3 L MCHC 33.2 RDW 25.0 H Plt Count 175 MPV 7.6 Neutrophils % 59.0 Lymphocytes % 21.6 Monocytes % 13.1 H Eosinophils % 5.2 H Basophils % 1.1 Platelet Estimate Platelet Comment Hypochromic-Microcytic Anisocytosis Microcytosis Target Cells Haptoglobin Sodium 141 Potassium 3.9 Chloride 110 H Carbon Dioxide 25 Anion Gap 6 L BUN 17 Creatinine 1.2 POC Glucometer 98 Random Glucose 80 Calcium 8.2 L Ammonia Tumor Marker AFP Blood Type Antibody Screen Crossmatch 03/31/17 06:30 WBC RBC Hgb Hct MCV MCH MCHC RDW Plt Count MPV Neutrophils % Lymphocytes % Monocytes % Eosinophils % Basophils % Platelet Estimate Platelet Comment Hypochromic-Microcytic Anisocytosis Microcytosis Target Cells Haptoglobin Sodium Potassium Chloride Carbon Dioxide Anion Gap BUN Creatinine POC Glucometer Random Glucose Calcium Ammonia 25.6 Tumor Marker AFP Blood Type Antibody Screen Crossmatch Active Medications Generic Name Dose Route Start Last Admin Trade Name Joseq PRN Reason Stop Dose Admin Ascorbic Acid 500 mg 03/27/17 10:00 03/31/17 09:58 Vitamin C - PO 500 mg DAILY [facility] Administration Atorvastatin Calcium 20 mg 03/27/17 22:00 03/30/17 21:54 Lipitor - PO 20 mg HS [facility] Administration Ferrous Sulfate 325 mg 03/27/17 08:00 03/31/17 08:00 Feosol - PO 325 mg BIDWM [facility] Administration Insulin Aspart 1 vial 03/27/17 07:00 03/31/17 06:22 Novolog Vial Sliding Scale - SQ Not Given ACHS [facility] Protocol Metoprolol Succinate 25 mg 03/27/17 06:00 03/31/17 06:22 Toprol Xl - PO 25 mg BID@06,18 [facility] Administration Spironolactone 25 mg 03/30/17 22:00 03/31/17 09:58 Aldactone - PO 25 mg BID [facility] Administration ASSESSMENT/PLAN: 1. Ascites in background cirrhosis Continue spironolactone continue daily weighing Without iv fluids Awaiting fibrosure alcohol Awaiting FUA 2. Anemia Awaiting SPEP/ UIPEP Awaiting Gamma globulins and albumin Visit type - Emergency Visit Emergency Visit: No - New Patient This patient is new to me today: No - Critical Care Critical Care patient: No - Discharge Referral Referred to [facility] No
--- NOTE | 2017-03-31 14:10 | PN ---
Progress Note (short form) - Note Progress Note: Renal Follow up for EMERALD on CKD Pt seen and examined at the bedside awake and alert, no complaints no chest pain, sob, fever, chills Vital Signs Temperature 97.6 F 03/31/17 10:00 Pulse Rate 67 03/31/17 10:00 Respiratory Rate 20 03/31/17 10:00 Blood Pressure 118/58 03/31/17 10:00 O2 Sat by Pulse Oximetry (%) 97 03/30/17 09:00 Intake & Output 03/28/17 03/29/17 03/30/17 03/31/17 23:59 23:59 23:59 23:59 Intake Total 2660 605 790 Output Total 100 350 200 Balance 2560 255 590 Weight 171 lb 174 lb 8 oz Gen: NAD CVS: RRR Lungs: CTA Abd: soft NT/ND Ext: No edema CBC, BMP 03/31/17 06:30 03/31/17 06:30 Current Medications Ascorbic Acid (Vitamin C -) 500 mg PO DAILY [facility] Last Admin: 03/31/17 09:58 Dose: 500 mg Atorvastatin Calcium (Lipitor -) 20 mg PO HS [facility] Last Admin: 03/30/17 21:54 Dose: 20 mg Ferrous Sulfate (Feosol -) 325 mg PO BIDWM [facility] Last Admin: 03/31/17 08:00 Dose: 325 mg Insulin Aspart (Novolog Vial Sliding Scale -) 1 vial SQ ACHS [facility] PRN Reason: Protocol Last Admin: 03/31/17 12:50 Dose: Not Given Metoprolol Succinate (Toprol Xl -) 25 mg PO BID@ [facility] Last Admin: 03/31/17 06:22 Dose: 25 mg Spironolactone (Aldactone -) 25 mg PO BID [facility] Last Admin: 03/31/17 09:58 Dose: 25 mg A/P 81 year old gentleman with PMhx of Afib, DM with diabetic neuropathy, BOH, Hypertension, hyperlipidemia who presented s/p mechanical fall at home with weakness and found to have acute on chronic anemia with EMERALD with of 2 on presentation. #Acute kidney injury due to renal hypoperfusion in setting of Anemia Renal function now improved to baseline with IVF and PRBC transfusion Continue to trend BUN/Cr and electrolytes keep MAP > 65 #Acute on Chronic Anemia s/p prbc transfusion GI follow up #Hypertension/Afib continue Metoprolol ? future A/c because of risk of bleeding Thank you Will follow Problem List - Problems (1) Acute renal failure Code(s): N17.9 - ACUTE KIDNEY FAILURE, UNSPECIFIED Qualifiers: Acute renal failure type: unspecified Qualified Code(s): N17.9 - Acute kidney failure, unspecified (2) Fall Code(s): W19.XXXA - UNSPECIFIED FALL, INITIAL ENCOUNTER (3) Acute blood loss anemia Code(s): D62 - ACUTE POSTHEMORRHAGIC ANEMIA (4) A-fib Code(s): I48.91 - UNSPECIFIED ATRIAL FIBRILLATION Qualifiers: Atrial fibrillation type: paroxysmal Qualified Code(s): I48.0 - Paroxysmal atrial fibrillation (5) Angiodysplasia of colon without bleeding Code(s): K55.20 - ANGIODYSPLASIA OF COLON WITHOUT HEMORRHAGE
--- NOTE | 2017-03-31 15:33 | PN ---
Progress Note, Physician History of Present Illness: Pt w/o SOB, CP, palp, abd pain, N, V. Pt with good appetite. - Current Medication List Current Medications: Active Medications Ascorbic Acid (Vitamin C -) 500 mg PO DAILY [facility] Last Admin: 03/31/17 09:58 Dose: 500 mg Atorvastatin Calcium (Lipitor -) 20 mg PO HS [facility] Last Admin: 03/30/17 21:54 Dose: 20 mg Ferrous Sulfate (Feosol -) 325 mg PO BIDWM [facility] Last Admin: 03/31/17 08:00 Dose: 325 mg Insulin Aspart (Novolog Vial Sliding Scale -) 1 vial SQ ACHS [facility] PRN Reason: Protocol Last Admin: 03/31/17 12:50 Dose: Not Given Metoprolol Succinate (Toprol Xl -) 25 mg PO BID@ [facility] Last Admin: 03/31/17 06:22 Dose: 25 mg Spironolactone (Aldactone -) 25 mg PO BID [facility] Last Admin: 03/31/17 09:58 Dose: 25 mg - Objective Vital Signs: Vital Signs Temperature 97.6 F 03/31/17 10:00 Pulse Rate 67 03/31/17 10:00 Respiratory Rate 20 03/31/17 10:00 Blood Pressure 118/58 03/31/17 10:00 O2 Sat by Pulse Oximetry (%) 97 03/31/17 09:00 Constitutional: Yes: No Distress, Calm Cardiovascular: Yes: Regular Rate and Rhythm, S1, S2 Respiratory: Yes: Regular, CTA Bilaterally. No: Rales Gastrointestinal: Yes: Normal Bowel Sounds, Soft, Distention Edema: LLE: 1+, RLE: 1+ Integumentary: No: Rash Neurological: Yes: Alert, Oriented Labs: CBC, BMP 03/31/17 06:30 03/31/17 06:30 INR, PTT INR 1.39 (0.82-1.09) H 03/26/17 15:30 Problem List - Problems (1) Anemia Code(s): D64.9 - ANEMIA, UNSPECIFIED Qualifiers: Iron deficiency anemia type: chronic blood loss (2) GI bleed Code(s): K92.2 - GASTROINTESTINAL HEMORRHAGE, UNSPECIFIED Qualifiers: GI bleed type/associated pathology: angiodysplasia of stomach and duodenum Qualified Code(s): K31.811 - Angiodysplasia of stomach and duodenum with bleeding (3) Acute renal failure Code(s): N17.9 - ACUTE KIDNEY FAILURE, UNSPECIFIED Qualifiers: Acute renal failure type: unspecified Qualified Code(s): N17.9 - Acute kidney failure, unspecified (4) Liver cirrhosis Code(s): K74.60 - UNSPECIFIED CIRRHOSIS OF LIVER Qualifiers: Hepatic cirrhosis type: alcoholic cirrhosis Ascites presence: with ascites Qualified Code(s): K70.31 - Alcoholic cirrhosis of liver with ascites (5) Ascites Code(s): R18.8 - OTHER ASCITES Qualifiers: Ascites type: other type Qualified Code(s): R18.8 - Other ascites (6) A-fib Code(s): I48.91 - UNSPECIFIED ATRIAL FIBRILLATION Qualifiers: Atrial fibrillation type: paroxysmal Qualified Code(s): I48.0 - Paroxysmal atrial fibrillation (7) Diabetes mellitus Code(s): E11.9 - TYPE 2 DIABETES MELLITUS WITHOUT COMPLICATIONS Qualifiers: Diabetes mellitus type: type 2 Diabetes mellitus complication status: without complication Diabetes mellitus [facility] insulin use: without [facility] use Qualified Code(s): E11.9 - Type 2 diabetes mellitus without complications Assessment/Plan s/p PRBC Tx Lasix and Spironolactone on hold for now, given ARF; ARF improved. Started on Spironolactone. Off IVF. GI and Renal Consult appreciated. Anemia workup in progress. H/H stable today. Monitor H/H, renal function. AM labs
[2017-03-31] MEDS ORDERED: ACETAMINOPHEN 325 MG TABLET (FP) PO PRN (15:38)
[2017-03-31 17:11] LABS: MCH 24.1 pg (25.7-33.7); MCHC 32.5 g/dl (32.0-35.9); MEAN CELL VOLUME 74.2 fl (80-96); MEAN PLT VOLUME 7.8 fl (7.5-11.1); PLATELET COUNT 184 K/MM3 (134-434); RDW 24.8 % (11.9-15.9); WHITE BLOOD COUNT 6.6 K/mm3 (4.0-10.0)
[2017-03-31 17:50] LABS: ALBUMIN 1.6 g/dl (3.4-5.0); ANION GAP 8 (8-16); CALCIUM 8.3 mg/dL (8.5-10.1); CO2 20 mmol/L (21-32); GLUCOSE,RANDOM 111 mg/dL (74-106)
[2017-03-31 17:54] LABS: ALK PHOS 229 U/L (45-117); BILIRUBIN,TOTAL 1.5 mg/dL (0.2-1.0); CREATININE 1.2 mg/dL (0.7-1.3); SGOT/AST 32 U/L (15-37); SGPT/ALT 14 U/L (12-78); TOT PROT 6.3 g/dl (6.4-8.2)
[2017-03-31] MEDS ORDERED: PT OWN MED DRAWER 7, Y5N ONE (21:20)
[2017-03-31] MEDS: ATORVASTATIN CA 20 MG TABLET (FP) PO SCH (22:36)
[2017-03-31] MEDS: RAMELTEON 8 MG TABLET PO SCH (22:40)
[2017-04-01] MEDS: INSULIN SLIDING SCALE (NOVOLOG) 1 VIAL SQ SCH ×4 (06:37→23:14)
[2017-04-01] MEDS: METOPROLOL SUCCINATE 25 MG TAB.SR.24H (FP) PO SCH ×2 (06:46→17:37)
[2017-04-01 07:37] LABS: BASOPHIL 1.1 % (0-2.0); EOSINOPHIL 4.4 % (0-4.5); MCH 24.1 pg (25.7-33.7); MEAN CELL VOLUME 73.2 fl (80-96); MEAN PLT VOLUME 7.6 fl (7.5-11.1); NEUTROPHILS 59.3 % (42.8-82.8); PLATELET COUNT 177 K/MM3 (134-434); RDW 24.4 % (11.9-15.9); WHITE BLOOD COUNT 6.6 K/mm3 (4.0-10.0)
[2017-04-01 08:09] LABS: ANION GAP 7 (8-16); CO2 22 mmol/L (21-32)
[2017-04-01 08:13] LABS: CALCIUM 8.1 mg/dL (8.5-10.1); CREATININE 1.2 mg/dL (0.7-1.3); GLUCOSE,RANDOM 78 mg/dL (74-106); MAGNESIUM 1.5 mg/dL (1.8-2.4)
[2017-04-01] MEDS: ASCORBIC ACID 500 MG TABLET (FP) PO SCH (09:46)
[2017-04-01] MEDS: SPIRONOLACTONE 25 MG TABLET (FP) PO SCH ×2 (09:46→23:09)
[2017-04-01] MEDS: FERROUS SO4 325 MG TABLET (FP) PO SCH ×2 (09:46→17:36)
--- NOTE | 2017-04-01 10:13 | PN ---
Physical Exam: SUBJECTIVE: Patient seen and examined. Patient seen this am. No new complaints. No change in weight. Sleep and pain being addressed by primary team. Still awaiting results for SPEP, DANNY, tissue transglutaminase OBJECTIVE: Vital Signs Period Temp Pulse Resp BP Sys/Venegas Pulse Ox Last 24 Hr 97.6 F-98.2 F 61-70 20-20 114-130/63-80 97 GENERAL: The patient is awake, and oriented, EYES: sclera anicteric, conjunctiva clear. LUNGS: Breath sounds equal, clear to auscultation bilaterally, no wheezes, no crackles, no accessory muscle use. HEART: Regular rate and rhythm, S1, S2 without murmur, rub or gallop. ABDOMEN: Soft, nondistended,nontender, normoactive bowel sounds, no guarding, no rebound, no hepatosplenomegaly, no masses. EXTREMITIES: 2+ pulses, warm, well-perfused, no edema. NEUROLOGICAL: Cranial nerves II through XII grossly intact. Normal speech, gait not observed. PSYCH: Normal mood, normal affect. SKIN: Warm, dry, normal turgor, no rashes or lesions noted Laboratory Results - last 24 hr 03/31/17 03/31/17 03/31/17 12:49 16:30 16:30 WBC 6.6 RBC 4.03 Hgb 9.7 L Hct 29.9 L MCV 74.2 L MCH 24.1 L MCHC 32.5 RDW 24.8 H Plt Count 184 MPV 7.8 Neutrophils % Lymphocytes % Monocytes % Eosinophils % Basophils % Sodium 140 Potassium 4.3 Chloride 112 H Carbon Dioxide 20 L Anion Gap 8 BUN 18 Creatinine 1.2 Creat Clearance w eGFR 58.40 POC Glucometer 164 Random Glucose 111 H D Calcium 8.3 L Magnesium Total Bilirubin 1.5 H AST 32 ALT 14 Alkaline Phosphatase 229 H Total Protein 6.3 L Albumin 1.6 L 03/31/17 03/31/17 04/01/17 16:47 21:49 06:16 WBC RBC Hgb Hct MCV MCH MCHC RDW Plt Count MPV Neutrophils % Lymphocytes % Monocytes % Eosinophils % Basophils % Sodium Potassium Chloride Carbon Dioxide Anion Gap BUN Creatinine Creat Clearance w eGFR POC Glucometer 111 108 84 Random Glucose Calcium Magnesium Total Bilirubin AST ALT Alkaline Phosphatase Total Protein Albumin 04/01/17 04/01/17 06:20 06:20 WBC 6.6 RBC 3.83 L Hgb 9.2 L Hct 28.0 L MCV 73.2 L MCH 24.1 L MCHC 33.0 RDW 24.4 H Plt Count 177 MPV 7.6 Neutrophils % 59.3 Lymphocytes % 22.5 Monocytes % 12.7 H Eosinophils % 4.4 Basophils % 1.1 Sodium 139 Potassium 4.0 Chloride 110 H Carbon Dioxide 22 Anion Gap 7 L BUN 16 Creatinine 1.2 Creat Clearance w eGFR POC Glucometer Random Glucose 78 D Calcium 8.1 L Magnesium 1.5 L Total Bilirubin AST ALT Alkaline Phosphatase Total Protein Albumin Active Medications Generic Name Dose Route Start Last Admin Trade Name Freq PRN Reason Stop Dose Admin Acetaminophen 650 mg 03/31/17 15:38 Tylenol - PO Q12H PRN FEVER OR PAIN Ascorbic Acid 500 mg 03/27/17 10:00 04/01/17 09:46 Vitamin C - PO 500 mg DAILY [facility] Administration Atorvastatin Calcium 20 mg 03/27/17 22:00 03/31/17 22:36 Lipitor - PO 20 mg HS [facility] Administration Ferrous Sulfate 325 mg 03/27/17 08:00 04/01/17 09:46 Feosol - PO 325 mg BIDWM [facility] Administration Insulin Aspart 1 vial 03/27/17 07:00 04/01/17 06:37 Novolog Vial Sliding Scale - SQ Not Given ACHS [facility] Protocol Metoprolol Succinate 25 mg 03/27/17 06:00 04/01/17 06:46 Toprol Xl - PO 25 mg BID@06,18 [facility] Administration Ramelteon 8 mg 03/31/17 22:00 03/31/17 22:40 Rozerem PO 8 mg HS [facility] Administration Spironolactone 25 mg 03/30/17 22:00 04/01/17 09:46 Aldactone - PO 25 mg BID [facility] Administration ASSESSMENT/PLAN: Recurrent ascites Continue spironolactone Visit type - Emergency Visit Emergency Visit: No - New Patient This patient is new to me today: No - Critical Care Critical Care patient: No - Discharge Referral Referred to [facility] No
[2017-04-01 10:17] LABS: A/G RATIO 0.5 (0.7-1.7); ALBUMIN 1.8 g/dL (2.9-4.4); GLOBULIN, TOTAL 3.9 g/dL (2.2-3.9); TOTAL PROTEIN 5.7 g/dL (6.0-8.5)
--- NOTE | 2017-04-01 10:30 | PN ---
Progress Note, Physician History of Present Illness: Pt w/o SOB, CP, palp, abd pain, N, V. Pt with good appetite. pt w/o blood in stool. - Current Medication List Current Medications: Active Medications Acetaminophen (Tylenol -) 650 mg PO Q12H PRN PRN Reason: FEVER OR PAIN Ascorbic Acid (Vitamin C -) 500 mg PO DAILY [facility] Last Admin: 04/01/17 09:46 Dose: 500 mg Atorvastatin Calcium (Lipitor -) 20 mg PO HS [facility] Last Admin: 03/31/17 22:36 Dose: 20 mg Ferrous Sulfate (Feosol -) 325 mg PO BIDWM [facility] Last Admin: 04/01/17 09:46 Dose: 325 mg Insulin Aspart (Novolog Vial Sliding Scale -) 1 vial SQ ACHS [facility] PRN Reason: Protocol Last Admin: 04/01/17 06:37 Dose: Not Given Metoprolol Succinate (Toprol Xl -) 25 mg PO BID@06,18 [facility] Last Admin: 04/01/17 06:46 Dose: 25 mg Ramelteon (Rozerem) 8 mg PO [facility] Last Admin: 03/31/17 22:40 Dose: 8 mg Spironolactone (Aldactone -) 25 mg PO BID [facility] Last Admin: 04/01/17 09:46 Dose: 25 mg - Objective Vital Signs: Vital Signs Temperature 97.9 F 04/01/17 06:00 Pulse Rate 61 04/01/17 06:00 Respiratory Rate 20 04/01/17 06:00 Blood Pressure 114/63 04/01/17 06:00 O2 Sat by Pulse Oximetry (%) 97 03/31/17 21:00 Constitutional: Yes: No Distress, Calm Cardiovascular: Yes: Regular Rate and Rhythm, S1, S2 Respiratory: Yes: Regular, CTA Bilaterally. No: Rales Gastrointestinal: Yes: Normal Bowel Sounds, Soft, Distention. No: Tenderness Edema: LLE: 1+, RLE: 1+ Neurological: Yes: Alert, Oriented Labs: CBC, BMP 04/01/17 06:20 04/01/17 06:20 INR, PTT INR 1.39 (0.82-1.09) H 03/26/17 15:30 Problem List - Problems (1) Anemia Code(s): D64.9 - ANEMIA, UNSPECIFIED Qualifiers: Iron deficiency anemia type: chronic blood loss (2) GI bleed Code(s): K92.2 - GASTROINTESTINAL HEMORRHAGE, UNSPECIFIED Qualifiers: GI bleed type/associated pathology: angiodysplasia of stomach and duodenum Qualified Code(s): K31.811 - Angiodysplasia of stomach and duodenum with bleeding (3) Acute renal failure Code(s): N17.9 - ACUTE KIDNEY FAILURE, UNSPECIFIED Qualifiers: Acute renal failure type: unspecified Qualified Code(s): N17.9 - Acute kidney failure, unspecified (4) Liver cirrhosis Code(s): K74.60 - UNSPECIFIED CIRRHOSIS OF LIVER Qualifiers: Hepatic cirrhosis type: alcoholic cirrhosis Ascites presence: with ascites Qualified Code(s): K70.31 - Alcoholic cirrhosis of liver with ascites (5) Ascites Code(s): R18.8 - OTHER ASCITES Qualifiers: Ascites type: other type Qualified Code(s): R18.8 - Other ascites (6) A-fib Code(s): I48.91 - UNSPECIFIED ATRIAL FIBRILLATION Qualifiers: Atrial fibrillation type: paroxysmal Qualified Code(s): I48.0 - Paroxysmal atrial fibrillation (7) Diabetes mellitus Code(s): E11.9 - TYPE 2 DIABETES MELLITUS WITHOUT COMPLICATIONS Qualifiers: Diabetes mellitus type: type 2 Diabetes mellitus complication status: without complication Diabetes mellitus usp insulin use: without intermediate card tender use Qualified Code(s): E11.9 - Type 2 diabetes mellitus without complications (8) Hypomagnesemia Assessment/Plan: Replete Mg. Monitor in AM Code(s): E83.42 - HYPOMAGNESEMIA Assessment/Plan s/p PRBC Tx Lasix and Spironolactone on hold for now, given ARF; ARF improved. Started on Spironolactone. Off IVF. GI and Renal Consult appreciated. Anemia workup in progress. H/H stable today. Monitor H/H, renal function, Mg. AM labs
[2017-04-01] MEDS ORDERED: MAGNESIUM SULF 50% (8.12 MEQ/2 ML-1 GM VIAL) IVPB ONE (11:00)
[2017-04-01] MEDS: FUROSEMIDE 40 MG TABLET (FP) PO SCH (11:23)
--- NOTE | 2017-04-01 12:08 | PN ---
Progress Note (short form) - Note Progress Note: Renal Follow up for EMERALD on CKD Pt seen and examined at the bedside no acute complaints currently getting echo denies any sob, chest pain, abd pain, N/V/D Vital Signs Temperature 97.9 F 04/01/17 06:00 Pulse Rate 61 04/01/17 06:00 Respiratory Rate 20 04/01/17 06:00 Blood Pressure 114/63 04/01/17 06:00 O2 Sat by Pulse Oximetry (%) 97 03/31/17 21:00 Intake & Output 03/29/17 03/30/17 03/31/17 04/01/17 23:59 23:59 23:59 23:59 Intake Total 485 691 2954 200 Output Total 350 200 550 300 Balance 255 590 600 -100 Weight 174 lb 8 oz 174 lb 7 oz Gen: NAD CVS: RRR Lungs: CTA Abd: soft NT/ND Ext: No edema CBC, BMP 04/01/17 06:20 04/01/17 06:20 Laboratory Tests 02/23/17 04/01/17 06:00 06:20 Calcium 8.1 L Phosphorus 2.5 Magnesium 1.9 1.5 L Current Medications Acetaminophen (Tylenol -) 650 mg PO Q12H PRN PRN Reason: FEVER OR PAIN Ascorbic Acid (Vitamin C -) 500 mg PO DAILY [facility] Last Admin: 04/01/17 09:46 Dose: 500 mg Atorvastatin Calcium (Lipitor -) 20 mg PO HS [facility] Last Admin: 03/31/17 22:36 Dose: 20 mg Ferrous Sulfate (Feosol -) 325 mg PO BIDWM [facility] Last Admin: 04/01/17 09:46 Dose: 325 mg Furosemide (Lasix -) 40 mg PO DAILY [facility] Last Admin: 04/01/17 11:23 Dose: 40 mg Insulin Aspart (Novolog Vial Sliding Scale -) 1 vial SQ ACHS [facility] PRN Reason: Protocol Last Admin: 04/01/17 11:14 Dose: Not Given Metoprolol Succinate (Toprol Xl -) 25 mg PO BID@ [facility] Last Admin: 04/01/17 06:46 Dose: 25 mg Ramelteon (Rozerem) 8 mg PO HS [facility] Last Admin: 03/31/17 22:40 Dose: 8 mg Spironolactone (Aldactone -) 25 mg PO BID [facility] Last Admin: 04/01/17 09:46 Dose: 25 mg A/P 81 year old gentleman with PMhx of Afib, DM with diabetic neuropathy, BOH, Hypertension, hyperlipidemia who presented s/p mechanical fall at home with weakness and found to have acute on chronic anemia with EMERALD with of 2 on presentation. #Acute kidney injury due to renal hypoperfusion in setting of Anemia Renal function now improved to baseline with IVF and PRBC transfusion unlikely Hepato-renal syndrome as pt had improvement in renal function with volume expansion alone continue to trend BUN/Cr #Acute on Chronic Anemia s/p prbc transfusion GI follow up #Ascities continue diuretics GI follow up #Hypertension/Afib continue Metoprolol Thank you Will follow Problem List - Problems (1) Acute renal failure Code(s): N17.9 - ACUTE KIDNEY FAILURE, UNSPECIFIED Qualifiers: Acute renal failure type: unspecified Qualified Code(s): N17.9 - Acute kidney failure, unspecified (2) Fall Code(s): W19.XXXA - UNSPECIFIED FALL, INITIAL ENCOUNTER (3) Acute blood loss anemia Code(s): D62 - ACUTE POSTHEMORRHAGIC ANEMIA (4) A-fib Code(s): I48.91 - UNSPECIFIED ATRIAL FIBRILLATION Qualifiers: Atrial fibrillation type: paroxysmal Qualified Code(s): I48.0 - Paroxysmal atrial fibrillation (5) Angiodysplasia of colon without bleeding Code(s): K55.20 - ANGIODYSPLASIA OF COLON WITHOUT HEMORRHAGE
[2017-04-01 13:17] LABS: COMMENT--- SEE FILE COPY
[2017-04-01 14:32] LABS: ALPHA 2 MACROGLOBULINS,QN 153 mg/dL (110-276); BILIRUBIN TOTAL 1.2 mg/dL (0.0-1.2); GGT= 302 IU/L (0-65); GLUCOSE SERUM 73 mg/dL (65-99); HAPTOGLOBIN= 70 mg/dL (34-200); HEIGHT. 70 Inches (.); STEATOSIS SCORE- 0.72 (0.00-0.30); TRIGLYCERIDES= 76 mg/dL (0-149); WEIGHT. 170 LBS (.)
--- NOTE | 2017-04-01 16:29 | PN ---
GI Progress Note Subjective: GI NOte; Garry reports that he is voiding large amount of fluid. No abdominal pain - Objective Vital Signs: Vital Signs Temperature 97.4 F L 04/01/17 15:19 Pulse Rate 62 04/01/17 15:19 Respiratory Rate 17 04/01/17 15:19 Blood Pressure 124/72 04/01/17 15:19 O2 Sat by Pulse Oximetry (%) 97 03/31/17 21:00 Selected Entries 03/26/17 04/01/17 04/01/17 20:01 06:00 10:30 Weight 171 lb 174 lb 8 oz 174 lb 7 oz Laboratory Tests 03/26/17 03/29/17 03/30/17 15:30 06:55 07:29 Potassium 4.6 3.9 BUN 27 H D 18 Creatinine 2.0 H D 1.3 04/01/17 06:20 Potassium 4.0 BUN 16 Creatinine 1.2 Constitutional: Calm Gastrointestinal Inspection: Yes: Distention (not tense) ...Auscultate: Yes: Normoactive Bowel Sounds ...Palpate: Yes: Soft, Other (nontender) Labs: CBC, BMP 04/01/17 06:20 04/01/17 06:20 INR, PTT INR 1.39 (0.82-1.09) H 03/26/17 15:30 Assessment/Plan Abdominal distension due to ascites due to cirrhosis. Will increase Aldactone to 25mg TID. Case discussed with Dr Montgomery
[2017-04-01] MEDS ORDERED: PT OWN MED DRAWER 7, Y5N ONE (17:50)
[2017-04-01] MEDS: ATORVASTATIN CA 20 MG TABLET (FP) PO SCH (23:08)
[2017-04-01] MEDS: RAMELTEON 8 MG TABLET PO SCH (23:10)
[2017-04-02 00:08] LABS: SMOOTH MUSCLE AB 13 Units (0-19)
[2017-04-02] MEDS: INSULIN SLIDING SCALE (NOVOLOG) 1 VIAL SQ SCH ×4 (06:42→21:55)
[2017-04-02] MEDS: SPIRONOLACTONE 25 MG TABLET (FP) PO SCH ×3 (06:46→21:54)
[2017-04-02] MEDS: METOPROLOL SUCCINATE 25 MG TAB.SR.24H (FP) PO SCH ×2 (06:47→17:32)
[2017-04-02 07:32] LABS: MCH 24.2 pg (25.7-33.7); MEAN CELL VOLUME 73.5 fl (80-96); MEAN PLT VOLUME 7.8 fl (7.5-11.1); PLATELET COUNT 178 K/MM3 (134-434); RDW 24.2 % (11.9-15.9)
[2017-04-02 07:53] LABS: ANION GAP 8 (8-16); CALCIUM 8.3 mg/dL (8.5-10.1); CO2 24 mmol/L (21-32); CREATININE 1.3 mg/dL (0.7-1.3); GLUCOSE,RANDOM 93 mg/dL (74-106); MAGNESIUM 1.8 mg/dL (1.8-2.4)
[2017-04-02] MEDS: FERROUS SO4 325 MG TABLET (FP) PO SCH ×2 (08:27→16:49)
[2017-04-02] MEDS ORDERED: PT OWN MED DRAWER 7, Y5N ONE ×2 (09:37→21:58)
[2017-04-02] MEDS: ASCORBIC ACID 500 MG TABLET (FP) PO SCH (09:41)
[2017-04-02] MEDS: FUROSEMIDE 40 MG TABLET (FP) PO SCH (09:41)
--- NOTE | 2017-04-02 12:21 | PN ---
Progress Note (short form) - Note Progress Note: Renal Follow up for EMERALD on CKD Pt seen and examined at the bedside awake and alert no acute complaints denies any VAZQUEZ, CP, SOB, Abd pain, N/V/D on Aldactone TID now for ascities making a good amount of urine Vital Signs Temperature 97.8 F 04/02/17 10:00 Pulse Rate 61 04/02/17 10:00 Respiratory Rate 20 04/02/17 10:00 Blood Pressure 100/60 04/02/17 10:00 O2 Sat by Pulse Oximetry (%) 96 04/01/17 21:00 Intake & Output 03/30/17 03/31/17 04/01/17 04/02/17 23:59 23:59 23:59 23:59 Intake Total 790 1150 900 100 Output Total 200 550 900 700 Balance 590 600 0 -600 Weight 174 lb 8 oz 174 lb 7 oz 171 lb 8 oz Gen: NAD CVS: RRR Lungs: CTA Abd: soft NT/ND Ext: No edema CBC, BMP 04/02/17 06:10 04/02/17 06:10 Current Medications Acetaminophen (Tylenol -) 650 mg PO Q12H PRN PRN Reason: FEVER OR PAIN Ascorbic Acid (Vitamin C -) 500 mg PO DAILY [facility] Last Admin: 04/02/17 09:41 Dose: 500 mg Atorvastatin Calcium (Lipitor -) 20 mg PO HS [facility] Last Admin: 04/01/17 23:08 Dose: 20 mg Ferrous Sulfate (Feosol -) 325 mg PO BIDWM [facility] Last Admin: 04/02/17 08:27 Dose: 325 mg Furosemide (Lasix -) 40 mg PO DAILY [facility] Last Admin: 04/02/17 09:41 Dose: 40 mg Insulin Aspart (Novolog Vial Sliding Scale -) 1 vial SQ ACHS [facility] PRN Reason: Protocol Last Admin: 04/02/17 12:06 Dose: 2 units Metoprolol Succinate (Toprol Xl -) 25 mg PO BID@18 [facility] Last Admin: 04/02/17 06:47 Dose: 25 mg Ramelteon (Rozerem) 8 mg PO HS [facility] Last Admin: 04/01/17 23:10 Dose: 8 mg Spironolactone (Aldactone -) 25 mg PO TID [facility] Last Admin: 04/02/17 06:46 Dose: 25 mg A/P 81 year old gentleman with PMhx of Afib, DM with diabetic neuropathy, BOH, Hypertension, hyperlipidemia who presented s/p mechanical fall at home with weakness and found to have acute on chronic anemia with EMERALD with of 2 on presentation. #Acute kidney injury due to renal hypoperfusion in setting of Anemia Renal function is improved and stable continue to trend BUN/Cr and electrolytes #Acute on Chronic Anemia s/p prbc transfusion GI follow up #Ascities On lasix 40mg Daily and Aldactone 25mg TID continue to tirate as needed GI following #Hypertension/Afib continue Metoprolol Thank you Will follow Problem List - Problems (1) Acute renal failure Code(s): N17.9 - ACUTE KIDNEY FAILURE, UNSPECIFIED Qualifiers: Acute renal failure type: unspecified Qualified Code(s): N17.9 - Acute kidney failure, unspecified (2) Fall Code(s): W19.XXXA - UNSPECIFIED FALL, INITIAL ENCOUNTER (3) Acute blood loss anemia Code(s): D62 - ACUTE POSTHEMORRHAGIC ANEMIA (4) A-fib Code(s): I48.91 - UNSPECIFIED ATRIAL FIBRILLATION Qualifiers: Atrial fibrillation type: paroxysmal Qualified Code(s): I48.0 - Paroxysmal atrial fibrillation (5) Angiodysplasia of colon without bleeding Code(s): K55.20 - ANGIODYSPLASIA OF COLON WITHOUT HEMORRHAGE
--- NOTE | 2017-04-02 14:36 | PN ---
Progress Note, Physician History of Present Illness: Pt w/o SOB, CP, palp, abd pain, N, V. Pt with good appetite. pt w/o blood in stool. - Current Medication List Current Medications: Active Medications Acetaminophen (Tylenol -) 650 mg PO Q12H PRN PRN Reason: FEVER OR PAIN Ascorbic Acid (Vitamin C -) 500 mg PO DAILY [facility] Last Admin: 04/02/17 09:41 Dose: 500 mg Atorvastatin Calcium (Lipitor -) 20 mg PO HS [facility] Last Admin: 04/01/17 23:08 Dose: 20 mg Ferrous Sulfate (Feosol -) 325 mg PO BIDWM [facility] Last Admin: 04/02/17 08:27 Dose: 325 mg Furosemide (Lasix -) 40 mg PO DAILY [facility] Last Admin: 04/02/17 09:41 Dose: 40 mg Insulin Aspart (Novolog Vial Sliding Scale -) 1 vial SQ ACHS [facility] PRN Reason: Protocol Last Admin: 04/02/17 12:06 Dose: 2 units Metoprolol Succinate (Toprol Xl -) 25 mg PO BID@18 [facility] Last Admin: 04/02/17 06:47 Dose: 25 mg Ramelteon (Rozerem) 8 mg PO HS [facility] Last Admin: 04/01/17 23:10 Dose: 8 mg Spironolactone (Aldactone -) 25 mg PO TID [facility] Last Admin: 04/02/17 13:07 Dose: 25 mg - Objective Vital Signs: Vital Signs Temperature 97.8 F 04/02/17 10:00 Pulse Rate 61 04/02/17 10:00 Respiratory Rate 20 04/02/17 10:00 Blood Pressure 100/60 04/02/17 10:00 O2 Sat by Pulse Oximetry (%) 96 04/02/17 09:00 Constitutional: Yes: No Distress, Calm Cardiovascular: Yes: Regular Rate and Rhythm, S1, S2 Respiratory: Yes: Regular, CTA Bilaterally, Rales Gastrointestinal: Yes: Normal Bowel Sounds, Soft, Abdomen, Obese, Distention Edema: LLE: 1+, RLE: 1+ Neurological: Yes: Alert, Oriented Labs: CBC, BMP 04/02/17 06:10 04/02/17 06:10 INR, PTT INR 1.39 (0.82-1.09) H 03/26/17 15:30 Problem List - Problems (1) Anemia Code(s): D64.9 - ANEMIA, UNSPECIFIED Qualifiers: Iron deficiency anemia type: chronic blood loss (2) GI bleed Code(s): K92.2 - GASTROINTESTINAL HEMORRHAGE, UNSPECIFIED Qualifiers: GI bleed type/associated pathology: angiodysplasia of stomach and duodenum Qualified Code(s): K31.811 - Angiodysplasia of stomach and duodenum with bleeding (3) Acute renal failure Code(s): N17.9 - ACUTE KIDNEY FAILURE, UNSPECIFIED Qualifiers: Acute renal failure type: unspecified Qualified Code(s): N17.9 - Acute kidney failure, unspecified (4) Liver cirrhosis Code(s): K74.60 - UNSPECIFIED CIRRHOSIS OF LIVER Qualifiers: Hepatic cirrhosis type: alcoholic cirrhosis Ascites presence: with ascites Qualified Code(s): K70.31 - Alcoholic cirrhosis of liver with ascites (5) Ascites Code(s): R18.8 - OTHER ASCITES Qualifiers: Ascites type: other type Qualified Code(s): R18.8 - Other ascites (6) A-fib Code(s): I48.91 - UNSPECIFIED ATRIAL FIBRILLATION Qualifiers: Atrial fibrillation type: paroxysmal Qualified Code(s): I48.0 - Paroxysmal atrial fibrillation (7) Diabetes mellitus Code(s): E11.9 - TYPE 2 DIABETES MELLITUS WITHOUT COMPLICATIONS Qualifiers: Diabetes mellitus type: type 2 Diabetes mellitus complication status: without complication Diabetes mellitus residential insulin use: without terminal worker use Qualified Code(s): E11.9 - Type 2 diabetes mellitus without complications (8) Hypomagnesemia Code(s): E83.42 - HYPOMAGNESEMIA Assessment/Plan s/p PRBC Tx Lasix and Spironolactone were on hold, given ARF; ARF improved. Started on Spironolactone and LAsix. GI and Renal Consult appreciated. Anemia workup in progress. H/H stable today. Monitor H/H, renal function, Mg. AM labs
[2017-04-02] MEDS: ATORVASTATIN CA 20 MG TABLET (FP) PO SCH (21:54)
[2017-04-02] MEDS: RAMELTEON 8 MG TABLET PO SCH (21:59)
[2017-04-03 00:10] LABS: ALPHA-2 FOR UPE 6.9 % (.); BETA FOR UPE 38.9 % (.); GAMMA FOR UPE 48.9 % (.)
[2017-04-03] MEDS: SPIRONOLACTONE 25 MG TABLET (FP) PO SCH ×2 (06:58→13:35)
[2017-04-03] MEDS: INSULIN SLIDING SCALE (NOVOLOG) 1 VIAL SQ SCH ×2 (06:59→11:23)
[2017-04-03] MEDS: METOPROLOL SUCCINATE 25 MG TAB.SR.24H (FP) PO SCH (06:59)
[2017-04-03 08:10] LABS: BASOPHIL 0.9 % (0-2.0); EOSINOPHIL 2.8 % (0-4.5); MCH 23.9 pg (25.7-33.7); MEAN CELL VOLUME 72.6 fl (80-96); MEAN PLT VOLUME 7.7 fl (7.5-11.1); NEUTROPHILS 59.1 % (42.8-82.8); PLATELET COUNT 161 K/MM3 (134-434); RDW 24.3 % (11.9-15.9); WHITE BLOOD COUNT 6.8 K/mm3 (4.0-10.0)
[2017-04-03 08:43] LABS: ANION GAP 9 (8-16); CALCIUM 8.1 mg/dL (8.5-10.1); CO2 24 mmol/L (21-32); GLUCOSE,RANDOM 76 mg/dL (74-106); MAGNESIUM 1.7 mg/dL (1.8-2.4)
[2017-04-03 08:44] LABS: CREATININE 1.3 mg/dL (0.7-1.3); PHOSPHOROUS 3.7 mg/dL (2.5-4.9)
[2017-04-03] MEDS: FERROUS SO4 325 MG TABLET (FP) PO SCH (09:33)
[2017-04-03] MEDS: ASCORBIC ACID 500 MG TABLET (FP) PO SCH (09:34)
[2017-04-03] MEDS: FUROSEMIDE 40 MG TABLET (FP) PO SCH (09:34)
--- NOTE | 2017-04-03 13:27 | DS ---
Physical Examination Vital Signs: Vital Signs Temperature 97.4 F L 04/03/17 10:00 Pulse Rate 61 04/03/17 10:00 Respiratory Rate 18 04/03/17 10:00 Blood Pressure 114/69 04/03/17 10:00 O2 Sat by Pulse Oximetry (%) 96 04/03/17 09:00 Findings/Remarks: Pt w/o bleed, abd pain, SOB, CP, cg. Constitutional: Yes: No Distress, Calm Cardiovascular: Yes: Regular Rate and Rhythm, S1, S2 Respiratory: Yes: Regular, CTA Bilaterally. No: Rales Gastrointestinal: Yes: Normal Bowel Sounds, Soft, Distention Edema: LLE: 1+, RLE: 1+ Neurological: Yes: Alert, Oriented Labs: CBC, BMP 04/03/17 05:40 04/03/17 05:40 Discharge Summary Reason For Visit: HEPATIC CIRRHOSIS; RENAL FAILURE; DEHYDRATION Current Active Problems Acute blood loss anemia (Acute) Acute renal failure (Acute) Dehydration (Acute) Fall (Acute) Generalized muscle weakness (Acute) Generalized weakness (Acute) History of inability to cope with activities of daily living (Acute) Liver cirrhosis (Acute) Renal insufficiency syndrome (Acute) Hospital Course: Pt came to ER after fall and head trauma at home; Head CT scan was negative for acute event. In ER pt was noticed to have low H/H; pt with known recent GIB, s/ p EGD and colonoscopy with bleeding source, recommended outpatient capsule endoscopy but pt didn't follow up with GI. Pt wa admitted, transfused PRBC. Pt was seen by GI (Dr. Montgomery/ Dmit[facility]). Pt was noticed to be in ARF, improved with PRBC, IVF; pt was seen by Renal (Dr. Rausch). Pt improved, stable for DC, needs to follow up with GI as outpatient, [facility]. To DC to Rehab. Condition: Improved - Instructions Diet, Activity, Other Instructions: Low salt, Low Cholesterol. Repeat CBC, BMP on Friday. Referrals: Tarik Sharp MD [Primary Care Provider] - (in 1-2 weeks after DC from Rehab. ) Shahida Andres MD [Staff Physician] - ([facility] after DC from Rehab.) Disposition: HALF-WAY FACILITY - Home Medications Comprehensive Discharge Medication List: Ambulatory Orders This list might NOT be accurate. Ascorbic Acid [Vitamin C -] 500 mg PO DAILY tablet 02/24/17 Atorvastatin Ca [Lipitor] 20 mg PO HS tablet 02/24/17 Ferrous Sulfate [Feosol] 325 mg PO BIDWM #60 tablet 02/24/17 Furosemide [Lasix -] 40 mg PO DAILY tablet 02/24/17 Metoprolol Succinate [Toprol XL -] 25 mg PO BID@ #60 tablet 02/24/17 Spironolactone 50 mg PO DAILY 03/26/17
--- NOTE | 2017-04-03 14:03 | PN ---
Progress Note (short form) - Note Progress Note: Renal Follow up for EMERALD on CKD Pt seen and examined at the bedside no acute complaints for d/c to SNF today good urine production Vital Signs Temperature 97.4 F L 04/03/17 10:00 Pulse Rate 61 04/03/17 10:00 Respiratory Rate 18 04/03/17 10:00 Blood Pressure 114/69 04/03/17 10:00 O2 Sat by Pulse Oximetry (%) 96 04/03/17 09:00 Intake & Output 03/31/17 04/01/17 04/02/17 04/03/17 23:59 23:59 23:59 23:59 Intake Total 1150 900 800 100 Output Total 167 060 7942 500 Balance 600 0 -1000 -400 Weight 174 lb 8 oz 174 lb 7 oz 171 lb 8 oz 169 lb 3 oz Gen: NAD CVS: RRR Lungs: CTA Abd: soft NT/ND Ext: No edema CBC, BMP 04/03/17 05:40 04/03/17 05:40 Laboratory Tests 04/01/17 04/03/17 06:20 05:40 Calcium 8.1 L 8.1 L Phosphorus 3.7 D Magnesium 1.5 L 1.7 L Current Medications Acetaminophen (Tylenol -) 650 mg PO Q12H PRN PRN Reason: FEVER OR PAIN Ascorbic Acid (Vitamin C -) 500 mg PO DAILY [facility] Last Admin: 04/03/17 09:34 Dose: 500 mg Atorvastatin Calcium (Lipitor -) 20 mg PO HS [facility] Last Admin: 04/02/17 21:54 Dose: 20 mg Ferrous Sulfate (Feosol -) 325 mg PO BIDWM [facility] Last Admin: 04/03/17 09:33 Dose: 325 mg Furosemide (Lasix -) 40 mg PO DAILY [facility] Last Admin: 04/03/17 09:34 Dose: 40 mg Insulin Aspart (Novolog Vial Sliding Scale -) 1 vial SQ ACHS [facility] PRN Reason: Protocol Last Admin: 04/03/17 11:23 Dose: 4 units Magnesium Sulfate (Magnesium Sulfate) 2 gm IVPB ONCE ONE Stop: 04/03/17 14:02 Metoprolol Succinate (Toprol Xl -) 25 mg PO BID@,18 [facility] Last Admin: 04/03/17 06:59 Dose: 25 mg Ramelteon (Rozerem) 8 mg PO HS [facility] Last Admin: 04/02/17 21:59 Dose: 8 mg Spironolactone (Aldactone -) 25 mg PO TID [facility] Last Admin: 04/03/17 13:35 Dose: 25 mg A/P 81 year old gentleman with PMhx of Afib, DM with diabetic neuropathy, BOH, Hypertension, hyperlipidemia who presented s/p mechanical fall at home with weakness and found to have acute on chronic anemia with EMERALD with of 2 on presentation. #Acute kidney injury due to renal hypoperfusion in setting of Anemia Renal function is improved and stable please monitor renal function and electrolytes at least once a week as outpatient for the time being #Acute on Chronic Anemia s/p prbc transfusion #Ascities On lasix 40mg Daily and Aldactone 25mg TID continue to titrate as needed check daily weights #Hypertension/Afib continue Metoprolol #Hypomagnesemia Give Mg sulfate 2g IV today trend mg levels as outpatient may need oral repletion Thank you Will follow Problem List - Problems (1) Acute renal failure Code(s): N17.9 - ACUTE KIDNEY FAILURE, UNSPECIFIED Qualifiers: Acute renal failure type: unspecified Qualified Code(s): N17.9 - Acute kidney failure, unspecified (2) Fall Code(s): W19.XXXA - UNSPECIFIED FALL, INITIAL ENCOUNTER (3) Acute blood loss anemia Code(s): D62 - ACUTE POSTHEMORRHAGIC ANEMIA (4) A-fib Code(s): I48.91 - UNSPECIFIED ATRIAL FIBRILLATION Qualifiers: Atrial fibrillation type: paroxysmal Qualified Code(s): I48.0 - Paroxysmal atrial fibrillation (5) Angiodysplasia of colon without bleeding Code(s): K55.20 - ANGIODYSPLASIA OF COLON WITHOUT HEMORRHAGE
[2017-04-03] MEDS ORDERED: MAGNESIUM SULF 50% (8.12 MEQ/2 ML-1 GM VIAL) IVPB ONE (14:25)
[2017-04-03 14:45] VITALS: BP 115/69; PULSE 72; TEMP 97.5
== END 2017-04-03 16:58 | DRG 683 ==
LOC: JER 13:54 → JERBED 16:53 → J5S 18:05
PROVIDERS: ADMIT Specialist; ATTEND Specialist
PROC: 30233N1 Transfusion of Nonautologous Red Blood Cells into Peripheral Vein, Percutaneous Approach (ICD-10-PCS; principal; 2017-03-27)
DX: N17.9 Acute kidney failure, unspecified (principal); D62 Acute posthemorrhagic anemia; K92.2 Gastrointestinal hemorrhage, unspecified; B15.9 Hepatitis A without hepatic coma; R18.8 Other ascites; D64.9 Anemia, unspecified; K31.819 Angiodysplasia of stomach and duodenum without bleeding; K70.31 Alcoholic cirrhosis of liver with ascites; I48.0 Paroxysmal atrial fibrillation; E11.42 Type 2 diabetes mellitus with diabetic polyneuropathy; I25.10 Atherosclerotic heart disease of native coronary artery without angina pectoris; E78.5 Hyperlipidemia, unspecified; E83.42 Hypomagnesemia; E86.0 Dehydration; N40.0 Benign prostatic hyperplasia without lower urinary tract symptoms; M54.5 Low back pain; I12.9 Hypertensive chronic kidney disease with stage 1 through stage 4 chronic kidney disease, or unspecified chronic kidney disease; E11.22 Type 2 diabetes mellitus with diabetic chronic kidney disease; N18.9 Chronic kidney disease, unspecified; K44.9 Diaphragmatic hernia without obstruction or gangrene; K64.8 Other hemorrhoids; R60.0 Localized edema; K57.90 Diverticulosis of intestine, part unspecified, without perforation or abscess without bleeding; I45.19 Other right bundle-branch block; Z79.01 Long term (current) use of anticoagulants; Z95.5 Presence of coronary angioplasty implant and graft; Z87.891 Personal history of nicotine dependence
CPT/HCPCS: 36415; 36430; 70450-TC; 71010-TC; 74020-TC; 80048; 80053; 80076; 81003; 81015; 82105; 82140; 82272; 82550; 82570; 83010; 83516; 83605; 83615; 83735; 83874; 84100; 84155; 84156; 84165; 84166; 84300; 84484; 85025; 85027; 85044; 85610; 86038; 86850; 86900; 86901; 86922; 93005; 93010; 93306-TC; 93975; 97116-GP; 97161-GP; 99283-25; P9038; P9058

== ENCOUNTER 2017-05-01 17:43 | Inpatient (IN) | payer OTHER ==
--- NOTE | 2017-05-01 18:17 | HP ---
Admitting History and Physical - Primary Care Physician PCP: Alejandrina Sharp S - Admission Chief Complaint: low H&H, low BP History of Present Illness: 81M sent from rehab [place] for evaluation of anemia. Hgb was around 6 and BP borderline low in [facility]. There has been no overt bleeding / melena reported. He had EGD/Colonoscopy 02/[address] Andres that revealed a small ectasia in the 2nd portion of duodenum as well as small ectasias in the cecum of the colon. A capsule endoscopy was advised at that time however it has not been performed as of yet. Iron studies were noted to be elevated at that time. He has a history of thalassemia. He was admitted 03/24 for evaluation of anemia, evaluated by Dr. Andres and noted to be tracely guaiac positive without overt bleeding. He felt that the tracely guaiac positive stool did not explain the degree of anemia. He currently denies any focal complaints. He does have known ascites / cirrhosis suspected to be from alcohol abuse. He also has h/o ASHD CHF AFib not on AC b/o GI bleed. History Source: Patient, Medical Record, Transfer Record Limitations to Obtaining History: No Limitations - Past Medical History Cardiovascular: Yes: AFIB, CAD, CHF, MS Gastrointestinal: Yes: GI Bleed, Other (liver cirrhosis) Heme/Onc: Yes: Anemia - Smoking History Smoking history: Never smoked - Alcohol/Substance Use Hx Alcohol Use: No History of Substance Use: reports: None - Social History Usual Living Arrangement: Yes: [facility]pc ADL: Independent History of Recent Travel: No Home Medications - Allergies Allergies/Adverse Reactions: Allergies Allergy/AdvReac Type Severity Reaction Status Date / Time No Known Allergies Allergy Verified 02/12/17 19:31 - Home Medications Home Medications: Ambulatory Orders Ascorbic Acid [Vitamin C -] 500 mg PO DAILY tablet 02/24/17 Atorvastatin Ca [Lipitor] 20 mg PO HS tablet 02/24/17 Ferrous Sulfate [Feosol] 325 mg PO BIDWM #60 tablet 02/24/17 Furosemide [Lasix -] 40 mg PO DAILY tablet 02/24/17 Metoprolol Succinate [Toprol XL -] 25 mg PO BID@ #60 tablet 02/24/17 Spironolactone 50 mg PO DAILY 03/26/17 Acetaminophen [Tylenol .Regular Strength -] 650 mg PO Q12H PRN #0 tablet Insulin Sliding Scale [Novolog Vial Sliding Scale -] 1 vial SQ ACHS units 04/03 Ramelteon [Rozerem] 8 mg PO HS tablet 04/03/17 Spironolactone [Aldactone -] 25 mg PO TID tablet 04/03/17 Ascorbic Acid [Vitamin C] 500 mg PO DAILY 05/01/17 Atorvastatin Calcium 20 mg PO HS 05/01/17 Docusate Sodium 300 mg PO HS 05/01/17 Ferrous Sulfate 325 mg PO BID 05/01/17 Furosemide [Lasix -] 40 mg PO DAILY 05/01/17 Metoprolol Tartrate 25 mg PO BID 05/01/17 Multivitamins [Tab-A-Vit -] 1 tab PO DAILY 05/01/17 Polyethylene Glycol 3350 [Miralax (For Daily Use) -] 17 gm PO DAILY 05/01/17 Ramelteon [Rozerem] 8 mg PO HS 05/01/17 Sennosides [Senna] 2 tab PO DAILY 05/01/17 Spironolactone 25 mg PO TID 05/01/17 Family Disease History - Family Disease History Family History: Unremarkable Review of Systems - Review of Systems Constitutional: denies: Chills, Fever Eyes: denies: Blurred Vision, Double Vision HENT: reports: Epistaxis. denies: Ear Pain Neck: denies: Tenderness Cardiovascular: denies: Chest Pain, Shortness of Breath Respiratory: denies: Cough, SOB Gastrointestinal: reports: Other (ascites). denies: Abdominal Pain, Constipation, Diarrhea, Vomiting Genitourinary: denies: Dysuria, Flank Pain Musculoskeletal: denies: Back Pain, Extremity Pain Integumentary: denies: Bruising, Rash Neurological: reports: Unsteady Gait. denies: Confusion, Seizure, Syncope Hematology/Lymphatic: denies: Easily Bruised, Excessive Bleeding Psychiatric: denies: Anxiety, Depression, Suicidal Physical Examination Vital Signs: Vital Signs Temperature 98 F 05/01/17 18:01 Pulse Rate 76 05/01/17 18:01 Respiratory Rate 18 05/01/17 18:01 Blood Pressure 116/62 05/01/17 18:01 O2 Sat by Pulse Oximetry (%) Constitutional: Yes: No Distress, Calm Eyes: Yes: Conjunctiva Clear HENT: Yes: Atraumatic Neck: Yes: Supple Cardiovascular: No: Regular Rate and Rhythm Respiratory: Yes: Diminished Gastrointestinal: Yes: Soft, Ascites, Distention. No: Tenderness Renal/: No: CVA Tenderness - Left, CVA Tenderness - Right, Hematuria Musculoskeletal: No: Back Pain, Joint Stiffness Extremities: No: Calf Tenderness, Cold, Cool Edema: Yes (2-3+ pretibial bilateral ) Integumentary: No: Pressure Ulcer, Rash Neurological: Yes: WNL, Alert, Oriented ...Motor Strength: WNL Psychiatric: Yes: WNL, Alert, Oriented. No: Agitated, Suicidal Ideation Imaging - Results Chest X-ray: Report Reviewed Other: Report Reviewed Assessment/Plan 81M sent from /[place] for evaluation of anemia. Hgb was around 6. There has been no overt bleeding / melena reported.h/o small ectasia in the 2nd portion of duodenum as well as small ectasias in the cecum of the colon. A capsule endoscopy was advised at that time however it has not been performed as of yet. He does have known ascites / cirrhosis suspected to be from alcohol abuse. H/o ASHD AFib CHF, not on AC b/o GIB anemia admit, transfuse PRBC f/u labs GI and heme eval; further w/u per them. falls decubs DVT gastric PFX prognosis guarded capsule endoscopy outpt per GI
[2017-05-01 18:59] LABS: BASOPHIL 2.6 % (0-2.0); EOSINOPHIL 1.9 % (0-4.5); MCH 22.1 pg (25.7-33.7); MCHC 32.2 g/dl (32.0-35.9); MEAN CELL VOLUME 68.6 fl (80-96); MEAN PLT VOLUME 7.4 fl (7.5-11.1); NEUTROPHILS 71.4 % (42.8-82.8); PLATELET COUNT 245 K/MM3 (134-434); RDW 21.4 % (11.9-15.9); WHITE BLOOD COUNT 7.9 K/mm3 (4.0-10.0)
[2017-05-01 19:13] LABS: INR 1.51 (0.82-1.09); PROTHROMBIN TIME (PATIENT) 16.7 SEC (9.98-11.88)
[2017-05-01 19:15] LABS: ACTIVATED PTT 33.7 SECONDS (26.9-34.4)
[2017-05-01 19:27] LABS: ANISOCYTOSIS 2+; MICROCYTOSIS 1+; PLATELET ESTIMATE ADEQUATE (NORMAL)
[2017-05-01 19:28] LABS: HYPOCHROMIA 1+
--- NOTE | 2017-05-01 19:29 | PDOC ---
History of Present Illness <Vanda Taveras - Last Filed: 05/01/17 19:29> - General History Source: Patient Exam Limitations: No Limitations - History of Present Illness Initial Comments: 05/01/17 19:36 The patient is a 81 year old male with a significant past medical history of anemia, prior GI bleed, afib, hyperlipidemia, diabetes mellitus, hypertension, chronic kidney disease, liver cirrhosis, who presents to the emergency department from [facility] after the staff noticed a progressively decreasing hemoglobin (6.8). The patient reports shortness of breath with exertion. He denies chest pain. He denies melena. He denies any recent fevers, chills, headache or dizziness. He denies any recent nausea, vomit , diarrhea or constipation. Allergies: NKA Primary Care Physician: Dr. Alejandrina Beltre <Gareth Akins - Last Filed: 05/01/17 19:51> - General Chief Complaint: Revisit, Lab Variance Stated Complaint: ABNORMAL LABS Time Seen by Provider: 05/01/17 18:36 Past History - Past Medical History Anemia: Yes Cardiac Disorders: Yes Diabetes: Yes GI Disorders: Yes (gi bleed) Disorders: Yes HTN: Yes Liver Disease: Yes (cirrhosis) - Psycho/Social/Smoking Cessation Hx Suicidal Ideation: No Smoking History: Never smoked Information on smoking cessation initiated: No Hx Alcohol Use: No Drug/Substance Use Hx: No Substance Use Type: None <Vanda Taveras - Last Filed: 05/01/17 19:29> <Gareth Akins - Last Filed: 05/01/17 19:51> - Past Medical History Allergies/Adverse Reactions: Allergies Allergy/AdvReac Type Severity Reaction Status Date / Time No Known Allergies Allergy Verified 05/01/17 18:05 Home Medications: Ambulatory Orders Ascorbic Acid [Vitamin C] 500 mg PO DAILY 05/01/17 Atorvastatin Calcium 20 mg PO HS 05/01/17 Docusate Sodium 300 mg PO HS 05/01/17 Ferrous Sulfate 325 mg PO BID 05/01/17 Furosemide [Lasix -] 40 mg PO DAILY 05/01/17 Metoprolol Tartrate 25 mg PO BID 05/01/17 Multivitamins [Tab-A-Vit -] 1 tab PO DAILY 05/01/17 Polyethylene Glycol 3350 [Miralax (For Daily Use) -] 17 gm PO DAILY 05/01/17 Ramelteon [Rozerem] 8 mg PO HS 05/01/17 Sennosides [Senna] 2 tab PO DAILY 05/01/17 Spironolactone 25 mg PO TID 05/01/17 Review of Systems - Review of Systems Comments:: 05/01/17 19:36 GENERAL/CONSTITUTIONAL: No fever or chills. No weakness. HEAD, EYES, EARS, NOSE AND THROAT: No change in vision. No ear pain or discharge. No sore throat. CARDIOVASCULAR: +Shortness of breath with exertion. No chest pain. RESPIRATORY: No cough, wheezing, or hemoptysis. GASTROINTESTINAL: No nausea, vomiting, diarrhea or constipation. GENITOURINARY: No dysuria, frequency, or change in urination. MUSCULOSKELETAL: No joint or muscle swelling or pain. No neck or back pain. SKIN: No rash NEUROLOGIC: No headache, vertigo, loss of consciousness, or change in strength/ sensation. ENDOCRINE: No increased thirst. No abnormal weight change. HEMATOLOGIC/LYMPHATIC: No anemia, easy bleeding, or history of blood clots. ALLERGIC/IMMUNOLOGIC: No hives or skin allergy. <Gareth Akins - Last Filed: 05/01/17 19:51> *Physical Exam - Vital Signs Last Vital Signs Temp Pulse Resp BP Pulse Ox 98 F 76 18 116/62 92 L 05/01/17 18:01 05/01/17 18:01 05/01/17 18:01 05/01/17 18:01 05/01/17 18:20 <Vanda Taveras - Last Filed: 05/01/17 19:29> - Vital Signs Last Vital Signs Temp Pulse Resp BP Pulse Ox 98 F 76 18 116/62 92 L 05/01/17 18:01 05/01/17 18:01 05/01/17 18:01 05/01/17 18:01 05/01/17 18:20 - Physical Exam Comments: 05/01/17 19:36 GENERAL: Awake, alert and oriented x3, in no acute distress HEAD: No signs of trauma EYES: +Pale conjunctiva. PERRLA, EOMI, sclera anicteric ENT: Auricles normal inspection, nares patent, oropharynx clear without exudates. Moist mucosa NECK: Normal ROM, supple, no lymphadenopathy, JVD, or masses LUNGS: Breath sounds equal, clear to auscultation bilaterally. No wheezes, and no crackles HEART: Regular rate and rhythm, normal S1 and S2, no murmurs, rubs or gallops ABDOMEN: +Abdomen distended. Soft, nontender, normoactive bowel sounds. No guarding, no rebound. No masses EXTREMITIES: Normal range of motion, no edema. No clubbing or cyanosis. No cords, erythema, or tenderness NEUROLOGICAL: Cranial nerves II through XII grossly intact. Normal speech. SKIN: +Pallor. Warm, Dry, no rashes or lesions noted. 05/01/17 19:50 <Gareth Akins - Last Filed: 05/01/17 19:51> ED Treatment Course - LABORATORY CBC & Chemistry Diagram: 05/01/17 18:56 05/01/17 18:56 - ADDITIONAL ORDERS Additional order review: Laboratory Results 05/01/17 18:56 INR 1.51 H PTT (Actin FS) 33.7 05/01/17 18:56 RBC 3.41 L MCV 68.6 L MCHC 32.2 RDW 21.4 H MPV 7.4 L Neutrophils % 71.4 Lymphocytes % 12.1 Monocytes % 12.0 H Eosinophils % 1.9 Basophils % 2.6 H <Vanda Taveras - Last Filed: 05/01/17 19:29> - LABORATORY CBC & Chemistry Diagram: 05/01/17 18:56 05/01/17 18:56 - ADDITIONAL ORDERS Additional order review: Laboratory Results 05/01/17 18:56 INR 1.51 H PTT (Actin FS) 33.7 05/01/17 18:56 RBC 3.41 L MCV 68.6 L MCHC 32.2 RDW 21.4 H MPV 7.4 L Neutrophils % 71.4 Lymphocytes % 12.1 Monocytes % 12.0 H Eosinophils % 1.9 Basophils % 2.6 H <Gareth Akins - Last Filed: 05/01/17 19:51> Medical Decision Making - Medical Decision Making 05/01/17 19:27 81 yo male coming from [facility] here for concerns for GI bleed, has had slowly decreasing hgb. today was 6.5 denies melena. but does have exertional dyspena, no cp no sob currently. no other complaints. sent for transfusions. plan cbc lytes type and scrrren. transfuse as necessary ekg. will admit to dr. beltre, here to see pt in ed. <Vanda Taveras - Last Filed: 05/01/17 19:29> *DC/Admit/Observation/Transfer - Discharge Dispostion Admit: Yes <Vanda Taveras - Last Filed: 05/01/17 19:29> - Attestations Scribe Attestion: 05/01/17 19:38 Documentation prepared by Gareth Akins, acting as ophthalmic medical assistant for Vanda Taveras MD. <Gareth Akins - Last Filed: 05/01/17 19:51> Diagnosis at time of Disposition: Anemia - Referrals Referrals: Alejandrina Beltre [Primary Care Provider] -
[2017-05-01 19:37] LABS: ALBUMIN 1.7 g/dl (3.4-5.0); ALK PHOS 209 U/L (45-117); ANION GAP 9 (8-16); BILIRUBIN,TOTAL 1.4 mg/dL (0.2-1.0); CALCIUM 7.9 mg/dL (8.5-10.1); CO2 23 mmol/L (21-32); CREATININE 1.6 mg/dL (0.7-1.3); GLUCOSE,RANDOM 184 mg/dL (74-106); SGOT/AST 29 U/L (15-37); SGPT/ALT 19 U/L (12-78); TOT PROT 7.1 g/dl (6.4-8.2)
[2017-05-01] MEDS ORDERED: RAMELTEON 8 MG TABLET PO PRN (21:59)
[2017-05-01] MEDS: DOCUSATE SODIUM 100 MG CAPSULE (FP) PO SCH ×2 (22:30→22:51)
[2017-05-01] MEDS: ATORVASTATIN CA 20 MG TABLET (FP) PO SCH (22:51)
[2017-05-01] MEDS: METOPROLOL TARTRATE 25 MG TABLET (FP) PO SCH (22:51)
[2017-05-01] MEDS: FERROUS SO4 325 MG TABLET (FP) PO SCH (22:52)
[2017-05-01] MEDS: SPIRONOLACTONE 25 MG TABLET (FP) PO SCH (22:52)
[2017-05-02 00:09] VITALS: BMI 24.4
[2017-05-02] MEDS: INSULIN SLIDING SCALE (NOVOLOG) 1 VIAL SQ SCH ×4 (06:29→22:20)
[2017-05-02] MEDS: SPIRONOLACTONE 25 MG TABLET (FP) PO SCH ×3 (06:31→22:20)
[2017-05-02 07:25] LABS: BASOPHIL 0.9 % (0-2.0); EOSINOPHIL 2.8 % (0-4.5); MCH 23.1 pg (25.7-33.7); MCHC 32.8 g/dl (32.0-35.9); MEAN CELL VOLUME 70.6 fl (80-96); MEAN PLT VOLUME 7.8 fl (7.5-11.1); NEUTROPHILS 62.2 % (42.8-82.8); PLATELET COUNT 195 K/MM3 (134-434); RDW 24.4 % (11.9-15.9); WHITE BLOOD COUNT 7.6 K/mm3 (4.0-10.0)
[2017-05-02 07:57] LABS: ANION GAP 8 (8-16); CALCIUM 7.9 mg/dL (8.5-10.1); CO2 25 mmol/L (21-32); GLUCOSE,RANDOM 120 mg/dL (74-106)
[2017-05-02 07:58] LABS: CREATININE 1.5 mg/dL (0.7-1.3)
[2017-05-02] MEDS: FERROUS SO4 325 MG TABLET (FP) PO SCH ×2 (09:20→22:19)
[2017-05-02] MEDS: SENNOSIDES 8.6MG TABLET (FP) PO SCH (09:20)
[2017-05-02] MEDS: MULTIVITAMINS (DAILY MVI) TABLET (FP) PO SCH (09:20)
[2017-05-02] MEDS: ASCORBIC ACID 500 MG TABLET (FP) PO SCH (09:20)
[2017-05-02] MEDS: POLYETHYLENE GLYCOL 3350 119 GM BTL PO SCH ×2 (09:21→09:27)
[2017-05-02] MEDS: FUROSEMIDE 40 MG TABLET (FP) PO SCH (10:18)
[2017-05-02] MEDS: METOPROLOL TARTRATE 25 MG TABLET (FP) PO SCH ×2 (10:18→22:19)
--- NOTE | 2017-05-02 10:32 | CON.GI ---
Consult Consult Specialty:: GI - For Dr. Andres Referred by:: Dr. Alejandrina Sharp Reason for Consultation:: Anemia - History of Present Illness Chief Complaint: I was sent from [facility] because I was anemic History of Present Illness: 81M sent from [place] for evaluation of anemia. Hgb was around 6. There has been no overt bleeding / melena reported. He had EGD/Colonoscopy 02/[address] Andres that revealed a small ectasia in the 2nd portion of duodenum as well as small ectasias in the cecum of the colon. A capsule endoscopy was advised at that time however it has not been performed as of yet. Iron studies were noted to be elevated at that time. He has a history of thalassemia. He was admitted 03/24 for evaluation of anemia, evaluated by Dr. Andres and noted to be tracely guaiac positive without overt bleeding. He felt that the tracely guaiac positive stool did not explain the degree of anemia. He currently denies any focal complaints. He does have known ascites / cirrhosis suspected to be from alcohol abuse. He received 1 U PRBC since admission. - Past Medical History Cardio/Vascular: Yes: AFIB (off Coumadin secondary to GIB, pending capsule endoscopy), CAD, HTN, Hyperlipdemia Pulmonary: Yes: Other (seasonal allergies not on treatment) Gastrointestinal: Yes: Ascites (Had parecentesis last visit), Diverticulosis, Hemorrhoids, Hiatal Hernia, Other (Vascular ectasias ) Hepatobiliary: Yes: Cirrhosis (with sequela of ascites), Cholelithiasis, Hepatitis A (IgG Antibody +) Renal/: Yes: Renal Inusuff (CKD), BPH Musculoskeletal: Yes: Chronic low back pain Endocrine: Yes: Diabetes Mellitus (controlled on diet) - Past Surgical History Past Surgical History: Yes: None, Cataract Removal - Alcohol/Substance Use Hx Alcohol Use: Yes (heavily in past) History of Substance Use: reports: None - Smoking History Smoking history: Former smoker Have you smoked in the past 12 months: No Aproximately how many cigarettes per day: 0 If you are a former smoker, when did you quit?: 1990 - Social History Usual Living Arrangement: Alone ADL: Support Services Occupation: retired from [employer] Place of : [facility] History of Recent Travel: No Home Medications - Allergies Allergies/Adverse Reactions: Allergies Allergy/AdvReac Type Severity Reaction Status Date / Time No Known Allergies Allergy Verified 02/12/17 19:31 - Home Medications Home Medications: Ambulatory Orders Ascorbic Acid [Vitamin C -] 500 mg PO DAILY tablet 02/24/17 Atorvastatin Ca [Lipitor] 20 mg PO HS tablet 02/24/17 Ferrous Sulfate [Feosol] 325 mg PO BIDWM #60 tablet 02/24/17 Furosemide [Lasix -] 40 mg PO DAILY tablet 02/24/17 Metoprolol Succinate [Toprol XL -] 25 mg PO BID@ #60 tablet 02/24/17 Spironolactone 50 mg PO DAILY 03/26/17 Acetaminophen [Tylenol .Regular Strength -] 650 mg PO Q12H PRN #0 tablet Insulin Sliding Scale [Novolog Vial Sliding Scale -] 1 vial SQ ACHS units 04/03 Ramelteon [Rozerem] 8 mg PO HS tablet 04/03/17 Spironolactone [Aldactone -] 25 mg PO TID tablet 04/03/17 Ascorbic Acid [Vitamin C] 500 mg PO DAILY 05/01/17 Atorvastatin Calcium 20 mg PO HS 05/01/17 Docusate Sodium 300 mg PO HS 05/01/17 Ferrous Sulfate 325 mg PO BID 05/01/17 Furosemide [Lasix -] 40 mg PO DAILY 05/01/17 Metoprolol Tartrate 25 mg PO BID 05/01/17 Multivitamins [Tab-A-Vit -] 1 tab PO DAILY 05/01/17 Polyethylene Glycol 3350 [Miralax (For Daily Use) -] 17 gm PO DAILY 05/01/17 Ramelteon [Rozerem] 8 mg PO HS 05/01/17 Sennosides [Senna] 2 tab PO DAILY 05/01/17 Spironolactone 25 mg PO TID 05/01/17 Family Disease History - Family Disease History Family Disease History: Other: Father (did not know his biological father), Mother (: 80 [place]), Daughter (healthy) Review of Systems - Review of Systems Constitutional: denies: Chills, Unintentional Wgt. Loss Cardiovascular: denies: Chest Pain, Shortness of Breath Respiratory: denies: Cough Gastrointestinal: reports: Bloating, Constipation. denies: Abdominal Pain, Melena, Rectal Bleeding, Vomiting Physical Exam-GI Vital Signs: Vital Signs Temperature 98.2 F 05/02/17 09:22 Pulse Rate 74 05/02/17 09:22 Respiratory Rate 18 05/02/17 09:22 Blood Pressure 96/45 05/02/17 09:22 O2 Sat by Pulse Oximetry (%) 98 05/01/17 23:00 Constitutional: Yes: Calm Eyes: No: Sclera Icterus Cardiovascular: Yes: Regular Rate and Rhythm Respiratory: Yes: CTA Bilaterally Gastrointestinal Inspection: Yes: Distention (+ Ascites / + fluid wave) ...Auscultate: Yes: Normoactive Bowel Sounds ...Palpate: Yes: Soft. No: Hepatomegaly, Splenomegaly, Tenderness ...Percussion: No: Tympanitic ...Rectal Exam: Yes: Guaiac Negative (light brown stool, 2+ prostate) Edema: Yes Edema: LLE: 2+ (1+ thigh), RLE: 2+ (1+ thigh) Neurological: Yes: Alert, Oriented. No: Asterixis Labs: CBC, BMP 05/02/17 06:00 05/02/17 06:00 INR, PTT INR 1.51 (0.82-1.09) H 05/01/17 18:56 Hepatic Panel Total Bilirubin 1.4 mg/dL (0.2-1.0) H 05/01/17 18:56 AST 29 U/L (15-37) 05/01/17 18:56 ALT 19 U/L (12-78) 05/01/17 18:56 Alkaline Phosphatase 209 U/L (45-117) H 05/01/17 18:56 Albumin 1.7 g/dl (3.4-5.0) L 05/01/17 18:56 Problem List - Problems (1) Microcytic anemia Assessment/Plan: Guaiac negative on exam with overt history of GI bleeding Likely multifactorial including chronic disease, thalassemia and likely blood loss from small bowel vascular ectasias in the setting of coagulopathy No acute GI interventions planned at this time. Outpatient capsule endoscopy still advised for further evaluation of the intestinal tract Awaiting hematology evaluation. Mr. Loera is on iron as an outpatient however iron studies were elevated in initial studies from 02/22 with normal ferritin. Code(s): D50.9 - IRON DEFICIENCY ANEMIA, UNSPECIFIED (2) Ascites Assessment/Plan: When BP permited and while monitoring of Creatinine, aldactone can be increased to 50mg PO BID Renal f/u of elevated Cr. Unclear baseline Minimize sodium containing medications Changed to diabetic sodium restricted diet Code(s): R18.8 - OTHER ASCITES Qualifiers: Ascites type: due to alcoholic cirrhosis Qualified Code(s): K70.31 - Alcoholic cirrhosis of liver with ascites
[2017-05-02] MEDS ORDERED: PT OWN MED DRAWER 7, Y5N ONE (11:36)
[2017-05-02] MEDS ORDERED: INSULIN (NOVOLOG) ASPART 100 UNITS/ML 10ML VIAL ONE ×2 (11:37→20:57)
--- NOTE | 2017-05-02 12:28 | EKG ---
Test Reason : Blood Pressure : / mmHG Vent. Rate : 074 BPM Atrial Rate : 074 BPM P-R Int : 158 ms QRS Dur : 106 ms QT Int : 370 ms P-R-T Axes : 000 -56 141 degrees QTc Int : 410 ms POOR DATA QUALITY, INTERPRETATION MAY BE ADVERSELY AFFECTED SINUS RHYTHM WITH PREMATURE SUPRAVENTRICULAR COMPLEXES INCOMPLETE RIGHT BUNDLE BRANCH BLOCK POOR R WAVE PROGRESSION LEFT ANTERIOR FASCICULAR BLOCK SEPTAL INFARCT , AGE UNDETERMINED ABNORMAL ECG NO PREVIOUS ECGS AVAILABLE Confirmed by MD ISAÍAS, JAVY ([id number]) on 05/02/2017 12:28:37 PM Referred By: Confirmed By:JAVY METZ MD
--- NOTE | 2017-05-02 13:22 | PN ---
Progress Note, Physician History of Present Illness: Pt w/o dizziness, lightheadedness, CP, palpitations, visual changes. Pt w/o abd pain, N, V, blood in stool. - Current Medication List Current Medications: Active Medications Ascorbic Acid (Vitamin C -) 500 mg PO DAILY [facility] Last Admin: 05/02/17 09:20 Dose: 500 mg Atorvastatin Calcium (Lipitor -) 20 mg PO HS [facility] Last Admin: 05/01/17 22:51 Dose: 20 mg Docusate Sodium (Colace -) 300 mg PO HS [facility] Last Admin: 05/01/17 22:30 Dose: Not Given Ferrous Sulfate (Feosol -) 325 mg PO BID [facility] Last Admin: 05/02/17 09:20 Dose: 325 mg Furosemide (Lasix -) 40 mg PO DAILY [facility] Last Admin: 05/02/17 10:18 Dose: Not Given Insulin Aspart (Novolog Vial Sliding Scale -) 1 vial SQ ACHS [facility] PRN Reason: Protocol Last Admin: 05/02/17 11:38 Dose: 2 units Metoprolol Tartrate (Lopressor -) 25 mg PO BID [facility] Last Admin: 05/02/17 10:18 Dose: Not Given Multivitamins/Minerals/Vitamin C (Tab-A-Vit -) 1 tab PO DAILY [facility] Last Admin: 05/02/17 09:20 Dose: 1 tab Polyethylene Glycol (Miralax (For Daily Use) -) 17 gm PO DAILY [facility] Last Admin: 05/02/17 09:27 Dose: Not Given Ramelteon (Rozerem) 8 mg PO HS PRN PRN Reason: INSOMNIA Senna (Senna -) 2 tab PO DAILY [facility] Last Admin: 05/02/17 09:20 Dose: 2 tab Spironolactone (Aldactone -) 25 mg PO TID [facility] Last Admin: 05/02/17 13:07 Dose: Not Given - Objective Vital Signs: Vital Signs Temperature 98.2 F 05/02/17 09:22 Pulse Rate 74 05/02/17 09:22 Respiratory Rate 18 05/02/17 09:22 Blood Pressure 96/45 05/02/17 09:22 O2 Sat by Pulse Oximetry (%) 98 05/01/17 23:00 Constitutional: Yes: No Distress, Calm Cardiovascular: Yes: Regular Rate and Rhythm, S1, S2 Respiratory: Yes: Regular, CTA Bilaterally, Rales, Other (coarsee BS at bases) Gastrointestinal: Yes: Normal Bowel Sounds, Soft, Ascites, Distention Edema: LLE: 1+, RLE: 1+ Neurological: Yes: Alert, Oriented Labs: CBC, BMP 05/02/17 06:00 05/02/17 06:00 INR, PTT INR 1.51 (0.82-1.09) H 05/01/17 18:56 Problem List - Problems (1) Microcytic anemia Code(s): D50.9 - IRON DEFICIENCY ANEMIA, UNSPECIFIED (2) A-fib Code(s): I48.91 - UNSPECIFIED ATRIAL FIBRILLATION Qualifiers: Atrial fibrillation type: paroxysmal Qualified Code(s): I48.0 - Paroxysmal atrial fibrillation (3) Diabetes mellitus Code(s): E11.9 - TYPE 2 DIABETES MELLITUS WITHOUT COMPLICATIONS Qualifiers: Diabetes mellitus type: type 2 Diabetes mellitus complication status: without complication Diabetes mellitus tank terminal gauger insulin use: without tank terminal gauger use Qualified Code(s): E11.9 - Type 2 diabetes mellitus without complications (4) Chronic renal disease Code(s): N18.9 - CHRONIC KIDNEY DISEASE, UNSPECIFIED (5) Vascular ectasia of duodenum Code(s): K31.89 - OTHER DISEASES OF STOMACH AND DUODENUM (6) Liver cirrhosis Code(s): K74.60 - UNSPECIFIED CIRRHOSIS OF LIVER Qualifiers: Hepatic cirrhosis type: alcoholic cirrhosis Ascites presence: with ascites Qualified Code(s): K70.31 - Alcoholic cirrhosis of liver with ascites (7) Ascites Code(s): R18.8 - OTHER ASCITES Qualifiers: Ascites type: due to alcoholic cirrhosis Qualified Code(s): K70.31 - Alcoholic cirrhosis of liver with ascites Assessment/Plan Transfuse PRBC (this would be 2-nd unit) Monitor H/H GI consult appreciated OOBTC AM labs
--- NOTE | 2017-05-02 14:42 | CONSULT ---
Consult - text type - Consultation Consultation Note: 81M sent [place] for evaluation of anemia. Hgb was around 6. There has been no overt bleeding / melena reported. He had EGD/Colonoscopy 02/[address] Andres that revealed a small ectasia in the 2nd portion of duodenum as well as small ectasias in the cecum of the colon. - Past Medical History Cardio/Vascular: Yes: AFIB (off Coumadin secondary to GIB, pending capsule endoscopy), CAD, HTN, Hyperlipdemia Pulmonary: Yes: Other (seasonal allergies not on treatment) Gastrointestinal: Yes: Ascites (Had parecentesis last visit), Diverticulosis, Hemorrhoids, Hiatal Hernia, Other (Vascular ectasias ) Hepatobiliary: Yes: Cirrhosis (with sequela of ascites), Cholelithiasis, Hepatitis A (IgG Antibody +) Renal/: Yes: Renal Inusuff (CKD), BPH Musculoskeletal: Yes: Chronic low back pain Endocrine: Yes: Diabetes Mellitus (controlled on diet) HTN hypercholesterolemia enlarged prostate kidney stones - Past Surgical History Past Surgical History: Yes: None, Cataract Removal - Alcohol/Substance Use Hx Alcohol Use: Yes (heavily in past) - Smoking History Smoking history: Former smoker - Social History Usual Living Arrangement: Alone ADL: Support Services Occupation: retired from [employer] Place of : [facility] Home Medications - Allergies Allergies/Adverse Reactions: Allergies Allergy/AdvReac Type Severity Reaction Status Date / Time No Known Allergies Allergy Verified 02/12/17 19:31 - Home Medications Home Medications: Ambulatory Orders Ascorbic Acid [Vitamin C -] 500 mg PO DAILY tablet 02/24/17 Atorvastatin Ca [Lipitor] 20 mg PO HS tablet 02/24/17 Ferrous Sulfate [Feosol] 325 mg PO BIDWM #60 tablet 02/24/17 Furosemide [Lasix -] 40 mg PO DAILY tablet 02/24/17 Metoprolol Succinate [Toprol XL -] 25 mg PO BID@ #60 tablet 02/24/17 Spironolactone 50 mg PO DAILY 03/26/17 Acetaminophen [Tylenol .Regular Strength -] 650 mg PO Q12H PRN #0 tablet Insulin Sliding Scale [Novolog Vial Sliding Scale -] 1 vial SQ ACHS units 04/03 Ramelteon [Rozerem] 8 mg PO HS tablet 04/03/17 Spironolactone [Aldactone -] 25 mg PO TID tablet 04/03/17 Ascorbic Acid [Vitamin C] 500 mg PO DAILY 05/01/17 Atorvastatin Calcium 20 mg PO HS 05/01/17 Docusate Sodium 300 mg PO HS 05/01/17 Ferrous Sulfate 325 mg PO BID 05/01/17 Furosemide [Lasix -] 40 mg PO DAILY 05/01/17 Metoprolol Tartrate 25 mg PO BID 05/01/17 Multivitamins [Tab-A-Vit -] 1 tab PO DAILY 05/01/17 Polyethylene Glycol 3350 [Miralax (For Daily Use) -] 17 gm PO DAILY 05/01/17 Ramelteon [Rozerem] 8 mg PO HS 05/01/17 Sennosides [Senna] 2 tab PO DAILY 05/01/17 Spironolactone 25 mg PO TID 05/01/17 Physical Exam-GI Vital Signs: Vital Signs Temperature 98.2 F 05/02/17 09:22 Pulse Rate 74 05/02/17 09:22 Respiratory Rate 18 05/02/17 09:22 Blood Pressure 96/45 05/02/17 09:22 O2 Sat by Pulse Oximetry (%) 98 05/01/17 23:00 Constitutional: Yes: Calm Eyes: No: Sclera Icterus Cardiovascular: Yes: Regular Rate and Rhythm Respiratory: Yes: CTA Bilaterally Gastrointestinal Inspection: Yes: Distention (+ Ascites / + fluid wave) ...Auscultate: Yes: Normoactive Bowel Sounds ...Palpate: Yes: Soft. No: Hepatomegaly, Splenomegaly, Tenderness Edema: Yes Edema: LLE: 2+ (1+ thigh), RLE: 2+ (1+ thigh) Neurological: Yes: Alert, Oriented. No: Asterixis Abnormal Lab Results 05/01/17 05/01/17 05/01/17 18:56 18:56 18:56 RBC 3.41 L Hgb 7.5 L Hct 23.4 L MCV 68.6 L MCH 22.1 L RDW 21.4 H MPV 7.4 L Monocytes % 12.0 H Basophils % 2.6 H INR 1.51 H Sodium 135 L Creatinine 1.6 H Random Glucose 184 H Calcium 7.9 L Total Bilirubin 1.4 H Alkaline Phosphatase 209 H Albumin 1.7 L Crossmatch 05/01/17 05/02/17 05/02/17 18:56 06:00 06:00 RBC 3.41 L Hgb 7.9 L Hct 24.1 L MCV 70.6 L MCH 23.1 L RDW 24.4 H D MPV Monocytes % 15.9 H Basophils % INR Sodium Creatinine 1.5 H Random Glucose 120 H D Calcium 7.9 L Total Bilirubin Alkaline Phosphatase Albumin Crossmatch See Detail Problem List 81 y/o patient with cirrhosis/mildly elevated INR-1.5/nl PTT/nl coags. Anemia--chronic disease + gi losses--small bowel ectasias On ferrous sulfate check B12/folate/TSH ascites management per GI transfuse for Hgb <7
[2017-05-02] MEDS: ATORVASTATIN CA 20 MG TABLET (FP) PO SCH (22:19)
[2017-05-02] MEDS: DOCUSATE SODIUM 100 MG CAPSULE (FP) PO SCH (22:19)
[2017-05-03] MEDS: INSULIN SLIDING SCALE (NOVOLOG) 1 VIAL SQ SCH ×4 (06:26→21:09)
[2017-05-03] MEDS: SPIRONOLACTONE 25 MG TABLET (FP) PO SCH ×3 (06:26→21:09)
[2017-05-03 07:35] LABS: BASOPHIL 0.8 % (0-2.0); EOSINOPHIL 2.6 % (0-4.5); MCH 24.4 pg (25.7-33.7); MEAN CELL VOLUME 71.9 fl (80-96); MEAN PLT VOLUME 7.5 fl (7.5-11.1); NEUTROPHILS 64.8 % (42.8-82.8); PLATELET COUNT 180 K/MM3 (134-434); RDW 25.2 % (11.9-15.9)
[2017-05-03 07:58] LABS: FERRITIN 580.22 ng/ml (16.4-293.9)
[2017-05-03] MEDS: MULTIVITAMINS (DAILY MVI) TABLET (FP) PO SCH (09:08)
[2017-05-03] MEDS: ASCORBIC ACID 500 MG TABLET (FP) PO SCH (09:08)
[2017-05-03] MEDS: FERROUS SO4 325 MG TABLET (FP) PO SCH ×2 (09:08→21:09)
[2017-05-03] MEDS: METOPROLOL TARTRATE 25 MG TABLET (FP) PO SCH ×2 (09:09→21:09)
[2017-05-03] MEDS: FUROSEMIDE 40 MG TABLET (FP) PO SCH (09:09)
[2017-05-03] MEDS: POLYETHYLENE GLYCOL 3350 119 GM BTL PO SCH (10:59)
[2017-05-03] MEDS: SENNOSIDES 8.6MG TABLET (FP) PO SCH (10:59)
[2017-05-03] MEDS ORDERED: INSULIN (NOVOLOG) ASPART 100 UNITS/ML 10ML VIAL ONE (12:19)
[2017-05-03] MEDS ORDERED: DOCUSATE SODIUM 100 MG CAPSULE (FP) PO PRN (13:22)
--- NOTE | 2017-05-03 13:24 | PN ---
Progress Note, Physician History of Present Illness: Pt w/o dizziness, lightheadedness, CP, palpitations, visual changes. Pt w/o abd pain, N, V, blood in stool. Pt with lose stool today - Current Medication List Current Medications: Active Medications Ascorbic Acid (Vitamin C -) 500 mg PO DAILY [facility] Last Admin: 05/03/17 09:08 Dose: 500 mg Atorvastatin Calcium (Lipitor -) 20 mg PO HS [facility] Last Admin: 05/02/17 22:19 Dose: 20 mg Docusate Sodium (Colace -) 300 mg PO HS [facility] Last Admin: 05/02/17 22:19 Dose: Not Given Ferrous Sulfate (Feosol -) 325 mg PO BID [facility] Last Admin: 05/03/17 09:08 Dose: 325 mg Furosemide (Lasix -) 40 mg PO DAILY [facility] Last Admin: 05/03/17 09:09 Dose: 40 mg Insulin Aspart (Novolog Vial Sliding Scale -) 1 vial SQ ACHS [facility] PRN Reason: Protocol Last Admin: 05/03/17 12:23 Dose: 2 units Metoprolol Tartrate (Lopressor -) 25 mg PO BID [facility] Last Admin: 05/03/17 09:09 Dose: 25 mg Multivitamins/Minerals/Vitamin C (Tab-A-Vit -) 1 tab PO DAILY [facility] Last Admin: 05/03/17 09:08 Dose: 1 tab Polyethylene Glycol (Miralax (For Daily Use) -) 17 gm PO DAILY [facility] Last Admin: 05/03/17 10:59 Dose: Not Given Ramelteon (Rozerem) 8 mg PO HS PRN PRN Reason: INSOMNIA Senna (Senna -) 2 tab PO DAILY [facility] Last Admin: 05/03/17 10:59 Dose: Not Given Spironolactone (Aldactone -) 25 mg PO TID [facility] Last Admin: 05/03/17 06:26 Dose: 25 mg - Objective Vital Signs: Vital Signs Temperature 99.2 F 05/03/17 10:00 Pulse Rate 101 H 05/03/17 10:00 Respiratory Rate 20 05/03/17 10:00 Blood Pressure 127/69 05/03/17 10:00 O2 Sat by Pulse Oximetry (%) 97 05/03/17 09:00 Constitutional: Yes: No Distress, Calm Cardiovascular: Yes: Regular Rate and Rhythm, S1, S2 Respiratory: Yes: Regular, CTA Bilaterally Gastrointestinal: Yes: Normal Bowel Sounds, Soft, Ascites, Distention Edema: LLE: 2+, RLE: 2+ Neurological: Yes: Alert, Oriented Labs: CBC, BMP 05/03/17 06:00 05/02/17 06:00 INR, PTT INR 1.51 (0.82-1.09) H 05/01/17 18:56 Problem List - Problems (1) Microcytic anemia Code(s): D50.9 - IRON DEFICIENCY ANEMIA, UNSPECIFIED (2) A-fib Code(s): I48.91 - UNSPECIFIED ATRIAL FIBRILLATION Qualifiers: Atrial fibrillation type: paroxysmal Qualified Code(s): I48.0 - Paroxysmal atrial fibrillation (3) Diabetes mellitus Code(s): E11.9 - TYPE 2 DIABETES MELLITUS WITHOUT COMPLICATIONS Qualifiers: Diabetes mellitus type: type 2 Diabetes mellitus complication status: without complication Diabetes mellitus fdc insulin use: without long term care pharmacist use Qualified Code(s): E11.9 - Type 2 diabetes mellitus without complications (4) Chronic renal disease Code(s): N18.9 - CHRONIC KIDNEY DISEASE, UNSPECIFIED (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 Monitor H/H GI consult appreciated OOBTC Colace and Miralax were changed to PRN AM labs
[2017-05-03] MEDS ORDERED: POLYETHYLENE GLYCOL 3350 119 GM BTL PO PRN (13:31)
[2017-05-03] MEDS: ATORVASTATIN CA 20 MG TABLET (FP) PO SCH (21:09)
[2017-05-04] MEDS: SPIRONOLACTONE 25 MG TABLET (FP) PO SCH ×3 (06:06→21:22)
[2017-05-04] MEDS: INSULIN SLIDING SCALE (NOVOLOG) 1 VIAL SQ SCH ×4 (06:08→21:21)
[2017-05-04 06:41] LABS: HEMATOCRIT 23.2 % (37.5-51.0)
[2017-05-04 08:26] LABS: ANION GAP 7 (8-16); CALCIUM 7.8 mg/dL (8.5-10.1); CO2 27 mmol/L (21-32); CREATININE 1.4 mg/dL (0.7-1.3); GLUCOSE,RANDOM 79 mg/dL (74-106)
[2017-05-04 10:07] LABS: SERUM IRON 111 ug/dL (38-169); TOTAL IRON BINDING CAPACITY < 128 ug/dL (250-450); UIBC < 17 ug/dL (111-343)
[2017-05-04] MEDS: METOPROLOL TARTRATE 25 MG TABLET (FP) PO SCH ×2 (10:47→23:59)
[2017-05-04] MEDS: FUROSEMIDE 40 MG TABLET (FP) PO SCH (10:47)
[2017-05-04] MEDS: ASCORBIC ACID 500 MG TABLET (FP) PO SCH (10:47)
[2017-05-04] MEDS: FERROUS SO4 325 MG TABLET (FP) PO SCH ×2 (10:47→21:22)
[2017-05-04] MEDS: MULTIVITAMINS (DAILY MVI) TABLET (FP) PO SCH (10:47)
[2017-05-04 11:44] LABS: MCHC 33.2 g/dl (32.0-35.9); MEAN CELL VOLUME 72.1 fl (80-96); MEAN PLT VOLUME 7.7 fl (7.5-11.1); PLATELET COUNT 188 K/MM3 (134-434); RDW 25.4 % (11.9-15.9); WHITE BLOOD COUNT 7.9 K/mm3 (4.0-10.0)
[2017-05-04] MEDS: SENNOSIDES 8.6MG TABLET (FP) PO SCH (11:52)
--- NOTE | 2017-05-04 13:11 | PN ---
Progress Note, Physician History of Present Illness: Pt w/o dizziness, lightheadedness, CP, palpitations, visual changes. Pt w/o abd pain, N, V, blood in stool. Pt with lose stool yesterday, today just one BM - Current Medication List Current Medications: Active Medications Ascorbic Acid (Vitamin C -) 500 mg PO DAILY [facility] Last Admin: 05/04/17 10:47 Dose: 500 mg Atorvastatin Calcium (Lipitor -) 20 mg PO HS [facility] Last Admin: 05/03/17 21:09 Dose: 20 mg Docusate Sodium (Colace -) 300 mg PO HS PRN PRN Reason: CONSTIPATION Ferrous Sulfate (Feosol -) 325 mg PO BID [facility] Last Admin: 05/04/17 10:47 Dose: 325 mg Furosemide (Lasix -) 40 mg PO DAILY [facility] Last Admin: 05/04/17 10:47 Dose: 40 mg Insulin Aspart (Novolog Vial Sliding Scale -) 1 vial SQ ACHS [facility] PRN Reason: Protocol Last Admin: 05/04/17 11:52 Dose: Not Given Metoprolol Tartrate (Lopressor -) 25 mg PO BID [facility] Last Admin: 05/04/17 10:47 Dose: Not Given Multivitamins/Minerals/Vitamin C (Tab-A-Vit -) 1 tab PO DAILY [facility] Last Admin: 05/04/17 10:47 Dose: 1 tab Polyethylene Glycol (Miralax (For Daily Use) -) 17 gm PO DAILY PRN PRN Reason: CONSTIPATION Ramelteon (Rozerem) 8 mg PO HS PRN PRN Reason: INSOMNIA Senna (Senna -) 2 tab PO DAILY [facility] Last Admin: 05/04/17 11:52 Dose: Not Given Spironolactone (Aldactone -) 25 mg PO TID [facility] Last Admin: 05/04/17 06:06 Dose: 25 mg - Objective Vital Signs: Vital Signs Temperature 98.7 F 05/04/17 10:00 Pulse Rate 73 05/04/17 10:00 Respiratory Rate 20 05/04/17 10:00 Blood Pressure 110/60 05/04/17 10:00 O2 Sat by Pulse Oximetry (%) 96 05/04/17 09:00 Constitutional: Yes: No Distress, Calm Cardiovascular: Yes: Regular Rate and Rhythm Respiratory: Yes: Regular, CTA Bilaterally Gastrointestinal: Yes: Normal Bowel Sounds, Soft, Ascites, Distention Edema: LLE: 1+, RLE: 1+ Neurological: Yes: Alert, Oriented Labs: CBC, BMP 05/04/17 06:00 05/04/17 06:00 INR, PTT INR 1.51 (0.82-1.09) H 05/01/17 18:56 Problem List - Problems (1) Microcytic anemia Code(s): D50.9 - IRON DEFICIENCY ANEMIA, UNSPECIFIED (2) A-fib Code(s): I48.91 - UNSPECIFIED ATRIAL FIBRILLATION Qualifiers: Atrial fibrillation type: paroxysmal Qualified Code(s): I48.0 - Paroxysmal atrial fibrillation (3) Diabetes mellitus Code(s): E11.9 - TYPE 2 DIABETES MELLITUS WITHOUT COMPLICATIONS Qualifiers: Diabetes mellitus type: type 2 Diabetes mellitus complication status: without complication Diabetes mellitus termite control representative insulin use: without [place] [facility] use Qualified Code(s): E11.9 - Type 2 diabetes mellitus without complications (4) Chronic renal disease Code(s): N18.9 - CHRONIC KIDNEY DISEASE, UNSPECIFIED (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 Monitor H/H GI consult appreciated Heme consult appreciated SBP is low normal (pt on Spironolactone 6 AM/ 2 PM/ 10 PM, Lasix at 10 AM); Metoprolol was held this AM OOBTC Colace and Miralax were changed to PRN AM labs
[2017-05-04] MEDS: ATORVASTATIN CA 20 MG TABLET (FP) PO SCH (21:22)
[2017-05-05] MEDS: SPIRONOLACTONE 25 MG TABLET (FP) PO SCH ×3 (06:05→23:06)
[2017-05-05 07:35] LABS: MCH 24.1 pg (25.7-33.7); MCHC 33.3 g/dl (32.0-35.9); MEAN CELL VOLUME 72.4 fl (80-96); MEAN PLT VOLUME 7.5 fl (7.5-11.1); PLATELET COUNT 182 K/MM3 (134-434); RDW 25.9 % (11.9-15.9); WHITE BLOOD COUNT 7.6 K/mm3 (4.0-10.0)
[2017-05-05 07:54] LABS: ANION GAP 9 (8-16); CALCIUM 8.1 mg/dL (8.5-10.1); CO2 25 mmol/L (21-32); CREATININE 1.4 mg/dL (0.7-1.3); GLUCOSE,RANDOM 103 mg/dL (74-106)
[2017-05-05] MEDS: INSULIN SLIDING SCALE (NOVOLOG) 1 VIAL SQ SCH ×4 (08:14→23:06)
[2017-05-05] MEDS: FUROSEMIDE 40 MG TABLET (FP) PO SCH (10:12)
[2017-05-05] MEDS: METOPROLOL TARTRATE 25 MG TABLET (FP) PO SCH ×4 (10:12→23:11)
[2017-05-05] MEDS: MULTIVITAMINS (DAILY MVI) TABLET (FP) PO SCH (10:12)
[2017-05-05] MEDS: FERROUS SO4 325 MG TABLET (FP) PO SCH ×2 (10:13→23:05)
[2017-05-05] MEDS: SENNOSIDES 8.6MG TABLET (FP) PO SCH ×2 (10:13→10:22)
[2017-05-05] MEDS: ASCORBIC ACID 500 MG TABLET (FP) PO SCH (10:13)
[2017-05-05] MEDS ORDERED: INSULIN (NOVOLOG) ASPART 100 UNITS/ML 10ML VIAL ONE (11:29)
--- NOTE | 2017-05-05 18:05 | PN ---
Progress Note, Physician History of Present Illness: Pt w/o dizziness, lightheadedness, CP, palpitations, visual changes. Pt w/o abd pain, N, V, blood in stool. Pt states that he just walk up today when PT came to walk him. Now pt is sitting in the chair. - Current Medication List Current Medications: Active Medications Ascorbic Acid (Vitamin C -) 500 mg PO DAILY [facility] Last Admin: 05/05/17 10:13 Dose: 500 mg Atorvastatin Calcium (Lipitor -) 20 mg PO HS [facility] Last Admin: 05/04/17 21:22 Dose: 20 mg Docusate Sodium (Colace -) 300 mg PO HS PRN PRN Reason: CONSTIPATION Ferrous Sulfate (Feosol -) 325 mg PO BID [facility] Last Admin: 05/05/17 10:13 Dose: 325 mg Furosemide (Lasix -) 40 mg PO DAILY [facility] Last Admin: 05/05/17 10:12 Dose: 40 mg Insulin Aspart (Novolog Vial Sliding Scale -) 1 vial SQ ACHS [facility] PRN Reason: Protocol Last Admin: 05/05/17 17:19 Dose: Not Given Metoprolol Tartrate (Lopressor -) 25 mg PO BID [facility] Last Admin: 05/05/17 12:24 Dose: 25 mg Multivitamins/Minerals/Vitamin C (Tab-A-Vit -) 1 tab PO DAILY [facility] Last Admin: 05/05/17 10:12 Dose: 1 tab Polyethylene Glycol (Miralax (For Daily Use) -) 17 gm PO DAILY PRN PRN Reason: CONSTIPATION Ramelteon (Rozerem) 8 mg PO HS PRN PRN Reason: INSOMNIA Senna (Senna -) 2 tab PO DAILY [facility] Last Admin: 05/05/17 10:22 Dose: Not Given Spironolactone (Aldactone -) 25 mg PO TID [facility] Last Admin: 05/05/17 14:59 Dose: 25 mg - Objective Vital Signs: Vital Signs Temperature 98.2 F 05/05/17 13:52 Pulse Rate 77 05/05/17 13:52 Respiratory Rate 18 05/05/17 13:52 Blood Pressure 113/61 05/05/17 15:02 O2 Sat by Pulse Oximetry (%) 98 05/05/17 09:00 Constitutional: Yes: No Distress, Calm Cardiovascular: Yes: Regular Rate and Rhythm, S1, S2 Respiratory: Yes: Regular, Other (coarse BS bilat.) Gastrointestinal: Yes: Normal Bowel Sounds, Soft, Distention Edema: Yes Edema: LLE: 2+, RLE: 2+ Neurological: Yes: Alert, Oriented Labs: CBC, BMP 05/05/17 06:30 05/05/17 06:30 INR, PTT INR 1.51 (0.82-1.09) H 05/01/17 18:56 Problem List - Problems (1) Microcytic anemia Code(s): D50.9 - IRON DEFICIENCY ANEMIA, UNSPECIFIED (2) A-fib Code(s): I48.91 - UNSPECIFIED ATRIAL FIBRILLATION Qualifiers: Atrial fibrillation type: paroxysmal Qualified Code(s): I48.0 - Paroxysmal atrial fibrillation (3) Diabetes mellitus Code(s): E11.9 - TYPE 2 DIABETES MELLITUS WITHOUT COMPLICATIONS Qualifiers: Diabetes mellitus type: type 2 Diabetes mellitus complication status: without complication Diabetes mellitus continuous churn buttermaker insulin use: without [facility] use Qualified Code(s): E11.9 - Type 2 diabetes mellitus without complications (4) Chronic renal disease Code(s): N18.9 - CHRONIC KIDNEY DISEASE, UNSPECIFIED (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 Monitor H/H GI consult appreciated Heme consult appreciated SBP is low normal (pt on Spironolactone 6 AM/ 2 PM/ 10 PM, Lasix at 10 AM). OOBTC Colace and Miralax were changed to PRN PT DC planing (Rehab vs home)
[2017-05-05] MEDS: ATORVASTATIN CA 20 MG TABLET (FP) PO SCH (23:05)
[2017-05-06] MEDS: SPIRONOLACTONE 25 MG TABLET (FP) PO SCH ×2 (06:22→13:56)
[2017-05-06] MEDS: INSULIN SLIDING SCALE (NOVOLOG) 1 VIAL SQ SCH ×2 (06:22→12:07)
[2017-05-06] MEDS: FERROUS SO4 325 MG TABLET (FP) PO SCH (11:07)
[2017-05-06] MEDS: METOPROLOL TARTRATE 25 MG TABLET (FP) PO SCH (11:07)
[2017-05-06] MEDS: SENNOSIDES 8.6MG TABLET (FP) PO SCH (11:07)
[2017-05-06] MEDS: ASCORBIC ACID 500 MG TABLET (FP) PO SCH (11:07)
[2017-05-06] MEDS: FUROSEMIDE 40 MG TABLET (FP) PO SCH (11:07)
[2017-05-06] MEDS: MULTIVITAMINS (DAILY MVI) TABLET (FP) PO SCH (11:08)
--- NOTE | 2017-05-06 12:28 | DS ---
Physical Examination Vital Signs: Vital Signs Temperature 98 F 05/06/17 11:10 Pulse Rate 73 05/06/17 11:10 Respiratory Rate 18 05/06/17 11:10 Blood Pressure 113/73 05/06/17 11:10 O2 Sat by Pulse Oximetry (%) 98 05/05/17 21:00 Findings/Remarks: Pt w/o SOB, CP, palp, abd pain, [place] this AM with PT Constitutional: Yes: No Distress Cardiovascular: Yes: Regular Rate and Rhythm, S1, S2 Respiratory: Yes: Regular, CTA Bilaterally, Rales Gastrointestinal: Yes: Normal Bowel Sounds, Soft, Ascites, Distention Edema: Yes Edema: LLE: 2+, RLE: 2+ Neurological: Yes: Alert, Oriented Labs: CBC, BMP 05/05/17 06:30 05/05/17 06:30 Discharge Summary Reason For Visit: ANEMIA Current Active Problems Chronic renal disease (Acute) Microcytic anemia (Acute) Vascular ectasia of duodenum (Acute) Hospital Course: 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 Pt to be Dc'ed today; he needs follow up CBC. Condition: Fair - Instructions Diet, Activity, Other Instructions: Diet: ADA, low salt, low cholesterol. Repeat CBC next week Pt needs capsule endoscopy as outpatient (with Dr. Andres/ Ruddy). Referrals: Alejandrina Sharp [Primary Care Provider] - Tarik Sharp MD [Staff Physician] - (in 1-2 weeks) Shahida Andres MD [Staff Physician] - (within a week from discharge) Disposition: [facility] - Home Medications Comprehensive Discharge Medication List: Ambulatory Orders this list might NOT be accurate Ascorbic Acid [Vitamin C -] 500 mg PO DAILY tablet 02/24/17 Atorvastatin Ca [Lipitor] 20 mg PO HS tablet 02/24/17 Ferrous Sulfate [Feosol] 325 mg PO BIDWM #60 tablet 02/24/17 Furosemide [Lasix -] 40 mg PO DAILY tablet 02/24/17 Metoprolol Succinate [Toprol XL -] 25 mg PO BID@ #60 tablet 02/24/17 Spironolactone 50 mg PO DAILY 03/26/17 Acetaminophen [Tylenol .Regular Strength -] 650 mg PO Q12H PRN #0 tablet Insulin Sliding Scale [Novolog Vial Sliding Scale -] 1 vial SQ ACHS units 04/03 Ramelteon [Rozerem] 8 mg PO HS tablet 04/03/17 Spironolactone [Aldactone -] 25 mg PO TID tablet 04/03/17 Ascorbic Acid [Vitamin C] 500 mg PO DAILY 05/01/17 Atorvastatin Calcium 20 mg PO HS 05/01/17 Docusate Sodium 300 mg PO HS 05/01/17 Ferrous Sulfate 325 mg PO BID 05/01/17 Furosemide [Lasix -] 40 mg PO DAILY 05/01/17 Metoprolol Tartrate 25 mg PO BID 05/01/17 Multivitamins [Tab-A-Vit -] 1 tab PO DAILY 05/01/17 Polyethylene Glycol 3350 [Miralax (For Daily Use) -] 17 gm PO DAILY 05/01/17 Ramelteon [Rozerem] 8 mg PO HS 05/01/17 Sennosides [Senna] 2 tab PO DAILY 05/01/17 Spironolactone 25 mg PO TID 05/01/17
[2017-05-06 13:52] VITALS: BP 113/72; PULSE 71; TEMP 97.4
== END 2017-05-06 14:36 | DRG 812 ==
LOC: JER 17:43 → MERGE 19:30 → JERBED 19:30 → J7W 20:51
PROVIDERS: ADMIT Internal Medicine; ATTEND Internal Medicine
PROC: 30233N1 Transfusion of Nonautologous Red Blood Cells into Peripheral Vein, Percutaneous Approach (ICD-10-PCS; principal; 2017-05-02)
DX: D50.9 Iron deficiency anemia, unspecified (principal); B15.9 Hepatitis A without hepatic coma; K31.819 Angiodysplasia of stomach and duodenum without bleeding; I25.10 Atherosclerotic heart disease of native coronary artery without angina pectoris; I25.2 Old myocardial infarction; I12.9 Hypertensive chronic kidney disease with stage 1 through stage 4 chronic kidney disease, or unspecified chronic kidney disease; E11.22 Type 2 diabetes mellitus with diabetic chronic kidney disease; N18.9 Chronic kidney disease, unspecified; E78.5 Hyperlipidemia, unspecified; K57.90 Diverticulosis of intestine, part unspecified, without perforation or abscess without bleeding; K44.9 Diaphragmatic hernia without obstruction or gangrene; K64.8 Other hemorrhoids; N40.0 Benign prostatic hyperplasia without lower urinary tract symptoms; M54.5 Low back pain; K70.31 Alcoholic cirrhosis of liver with ascites; I48.0 Paroxysmal atrial fibrillation; D63.8 Anemia in other chronic diseases classified elsewhere; D56.8 Other thalassemias; Z87.891 Personal history of nicotine dependence
CPT/HCPCS: 36415; 36430; 80048; 80053; 82272; 82607; 82728; 82747; 83540; 83550; 85014; 85025; 85027; 85610; 85730; 86850; 86900; 86901; 86922; 93005; 93010; 97116-GP; 97161-GP; 99282-25; P9038; P9058